=== PATIENT | male | born 1940 | race Caucasian/White ===

== ENCOUNTER → 2019-02-19 06:55 | Outpatient (CLI) | payer MEDICARE, BC, SELFPAY ==
[2019-02-19 09:36] LABS: BUN Creatinine Ratio 16.2 (6-22); Blood Urea Nitrogen 21 mg/dL (9-20); Calcium 9.1 mg/dL (8.4-10.2); Carbon Dioxide 28 mmol/L (22-32); Chloride 103 mmol/L (98-107); Estimated Glomerular Filt Rate 53.3 mL/min (>60); Glucose 102 mg/dL (80-110); HEMOLYSIS < 15 (0-50); Sodium 138 mmol/L (137-145)
== END ==
PROVIDERS: Visit Provider Internal Medicine
DX: I10 Essential (primary) hypertension (principal)
CPT/HCPCS: 36415; 80048

== ENCOUNTER → 2019-03-27 07:54 | Outpatient (CLI) | payer MEDICARE, BC, SELFPAY ==
[2019-03-30 14:32] LABS: Rubeola Measles IgG > 300.00 AU/mL (< 25.00)
== END ==
PROVIDERS: PCP Internal Medicine; Visit Provider Internal Medicine
DX: Z01.84 Encounter for antibody response examination (principal)
CPT/HCPCS: 36415; 86735; 86762; 86765

== ENCOUNTER → 2019-05-27 10:58 | Outpatient (CLI) | payer MEDICARE, BC, SELFPAY ==
--- NOTE | 2019-05-27 | DI.US.S_ITS ---
PROCEDURE: US RENAL COMPLETE INDICATIONS: CKD, UNSPECIFIED TECHNIQUE: Real-time scanning was performed of the kidneys and bladder, with image documentation. COMPARISON: [facility], , RENAL COMPLETE, 02/22/2013, 8:59. FINDINGS: Kidneys: Right kidney surgically absent. Left kidney normal in size measuring 13.3 cm with normal renal cortical thickness of 1.4 cm. No hydronephrosis, nephrolithiasis or mass. Bladder: Pre-void bladder volume is 93 mL. Post-void residual is 102 mL. Pre-void images demonstrate no intraluminal masses or stones. On pre-void images, left ureteral jets are noted with color Doppler interrogation. (Of note, ureteral jets may not be detectable in up to 25% of cases due to insufficient differences in specific gravity between ureteral and bladder urine). Miscellaneous: No free pelvic fluid. IMPRESSION: Normal appearance of the solitary left kidney. Dictated by: Hammad ALVARENGA Interpreted: Jose Gerber MD on 05/27/2019 at 12:48 Approved by: Jose Gerber M.D. on 05/27/2019 at 15:34
== END ==
PROVIDERS: PCP Internal Medicine; Visit Provider Internal Medicine
DX: N18.9 Chronic kidney disease, unspecified (principal); Z90.5 Acquired absence of kidney
CPT/HCPCS: 76770

== ENCOUNTER → 2020-08-16 18:39 | Outpatient (ROUT) | payer MEDICARE, BC, SELFPAY ==
[2020-08-16 19:13] LABS: Aspartate Aminotransferase 32 IU/L (17-59); BUN Creatinine Ratio 19.7 (6-22); Blood Urea Nitrogen 26 mg/dL (9-20); Calcium 8.8 mg/dL (8.4-10.2); Carbon Dioxide 26 mmol/L (22-32); Chloride 106 mmol/L (98-107); Cholesterol 209 mg/dL (140-199); Estimated Glomerular Filt Rate 52.2 mL/min (>60); Glucose 122 mg/dL (80-110); HDL Cholesterol 55 mg/dL (40-60); HEMOLYSIS < 15 (0-50); LDL Cholesterol Calculated 120 mg/dL (<100); Potassium 4.4 mmol/L (3.4-5.1); Sodium 138 mmol/L (137-145); Triglycerides 172 mg/dL (35-150)
== END ==
PROVIDERS: PCP Internal Medicine; Visit Provider Internal Medicine
DX: I10 Essential (primary) hypertension (principal); E78.2 Mixed hyperlipidemia
CPT/HCPCS: 80048; 80061; 84450

== ENCOUNTER → 2020-09-11 09:43 | Outpatient (CLI) | payer MEDICARE, BC, SELFPAY ==
[2020-09-11 12:06] LABS: Prostate Specific Antigen 1.73 ng/mL (0.10-4.00)
== END ==
PROVIDERS: PCP Internal Medicine; Referring Provider Specialist; Visit Provider Specialist
DX: R97.20 Elevated prostate specific antigen [PSA] (principal); N40.1 Benign prostatic hyperplasia with lower urinary tract symptoms; N13.8 Other obstructive and reflux uropathy; Q54.0 Hypospadias, balanic
CPT/HCPCS: 36415; 51798; 81002; 84153; 99214

== ENCOUNTER → 2020-10-19 07:01 | Outpatient (CLI) | payer MEDICARE, BC, SELFPAY ==
[2020-10-19 09:07] LABS: BUN Creatinine Ratio 20.6 (6-22); Blood Urea Nitrogen 28 mg/dL (9-20); Calcium 9.2 mg/dL (8.4-10.2); Carbon Dioxide 29 mmol/L (22-32); Chloride 107 mmol/L (98-107); Estimated Glomerular Filt Rate 50.4 mL/min (>60); Glucose 127 mg/dL (80-110); HEMOLYSIS < 15 (0-50); Potassium 4.8 mmol/L (3.4-5.1); Sodium 140 mmol/L (137-145)
== END ==
PROVIDERS: PCP Internal Medicine; Referring Provider Specialist; Visit Provider Internal Medicine Gastroenterology
DX: Z86.010 Personal history of colon polyps (principal); K22.70 Barrett's esophagus without dysplasia; N18.9 Chronic kidney disease, unspecified
CPT/HCPCS: 36415; 80048

== ENCOUNTER → 2020-12-13 15:52 | Outpatient (CLI) | payer MEDICARE, BC, SELFPAY ==
[2020-12-13] MEDS: COVID-19 VACC #1, MRNA(MOD) 100 MCG/0.5 ML VIAL IM (15:57)
== END ==
PROVIDERS: PCP Internal Medicine; Visit Provider Internal Medicine
DX: Z23 Encounter for immunization (principal)
CPT/HCPCS: 0011A; 91301

== ENCOUNTER → 2021-01-02 10:09 | Outpatient (CLI) | payer MEDICARE, BC, SELFPAY ==
[2021-01-02 11:08] LABS: BUN Creatinine Ratio 15.2 (6-22); Blood Urea Nitrogen 21 mg/dL (9-20); Calcium 8.9 mg/dL (8.4-10.2); Carbon Dioxide 30 mmol/L (22-32); Chloride 104 mmol/L (98-107); Estimated Glomerular Filt Rate 49.5 mL/min (>60); Glucose 104 mg/dL (80-110); HEMOLYSIS < 15 (0-50); Potassium 3.9 mmol/L (3.4-5.1); Sodium 139 mmol/L (137-145)
== END ==
PROVIDERS: PCP Internal Medicine; Referring Provider Internal Medicine Gastroenterology; Visit Provider Internal Medicine Gastroenterology
DX: N18.9 Chronic kidney disease, unspecified (principal)
CPT/HCPCS: 36415; 80048

== ENCOUNTER → 2021-01-10 15:02 | Outpatient (CLI) | payer MEDICARE, BC, SELFPAY ==
[2021-01-10] MEDS: COVID-19 VACC #2, MRNA(MOD) 100 MCG/0.5 ML VIAL IM (15:09)
== END ==
PROVIDERS: PCP Internal Medicine; Visit Provider Internal Medicine
DX: Z23 Encounter for immunization (principal)
CPT/HCPCS: 0012A; 91301

== ENCOUNTER 2021-01-14 08:06 | Inpatient (IN) | payer MEDICARE, BC, SELFPAY ==
[2021-01-14] VITALS (16 sets, daily range): BP systolic 125–156; BP diastolic 63–85; PULSE 73–100; RESP 16–22; TEMP 36.4–37.9; O2SAT 93–98; BMI 23.6
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
[2021-01-14 08:45] LABS: Add Manual Diff / Slide Review NO; Basophils Absolute Auto 100 /uL (0-100); Basophils Percent Auto 0.3 % (0-2); Eosinophils Absolute Auto 200 /uL (0-450); Eosinophils Percent Auto 1.2 % (2-4); Hematocrit 42.8 % (41-53); Hemoglobin 14.4 g/dL (13.5-17.5); Lymphocytes Absolute Auto 1800 /uL (1100-4500); Lymphocytes Percent Auto 10.7 % (25-40); Mean Corpuscular HGB Conc 33.7 % (30-36); Mean Corpuscular Hemoglobin 31.8 PG (26-34); Mean Corpuscular Volume 94.2 fL (80-100); Monocytes Absolute Auto 2100 /uL (0-900); Monocytes Percent Auto 12.5 % (3-14); Neutrophils Absolute Auto 12400 /uL (1500-7000); Neutrophils Percent Auto 75.3 % (50-75); Platelet Count 296 X10^3/uL (150-400); Red Blood Cell Count 4.54 X10^6/uL (4.5-5.9); Red Cell Distribution Width 12.9 % (11.6-14.8); White Blood Cell Count 16.4 X10^3/uL (4.5-11.0)
[2021-01-14] MEDS: SODIUM CHLORIDE 0.9% 1,000 ML 150 ML IV ×3 (08:45→21:46)
[2021-01-14 08:53] LABS: Alanine Aminotransferase 174 IU/L (<50); Albumin 4.1 g/dL (3.5-5.0); Albumin Globulin Ratio 1.1 (1.0-2.8); Alkaline Phosphatase 198 U/L (38-126); Aspartate Aminotransferase 55 IU/L (17-59); BUN Creatinine Ratio 17.4 (6-22); Bilirubin Total 2.4 mg/dL (0.2-1.3); Blood Urea Nitrogen 20 mg/dL (9-20); Calcium 8.9 mg/dL (8.4-10.2); Carbon Dioxide 23 mmol/L (22-32); Chloride 94 mmol/L (98-107); Estimated Glomerular Filt Rate > 60.0 mL/min (>60); Globulin 3.9 g/dL (1.7-4.1); Glucose 140 mg/dL (80-110); HEMOLYSIS 15 (0-50); Lactate (Lactic Acid) 1.1 mmol/L (0.7-2.1); Lipase 573 U/L (23-300); Potassium 3.6 mmol/L (3.4-5.1); Sodium 127 mmol/L (137-145)
--- NOTE | 2021-01-14 09:25 | DI.US.S_ITS ---
PROCEDURE: US ABDOMEN LIMITED INDICATIONS: RUQ PAIN TECHNIQUE: Real-time scanning was performed of the abdominal and retroperitoneal organs, with image documentation. COMPARISON: None. FINDINGS: Liver: Liver is normal in size and homogeneous in echotexture. Gallbladder: Demonstrates focal wall thickening measuring 3.9 mm. No calculi nor sludge. Negative sonographic Ramires's. Biliary ducts: Intrahepatic bile ducts are non-dilated. Extrahepatic bile duct caliber measures 5 mm. Normal is 6-7 mm or less in diameter, or 10 mm or less post-cholecystectomy. Pancreas: Not well seen secondary to bowel gas. IMPRESSION: Mild focal thickening of the gallbladder wall without positive sonographic Ramires sign. Findings may indicate mild/early cholecystitis. Close clinical follow-up with repeat imaging if clinically warranted is recommended for further assessment. Dictated by: Gemma Shah M.D. on 01/14/2021 at 9:58 Approved by: Gemma Shah M.D. on 01/14/2021 at 10:00
[2021-01-14 10:23] LABS: RBC Urine 1-5/HPF (0-5/HPF); WBC Urine 1-5/HPF (0-5/HPF)
[2021-01-14 10:24] LABS: Bacteria Urine Moderate (10-30); Culture Indicated Urine Specimen Cultured; Granular Casts Urine 0-1/LPF; Hyaline Casts Urine 1-5/LPF; Mucus Urine 3+ (Negative); Squamous Epithelial Cell Urine 0-1 /HPF (0-5/HPF)
[2021-01-14 11:55] LABS: COVID19 -Nasal RAPID Negative (Negative)
--- NOTE | 2021-01-14 13:47 | P.HP_ITS ---
History of Present Illness History of Present Illness Date Patient Seen: 01/14/21 Chief complaint: BOWEL BLOCKAGE, 3RD TIME IN 1 MONTH Narrative: the patient is an 80-year-old male with a history of frequent small bowel obstructions, hypertension, hyperlipidemia, Webster's esophagitis who was in his usual state of health until . Patient reports he received COVID vaccine on Friday and starting on developed some mid epigastric pain. He describes having multiple episodes of mid epigastric pain that would typically resolve within 1 day. His midepigastric pain on was severe. Did not seem to improved. Was unrelated to eating. He had nausea but no emes is. He describes having some dry heaves. He had no fever or chills. No hematemesis melena or bright red blood per rectum. The patient denies being short of breath, he denies any chest pain, he has no dysuria hematuria or pyuria. Patient presented to the emergency room as he was concerned he had a recurrent small-bowel obstruction. In the emergency room he was evaluated with CT scan and laboratory studies. His lipase was elevated at 580, [place] [address]. [address] scan of the abdomen and pelvis confirmed acute pancreatitis. The patient underwent an abdominal ultrasound which showed a thickening of the gallbladder. Dr. Perry from surgery was consulted and it was felt that there was no surgical indication at this time. In the patient is admitted to the hospital for treatment of acute pancreatitis. Patient History Medical History BPH w urinary obs/LUTS GERD (gastroesophageal reflux disease) Glanular hypospadias Surgical History H/O breast biopsy H/O prostate biopsy H/O vasectomy History of nephrectomy Hx of circumcision Family & Social History Family History Brother Age: 79 Heart disease Social History: household members spouse Prior Living Arrangements House Safety & Behavioral: Feels Safe in Current Yes Environment Been Physically Hurt or No Threatened By a Person Suicidal Ideation Description None Suicide Plan Description No Plan Tobacco & Substance use: Smoking Status Former smoker alcohol intake current alcohol intake frequency 0-2 drinks per day Substance Use Type does not use Meds Home Medications and Allergies Home Medications Medication Instructions Recorded Confirmed Type triamcinolone acetonide 2 - 4 yanni TOPICAL Q DAY PRN PRN #0 10/05/17 01/14/21 History lansoprazole 30 mg PO BID #90 cap 10/08/17 01/14/21 Rx lisinopril-hydrochlorothiazide 1 tab PO QDAY #90 tab 10/08/17 01/14/21 Rx simvastatin 20 mg tablet 20 mg PO HS #30 tab 12/08/18 01/14/21 Rx aspirin 81 mg tablet,delayed 81 mg PO DAILY 09/11/20 01/14/21 History release potassium chloride 20 mEq 10 meq PO DAILY 09/11/20 01/14/21 History tablet,extended release famotidine [Pepcid] 40 mg PO BEDTIME 01/14/21 01/14/21 History metoprolol succinate [Toprol XL] 25 mg PO BEDTIME 01/14/21 01/14/21 History Allergies Allergy/AdvReac Type Severity Reaction Status Date / Time No Known Drug Allergies Allergy Verified 09/11/20 08:54 Review of Systems Review of Systems ROS: Yes All systems reviewed with the patient and are negative except as otherwise documented Exam Vital Signs (past 8 hours): - 01/14/21 08:42 01/14/21 09:10 01/14/21 09:17 Temperature 97.6 F Pulse Rate 100 H 86 88 Respiratory Rate 16 Blood Pressure 151/85 H 134/63 Pulse Oximetry 98 98 96 01/14/21 09:30 01/14/21 10:00 01/14/21 10:30 Temperature Pulse Rate 85 83 83 Respiratory Rate Blood Pressure 145/67 H 144/66 H 146/67 H Pulse Oximetry 94 95 95 01/14/21 10:45 01/14/21 11:00 Temperature Pulse Rate 85 85 Respiratory Rate Blood Pressure 156/72 H 146/65 H Pulse Oximetry 95 94 Oxygen Delivery Method Room Air Narrative Exam Narrative: Pleasant elderly male lying in bed HEENT: Normocephalic atraumatic, extraocular muscles are intact oropharynx is clear, neck is supple, shotty anterior cervical adenopathy, no posterio r cervical adenopathy lungs: Clear to auscultation cardiac exam: Regular rate and rhythm normal S1-S2 with a 2/6 systolic ejectio n murmur abdomen: Soft, tender in the midepigastrium, mild tenderness in the right upper quadrant, no rebound tenderness, no board-like rigidity, no palpable mass extremities: No edema neuro exam: The patient is wake alert and oriented, cranial nerves are intact, strength is symmetric and equal, sensations grossly intact gait is not assessed Objective Labs Result Diagrams: 01/14/21 08:30 01/14/21 08:30 Labs: Laboratory Results - last 24 hr 01/14/21 01/14/21 01/14/21 08:30 08:30 08:30 WBC 16.4 H RBC 4.54 Hgb 14.4 Hct 42.8 MCV 94.2 MCH 31.8 MCHC 33.7 RDW 12.9 Plt Count 296 Neut % (Auto) 75.3 H Lymph % (Auto) 10.7 L [place] % (Auto) 12.5 Eos % (Auto) 1.2 L Baso % (Auto) 0.3 Neut # (Auto) 68514 H Lymph # (Auto) 1800 [place] # (Auto) 2100 H Eos # (Auto) 200 Baso # (Auto) 100 Sodium 127 L Potassium 3.6 Chloride 94 L Carbon Dioxide 23 BUN 20 Creatinine 1.15 Estimated GFR > 60.0 BUN/Creatinine Ratio 17.4 Glucose 140 H Lactate 1.1 Calcium 8.9 Total Bilirubin 2.4 H AST 55 ALT 174 H Alkaline Phosphatase 198 H Total Protein 8.0 Albumin 4.1 Globulin 3.9 Albumin/Globulin Ratio 1.1 Lipase 573 H Urine RBC Urine WBC Ur Squamous Epith Cells Urine Bacteria Hyaline Casts Granular Casts Urine Mucus Ur Culture Indicated? SARS-CoV-2 (PCR) 01/14/21 01/14/21 08:50 11:30 WBC RBC Hgb Hct MCV MCH MCHC RDW Plt Count Neut % (Auto) Lymph % (Auto) [place] % (Auto) Eos % (Auto) Baso % (Auto) Neut # (Auto) Lymph # (Auto) [place] # (Auto) Eos # (Auto) Baso # (Auto) Sodium Potassium Chloride Carbon Dioxide BUN Creatinine Estimated GFR BUN/Creatinine Ratio Glucose Lactate Calcium Total Bilirubin AST ALT Alkaline Phosphatase Total Protein Albumin Globulin Albumin/Globulin Ratio Lipase Urine RBC 1-5/hpf Urine WBC 1-5/hpf Ur Squamous Epith Cells 0-1 /hpf Urine Bacteria Moderate (10-30) H Hyaline Casts 1-5/lpf Granular Casts 0-1/lpf Urine Mucus 3+ H Ur Culture Indicated? Specimen cultured SARS-CoV-2 (PCR) Negative Assessment & Plan Assessment & Plan narrative: impression 1. 80-year-old male admitted to the hospital for acute pancreatitis - patient reports drinking 1 glass a wine per night. There was no evidence of excessive alcoholism making alcohol unlikely a etiology of his pancreatitis - patient currently is on a statin, will check lipids although this seems less likely as an etiology as well - CT scan of the abdomen and pelvis revealed: - Acute pancreatitis. No peripancreatic fluid collection to indicate abscess.2. Large hiatal hernia. - ultrasound reveals thickened gallbladder but no biliary ductal dilatation - [place] [address], elevated lipase of 580 - patient will be made NPO, except for medications, given IV fluids, and a ntiemetics - consider MRCP tomorrow if symptoms persist 2. Webster's esophagitis - patient noted to have a hiatal hernia on CT - will continue PPI and Pepcid which she takes at home 3. hypertension - continue lisinopril and metoprolol 4. hyponatremia - likely secondary to hydrochlorothiazide and his lisinopril hydrochlorothiazide 5. hyperlipidemia will check fasting lipid given his pancreatitis patient is a full code will note that his record his who is at his bedside is his surrogate decision maker patient is placed on DVT prophylaxis patient is admitted as an inpatient anticipating greater than 48 hour length of stay Quality VTE Deep Vein Thrombosis/Pulmonary Embolism Present on Admission: No
--- NOTE | 2021-01-14 14:03 | PC.NURSE ---
Patient alert, oriented rates upper abdominal pain 4/10, denies nausea, declines need for pain medication at this time. Patient remains NPO. Oriented to room and call light.
[2021-01-14] MEDS: ACETAMINOPHEN 325 MG TABLET 650 MG PO ×2 (16:42→22:49)
[2021-01-14] MEDS: LANSOPRAZOLE 30 MG 30 EACH PO (21:45)
[2021-01-14] MEDS: SIMVASTATIN 20 MG TABLET PO (21:45)
[2021-01-14] MEDS: FAMOTIDINE 20 MG TABLET 40 MG PO (21:45)
[2021-01-14] MEDS: METOPROLOL ER 50 MG TABLET 25 MG PO (21:45)
--- NOTE | 2021-01-14 22:52 | PC.NURSE ---
Assumed care of pt at 1500. Pt resting bed during bedside hand-off. A/Ox4. IVF infusing per orders. NPO. Pt declined oral care/swabs. Temp 100.3F; medicated with tylenol; decreased to 99.1. Temp returned to 100.1. Provider notified. Rec VTO to change tylenol from q6 hrs prn to q 4 hrs prn. Medicated with tylenol per jan.
[2021-01-15] VITALS (9 sets, daily range): BP systolic 139–148; BP diastolic 67–77; PULSE 65–70; RESP 16–18; TEMP 36.2–37.4; O2SAT 93–98
[2021-01-15] MEDS: SODIUM CHLORIDE 0.9% 1,000 ML 150 ML IV (04:30)
[2021-01-15 05:05] LABS: Add Manual Diff / Slide Review NO; Basophils Absolute Auto 100 /uL (0-100); Basophils Percent Auto 0.6 % (0-2); Eosinophils Absolute Auto 600 /uL (0-450); Eosinophils Percent Auto 5.2 % (2-4); Hematocrit 38.2 % (41-53); Hemoglobin 12.9 g/dL (13.5-17.5); Lymphocytes Absolute Auto 1500 /uL (1100-4500); Lymphocytes Percent Auto 13.4 % (25-40); Mean Corpuscular HGB Conc 33.8 % (30-36); Mean Corpuscular Hemoglobin 32.2 PG (26-34); Mean Corpuscular Volume 95.4 fL (80-100); Monocytes Absolute Auto 1300 /uL (0-900); Monocytes Percent Auto 11.1 % (3-14); Neutrophils Absolute Auto 7900 /uL (1500-7000); Neutrophils Percent Auto 69.7 % (50-75); Platelet Count 263 X10^3/uL (150-400); Red Cell Distribution Width 12.9 % (11.6-14.8); White Blood Cell Count 11.3 X10^3/uL (4.5-11.0)
[2021-01-15 05:16] LABS: Alanine Aminotransferase 102 IU/L (<50); Albumin 3.1 g/dL (3.5-5.0); Albumin Globulin Ratio 0.9 (1.0-2.8); Alkaline Phosphatase 133 U/L (38-126); Aspartate Aminotransferase 41 IU/L (17-59); BUN Creatinine Ratio 16.2 (6-22); Bilirubin Total 1.4 mg/dL (0.2-1.3); Blood Urea Nitrogen 16 mg/dL (9-20); Calcium 8.3 mg/dL (8.4-10.2); Carbon Dioxide 27 mmol/L (22-32); Chloride 106 mmol/L (98-107); Estimated Glomerular Filt Rate > 60.0 mL/min (>60); Globulin 3.4 g/dL (1.7-4.1); Glucose 92 mg/dL (80-110); HEMOLYSIS < 15 (0-50); Potassium 4.1 mmol/L (3.4-5.1); Sodium 136 mmol/L (137-145); Total Protein 6.5 g/dL (6.3-8.2)
[2021-01-15 05:18] LABS: Cholesterol 112 mg/dL (140-199); HDL Cholesterol 27 mg/dL (40-60); LDL Cholesterol Calculated 66 mg/dL (<100); Triglycerides 93 mg/dL (35-150)
--- NOTE | 2021-01-15 06:40 | PC.NURSE ---
Pt alert and oriented x4. Voiding to urinal without issues. Pt denies any pain throughout the night. Ab slightly tender with touch and slightly distended. Fever at start of shift resolved with tylenol. Pt has no complaints
[2021-01-15] MEDS: LANSOPRAZOLE 30 MG 30 EACH PO (09:00)
[2021-01-15] MEDS: ENOXAPARIN 40 MG/0.4 ML SYRINGE SUBCUT (09:00)
[2021-01-15] MEDS: ASPIRIN EC 81 MG TABLET PO (09:00)
[2021-01-15] MEDS: hydroCHLOROthiazide 25 MG TABLET PO (09:00)
[2021-01-15] MEDS: lisinopriL 20 MG TABLET PO (09:01)
[2021-01-15] MEDS: POTASSIUM CHLORIDE 20 MEQ TAB 10 MEQ PO (09:02)
--- NOTE | 2021-01-15 17:05 | PC.NURSE ---
Addendum entered by Maine Head R.N. 01/15/21 18:42: Pt tolerated soft dinner w/o incidence. Order received to discharge, HL discontinued intact. Home instructions given to pt & spouse w/apparent understanding. Pt escorted by staff via W/C to waiting vehicle. Discharged in stable condition. Original Note: Pt denies any discomfort at this time Abdomen soft, non tender BT + HL right hand intact/patent Refusing SCD, pt up independently in room Call light w/in reach, pt calls appropriately for needs.
--- NOTE | 2021-01-15 17:42 | P.DS_ITS ---
History of Present Illness History of Present Illness Date Patient Seen: 01/15/21 Time Patient Seen: 17:42 Chief complaint: BOWEL BLOCKAGE, 3RD TIME IN 1 MONTH Narrative: Per Dr. Mckeon, the patient is an 80-year-old male with a history of frequent small bowel obstructions, hypertension, hyperlipidemia, Webster's esophagitis who was in his usual state of health until . Patient reports he received COVID vaccine on Friday and starting on developed some mid epigastric pain. He describes having multiple episodes of mid epigastric pain that would typically resolve within 1 day. His midepigastric pain on was severe. Did not seem to improved. Was unrelated to eating. He had nausea but no emesis. He de scribes having some dry heaves. He had no fever or chills. No hematemesis melena or bright red blood per rectum. The patient denies being short of breath, he denies any chest pain, he has no dysuria hematuria or pyuria. Patient presented to the emergency room as he was concerned he had a recurrent small-bowel obstruction. In the emergency room he was evaluated with CT scan and laboratory studies. His lipase was elevated at 580, [place] [address]. CT scan of the abdomen and pelvis confirmed acute pancreatitis. The patient underwent an abdominal ultrasound which showed a thickening of the gallbladder. Dr. Perry from surgery was consulted and it was felt that there was no surgical indication at this time. In the patient is admitted to the hospital for treatment of acute pancreatitis. Discharge Providers Provider Date of admission: 01/14/21 11:26 Discharge Date: 01/15/21 Primary care physician: Edmund Red MD Discharge provider: Last Hammond DO Summary Hospital Course Discharge Diagnosis: 1. acute pancreatitis, unclear etiology, resolving. 2. Webster's esophagitis, chronic 3. hypertension, chronic 4. hyponatremia, acute, present on admission resolved. 5. hyperlipidemia, chronic Hospital Course: Choco Montanez is an 80-year-old male with a past medical history hypertension, Webster's esophagus, and hyperlipidemia who was admitted with epigastric abdominal pain secondary to pancreatitis which was confirmed on CT imaging. He also had a mildly elevated bilirubin, AST an ALT (ALT higher), and alkaline phosphatase. CT scan did not show evidence of biliary dilatation and abdominal ultrasound was also unremarkable. The patient does consume alcohol and he was advised to cut down, but this does feel less likely as a cause given his laboratory evaluation on admission. His bilirubin and liver enzymes improved the following day with initial conservative management of no thing by mouth and IV fluids. He improved much more quickly than expected and by the evening after admission he was tolerating his usual low-fiber diet without abdominal pain, nausea, or vomiting. He was discharged home at that time. I recommend he follow up with his PCP. Recommend PCP considering surgery referral for cholecystectomy given initial presentation, however he did have negative CT and ultrasound imaging although given improvement the following day MRI imaging was not obtained. Status at Discharge Cognitive/behavioral status at discharge: oriented Functional status at discharge: independent ambulation Overall status at discharge: patient is back to baseline Time Spent with Patient Time spent: Greater than 30 minutes Exam Vital Signs (past 8 hours): - 01/15/21 11:50 01/15/21 16:00 01/15/21 16:05 Temperature 97.5 F L 99.4 F Pulse Rate 65 65 Respiratory Rate 16 18 Blood Pressure 142/77 H 144/69 H Pulse Oximetry 95 98 94 Oxygen Delivery Method Room Air Oxygen Flow Rate 0 Narrative Exam Narrative: Pleasant elderly male lying in bed HEENT: Normocephalic atraumatic, extraocular muscles are intact oropharynx is clear, neck is supple, no cervical adenopathy lungs: Clear to auscultation bilaterally. cardiac exam: Regular rate and rhythm normal S1-S2 with a 2/6 systolic ejection murmur abdomen: Soft, non-tender non-distended. extremities: No edema or effusions. neuro exam: The patient is wake alert and oriented, cranial nerves are intact, strength is symmetric and equal, sensations grossly intact gait is normal. Objective Labs Result Diagrams: 01/15/21 04:50 01/15/21 04:50 Labs: Laboratory Results - last 24 hr 01/15/21 01/15/21 01/15/21 04:50 04:50 04:50 WBC 11.3 H RBC 4.00 L Hgb 12.9 L Hct 38.2 L MCV 95.4 MCH 32.2 MCHC 33.8 RDW 12.9 Plt Count 263 Neut % (Auto) 69.7 Lymph % (Auto) 13.4 L [place] % (Auto) 11.1 Eos % (Auto) 5.2 H Baso % (Auto) 0.6 Neut # (Auto) 7900 H Lymph # (Auto) 1500 [place] # (Auto) 1300 H Eos # (Auto) 600 H Baso # (Auto) 100 Sodium 136 L Potassium 4.1 Chloride 106 Carbon Dioxide 27 BUN 16 Creatinine 0.99 Estimated GFR > 60.0 BUN/Creatinine Ratio 16.2 Glucose 92 Calcium 8.3 L Total Bilirubin 1.4 H AST 41 ALT 102 H Alkaline Phosphatase 133 H Total Protein 6.5 Albumin 3.1 L Globulin 3.4 Albumin/Globulin Ratio 0.9 L Triglycerides 93 Cholesterol 112 L LDL Cholesterol, Calc 66 HDL Cholesterol 27 L PFSH Medical History BPH w urinary obs/LUTS GERD (gastroesophageal reflux disease) Glanular hypospadias Surgical History H/O breast biopsy H/O prostate biopsy H/O vasectomy History of nephrectomy Hx of circumcision Family History Brother Age: 79 Heart disease Social History household members: spouse Smoking Status: Former smoker alcohol intake: current Discharge Plan Discharge Plan Patient Disposition: Home Provider Discharge Comment: You were admitted to the hospital with acute pancreatitis. Based on your blood work it appears that it may be related to a gallstone, however all imaging was unremarkable. Given your improvement in symptoms no further evaluation with MRCP was deemed necessary. Consider following up with a general surgeon as an outpatient to consider removing your gallbladder or potentially seeing if this recurs. I recommend you follow-up with your primary care provider in the next week or 2. Discharge orders & Medications Prescriptions: Continued triamcinolone acetonide 0.1 % cream 2 - 4 yanni Topical Q DAY PRN PRN (Reason: Itching) Qty: 0 RF: 0 lansoprazole 30 MG capsule,delayed release(DR/EC) 30 mg PO BID Qty: 90 RF: 3 lisinopril-hydrochlorothiazide 20 MG/25 MG tablet 1 tab PO QDAY Qty: 90 RF: 3 simvastatin 20 mg tablet 20 mg PO HS Qty: 30 RF: 0 metoprolol succinate [Toprol XL] 50 MG tablet extended release 24 hr 25 mg PO BEDTIME RF: 0 famotidine [Pepcid] 40 mg Tablet 40 mg PO BEDTIME RF: 0 aspirin 81 mg tablet,delayed release (DR/EC) 81 mg PO DAILY RF: 0 potassium chloride 20 mEq tablet extended release 10 meq PO DAILY RF: 0 Follow up/Referrals: Edmund Red MD [Primary Care Provider] - Diet/Activity/Treatments Diet: Diet as Tolerated and Low-fat Diet comment: Low Fiber Activity: As tolerated Discharge Data Primary Care Provider: Edmund Red V Quality VTE Deep Vein Thrombosis/Pulmonary Embolism Present on Admission: No
--- NOTE | 2021-01-16 08:27 | CM.DANOTE ---
DCP ASSESSMENT: Patient is a pleasant 80 year-old male who was admitted to the hospital for treatment of acute pancreatitis, he has a history of bowel blockages. Primary PCP is Edmund Red. Primary payer is Medicare & BS Out of [facility]. Per MD will begin advancing his diet today if he is able to tolerate potential D/C home tomorrow. 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 Provided education on role of social work and discharge planning. Patient reported he is independent at baseline including driving and maintaining their properties. Patient and anticipate D/C home, will provide transportation at time of D/C. PLAN: Anticipate D/C home when medically stable. CM Team to continue to follow. THOM Alaniz MSW Student
--- NOTE | 2021-01-16 08:31 | CM.DPC ---
DCP ASSESSMENT: Late Entry for 01/15/21 Patient is a pleasant 80 year-old male who was admitted to the hospital for treatment of acute pancreatitis, he has a history of bowel blockages. Primary PCP is Edmund Red. Primary payer is Medicare & BS Out of [facility]. Per MD will begin advancing his diet today if he is able to tolerate potential D/C home tomorrow. THOM and THOM Student met with patient?s and patient at bedside he is alert and oriented. Provided education on role of social work and discharge planning. Patient reported he is independent at baseline including driving and maintaining their properties. Patient and anticipate D/C home, will provide transportation at time of D/C. PLAN: Anticipate D/C home when medically stable. CM Team to continue to follow. THOM Alaniz MSW Student Discharge Planning/Care Management CM Discharge Assessment Start: 01/15/21 11:31 Freq: Status: Discharge Protocol: Document 01/15/21 11:31 AL (Rec: 01/15/21 11:33 AL [id number]) Discharge Planning Assessment Assigned Manager Motor THOM Wise Student Contact Information Rubio Montanez, # [phone] Advance Directives? No Advance Directives on File No History Provided By Patient,Family Member,Medical Record Has Patient been admitted in last 30 No days? Prior Living Arrangements House Household Members spouse Type of transporation used prior to Drives own vehicle admit Independent with ADL's Yes Is patient alert and oriented? Yes Caregiver for Another No Barriers to Discharge No Discharge Plan Home Transportation Arrangement will provide transportation home Whiteboard Updated in Patient Room with Yes name and ext. # of Manager Motor Review Status In Process
== END 2021-01-15 18:40 | disposition home or self-care (01) | DRG 439 ==
LOC: ED 11:27 → AC 11:27
PROVIDERS: Admitting Provider Internal Medicine; Emergency Provider Emergency Medicine; PCP Internal Medicine; Referring Provider Emergency Medicine; Visit Provider Internal Medicine
DX: K85.90 Acute pancreatitis without necrosis or infection, unspecified (principal); E87.1 Hypo-osmolality and hyponatremia; K22.70 Barrett's esophagus without dysplasia; I10 Essential (primary) hypertension; E78.5 Hyperlipidemia, unspecified; Z20.822 Contact with and (suspected) exposure to COVID-19
CPT/HCPCS: 36415; 74177; 76705; 80053; 80061; 81003; 81015; 83605; 83690; 85025; 87077; 87086; 87635; 96360; 96361; 99283; 99284; C9803; A9270; J1650; Q9967

== ENCOUNTER 2021-07-26 13:12 | Inpatient (IN) | payer MEDICARE, BC, SELFPAY ==
[2021-01-14 11:55] VITALS: BMI 23.6
[2021-07-26] VITALS (12 sets, daily range): BP systolic 148–223; BP diastolic 70–104; PULSE 56–94; RESP 16–27; TEMP 36.3–37; O2SAT 93–100; BMI 24.3
[2021-07-26 14:17] LABS: Add Manual Diff / Slide Review NO; Basophils Absolute Auto 0 /uL (0-100); Basophils Percent Auto 0.2 % (0-2); Eosinophils Absolute Auto 0 /uL (0-450); Hematocrit 52.8 % (41-53); Hemoglobin 16.9 g/dL (13.5-17.5); Lymphocytes Absolute Auto 1100 /uL (1100-4500); Lymphocytes Percent Auto 6.1 % (25-40); Mean Corpuscular HGB Conc 32.1 % (30-36); Mean Corpuscular Hemoglobin 30.9 PG (26-34); Mean Corpuscular Volume 96.4 fL (80-100); Monocytes Absolute Auto 1200 /uL (0-900); Neutrophils Absolute Auto 15400 /uL (1500-7000); Neutrophils Percent Auto 86.7 % (50-75); Platelet Count 282 X10^3/uL (150-400); Red Blood Cell Count 5.48 X10^6/uL (4.5-5.9); Red Cell Distribution Width 13.7 % (11.6-14.8); White Blood Cell Count 17.7 X10^3/uL (4.5-11.0)
[2021-07-26 14:27] LABS: Alanine Aminotransferase 141 IU/L (<50); Albumin 4.7 g/dL (3.5-5.0); Albumin Globulin Ratio 1.2 (1.0-2.8); Alkaline Phosphatase 100 U/L (38-126); Aspartate Aminotransferase 149 IU/L (17-59); BUN Creatinine Ratio 16.4 (6-22); Bilirubin Total 2.2 mg/dL (0.2-1.3); Blood Urea Nitrogen 25 mg/dL (9-20); Calcium 9.4 mg/dL (8.4-10.2); Carbon Dioxide 24 mmol/L (22-32); Chloride 103 mmol/L (98-107); Estimated Glomerular Filt Rate 44.2 mL/min (>60); Globulin 3.8 g/dL (1.7-4.1); Glucose 193 mg/dL (80-110); HEMOLYSIS < 15 (0-50); Potassium 4.2 mmol/L (3.4-5.1); Sodium 140 mmol/L (137-145); Total Protein 8.5 g/dL (6.3-8.2)
[2021-07-26 14:46] LABS: Lipase 17854 U/L (23-300)
--- NOTE | 2021-07-26 16:16 | DI.US.S_ITS ---
PROCEDURE: US ABDOMEN LIMITED INDICATIONS: RUQ US eval for GB pathology TECHNIQUE: Real-time scanning was performed of the abdominal and retroperitoneal organs, with image documentation. COMPARISON: [facility], US, US ABDOMEN LIMITED, 01/14/2021, 10:11. FINDINGS: Liver: Evaluation limited by overlying bowel gas. Left lobe not visualized. Gallbladder: Small shadowing calculi noted. Gallbladder wall is upper limits of normal at 3.5 mm. No pericholecystic fluid. Common Bile Duct: 3.6 mm. Pancreas: Nonvisualized IMPRESSION: 1. Limited evaluation by overlying bowel gas 2. Gallbladder distention, cholelithiasis and minimal gallbladder wall thickening without pericholecystic fluid. Consider follow-up HIDA scan if acute cholecystitis is a clinical Approved by: Ranjith Spear M.D. on 07/26/2021 at 16:39
[2021-07-26] MEDS: HYDROMORPHONE 0.5 MG INJ IV ×2 (16:28→18:09)
[2021-07-26] MEDS: SODIUM CHLORIDE 0.9% 1,000 ML 150 ML IV (16:28)
--- NOTE | 2021-07-26 16:49 | ED_ITS ---
HPI - General Adult General Chief complaint: Abdominal Pain Stated complaint: Severe abd pain Time Seen by Provider: 07/26/21 16:16 Source: patient Mode of arrival: Ambulatory History of Present Illness HPI narrative: 80-year-old male. Was seen in December by myself and admitted to the hospital for pancreatitis. Was discharged a couple days later after symptoms/labs improved. Has not followed up with General surgery since then but has seen his primary doctor. He is taking all his medications as directed. He states that today he was standing in line at a local store where he had a fairly sudden onset of upper abdominal discomfort. Has been consistent since then. He has vomited a couple times which did not change any of his discomfort. No fevers. No urinary symptoms. Did not have a bowel movement this morning which he normally has on a daily basis in the morning. He has had bowel obstructions in the past but he states that the symptoms and brought him in today are more consistent with the episode of pancreatitis that he had back in December than his prior history of bowel obstructions. He does drink alcohol on a daily basis. States he drinks 1.5 glasses of wine every afternoon. Related Data Home Medications Medication Instructions Recorded Confirmed triamcinolone acetonide 0.1 % 2 - 4 yanni TOPICAL Q DAY PRN PRN #0 10/05/17 01/14/21 topical cream aspirin 81 mg tablet,delayed 81 mg PO DAILY 09/11/20 01/14/21 release potassium chloride 20 mEq 10 meq PO DAILY 09/11/20 01/14/21 tablet,extended release famotidine 40 mg tablet (Pepcid) 40 mg PO BEDTIME 01/14/21 01/14/21 metoprolol succinate 50 mg 25 mg PO BEDTIME 01/14/21 01/14/21 tablet,extended release 24 hr (Toprol XL) Previous Rx's Medication Instructions Recorded lansoprazole 30 mg capsule,delayed 30 mg PO BID #90 cap 10/08/17 release lisinopril 20 1 tab PO QDAY #90 tab 10/08/17 mg-hydrochlorothiazide 25 mg tablet simvastatin 20 mg tablet 20 mg PO HS #30 tab 12/08/18 Allergies Allergy/AdvReac Type Severity Reaction Status Date / Time No Known Drug Allergies Allergy Verified 07/26/21 14:08 Review of Systems Constitutional Constitutional: Denies fever(s) ENT Ears, Nose, Mouth, and Throat: Denies sore throat Cardiovascular Cardiovascular: Denies chest pain Respiratory Respiratory: Denies system reviewed and no additional complaints, except as documented Gastrointestinal Gastrointestinal: Reports as per HPI Genitourinary Genitourinary: Reports system reviewed and no additional complaints, except as documented Musculoskeletal Musculoskeletal: Reports system reviewed and no additional complaints, except as documented Integumentary/Breasts Skin/Breast: Reports system reviewed and no additional complaints, except as documented Neurologic Neurologic: Reports system reviewed and no additional complaints, except as documented Hematologic/Lymphatic On Anticoagulants: No Allergic/Immunologic Allergic/Immunologic: Reports system reviewed and no additional complaints, except as documented Patient History Medical History BPH w urinary obs/LUTS GERD (gastroesophageal reflux disease) Glanular hypospadias Surgical History H/O breast biopsy H/O prostate biopsy H/O vasectomy History of nephrectomy Hx of circumcision Family History Brother Age: 80 Heart disease Social History household members: spouse Smoking Status: Former smoker alcohol intake: current Smoking Status: Former smoker alcohol intake frequency: 0-2 drinks per day Substance Use Type: does not use Exam Initial Vital Signs Initial Vital Signs: Vital Signs Temperature 98.6 F 07/26/21 13:50 Pulse Rate 56 L 07/26/21 13:50 Respiratory Rate 17 07/26/21 13:50 Blood Pressure 148/70 H 07/26/21 13:50 Pulse Oximetry 96 07/26/21 13:50 Const General: cooperative and healthy appearing [facility] Head: normal to inspection and normocephalic Eyes General: appearance normal, both eyes and all related structures Resp Effort & Inspection: normal respiratory effort Auscultation: clear to auscultation bilaterally Cardio Rate: regular rate Rhythm: regular rhythm GI Inspection: normal to inspection Palpation: soft, No guarding, No rigid and tender (Epigastric and bilateral upper quadrants) Skin General: no rashes or lesions noted Neuro General: patient alert, patient awake, patient oriented x3 and moves all extremities Extrem General: normal to inspection Psych Appearance: grossly normal and well kempt Scores GCS Margo coma scale eye opening: Spontaneous Margo coma scale verbal response: Orientated Margo coma scale motor response: Obey commands [place] coma scale total score: 15 Course Orders Ordered: ED Orders 07/26/21 14:04 Comprehensive Metabolic Panel Stat Lipase Stat 07/26/21 14:09 EKG-12 Lead Stat 07/26/21 14:11 Complete Blood Count AUTO DIFF Stat 07/26/21 16:16 US abdomen limited Stat 07/26/21 16:40 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) Stat Sodium Chloride (Normal Saline 0.9%) 1,000 mls @ 150 mls/hr IV CONT JOSE Last Admin: 07/26/21 16:28 Dose: 150 mls/hr Documented by: ANAND Discontinued Medications Hydromorphone HCl (Hydromorphone 0.5 Mg Inj) 0.5 mg IV NOW ONE Stop: 07/26/21 16:23 Last Admin: 07/26/21 16:28 Dose: 0.5 mg Documented by: ANAND Ketorolac Tromethamine (Ketorolac 30 Mg/Ml Vial) 30 mg IV NOW ONE Stop: 07/26/21 17:30 Last Admin: 07/26/21 17:37 Dose: 30 mg Documented by: ANAND Vital Signs Vital signs: Vital Signs - 8 hr 07/26/21 13:50 07/26/21 16:31 Temperature 98.6 F Pulse Rate 56 L 58 L Respiratory Rate 17 27 H Blood Pressure 148/70 H 216/101 H Pulse Oximetry 96 98 Medical Decision Making Lab Data Lab results reviewed: Yes I reviewed the patient's lab results. Result diagrams: 07/26/21 14:11 07/26/21 14:04 Labs: Lab Results 07/26/21 07/26/21 Range/Units 14:04 14:11 WBC 17.7 H (4.5-11.0) X10^3/uL RBC 5.48 (4.5-5.9) X10^6/uL Hgb 16.9 (13.5-17.5) g/dL Hct 52.8 (41-53) % MCV 96.4 (80-100) fL MCH 30.9 (26-34) PG MCHC 32.1 (30-36) % RDW 13.7 (11.6-14.8) % Plt Count 282 (150-400) X10^3/uL Neut % (Auto) 86.7 H (50-75) % Lymph % (Auto) 6.1 L (25-40) % [place] % (Auto) 7.0 (3-14) % Eos % (Auto) 0.0 L (2-4) % Baso % (Auto) 0.2 (0-2) % Neut # (Auto) 09770 H (9998-8945) /uL Lymph # (Auto) 1100 (3311-5376) /uL [place] # (Auto) 1200 H (0-900) /uL Eos # (Auto) 0 (0-450) /uL Baso # (Auto) 0 (0-100) /uL Sodium 140 (137-145) mmol/L Potassium 4.2 (3.4-5.1) mmol/L Chloride 103 (98-107) mmol/L Carbon Dioxide 24 (22-32) mmol/L BUN 25 H (9-20) mg/dL Creatinine 1.52 H (0.66-1.25) mg/dL Estimated GFR 44.2 L (>60) mL/min BUN/Creatinine Ratio 16.4 (6-22) Glucose 193 H (80-110) mg/dL Calcium 9.4 (8.4-10.2) mg/dL Total Bilirubin 2.2 H (0.2-1.3) mg/dL AST 149 H (17-59) IU/L ALT 141 H (<50) IU/L Alkaline Phosphatase 100 (38-126) U/L Total Protein 8.5 H (6.3-8.2) g/dL Albumin 4.7 (3.5-5.0) g/dL Globulin 3.8 (1.7-4.1) g/dL Albumin/Globulin Ratio 1.2 (1.0-2.8) Lipase 99484 H (23-300) U/L Imaging Data US - abdomen: Radiologist's Impression: [address] [address] Ultrasound Report Signed Patient: Choco Montanez MR#: [id number] : 1940 Acct:[id number] Age/Sex: 80 / M Date of Service: 09/09/21 Loc: ED Accession Number: [id number] ?? Procedure: US abdomen limited Ordering Provider: Dimitrios Banegas D.O. PROCEDURE:? US ABDOMEN LIMITED ? INDICATIONS:? RUQ US eval for GB pathology ? TECHNIQUE:? Real-time scanning was performed of the abdominal and retroperitoneal organs, with image documentation.? ? COMPARISON:? [facility], , US ABDOMEN LIMITED, 01/14/2021, 10:11. ? FINDINGS: ? Liver:? Evaluation limited by overlying bowel gas.? Left lobe not visualized. ? Gallbladder:? Small shadowing calculi noted.? Gallbladder wall is upper limits of normal at 3.5 mm.? No pericholecystic fluid. ? Common Bile Duct:? 3.6 mm. ? Pancreas:? Nonvisualized ? IMPRESSION: ? 1. Limited evaluation by overlying bowel gas 2. Gallbladder distention, cholelithiasis and minimal gallbladder wall thickening without pericholecystic fluid.? Consider follow-up HIDA scan if acute cholecystitis is a clinical ? ? Approved by: Ranjith Spear M.D. on 07/26/2021 at 16:39? ECG Data Attestation: I personally reviewed and interpreted this ECG as follows: Interpretation: Sinus rhythm Ventricular3 rate is 62 Normal axis Normal QRS Normal QTC No ST T wave changes MDM Narrative Medical decision making narrative: Patient does have a leukocytosis and also an elevated lipase consistent with pancreatitis. Also considered bowel obstruction but patient states that his symptoms today are more consistent with his prior history of pancreatitis than his prior history of bowel obstructions. Does have elevations in his LFTs however there relatively unchanged from December. Also has an elevated bilirubin but this is unchanged from December. I did discuss the case with Dr. Perry who is on-call for general surgery recommended patient be admitted for acute pancreatitis. No indication for acute surgical inter vention. Discussed the case with Dr. Keating on-call for Internal Medicine who will admit for further evaluation and treatment. I also discussed the findings of the labs in the radiologic studies with the patient. We did discuss the need for admission in the hospital he expressed understanding and agreement. Discharge Plan Departure Patient Disposition: Admitted As Inpatient Clinical Impression: Pancreatitis Admit Date/Time: 07/26/21 18:07
[2021-07-26] MEDS: KETOROLAC 30 MG/ML VIAL IV (17:37)
--- NOTE | 2021-07-26 18:38 | DI.MRI.S_ITS ---
PROCEDURE: MR ABDOMEN WO CON INDICATIONS: pancreatitis, elevated bilirubin, duct obstruction/mass? TECHNIQUE: Coronal HASTE through the abdomen, axial 2-D FLASH in- and [id number], and breath-hold T2 FSE with fat saturation through the biliary system and pancreas. Oblique coronal and axial thin-slice HASTE, radial thick-slab HASTE centered on the extrahepatic bile ducts. Intravenous secretin: Not requested. COMPARISON: Merged With [facility], CT, CT ABDOMEN PELVIS W CON, 01/14/2021, 9:01. FINDINGS: Image quality: Poor. The patient was unable to hold his breath resulting in significant motion artifact. Pancreas and biliary system: There is extensive edema surrounding the pancreas. No pancreatic ductal dilatation. The common bile duct has a normal caliber, however evaluation for any common bile duct obstruction or mass is limited due to motion. Other solid organs: Liver is normal in size. Spleen is normal in size. No adrenal nodules. Both kidneys are normal in size, without hydronephrosis. Nodes and vessels: No retroperitoneal or mesenteric adenopathy by size criteria. Aorta and inferior vena cava are normal in size. Bowel and peritoneum: Unenhanced bowel loops are normal in caliber. No free fluid. Lung bases: No basal pleural effusions. Heart size is normal. There is a large hiatal hernia. Bones and soft tissues: No ventral hernias. Bone marrow is of normal overall signal. IMPRESSION: 1. Extensive peripancreatic edema consistent with acute pancreatitis. 2. No ductal dilatation is identified, however visualization is limited due to motion artifact. Dictated by: Juan Diego Blackmon M.D. on 07/26/2021 at 20:01 Approved by: Juan Diego Blackmon M.D. on 07/26/2021 at 20:09
[2021-07-26 18:41] LABS: Bacteria Urine None Seen; RBC Urine None Seen (0-5/HPF)
[2021-07-26 18:41] LABS: COVID19 - ADMIT (NP swab/PCR) Negative (Negative)
[2021-07-26 18:44] LABS: Bilirubin Urine UA 1+ (NEGATIVE); Glucose Urine UA NEGATIVE (Negative); Ketones Urine UA TRACE (NEGATIVE); Leukocyte Esterase Urine UA NEGATIVE (NEGATIVE); Nitrite Urine UA NEGATIVE (Negative); Occult Blood Urine UA NEGATIVE (Negative); Protein Urine UA 1+ (Negative); Specific Gravity Urine UA 1.025 (1.000-1.035); pH Urine UA 5.5 (4.5-8.0)
[2021-07-26 18:53] LABS: Appearance Urine UA CLEAR; Color Urine UA Dark Yellow
[2021-07-26 19:00] LABS: Amorphous Sediment Urine 1+; Culture Indicated Urine Cult Not Indicated; Ictotest Urine Positive (Negative); Mucus Urine 1+ (Negative); Squamous Epithelial Cell Urine 0-1 /HPF (0-5/HPF); WBC Urine 1-5/HPF (0-5/HPF)
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
[2021-07-26] MEDS: SODIUM CHLORIDE 0.9% 1,000 ML 250 ML IV (19:41)
[2021-07-26 20:33] LABS: BUN Creatinine Ratio 19.1 (6-22); Blood Urea Nitrogen 30 mg/dL (9-20); Estimated Glomerular Filt Rate 42.6 mL/min (>60)
[2021-07-26 20:36] LABS: Amylase 1145 U/L (30-110); C-Reactive Protein Quant 3.6 mg/dL (<1.0)
[2021-07-26] MEDS: METOPROLOL ER 50 MG TABLET 25 MG PO (20:39)
[2021-07-26] MEDS: HEPARIN 5,000 UNIT/ML VIAL 5000 UNIT SUBCUT (20:39)
[2021-07-26] MEDS: INSULIN LISPRO 100 UNIT/ML 3ML VIAL SUBCUT (20:47)
[2021-07-26] MEDS: ONDANSETRON 4 MG/2 ML INJ IV ×2 (21:25→23:03)
--- NOTE | 2021-07-26 23:06 | PC.NURSE ---
zofran 2305 VVO from BELEN Connor to administer additional dose of zofran IV x1 now.
[2021-07-27] VITALS (15 sets, daily range): BP systolic 129–183; BP diastolic 58–96; PULSE 64–96; RESP 15–20; TEMP 36.3–38.2; O2SAT 90–94
[2021-07-27] MEDS: PANTOPRAZOLE DR 40 MG TABLET PO ×3 (00:14→20:28)
[2021-07-27] MEDS: FAMOTIDINE 20 MG TABLET 40 MG PO (00:14)
[2021-07-27] MEDS: HYDROMORPHONE 0.5 MG INJ IV ×2 (00:15→06:06)
[2021-07-27] MEDS: SODIUM CHLORIDE 0.9% 1,000 ML 250 ML IV ×3 (00:18→14:27)
[2021-07-27] MEDS: OXYCODONE IR 5 MG TABLET PO ×2 (03:11→09:59)
[2021-07-27] MEDS: METOPROLOL TARTRATE 5 MG/5 ML INJ IV (04:59)
[2021-07-27 06:09] LABS: Add Manual Diff / Slide Review NO; Basophils Absolute Auto 0 /uL (0-100); Basophils Percent Auto 0.1 % (0-2); Eosinophils Absolute Auto 0 /uL (0-450); Hematocrit 50.7 % (41-53); Hemoglobin 16.7 g/dL (13.5-17.5); Lymphocytes Absolute Auto 900 /uL (1100-4500); Lymphocytes Percent Auto 5.3 % (25-40); Mean Corpuscular HGB Conc 32.9 % (30-36); Mean Corpuscular Hemoglobin 31.4 PG (26-34); Mean Corpuscular Volume 95.7 fL (80-100); Monocytes Absolute Auto 1300 /uL (0-900); Monocytes Percent Auto 7.6 % (3-14); Neutrophils Absolute Auto 14800 /uL (1500-7000); Platelet Count 220 X10^3/uL (150-400); Red Cell Distribution Width 13.6 % (11.6-14.8); White Blood Cell Count 17.1 X10^3/uL (4.5-11.0)
[2021-07-27 06:25] LABS: BUN Creatinine Ratio 24.3 (6-22); Blood Urea Nitrogen 33 mg/dL (9-20); Calcium 7.3 mg/dL (8.4-10.2); Carbon Dioxide 20 mmol/L (22-32); Chloride 108 mmol/L (98-107); Estimated Glomerular Filt Rate 50.3 mL/min (>60); Glucose 143 mg/dL (80-110); HEMOLYSIS < 15 (0-50); Potassium 4.1 mmol/L (3.4-5.1); Sodium 136 mmol/L (137-145)
[2021-07-27] MEDS: SODIUM CHLORIDE 0.9% 1,000 ML 1000 ML IV ×2 (08:13→10:53)
[2021-07-27] MEDS: ACETAMINOPHEN 325 MG TABLET 650 MG PO ×2 (08:13→16:10)
[2021-07-27] MEDS: ASPIRIN EC 81 MG TABLET PO (08:13)
[2021-07-27] MEDS: HEPARIN 5,000 UNIT/ML VIAL 5000 UNIT SUBCUT ×2 (08:14→20:28)
[2021-07-27 09:29] LABS: Alanine Aminotransferase 67 IU/L (<50); Albumin 2.8 g/dL (3.5-5.0); Albumin Globulin Ratio 0.9 (1.0-2.8); Alkaline Phosphatase 57 U/L (38-126); Aspartate Aminotransferase 50 IU/L (17-59); Bilirubin Total 1.5 mg/dL (0.2-1.3); Bilirubin Unconjugated 1.5 mg/dL (0.0-1.1); HEMOLYSIS 23 (0-50); Total Protein 5.8 g/dL (6.3-8.2)
[2021-07-27 10:33] LABS: BUN Creatinine Ratio 25.8 (6-22); Blood Urea Nitrogen 32 mg/dL (9-20); Calcium 7.3 mg/dL (8.4-10.2); Carbon Dioxide 18 mmol/L (22-32); Chloride 112 mmol/L (98-107); Glucose 117 mg/dL (80-110); HEMOLYSIS 22 (0-50); Potassium 4.5 mmol/L (3.4-5.1); Sodium 138 mmol/L (137-145)
[2021-07-27 10:42] LABS: Cholesterol 133 mg/dL (140-199); HDL Cholesterol 49 mg/dL (40-60); LDL Cholesterol Calculated 62 mg/dL (<100); Triglycerides 110 mg/dL (35-150)
--- NOTE | 2021-07-27 11:31 | PC.NURSE ---
Patient c/o abdominal discomfort 02/24. Abdomen soft, mildly distended. BT active x 4. Voiding scant amounts at a time, PVR 650, Lopes placed per MD. NS bolus infusing. Patient tolerating. Lungs CTA, 93-95% on room air. Denies SOB. No N/V this shift. remains bedside.
--- NOTE | 2021-07-27 12:22 | CM.DANOTE ---
DCP: Case received, EMR reviewed and met with patient. , Rubio, was also at bedside. Introduced self and role. Was able to obtain information regarding patient's baseline activity status prior to hospitalization. DCP assessment was completed with information currently available. Patient is an 80 year old male who admitted yesterday afternoon to the care of the hospitalist team. PCP: Dr. Red. Payer: confirmed: Medicare/BCBS Out of [facility]. Patient came to the hospital via private vehicle secondary to having increased abdominal pain. Patient holds current diagnosis of acute pancreatitis. Patient and , indicated that he has had this before. Met with patient and . He is alert and oriented, was having some abdominal discomfort while in the room. He and his reside here in [place]. He is independent at his baseline, he has a half an acre that he cares for on his own. He and his are also avid walkers. P: DCP to continue to follow. He should be able to go home when he is medically stable. Mara Givens RN/Office Rn
--- NOTE | 2021-07-27 15:40 | DI.RAD.S_ITS ---
PROCEDURE: XR CHEST 1V INDICATIONS: decreased fluid output TECHNIQUE: One view of the chest was acquired. COMPARISON: [facility], , CHEST FOR PICC PLACEMENT, 10/09/2017, 17:14. FINDINGS: Surgical changes and devices: None. Lungs and pleura: There is obscuration left hemidiaphragm with bibasilar atelectasis and or infiltrate. Low lung volumes accentuate pulmonary interstitium and heart size. Mediastinum: Heart size is enlarged. Mild vascular congestion present. Bones and chest wall: No suspicious bony lesions. Overlying soft tissues appear unremarkable. IMPRESSION: Bibasilar atelectasis and infiltrate associated with left pleural effusion. Low lung volumes accentuate pulmonary interstitium and heart size. Approved by: Ranjith Spear M.D. on 07/27/2021 at 15:08
--- NOTE | 2021-07-27 16:52 | PM.PN.1 ---
Subjective Subjective Date Patient Seen: 07/27/21 Time Patient Seen: 08:00 Interval history: Today he was still having abdominal pain. He was having no fevers/chills. He was denying chest pain or shortness of breath. His urine output remained marginal. He was ordered for IV fluid boluses. Exam Vital Signs (past 8 hours): - 07/27/21 11:00 07/27/21 11:45 07/27/21 15:49 Temperature 99.3 F 100.1 F H Pulse Rate 87 88 Respiratory Rate 16 18 Blood Pressure 161/86 H 183/93 H Pulse Oximetry 91 91 93 07/27/21 16:10 Temperature 100.1 F H Pulse Rate Respiratory Rate Blood Pressure Pulse Oximetry Oxygen Delivery Method Room Air Oxygen Flow Rate 0 Narrative Exam Narrative: General:?no acute distress Lungs:? clear bilaterally with no wheezes, rhonchi, rales Cardio:? regular rate and rhythm, +systolic murmur Abdomen: ? Soft, tender in the epigastric region, no rebound/guarding, decreased bowel sounds, mildly distended Skin:? Warm dry and intact without rashes Objective Labs Result Diagrams: 07/27/21 05:24 07/27/21 08:45 Labs: Laboratory Results - last 24 hr 07/26/21 07/26/21 07/26/21 16:40 17:35 20:14 WBC RBC Hgb Hct MCV MCH MCHC RDW Plt Count Neut % (Auto) Lymph % (Auto) [place] % (Auto) Eos % (Auto) Baso % (Auto) Neut # (Auto) Lymph # (Auto) [place] # (Auto) Eos # (Auto) Baso # (Auto) Sodium Potassium Chloride Carbon Dioxide BUN 30 H Creatinine 1.57 H Estimated GFR 42.6 L BUN/Creatinine Ratio 19.1 Glucose Calcium Total Bilirubin Conjugated Bilirubin Unconjugated Bilirubin AST ALT Alkaline Phosphatase C-Reactive Protein Total Protein Albumin Globulin Albumin/Globulin Ratio Triglycerides Cholesterol LDL Cholesterol, Calc HDL Cholesterol Amylase Urine Color Dark yellow Urine Appearance Clear Urine pH 5.5 Ur Specific [place] 1.025 Urine Protein 1+ H Urine Glucose (UA) Negative Urine Ketones Trace H Urine Occult Blood Negative Urine Nitrate Negative Urine Bilirubin 1+ H Ur Bilirubin Confirm Positive H Urine Urobilinogen 1.0 Ur Leukocyte Esterase Negative Urine RBC None seen Urine WBC 1-5/hpf Ur Squamous Epith Cells 0-1 /hpf Amorphous Sediment 1+ Urine Bacteria None seen Urine Mucus 1+ H Ur Culture Indicated? Cult not indicated SARS-CoV-2 (PCR) Negative 07/26/21 07/27/21 07/27/21 20:14 05:24 05:24 WBC 17.1 H RBC 5.30 Hgb 16.7 Hct 50.7 MCV 95.7 MCH 31.4 MCHC 32.9 RDW 13.6 Plt Count 220 Neut % (Auto) 87.0 H Lymph % (Auto) 5.3 L [place] % (Auto) 7.6 Eos % (Auto) 0.0 L Baso % (Auto) 0.1 Neut # (Auto) 68666 H Lymph # (Auto) 900 L [place] # (Auto) 1300 H Eos # (Auto) 0 Baso # (Auto) 0 Sodium 136 L Potassium 4.1 Chloride 108 H Carbon Dioxide 20 L BUN 33 H Creatinine 1.36 H Estimated GFR 50.3 L BUN/Creatinine Ratio 24.3 H Glucose 143 H Calcium 7.3 L Total Bilirubin Conjugated Bilirubin Unconjugated Bilirubin AST ALT Alkaline Phosphatase C-Reactive Protein 3.6 H Total Protein Albumin Globulin Albumin/Globulin Ratio Triglycerides Cholesterol LDL Cholesterol, Calc HDL Cholesterol Amylase 1145 H Urine Color Urine Appearance Urine pH Ur Specific [place] Urine Protein Urine Glucose (UA) Urine Ketones Urine Occult Blood Urine Nitrate Urine Bilirubin Ur Bilirubin Confirm Urine Urobilinogen Ur Leukocyte Esterase Urine RBC Urine WBC Ur Squamous Epith Cells Amorphous Sediment Urine Bacteria Urine Mucus Ur Culture Indicated? SARS-CoV-2 (PCR) 07/27/21 07/27/21 07/27/21 08:45 08:45 08:45 WBC RBC Hgb Hct MCV MCH MCHC RDW Plt Count Neut % (Auto) Lymph % (Auto) [place] % (Auto) Eos % (Auto) Baso % (Auto) Neut # (Auto) Lymph # (Auto) [place] # (Auto) Eos # (Auto) Baso # (Auto) Sodium 138 Potassium 4.5 Chloride 112 H Carbon Dioxide 18 L BUN 32 H Creatinine 1.24 Estimated GFR 56.0 L BUN/Creatinine Ratio 25.8 H Glucose 117 H Calcium 7.3 L Total Bilirubin 1.5 H Conjugated Bilirubin 0.0 Unconjugated Bilirubin 1.5 H AST 50 ALT 67 H Alkaline Phosphatase 57 C-Reactive Protein Total Protein 5.8 L Albumin 2.8 L Globulin 3.0 Albumin/Globulin Ratio 0.9 L Triglycerides 110 Cholesterol 133 L LDL Cholesterol, Calc 62 HDL Cholesterol 49 Amylase Urine Color Urine Appearance Urine pH Ur Specific [place] Urine Protein Urine Glucose (UA) Urine Ketones Urine Occult Blood Urine Nitrate Urine Bilirubin Ur Bilirubin Confirm Urine Urobilinogen Ur Leukocyte Esterase Urine RBC Urine WBC Ur Squamous Epith Cells Amorphous Sediment Urine Bacteria Urine Mucus Ur Culture Indicated? SARS-CoV-2 (PCR) PFSH Medical History (Updated 07/26/21 @ 19:42 by Carla Connor [facility]) Barretts esophagus BPH w urinary obs/LUTS Essential hypertension GERD (gastroesophageal reflux disease) Glanular hypospadias History of acute pancreatitis History of small bowel obstruction Hyperlipidemia Surgical History H/O breast biopsy H/O prostate biopsy H/O vasectomy History of nephrectomy Hx of circumcision Family History Brother Age: 80 Heart disease Mother Alcoholic Father Heart disease Heart attack Social History household members: spouse Smoking Status: Former smoker alcohol intake: current Assessment & Plan Assessment & Plan narrative: Mr. Montanez is an 80M with PMH of episodes of pancreatitis, small bowel obstruction, HTN, HL who presents with abdominal pain found to have acute pancreatitis. 1.Acute pancreatitis, with elevated LFTs, with VENU -WBC of 17.7, creatinine 1.52, glucose 193, bili 2.2, AST 149, ALT 141 on admit -has been resuscitated with nearly 6L IVF fluid -abdominal ultrasound demonstrated gallbladder distended, cholelithiasis, minimal gallbladder wall thickening without pericholecystic fluid.? -drinks 1-2 glasses of alcohol a night, advised to avoid -lipid panel normal -no hypercalcemia -etiology possibly gallstones with elevated LFTs, though MRCP negative for obstruction, could be passed stone -etiology may also be from hctz -continue IV pain meds -diet advance as tolerated starting with clears -monitor UOP, glucose, calcium closely -patient has severe pancreatitis with elevated risk of mortality given combination of VENU, leukocytosis, age, hypocalcemia, acidosis -currently no evidence of infection, but will monitor closely, but no need for antibiotics currently 2.? Webster's esophagitis, chronic, present on admission - patient noted to have a hiatal hernia on? CT - will continue PPI and Pepcid which he takes at home 3.?Essential hypertension, acute on chronic, present on admission -initial B/P 216/101, 170/81 4.?Hyperlipidemia, chronic, present on admission -will check fasting lipid given his pancreatitis Time Spent With Patient Critical Care time: I spent a total of [] minutes of critical care time on this patient's care today; this time is exclusive of procedural time. Quality VTE Deep Vein Thrombosis/Pulmonary Embolism Present on Admission: No
[2021-07-27 18:07] LABS: BUN Creatinine Ratio 23.4 (6-22); Blood Urea Nitrogen 25 mg/dL (9-20); Calcium 6.8 mg/dL (8.4-10.2); Carbon Dioxide 19 mmol/L (22-32); Chloride 110 mmol/L (98-107); Estimated Glomerular Filt Rate > 60.0 mL/min (>60); Glucose 125 mg/dL (80-110); HEMOLYSIS 21 (0-50); Potassium 3.8 mmol/L (3.4-5.1); Sodium 137 mmol/L (137-145)
[2021-07-27] MEDS: FUROSEMIDE 40 MG/4 ML VIAL IV (18:28)
[2021-07-27] MEDS: SODIUM CHLORIDE 0.9% FLUSH 10 ML IV ×2 (18:29→20:28)
[2021-07-27] MEDS: METOPROLOL ER 50 MG TABLET 25 MG PO (20:27)
[2021-07-27] MEDS: FAMOTIDINE 20 MG TABLET PO (20:28)
[2021-07-28] VITALS (15 sets, daily range): BP systolic 100–156; BP diastolic 62–80; PULSE 95–116; RESP 17–24; TEMP 36.2–37.7; O2SAT 87–96
--- NOTE | 2021-07-28 00:01 | PC.NURSE ---
Denies any pain & no C/O nausea. C/O insomnia BELEN Connor notified order received to give Melatonin awaiting for verification from night pharmacy. Will Cont. POC & monitor.
[2021-07-28] MEDS: MELATONIN 3 MG TABLET 6 MG PO (00:29)
--- NOTE | 2021-07-28 01:17 | PC.NURSE ---
Dropped 1 tab. of Melatonin in the floor, accessed Pyxis again & pulled out 1 tab. Of Melatonin total dose administered 6 mg.
--- NOTE | 2021-07-28 04:35 | PC.NURSE ---
SPO2 in room air 87-88%, 2 liters 02 & sat. 92%. BELEN Connor notified, will monitor.
--- NOTE | 2021-07-28 06:53 | PC.NURSE ---
C/O acid reflux BELEN Connor notified, order received to Maalox 30 ml x1 dose. Will implement order & monitor.
[2021-07-28] MEDS: MAG HYDROX/ALUM/SIMETH 30 ML UDC PO (06:58)
[2021-07-28 07:47] LABS: Hematocrit 46.2 % (41-53); Hemoglobin 15.6 g/dL (13.5-17.5); Mean Corpuscular HGB Conc 33.7 % (30-36); Mean Corpuscular Hemoglobin 32.2 PG (26-34); Mean Corpuscular Volume 95.5 fL (80-100); Platelet Count 181 X10^3/uL (150-400); Red Blood Cell Count 4.84 X10^6/uL (4.5-5.9); Red Cell Distribution Width 13.9 % (11.6-14.8); White Blood Cell Count 17.7 X10^3/uL (4.5-11.0)
[2021-07-28 07:57] LABS: BUN Creatinine Ratio 20.9 (6-22); Blood Urea Nitrogen 23 mg/dL (9-20); Carbon Dioxide 22 mmol/L (22-32); Chloride 104 mmol/L (98-107); Estimated Glomerular Filt Rate > 60.0 mL/min (>60); Glucose 139 mg/dL (80-110); HEMOLYSIS < 15 (0-50); Potassium 3.5 mmol/L (3.4-5.1); Sodium 133 mmol/L (137-145)
[2021-07-28] MEDS: FUROSEMIDE 20 MG/2 ML VIAL IV (08:56)
[2021-07-28] MEDS: PANTOPRAZOLE DR 40 MG TABLET PO (08:56)
[2021-07-28] MEDS: HEPARIN 5,000 UNIT/ML VIAL 5000 UNIT SUBCUT ×2 (08:56→20:59)
[2021-07-28] MEDS: ASPIRIN EC 81 MG TABLET PO (08:56)
[2021-07-28] MEDS: SODIUM CHLORIDE 0.9% FLUSH 10 ML IV ×2 (09:00→21:49)
--- NOTE | 2021-07-28 11:35 | PM.PN.1 ---
Subjective Subjective Date Patient Seen: 07/28/21 Time Patient Seen: 08:00 Interval history: Today he still has some pain. It is not severe. He has a poor appetite, but he did eat clear broth this morning and has not felt significant pain or nausea with this. He did start urinating well with lasix last night. He has slight shortness of breath, was on oxygen overnight, but this has been weaned off this morning. Exam Vital Signs (past 8 hours): - 07/28/21 04:23 07/28/21 04:31 07/28/21 08:00 Temperature 97.6 F Pulse Rate 101 H Respiratory Rate 18 Blood Pressure 144/76 H Pulse Oximetry 90 L 92 91 07/28/21 09:30 Temperature Pulse Rate 100 H Respiratory Rate 20 Blood Pressure Pulse Oximetry 90 L Oxygen Delivery Method Room Air Oxygen Flow Rate 0 Narrative Exam Narrative: eneral:?no acute distress Lungs:? clear bilaterally with no wheezes, rhonchi, rales Cardio:? regular rate and rhythm, +systolic murmur Abdomen: ? Soft, tender in the epigastric region, no rebound/guarding, decreased bowel sounds, mildly distended Skin:? Warm dry and intact without rashes Objective Labs Result Diagrams: 07/28/21 06:58 07/28/21 06:58 Labs: Laboratory Results - last 24 hr 07/27/21 07/27/21 07/28/21 17:23 17:23 06:58 WBC 17.7 H RBC 4.84 Hgb 15.6 Hct 46.2 MCV 95.5 MCH 32.2 MCHC 33.7 RDW 13.9 Plt Count 181 Sodium 137 Cancelled Potassium 3.8 Cancelled Chloride 110 H Cancelled Carbon Dioxide 19 L Cancelled BUN 25 H Cancelled Creatinine 1.07 Cancelled Estimated GFR > 60.0 Cancelled BUN/Creatinine Ratio 23.4 H Cancelled Glucose 125 H Cancelled Calcium 6.8 L Cancelled 07/28/21 06:58 WBC RBC Hgb Hct MCV MCH MCHC RDW Plt Count Sodium 133 L Potassium 3.5 Chloride 104 Carbon Dioxide 22 BUN 23 H Creatinine 1.10 Estimated GFR > 60.0 BUN/Creatinine Ratio 20.9 Glucose 139 H Calcium 7.0 L PFSH Medical History (Updated 07/26/21 @ 19:42 by EDWINA Jones) Barretts esophagus BPH w urinary obs/LUTS Essential hypertension GERD (gastroesophageal reflux disease) Glanular hypospadias History of acute pancreatitis History of small bowel obstruction Hyperlipidemia Surgical History H/O breast biopsy H/O prostate biopsy H/O vasectomy History of nephrectomy Hx of circumcision Family History Brother Age: 80 Heart disease Mother Alcoholic Father Heart disease Heart attack Social History household members: spouse Smoking Status: Former smoker alcohol intake: current Assessment & Plan Assessment & Plan narrative: Mr. Montanez is an 80M with PMH of episodes of pancreatitis, small bowel obstruction, HTN, HL who presents with abdominal pain found to have acute pancreatitis. 1.Severe acute pancreatitis, with elevated LFTs, with VENU -WBC of 17.7, creatinine 1.52, glucose 193, bili 2.2, AST 149, ALT 141 on admit -continues to have leukocytosis, had slight fever overnight -has been resuscitated with nearly 6L IVF fluid -abdominal ultrasound demonstrated gallbladder distended, cholelithiasis, minimal gallbladder wall thickening without pericholecystic fluid.? -drinks 1-2 glasses of alcohol a night, advised to avoid -lipid panel normal -no hypercalcemia -etiology possibly gallstones with elevated LFTs, though MRCP negative for obstruction, could be passed stone -etiology may also be from hctz -continue IV pain meds -diet advance as tolerated starting with clears -monitor UOP, glucose, calcium closely -patient has severe pancreatitis with elevated risk of mortality given combination of VENU, leukocytosis, age, hypocalcemia, acidosis -currently doubt has infection, but will monitor closely, but no need for antibiotics currently 2. Acute respiratory failure with pleural effusion -he did desat to the 80s overnight requiring oxygen supplementation -etiology is likely third spacing from pancreatitis -fluid has been held -continue with IV lasix -monitor bmp twice daily 3.? Webster's esophagitis, chronic, present on admission - patient noted to have a hiatal hernia on? CT - will continue PPI and Pepcid which he takes at home 4.?Essential hypertension, acute on chronic, present on admission -initial B/P 216/101, 170/81 5.?Hyperlipidemia, chronic, present on admission -will check fasting lipid given his pancreatitis Time Spent With Patient Critical Care time: I spent a total of [] minutes of critical care time on this patient's care today; this time is exclusive of procedural time. Quality VTE Deep Vein Thrombosis/Pulmonary Embolism Present on Admission: No
[2021-07-28] MEDS: INSULIN LISPRO 100 UNIT/ML 3ML VIAL SUBCUT ×2 (12:34→17:04)
[2021-07-28 15:28] LABS: BUN Creatinine Ratio 21.4 (6-22); Blood Urea Nitrogen 27 mg/dL (9-20); Calcium 7.2 mg/dL (8.4-10.2); Carbon Dioxide 22 mmol/L (22-32); Chloride 103 mmol/L (98-107); Estimated Glomerular Filt Rate 54.9 mL/min (>60); Glucose 189 mg/dL (80-110); HEMOLYSIS < 15 (0-50); Magnesium 1.8 mg/dL (1.6-2.3); Potassium 3.6 mmol/L (3.4-5.1); Sodium 133 mmol/L (137-145)
[2021-07-28] MEDS: ONDANSETRON 4 MG/2 ML INJ IV (18:51)
--- NOTE | 2021-07-28 19:45 | DI.CT.S_ITS ---
PROCEDURE: CT ABDOMEN PELVIS W CON INDICATIONS: pos SBO TECHNIQUE: After the administration of intravenous contrast, axial sections acquired from the lung bases to the pubic symphysis. Coronal and sagittal reformats were performed. For radiation dose reduction, the following was used: automated exposure control, adjustment of mA and/or kV according to patient size. COMPARISON: [facility], CT, CT ABDOMEN PELVIS W CON, 01/14/2021, 9:01. FINDINGS: ABDOMEN: Lung bases: Moderate right pleural effusion with adjacent atelectasis a small left pleural effusion. Heart: Moderate coronary calcifications. Liver: Hepatic steatosis. Gallbladder: Grossly unremarkable Bile ducts: Normal. Pancreas: Diffuse peripancreatic inflammatory stranding. A small focus of free air adjacent to the body of the pancreas. Spleen: Normal. Adrenals: Normal. Kidneys and Ureters: Right kidney absent. Left kidney grossly unremarkable. No hydronephrosis. Stomach and duodenum: There is zeenat duodenal inflammatory stranding. Large hiatal hernia is seen, although probably unchanged. Bowel: Dilated small bowel loops with scattered air-fluid levels present. Mild stool seen in the colon. Appendix is not clearly identified however no suspicious pericecal inflammatory changes are seen. Other: Free air is identified adjacent to the duodenum and pancreatic head. Abdominal nodes: Normal. Aorta and IVC: Normal in size. Intraluminal filling defect is seen in the superior mesenteric vein suggestive of thrombosis this is seen on image 42/2. Ventral wall: Normal. PELVIS: Bladder: Bladder is decompressed and a Lopes catheter is present. Inguinal region: No hernia. Pelvic nodes: Normal. Bones: Spondylytic changes and facet arthropathy. No vertebral body compression fracture. IMPRESSION: Intra-abdominal free air adjacent to the duodenum and pancreatic head. Exact etiology is unclear. This could be related to a perforated duodenal ulcer, or other bowel perforation. Emergent surgical consultation recommended. Diffuse peripancreatic inflammatory fat stranding suggestive of pancreatitis. Please correlate with clinical data and pancreatic enzymes. Bilateral small to moderate pleural effusions, right greater than left. Intraluminal filling defect within the superior mesenteric vein suggestive of nonocclusive SMV thrombosis. Dilated small bowel loops with scattered air-fluid levels which could reflect developing bowel obstruction, versus dysmotility and or enteritis. Findings (including all critical results) and recommendations were personally telephoned and discussed with Dr. Connor on 07-28-21 21:38 Dictated by: [place] Hayden M.D. on 07/28/2021 at 21:28 Approved by: [place] Hayden M.D. on 07/28/2021 at 21:40
[2021-07-28] MEDS: SODIUM CHLORIDE 0.9% 1,000 ML 125 ML IV (20:59)
--- NOTE | 2021-07-28 22:21 | PC.NURSE ---
Pt had a total of 4 emesis earlier today 100-200 mlg at at time (bile color), pt abdomen distended, Not passing flatus. spoke to COMPOSITE MECHANIC Nikolas who order a CT. pt is now NPO and on IVF and has not had any more emesis. No po meds given tonight and COMPOSITE MECHANIC aware. Blood sugars will be change to every 6 hours per COMPOSITE MECHANIC.
[2021-07-28] MEDS: KETOROLAC 30 MG/ML VIAL 15 MG IV (23:10)
[2021-07-28] MEDS: PANTOPRAZOLE 40 MG VIAL IV (23:10)
[2021-07-28] MEDS: SODIUM CHLORIDE 0.9% 1,000 ML 1000 ML IV (23:10)
[2021-07-29] VITALS (34 sets, daily range): BP systolic 84–153; BP diastolic 46–74; PULSE 103–118; RESP 9–23; TEMP 36.6–37.3; O2SAT 91–95
--- NOTE | 2021-07-29 | DI.RAD.S_ITS ---
PROCEDURE: XR GASTROGRAFIN CHALLENGE COMPARISON: [facility], CT, CT ABDOMEN PELVIS W CON, 07/28/2021, 20:35. INDICATIONS: R/0 INTESTINAL PERFORATION FINDINGS: Enteric tube coiled on itself within the hiatal hernia. The side port is within the hernia sac. The tip is likely projecting cephalad. Suspect contrast excreted into the urinary bladder. Contrast fills the stomach and progresses into the small bowel. There are somewhat prominent loops of small bowel in the left abdomen. Contrast transit into the right abdomen. The contrast in the right abdomen is less defined. Scattered colonic gas. IMPRESSION: Ill-defined opacification in the right abdomen. This is concerning for oral contrast leak and bowel perforation. -If clinically indicated CT abdomen pelvis could be performed for further characterization. Prominent loops of small bowel in the left abdomen. Large hiatal hernia. Enteric tube within the hernia sac. The tip projects cephalad. Comment: Findings were discussed with Sukhdev Keating at the time of dictation. Dictated by: Misael Park M.D. on 07/29/2021 at 14:33 Approved by: Misael Park M.D. on 07/29/2021 at 14:46
[2021-07-29] MEDS: PIPERACILLIN/TAZO 4.5 GM in SODIUM CHLORIDE 0.9% 100 ML 200 ML IV (00:01)
[2021-07-29 00:02] LABS: Amylase 288 U/L (30-110); Lactate (Lactic Acid) 1.9 mmol/L (0.7-2.1); Lipase 541 U/L (23-300)
[2021-07-29 00:03] LABS: Alanine Aminotransferase 70 IU/L (<50); Albumin 3.1 g/dL (3.5-5.0); Albumin Globulin Ratio 0.9 (1.0-2.8); Alkaline Phosphatase 89 U/L (38-126); Aspartate Aminotransferase 58 IU/L (17-59); BUN Creatinine Ratio 23.4 (6-22); Bilirubin Total 3.6 mg/dL (0.2-1.3); Blood Urea Nitrogen 33 mg/dL (9-20); Calcium 6.9 mg/dL (8.4-10.2); Carbon Dioxide 26 mmol/L (22-32); Chloride 100 mmol/L (98-107); Estimated Glomerular Filt Rate 48.2 mL/min (>60); Globulin 3.3 g/dL (1.7-4.1); Glucose 159 mg/dL (80-110); HEMOLYSIS 15 (0-50); Potassium 3.7 mmol/L (3.4-5.1); Sodium 133 mmol/L (137-145); Total Protein 6.4 g/dL (6.3-8.2)
[2021-07-29] MEDS: LACTATED RINGERS 1,000 ML 100 ML IV ×3 (00:45→22:25)
--- NOTE | 2021-07-29 02:16 | PC.NURSE ---
Addendum entered by Nicole Aguilar R.N. 07/29/21 05:14: Informed BELEN Connor now of pt's. critical chemistry results, she will look into it and order lyte replacement. Original Note: Called BELEN Connor and informed of pt's UO 100 @MN, 12 at 0100 and 20 ml at 0200, order received to give 500 ml NS bolus.
[2021-07-29] MEDS: SODIUM CHLORIDE 0.9% 500 ML 1000 ML IV ×2 (02:23→21:59)
[2021-07-29] MEDS: PIPERACILLIN/TAZO 3.375 GM in SODIUM CHLORIDE 0.9% 100 ML 25 ML IV ×3 (04:06→18:09)
[2021-07-29 04:32] LABS: Hematocrit 38.2 % (41-53); Hemoglobin 12.7 g/dL (13.5-17.5); Mean Corpuscular HGB Conc 33.3 % (30-36); Mean Corpuscular Hemoglobin 31.5 PG (26-34); Mean Corpuscular Volume 94.7 fL (80-100); Platelet Count 151 X10^3/uL (150-400); Red Blood Cell Count 4.03 X10^6/uL (4.5-5.9); Red Cell Distribution Width 13.4 % (11.6-14.8); White Blood Cell Count 16.6 X10^3/uL (4.5-11.0)
[2021-07-29 04:44] LABS: BUN Creatinine Ratio 26.3 (6-22); Blood Urea Nitrogen 31 mg/dL (9-20); Carbon Dioxide 22 mmol/L (22-32); Chloride 105 mmol/L (98-107); Estimated Glomerular Filt Rate 59.2 mL/min (>60); Glucose 136 mg/dL (80-110); HEMOLYSIS < 15 (0-50); Magnesium 1.7 mg/dL (1.6-2.3); Potassium 3.3 mmol/L (3.4-5.1); Sodium 133 mmol/L (137-145)
[2021-07-29 04:48] LABS: Calcium 6.4 mg/dL (8.4-10.2)
[2021-07-29] MEDS: POTASSIUM CHLORIDE IN WATER 10 MEQ/100 ML PIGGYBACK 100 MEQ IV ×4 (06:31→12:31)
[2021-07-29] MEDS: CALCIUM GLUCONATE 4.65 MEQ in SODIUM CHLORIDE 0.9% 50 ML 180 ML IV ×2 (06:31→22:39)
[2021-07-29] MEDS: PANTOPRAZOLE 40 MG VIAL IV ×2 (08:57→21:42)
--- NOTE | 2021-07-29 09:03 | PC.NURSE ---
Addendum entered by Masha Rendon R.N. 07/29/21 13:18: Heparin gtt started per protocol and verified by OLIVIA Hernandez. NG disconnected from suction for duration of bowel study. Patient experienced several episodes of nausea and vomiting during that time with clear bile output. When reconnected to suction, ~1 liter output. Original Note: Morning shift: Report received, care assumed. Pt. resting comfortably, A&Ox4, denies pain, slightly tachycardiac but otherwise VSS. 3LNC. Upon initial contact, IVF infusing at 1) 100ml/hr and 2) 21 ml/hr (TKO). Potassium 10mEq (1 of 4) infusing. Calcium gluconate complete. NG to left nare, low continuous suction, bile output. Positive bowel tones and flatus. Belly perhaps slightly distended but soft and non-tender. Urine output low, cloudy, measuring hourly. at bedside. Has a lot of questions and seems moderately anxious, but appreciates the conversation and verbalizes understanding of POC, as does patient.
[2021-07-29 09:11] LABS: Alanine Aminotransferase 58 IU/L (<50); Albumin Globulin Ratio 0.9 (1.0-2.8); Alkaline Phosphatase 78 U/L (38-126); Aspartate Aminotransferase 43 IU/L (17-59); Bilirubin Total 3.2 mg/dL (0.2-1.3); Bilirubin Unconjugated 2.3 mg/dL (0.0-1.1); Globulin 3.3 g/dL (1.7-4.1); HEMOLYSIS < 15 (0-50); Total Protein 6.3 g/dL (6.3-8.2)
[2021-07-29 09:12] LABS: Lactate (Lactic Acid) 1.4 mmol/L (0.7-2.1); Magnesium 2.2 mg/dL (1.6-2.3)
--- NOTE | 2021-07-29 09:35 | PM.PN.1 ---
Subjective Subjective Date Patient Seen: 07/29/21 Time Patient Seen: 07:30 Interval history: Overnight developed nausea and vomiting. Was not passing gas. Stat CT abdomen ordered. Concern for possible SBO and NG tube was placed with over 1L out to suction. Surgery consulted. Patient made NPO. IV Zosyn ordered. Free air was noted on CT, as well as thrombosis of the SMV, and upon seeing this went immediately to examine patient. He is complaining of abdominal pain, but it is controlled. He says he is passing gas. He is mildly nauseous. Discussed case with surgery, Dr. Perry, who will see the patient. Exam Vital Signs (past 8 hours): - 07/29/21 02:00 07/29/21 03:00 07/29/21 04:00 Temperature Pulse Rate 109 H 106 H 108 H Respiratory Rate 22 18 20 Blood Pressure 125/64 135/65 149/70 H Pulse Oximetry 93 94 92 07/29/21 05:00 07/29/21 05:11 07/29/21 08:00 Temperature 98.7 F Pulse Rate 105 H 106 H Respiratory Rate 22 18 Blood Pressure 153/71 H Pulse Oximetry 92 92 93 Oxygen Delivery Method Room Air Oxygen Flow Rate 0 Narrative Exam Narrative: General: no acute distress Lungs: decreased breath sounds at bases Cardio: tachycardic, +systolic murmur Abdomen: Soft, tender in the epigastric region, no rebound/guarding, decreased bowel sounds, mildly distended Skin: Warm dry and intact without rashes NEURO: awake, alert and oriented Objective Labs Result Diagrams: 07/29/21 04:20 07/29/21 04:20 Labs: Laboratory Results - last 24 hr 07/28/21 07/28/21 07/28/21 15:02 23:40 23:40 WBC RBC Hgb Hct MCV MCH MCHC RDW Plt Count Sodium 133 L 133 L Potassium 3.6 3.7 Chloride 103 100 Carbon Dioxide 22 26 BUN 27 H 33 H Creatinine 1.26 H 1.41 H Estimated GFR 54.9 L 48.2 L BUN/Creatinine Ratio 21.4 23.4 H Glucose 189 H 159 H Lactate 1.9 Calcium 7.2 L 6.9 L Magnesium 1.8 Total Bilirubin 3.6 H Conjugated Bilirubin Unconjugated Bilirubin AST 58 ALT 70 H Alkaline Phosphatase 89 Total Protein 6.4 Albumin 3.1 L Globulin 3.3 Albumin/Globulin Ratio 0.9 L Amylase Lipase Nasal Screen MRSA (PCR) 07/28/21 07/28/21 07/29/21 23:40 23:40 01:20 WBC RBC Hgb Hct MCV MCH MCHC RDW Plt Count Sodium Potassium Chloride Carbon Dioxide BUN Creatinine Estimated GFR BUN/Creatinine Ratio Glucose Lactate Calcium Magnesium 2.0 Total Bilirubin Conjugated Bilirubin Unconjugated Bilirubin AST ALT Alkaline Phosphatase Total Protein Albumin Globulin Albumin/Globulin Ratio Amylase 288 H D Lipase 541 H D Nasal Screen MRSA (PCR) Negative for mrsa 07/29/21 07/29/21 07/29/21 04:20 04:20 08:40 WBC 16.6 H RBC 4.03 L Hgb 12.7 L Hct 38.2 L MCV 94.7 MCH 31.5 MCHC 33.3 RDW 13.4 Plt Count 151 Sodium 133 L Potassium 3.3 L Chloride 105 Carbon Dioxide 22 BUN 31 H Creatinine 1.18 Estimated GFR 59.2 L BUN/Creatinine Ratio 26.3 H Glucose 136 H Lactate Calcium 6.4 L* Magnesium 1.7 2.2 Total Bilirubin Conjugated Bilirubin Unconjugated Bilirubin AST ALT Alkaline Phosphatase Total Protein Albumin Globulin Albumin/Globulin Ratio Amylase Lipase Nasal Screen MRSA (PCR) 07/29/21 07/29/21 08:40 08:40 WBC RBC Hgb Hct MCV MCH MCHC RDW Plt Count Sodium Potassium Chloride Carbon Dioxide BUN Creatinine Estimated GFR BUN/Creatinine Ratio Glucose Lactate 1.4 Calcium Magnesium Total Bilirubin 3.2 H Conjugated Bilirubin 0.0 Unconjugated Bilirubin 2.3 H AST 43 ALT 58 H Alkaline Phosphatase 78 Total Protein 6.3 Albumin 3.0 L Globulin 3.3 Albumin/Globulin Ratio 0.9 L Amylase Lipase Nasal Screen MRSA (PCR) [facility] Medical History Barretts esophagus BPH w urinary obs/LUTS Essential hypertension GERD (gastroesophageal reflux disease) Glanular hypospadias History of acute pancreatitis History of small bowel obstruction Hyperlipidemia Surgical History H/O breast biopsy H/O prostate biopsy H/O vasectomy History of nephrectomy Hx of circumcision Family History Brother Age: 80 Heart disease Mother Alcoholic Father Heart disease Heart attack Social History household members: spouse Smoking Status: Former smoker alcohol intake: current Assessment & Plan Assessment & Plan narrative: Mr. Montanez is an 80M with PMH of episodes of pancreatitis, small bowel obstruction, HTN, HL who presents with abdominal pain found to have acute pancreatitis, now with concern for SBO and possible intraabdominal perforation. 1. Nausea/vomiting, with evidence of free air on CT abdomen, with probable acute small bowel obstruction -appreciate surgery consult, rec small bowel follow through, given patient has mild pain, and not peritonitis, does not need emergent surgery -continue with patient NPO -IV zosyn added with finding of free air -continue IV fluid and monitor respiratory status closely, may need intermittent lasix -follow up small bowel follow through 2. Acute SMV thrombosis -noted on CT abdomen -likely complication from pancreatitis -IV heparin started -if definitively does not need surgery could transition to lovenox or eliquis 3.Severe acute pancreatitis, with elevated LFTs, with VENU -WBC of 17.7, creatinine 1.52, glucose 193, bili 2.2, AST 149, ALT 141 on admit -continues to have leukocytosis -has been resuscitated with nearly 6L IVF fluid initially -abdominal ultrasound demonstrated gallbladder distended, cholelithiasis, minimal gallbladder wall thickening without pericholecystic fluid. -drinks 1-2 glasses of alcohol a night, advised to avoid -lipid panel normal -no hypercalcemia -etiology probably gallstones with elevated LFTs, though MRCP negative for obstruction, could be passed stone -etiology may also be from hctz -continue IV pain meds -diet advance as tolerated starting with clears, now NPO given worsening -monitor UOP, glucose, calcium closely -patient has severe pancreatitis with elevated risk of mortality given combination of VENU, leukocytosis, age, hypocalcemia, acidosis 4. Acute respiratory failure with pleural effusion -he did desat to the 80s overnight requiring oxygen supplementation -etiology is likely third spacing from pancreatitis, has pleural effusions -fluid has been held -continue with IV lasix as able to -monitor bmp twice daily 5. Webster's esophagitis, chronic, present on admission - patient noted to have a hiatal hernia on CT - will continue PPI and Pepcid which he takes at home 6. Essential hypertension, acute on chronic, present on admission -initial B/P 216/101, 170/81 -holding oral medications for now including metoprolol -holding metop may be contributing to mild tachycardia, will consider small doses of IV metop if tachycardia worsens 7. Hyperlipidemia, chronic, present on admission -will check fasting lipid given his pancreatitis Time Spent With Patient Critical Care time: I spent a total of [] minutes of critical care time on this patient's care today; this time is exclusive of procedural time. Quality VTE Deep Vein Thrombosis/Pulmonary Embolism Present on Admission: No
--- NOTE | 2021-07-29 10:33 | CM.DPC ---
DCP Cont: Discussed patient during team rounds. He now has NG tube, uncertain if he will be able to have surgery, has developed thrombus, small bowel obstruction. He is currently on anticoagulants. He had developed increase in pain and nausea, so the NG tube was placed. Dr. Perry is consulting. P: DCP to continue to follow, and will be available for any resources needed. Mara Givens RN/[facility]
--- NOTE | 2021-07-29 10:38 | PM.CN ---
History of Present Illness Consult details Date Patient Seen: 07/29/21 Time Patient Seen: 10:50 Chief complaint: Severe abd pain Narrative: 80 y.o man who is admitted for managment of acute pancreatitis 07/26/21. At admission afebrile, vitals within normal limits, WBC 18, TB 2.2, Lipase 18,000. Consulted for question of free intra abdominal air on CT A/P from 07/28. Report states Diffuse peripancreatic inflammatory stranding.? A small focus of free air adjacent to the body of the pancreas. Patient reports that abdominal pain has improved over the past 24 hrs, he is ambulating, and passing flatus. Meds Home Medications and Allergies Home Medications Medication Instructions Recorded Confirmed Type lansoprazole 30 mg capsule,delayed 30 mg PO BID #90 cap 10/08/17 07/26/21 Rx release lisinopril 20 1 tab PO QDAY #90 tab 10/08/17 07/26/21 Rx mg-hydrochlorothiazide 25 mg tablet simvastatin 20 mg tablet 20 mg PO HS #30 tab 12/08/18 07/26/21 Rx aspirin 81 mg tablet,delayed 81 mg PO DAILY 09/11/20 07/26/21 History release potassium chloride 20 mEq 10 meq PO DAILY 09/11/20 07/26/21 History tablet,extended release famotidine 40 mg tablet (Pepcid) 40 mg PO BEDTIME 01/14/21 07/26/21 History metoprolol succinate 50 mg 25 mg PO BEDTIME 01/14/21 07/26/21 History tablet,extended release 24 hr (Toprol XL) Allergies Allergy/AdvReac Type Severity Reaction Status Date / Time No Known Drug Allergies Allergy Verified 07/26/21 14:08 Review of Systems Review of Systems ROS: Yes All systems reviewed with the patient and are negative except as otherwise documented Exam Vital Signs (past 8 hours): - 07/29/21 03:00 07/29/21 04:00 07/29/21 05:00 Temperature 98.7 F Pulse Rate 106 H 108 H 105 H Respiratory Rate 18 20 22 Blood Pressure 135/65 149/70 H 153/71 H Pulse Oximetry 94 92 92 07/29/21 05:11 07/29/21 07:10 07/29/21 08:00 Temperature Pulse Rate 106 H Respiratory Rate 18 Blood Pressure Pulse Oximetry 92 93 93 07/29/21 10:16 09/12/21 10:17 Temperature Pulse Rate Respiratory Rate Blood Pressure Pulse Oximetry 94 93 Oxygen Delivery Method Nasal Cannula Oxygen Flow Rate 2 Narrative Exam Narrative: Constitutional-he is oriented to person, place and time. No apparent distress Cardiovascular- sinus tachycardia, no peripheral edema Pulmonary-unlabored respiratory effort, no audible wheezing Abdominal-distended, compressible no peritonitis. Musculoskeletal-no cyanosis or clubbing Neurological-nonfocal, normal strength throughout Skin-warm and dry Objective Labs Result Diagrams: 07/29/21 04:20 07/29/21 04:20 Labs: Laboratory Results - last 24 hr 07/28/21 07/28/21 07/28/21 15:02 23:40 23:40 WBC RBC Hgb Hct MCV MCH MCHC RDW Plt Count Sodium 133 L 133 L Potassium 3.6 3.7 Chloride 103 100 Carbon Dioxide 22 26 BUN 27 H 33 H Creatinine 1.26 H 1.41 H Estimated GFR 54.9 L 48.2 L BUN/Creatinine Ratio 21.4 23.4 H Glucose 189 H 159 H Lactate 1.9 Calcium 7.2 L 6.9 L Magnesium 1.8 Total Bilirubin 3.6 H Conjugated Bilirubin Unconjugated Bilirubin AST 58 ALT 70 H Alkaline Phosphatase 89 Total Protein 6.4 Albumin 3.1 L Globulin 3.3 Albumin/Globulin Ratio 0.9 L Amylase Lipase Nasal Screen MRSA (PCR) 07/28/21 07/28/21 07/29/21 23:40 23:40 01:20 WBC RBC Hgb Hct MCV MCH MCHC RDW Plt Count Sodium Potassium Chloride Carbon Dioxide BUN Creatinine Estimated GFR BUN/Creatinine Ratio Glucose Lactate Calcium Magnesium 2.0 Total Bilirubin Conjugated Bilirubin Unconjugated Bilirubin AST ALT Alkaline Phosphatase Total Protein Albumin Globulin Albumin/Globulin Ratio Amylase 288 H D Lipase 541 H D Nasal Screen MRSA (PCR) Negative for mrsa 07/29/21 07/29/21 07/29/21 04:20 04:20 08:40 WBC 16.6 H RBC 4.03 L Hgb 12.7 L Hct 38.2 L MCV 94.7 MCH 31.5 MCHC 33.3 RDW 13.4 Plt Count 151 Sodium 133 L Potassium 3.3 L Chloride 105 Carbon Dioxide 22 BUN 31 H Creatinine 1.18 Estimated GFR 59.2 L BUN/Creatinine Ratio 26.3 H Glucose 136 H Lactate Calcium 6.4 L* Magnesium 1.7 2.2 Total Bilirubin Conjugated Bilirubin Unconjugated Bilirubin AST ALT Alkaline Phosphatase Total Protein Albumin Globulin Albumin/Globulin Ratio Amylase Lipase Nasal Screen MRSA (PCR) 07/29/21 07/29/21 08:40 08:40 WBC RBC Hgb Hct MCV MCH MCHC RDW Plt Count Sodium Potassium Chloride Carbon Dioxide BUN Creatinine Estimated GFR BUN/Creatinine Ratio Glucose Lactate 1.4 Calcium Magnesium Total Bilirubin 3.2 H Conjugated Bilirubin 0.0 Unconjugated Bilirubin 2.3 H AST 43 ALT 58 H Alkaline Phosphatase 78 Total Protein 6.3 Albumin 3.0 L Globulin 3.3 Albumin/Globulin Ratio 0.9 L Amylase Lipase Nasal Screen MRSA (PCR) PFSH Medical History Barretts esophagus BPH w urinary obs/LUTS Essential hypertension GERD (gastroesophageal reflux disease) Glanular hypospadias History of acute pancreatitis History of small bowel obstruction Hyperlipidemia Surgical History H/O breast biopsy H/O prostate biopsy H/O vasectomy History of nephrectomy Hx of circumcision Family History Brother Age: 80 Heart disease Mother Alcoholic Father Heart disease Heart attack Social History household members: spouse Tobacco & Substance Use Smoking Status: Former smoker alcohol intake: current Assessment & Plan Assessment and plan (1) Pancreatitis: Status: Acute Assessment & Plan narrative: 80 year old man admitted for acute pancreatitis hemodynamically stable. Consulted regarding foci of free air near duodenum/pancreatic head on CT A/P in setting of moderate pancreatitis. No pancreatic necrosis or organ failure is present. No peritonitis on exam, patient has less abdominal pain then 24 hrs ago, leukocytosis and pancreatic enzymes down trending. I suspect that the free air is not a result of a clinically significant intestinal perforation given his improving clinical state and the small volume of air on imaging. Recommend proceeding with upper GI series with gastrografin to rule out intestinal perforation. -NPO -Antibitoics until intestinal perforation has been adequately eliminated -Suspect pancreatitis secondary to gallstone pancreatitis would benefit from cholecystectomy once pancreatitis has resolved Time Spent With Patient Critical Care time: I spent a total of [] minutes of critical care time on this patient's care today; this time is exclusive of procedural time.
[2021-07-29] MEDS: SODIUM CHLORIDE 0.9% FLUSH 10 ML IV ×2 (11:14→21:43)
[2021-07-29] MEDS: ONDANSETRON 4 MG/2 ML INJ IV (11:14)
[2021-07-29 11:20] LABS: PTT Partial Thromboplastin Tim 30 SECONDS (26.4-36.2)
[2021-07-29 11:22] LABS: BUN Creatinine Ratio 26.7 (6-22); Blood Urea Nitrogen 32 mg/dL (9-20); Calcium 7.3 mg/dL (8.4-10.2); Carbon Dioxide 22 mmol/L (22-32); Chloride 104 mmol/L (98-107); Estimated Glomerular Filt Rate 58.1 mL/min (>60); Glucose 133 mg/dL (80-110); HEMOLYSIS < 15 (0-50); Potassium 3.8 mmol/L (3.4-5.1); Sodium 134 mmol/L (137-145)
[2021-07-29 11:36] LABS: Ionized Calcium 3.7 mg/dL (4.5-5.6)
[2021-07-29] MEDS: HEPARIN DRIP 25,000 UNIT/500 ML IV.SOLN 26 UNIT IV (11:37)
[2021-07-29 11:39] LABS: Procalcitonin 2.85 ng/mL (<0.5)
[2021-07-29] MEDS: HEPARIN 5,000 UNIT/ML VIAL 5900 UNIT IV (12:13)
[2021-07-29] MEDS: INSULIN LISPRO 100 UNIT/ML 3ML VIAL SUBCUT (12:29)
--- NOTE | 2021-07-29 16:31 | DI.CT.S_ITS ---
PROCEDURE: CT ABDOMEN PELVIS W CON INDICATIONS: evaluate if contrast has leaked out of bowel, confirm perf TECHNIQUE: After the administration of oral and IV contrast, axial sections were acquired from the lung bases to the pubic symphysis. Coronal and sagittal reformats were performed. For radiation dose reduction, the following was used: automated exposure control, adjustment of mA and/or kV according to patient size. COMPARISON: [facility], CR, XR GASTROGRAFIN CHALLENGE, 07/29/2021, 10:33. [facility], CT, CT ABDOMEN PELVIS W CON, 07/28/2021, 20:35. FINDINGS: Image quality: Excellent. Lung bases: Bilateral pleural effusions. Bibasilar consolidations. Heart: No significant findings. Large hiatal hernia. Enteric tube is coiled in the hiatal hernia. The tip projects cephalad. ABDOMEN: Liver: No focal lesion. Gallbladder: Not distended. Biliary ducts: No dilatation. No pneumobilia. Pancreas: There is extraluminal gas mostly at the head of the pancreas. There are a few scattered foci of gas at the tail the pancreas. Overall the amount of extraluminal air is not significantly changed. There is small volume of free fluid surrounding the pancreas. Heterogeneous enhancement in the head of the pancreas. No pancreatic ductal dilatation seen. Spleen: No splenomegaly. Adrenal Glands: No nodule. Kidneys and Ureters: Left kidney enhances uniformly. There is trace excreted contrast in the left renal pelvis. Small peripelvic cysts suspected. No hydroureter. The right kidney is absent. Stomach and Bowel: Dilated loops of small bowel in the left abdomen is stable to slightly increased compared to yesterday evening. There is enteric contrast in the duodenum. No leakage of oral contrast is seen. There is a small volume of free fluid tracking in the right retroperitoneum. Overall this is similar to the prior CT. Diverticulosis. Contrast transits into the transverse colon. The appendix is not identified. Peritoneum: Small volume of free fluid mostly centered around the pancreas and right retroperitoneum as described above. Extraluminal air predominantly near the head of the pancreas. Overall this appears similar to the prior exam. Ventral Wall: No hernia. Bilateral flank edema. Lumbar edema. Abdominal Nodes: No enlarged nodes. Vessels: No abdominal aortic aneurysm. Circumferential calcified atherosclerotic plaque. The celiac artery is patent. The splenic artery is patent. No pseudoaneurysm. The SMA and JOSE are patent. The portal vein is patent. No portal venous gas. At the distal SMV there is short segment nonocclusive thrombus, (3/33), unchanged. IVC is patent. PELVIS: Pelvic Organs: Prostatomegaly. Bladder: Bladder is mostly decompressed. Lopes catheter is present. There is air and excreted contrast within the urinary bladder. Pelvic Nodes: No enlarged lymph nodes. Miscellaneous: No inguinal hernias are seen. Bones: No compression fracture. Multilevel DDD. IMPRESSION: 1. No leakage of oral contrast is seen. The Gastrografin challenge was a false positive. 2. Similar moderate volume of extraluminal gas predominantly at the head of the pancreas. This could be due to duodenal perforation or pancreatic necrosis or gas-forming organism. 3. Heterogeneous enhancement at the head of the pancreas and free fluid surrounding the pancreas. Findings consistent with pancreatitis. Possible pancreatic necrosis in the head. -Recommend continued CT surveillance in a few weeks. 4. Short segment nonocclusive thrombus in the distal SMV, unchanged. 5. Dilated loops of small bowel in the left abdomen are slightly increased. Contrast transits into the colon. This could be due to partial small bowel obstruction or ileus. 6. Bilateral pleural effusions. Bibasilar consolidations. Similar to the prior exam. 7. Large hiatal hernia. The enteric tube is coiled in the hernia sac with the catheter tip projecting cephalad. Dictated by: Misael Park M.D. on 07/29/2021 at 16:40 Approved by: Misael Park M.D. on 07/29/2021 at 17:00
[2021-07-29 16:50] LABS: PTT Partial Thromboplastin Tim 55 SECONDS (26.4-36.2)
[2021-07-29 16:52] LABS: BUN Creatinine Ratio 26.1 (6-22); Blood Urea Nitrogen 31 mg/dL (9-20); Calcium 7.3 mg/dL (8.4-10.2); Carbon Dioxide 23 mmol/L (22-32); Chloride 106 mmol/L (98-107); Estimated Glomerular Filt Rate 58.7 mL/min (>60); Glucose 147 mg/dL (80-110); HEMOLYSIS < 15 (0-50); Potassium 3.5 mmol/L (3.4-5.1); Sodium 136 mmol/L (137-145)
--- NOTE | 2021-07-29 18:00 | PC.NURSE ---
Addendum entered by Oneyda Costello R.N. 07/29/21 22:20: Critical lab result of Ca 6.3, Provider Nikolas made aware, no new orders at this time Original Note: Evening shift note: Pt sitting up in bed resting, with at bedside, A/Ox4, VSS despite being tachycardic, denies pain, currently on 2L NC SpO2 92-94%. Heparin gtt infusing at 7mL/hr, LR at 150ml/hr and TKO to LAC PIV. NG in L nare connected to Low continuous suction, with green bile output. Pt states that he has been passing flatus, with positive bowel tones, abdomen distended, pt denies tenderness, krishnan is in place with ouput just barely meeting 30cc/hr, amee colored and slightly cloudy, orders for hourly measurements. is very concerned with many questions regarding patients care. Results of Gastrografin called to Dr. Keating, Dr Perry contacted regarding possible bowel perforation, agreed to take pt to surgery after additional abdominal CT for confirmation. Dr Keating discussed findings with pt and spouse, spouse requests to talk to Dr Perry before agreeing to surgery. Dr. Perry at bedside, discussed with patient and risks and benefits of surgery. Patient is agreeable to surgery, CT called to escort pt to CT, then kindly agreeing to escort pt via bed to OR for surgery. Pt left room at 1713, will return when surgery is completed to recover in ICU room 226, due to low staff in PACU. No further patient contact at this time.
--- NOTE | 2021-07-29 18:20 | SUR.OPER ---
Supine on padded OR bed, head on pillow, arms secured on padded arm boards at <90 degrees abduction, legs uncrossed, safety belt at thigh, tape over blanket over lower legs.
[2021-07-29] MEDS: LACTATED RINGERS 1,000 ML 150 ML IV (21:05)
[2021-07-29 22:00] LABS: Hemoglobin 11.8 g/dL (13.5-17.5)
[2021-07-29 22:07] LABS: BUN Creatinine Ratio 25.9 (6-22); Blood Urea Nitrogen 35 mg/dL (9-20); Carbon Dioxide 24 mmol/L (22-32); Chloride 107 mmol/L (98-107); Estimated Glomerular Filt Rate 50.7 mL/min (>60); Glucose 142 mg/dL (80-110); HEMOLYSIS < 15 (0-50); Lactate (Lactic Acid) 1.4 mmol/L (0.7-2.1); Magnesium 2.1 mg/dL (1.6-2.3); Potassium 3.9 mmol/L (3.4-5.1); Sodium 135 mmol/L (137-145)
[2021-07-29 22:10] LABS: Calcium 6.3 mg/dL (8.4-10.2)
--- NOTE | 2021-07-29 22:10 | PM.OP.1 ---
Operative Date/Time/Diagnoses Date of procedure: 07/29/21 Time of procedure: 22:10 Pre-op diagnosis: intestinal perforation Post-op diagnosis: same Procedure & Clinicians Procedure: exploratory laparotomy, lysis of adhesions Same procedure as scheduled: No Indications: Mr Montanez is a 80 y.o man with history of R nephrectomy, laparotomy for bowel obstruction who is admitted with acute pancreatitis. He developed a bowel obstruction CT A/P demonstrated intra abdominal free air, a subsequent gastrografin follow through demonstrated free contrast and he was taken to the operating room for exploratory laparotomy and repair of perforation. Surgeon: Gigi Perry Field Marketing Representative: Avel Cannon Anesthesia Type: General Operative Notes Findings: extremely dense intra abdominal adhesions principally of the right upper quadrant. Specimen(s): none sent Estimated Blood Loss (mL): 800 Procedure in detail: Patient was brought to the operating room placed supine on the table. Bilateral lower extremity compression devices were applied. He received Zosyn. General anesthesia was induced he was intubated with an endotracheal tube. He was prepped and draped sterile fashion. Time-out was performed. A midline incision was made through the previous scar. The subcutaneous tissues were divided with a knife. The fascia was elevated and sharply incised. Small-bowel was densely adherent to the midline incision. During the process of freeing the small bowel from the midline with sharp dissection a 1 mm enterotomy occurred. The enterotomy was closed in imbricated fashion on the anti mesenteric surface using 3-0 silk suture. The closure was tested there was no leak of enteric content. An extensive lysis of adhesions was performed for nearly 4 hours. The small bowel, colon, stomach and liver were essentially frozen together I think as a result of the prior truama right nephrectomy the previous lysis of adhesions and his recurrent bouts of pancreatitis. The majority of the lysis was performed in the epigastric and right upper quadrant in attempt to begin Kocherizing the duodenum. Unable to progress here we elevated the transverse colon and attempted to expose the ligament of Teitz to gain access to the duodenum in a different fashion but this was not possible given the density of adhesions. Eventually we returned to the right upper quadrant and a small caliber venous structure within the adhesions was the source of approximately 800 ml of blood loss. The vein was controlled and ligated with silk suture. At this point we decided that as we could not safely progress to expose the duodenum. I spoke with a tertiary medical center, [facility] and we discussed possible transfer of the patient for either re exploration or advanced endoscopic service to potentially stent or close the perforation in the duodenum. The abdomen was irrigated, hemostasis was achieved. The fascia was closed with #1 PDS the skin with jessica. The patient was extubated and transferred to ICU in stable condition. Post-operative Condition: stable Disposition: ICU
[2021-07-29 22:16] LABS: NT-proBNP (BNP-Adult 18+) 1090 pg/mL (<450)
--- NOTE | 2021-07-29 22:23 | P.PN_ITS ---
Subjective Subjective Date Patient Seen: 07/29/21 Time Patient Seen: 21:20 Interval history: ?Per Dr. Keating:07/28/2021 Overnight developed nausea and vomiting. Was not passing gas. Stat CT abdomen ordered. Concern for possible SBO and NG tube was placed with over 1L out to suction. Surgery consulted. Patient made NPO. IV Zosyn ordered. Free air was noted on CT, as well as thrombosis of the SMV, and upon seeing this went immediately to examine patient. He is co mplaining of abdominal pain, but it is controlled. He says he is passing gas. He is mildly nauseous. Discussed case with surgery, Dr. Perry, who will see the patient. Status post laparotomy-by Dr. Perry. Patient was unable to be transferred directly from the OR to a higher acuity facility, patient was also not able to go to PACU as there was no PACU staffing available this evening. Dr. Hamlin report initially Urged transfer to higher acuity facility due to likely duodenal perforation. Patient returned to room at approximately 9:20 p.m. S/P laparotomy moderately sedated requiring oral suction and stimulation to assist in airway protection. Patient became hypotensive with maps in the 50s to 60s, slightly tachycardic heart rates in the teens. Patient had been extubated in the OR, and returned without central line placement. Exam Vital Signs (past 8 hours): - 07/29/21 15:40 07/29/21 16:00 07/29/21 21:20 Temperature 99.2 F 98.3 F Pulse Rate 108 H 103 H Respiratory Rate 20 13 Blood Pressure 134/69 89/50 L Pulse Oximetry 93 92 95 07/29/21 21:36 07/29/21 21:45 07/29/21 21:46 Temperature Pulse Rate 106 H 106 H 108 H Respiratory Rate 9 L 10 L 10 L Blood Pressure 106/52 L 106/52 L Pulse Oximetry 93 93 93 07/29/21 22:00 07/29/21 22:03 07/29/21 22:15 Temperature 98.8 F Pulse Rate 113 H 109 H 107 H Respiratory Rate 12 11 L 12 Blood Pressure 105/53 L 105/53 L 112/55 L Pulse Oximetry 93 94 95 07/29/21 22:18 Temperature Pulse Rate 107 H Respiratory Rate 12 Blood Pressure 112/55 L Pulse Oximetry 95 Oxygen Delivery Method Nasal Cannula Oxygen Flow Rate 7 Narrative Exam Narrative: General: Patient is a well-developed, well-nourished in no distress at this time. HEENT: oral pharynx has moderate amount of secretions, audible gurgling, and mucous membranes are moist. Neck is supple and symmetric, trachea is midline, Negative for JVD no nasal flaring, retractions, or tachypneic labored Lungs: Auscultation of all lung arce are clear without adventitious sounds, wheezes, rhonchi, or rales. Increased work of breathing both visual & auditory, obvious use of accessory muscles, retractions, tachypneic, and labored Cardio: Tacycardiac rate and rhythm without rubs, or gallops, no carotid bruit, no cardiac pulsations present. Skin: began to look more pale and slightly ashen with the on-set of the A-fib and continued hypotension. Neuro:Moderate sedation, pt would open eyes occansionally with aggressive stimulation for the first 2 hrs, but unable to follow comands. Objective Labs Result Diagrams: 07/29/21 21:45 07/29/21 21:45 Labs: Laboratory Results - last 24 hr 07/27/21 07/28/21 07/28/21 17:23 23:40 23:40 WBC RBC Hgb Hct MCV MCH MCHC RDW Plt Count APTT Sodium 133 L Potassium 3.7 Chloride 100 Carbon Dioxide 26 BUN 33 H Creatinine 1.41 H Estimated GFR 48.2 L BUN/Creatinine Ratio 23.4 H Glucose 159 H Lactate 1.9 Calcium 6.9 L Ionized Calcium Mayra 3.7 L Magnesium Total Bilirubin 3.6 H Conjugated Bilirubin Unconjugated Bilirubin AST 58 ALT 70 H Alkaline Phosphatase 89 NT-Pro-B Natriuret Pep Total Protein 6.4 Albumin 3.1 L Globulin 3.3 Albumin/Globulin Ratio 0.9 L Amylase Lipase Procalcitonin Nasal Screen MRSA (PCR) Blood Type Antibody Screen Crossmatch 07/28/21 07/28/21 07/29/21 23:40 23:40 01:20 WBC RBC Hgb Hct MCV MCH MCHC RDW Plt Count APTT Sodium Potassium Chloride Carbon Dioxide BUN Creatinine Estimated GFR BUN/Creatinine Ratio Glucose Lactate Calcium Ionized Calcium Mayra Magnesium 2.0 Total Bilirubin Conjugated Bilirubin Unconjugated Bilirubin AST ALT Alkaline Phosphatase NT-Pro-B Natriuret Pep Total Protein Albumin Globulin Albumin/Globulin Ratio Amylase 288 H D Lipase 541 H D Procalcitonin Nasal Screen MRSA (PCR) Negative for mrsa Blood Type Antibody Screen Crossmatch 07/29/21 07/29/21 07/29/21 04:20 04:20 08:40 WBC 16.6 H RBC 4.03 L Hgb 12.7 L Hct 38.2 L MCV 94.7 MCH 31.5 MCHC 33.3 RDW 13.4 Plt Count 151 APTT Sodium 133 L Potassium 3.3 L Chloride 105 Carbon Dioxide 22 BUN 31 H Creatinine 1.18 Estimated GFR 59.2 L BUN/Creatinine Ratio 26.3 H Glucose 136 H Lactate Calcium 6.4 L* Ionized Calcium Mayra Magnesium 1.7 2.2 Total Bilirubin Conjugated Bilirubin Unconjugated Bilirubin AST ALT Alkaline Phosphatase NT-Pro-B Natriuret Pep Total Protein Albumin Globulin Albumin/Globulin Ratio Amylase Lipase Procalcitonin Nasal Screen MRSA (PCR) Blood Type Antibody Screen Crossmatch 07/29/21 07/29/21 07/29/21 08:40 08:40 11:05 WBC RBC Hgb Hct MCV MCH MCHC RDW Plt Count APTT Sodium 134 L Potassium 3.8 Chloride 104 Carbon Dioxide 22 BUN 32 H Creatinine 1.20 Estimated GFR 58.1 L BUN/Creatinine Ratio 26.7 H Glucose 133 H Lactate 1.4 Calcium 7.3 L Ionized Calcium Mayra Magnesium Total Bilirubin 3.2 H Conjugated Bilirubin 0.0 Unconjugated Bilirubin 2.3 H AST 43 ALT 58 H Alkaline Phosphatase 78 NT-Pro-B Natriuret Pep Total Protein 6.3 Albumin 3.0 L Globulin 3.3 Albumin/Globulin Ratio 0.9 L Amylase Lipase Procalcitonin Nasal Screen MRSA (PCR) Blood Type Antibody Screen Crossmatch 07/29/21 07/29/21 07/29/21 11:05 11:05 16:10 WBC RBC Hgb Hct MCV MCH MCHC RDW Plt Count APTT 30 Sodium 136 L Potassium 3.5 Chloride 106 Carbon Dioxide 23 BUN 31 H Creatinine 1.19 Estimated GFR 58.7 L BUN/Creatinine Ratio 26.1 H Glucose 147 H Lactate Calcium 7.3 L Ionized Calcium Mayra Magnesium Total Bilirubin Conjugated Bilirubin Unconjugated Bilirubin AST ALT Alkaline Phosphatase NT-Pro-B Natriuret Pep Total Protein Albumin Globulin Albumin/Globulin Ratio Amylase Lipase Procalcitonin 2.85 H Nasal Screen MRSA (PCR) Blood Type Antibody Screen Crossmatch 07/29/21 07/29/21 07/29/21 16:10 16:20 21:45 WBC RBC Hgb Hct MCV MCH MCHC RDW Plt Count APTT 55 H D Sodium 135 L Potassium 3.9 Chloride 107 Carbon Dioxide 24 BUN 35 H Creatinine 1.35 H Estimated GFR 50.7 L BUN/Creatinine Ratio 25.9 H Glucose 142 H Lactate Calcium 6.3 L* Ionized Calcium Mayra Magnesium Total Bilirubin Conjugated Bilirubin Unconjugated Bilirubin AST ALT Alkaline Phosphatase NT-Pro-B Natriuret Pep Total Protein Albumin Globulin Albumin/Globulin Ratio Amylase Lipase Procalcitonin Nasal Screen MRSA (PCR) Blood Type A Negative Antibody Screen Negative Crossmatch See Detail 07/29/21 07/29/21 07/29/21 21:45 21:45 21:45 WBC RBC Hgb 11.8 L Hct 35.0 L MCV MCH MCHC RDW Plt Count APTT Sodium Potassium Chloride Carbon Dioxide BUN Creatinine Estimated GFR BUN/Creatinine Ratio Glucose Lactate 1.4 Calcium Ionized Calcium Mayra Magnesium 2.1 Total Bilirubin Conjugated Bilirubin Unconjugated Bilirubin AST ALT Alkaline Phosphatase NT-Pro-B Natriuret Pep 1090 H Total Protein Albumin Globulin Albumin/Globulin Ratio Amylase Lipase Procalcitonin Nasal Screen MRSA (PCR) Blood Type Antibody Screen Crossmatch [facility] Medical History Barretts esophagus BPH w urinary obs/LUTS Essential hypertension GERD (gastroesophageal reflux disease) Glanular hypospadias History of acute pancreatitis History of small bowel obstruction Hyperlipidemia Surgical History H/O breast biopsy H/O prostate biopsy H/O vasectomy History of nephrectomy Hx of circumcision Family History Brother Age: 80 Heart disease Mother Alcoholic Father Heart disease Heart attack Social History household members: spouse Smoking Status: Former smoker alcohol intake: current Assessment & Plan Assessment & Plan narrative: 1. Status post laparotomy, Acute septic shock, secondary to duodenal perforation, vs mesenteric thrombosis, vs acute pancreatitis, in the setting of sepsis, with hypotension, possible septic shock, acute -patient has Septic shock due to Hypovolemic (blood Loss), and septic (pancreatitis)(bowel perforation-possible) -Initial BP 89/50 with a map of 63, HR 105, RR 10, O2 saturation 94%. Patient had a total of 150 cc output during 3 hours of surgery, he received 3000 cc of fluid, patient lost approximately 800 cc of blood and received 1 unit, at 9:50 p.m. the patient had 200 cc of dark green NG tube output. Patient had approximately 25 cc urine output in 2 hours status post -Ordered a 500 cc LR bolus for the patient, after hours PICC line placement, BNP, lactate, H&H Q4, V/S Q15, I&O QHR. Patient changed to ICU status, and consult with telemedicine Dr. Simmons. -Notified Dr. Keating- with pt update & return to ICU. -Dr. Perry return to the bedside and subsequently for localized that a 2nd radiology opinion concerning CT images was felt that the patient did not have a duodenal perforation and was no longer seeking transfer. -patient continued to deteriorate, further consultation with Dr. Simmons it was determined to proceed with transfer attempts. -patient developed atrial fib with RVR with heart rate 120's. ABG, troponin, EKG ordered: I personally reviewed EKG rate of 120, with PACs, nonspecific ST and T-wave changes. ABGs: PH 7.361, pCO2 41.6, PO2 89, HC03 23.5, total CO2 25, O2 saturation 96%, base excess -2, sodium 139, potassium 3.7, HCT 33, HGB 11 .2. -Am labs today WBC 16.6, VENU had resolved MANAGER OFFICE prior to surgery 1.18, postop 1.35, GFR 50.7, glucose 142, total bili 3.2, AST 43, ALT 58 -patient had a small period of time of improvements in map but again became hypotensive with the atrial fibrillation with RVR -ordered 500cc LR Bolus, followed by LR @100cc/Hr, Phenylephrine drip, amiodarone loading dose of 150 mg followed by a 1 mg/minute infusion. -Calcium 6.3-corrected calcium 7.42-2 g calcium gluconate replacement ordered -initial lactate 1.4, PTT 55, hemoglobin 11.8, creatinine 1.35, Trop WNL -patient stable at this time. 2. Acute SMV thrombosis -noted on CT abdomen -likely complication from pancreatitis -IV heparin Held postop will restart drip 4 hours postop per recommendation of Dr. Perry. -monitoring H&H q.4 hours 3.Severe acute pancreatitis, with elevated LFTs, with VENU -WBC of 17.7, creatinine 1.52, glucose 193, bili 2.2, AST 149, ALT 141 on admit -Am labs today WBC 16.6, VENU had resolved MANAGER OFFICE prior to surgery 1.18, postop 1.35, GFR 50.7, glucose 142, total bili 3.2, AST 43, ALT 58 -continues to have leukocytosis -had been resuscitated with nearly 6L IVF fluid initially, 3 L during laparotomy, 500 cc bolus x2 S/P, LR at 100 cc/HR -abdominal ultrasound demonstrated gallbladder distended, cholelithiasis, minimal gallbladder wall thickening without pericholecystic fluid. -Pre OP ABD/Pelvis CT 07/29/21: No leakage of oral contrast is seen.? The Gastrografin challenge was a false positive. 2. Similar moderate volume of extraluminal gas predominantly at the head of the pancreas.?This could be due to duodenal perforation or pancreatic necrosis or gas-forming organism. 3. Heterogeneous enhancement at the head of the pancreas and free fluid surrounding the pancreas.? Findings consistent with pancreatitis.? Possible pancreatic necrosis in the head.?4. Short segment nonocclusive thrombus in the distal SMV, unchanged. 5. Dilated loops of small bowel in the left abdomen are slightly increased.? Contrast transits into the colon.? This could be due to partial small bowel obstruction or ileus.? -drinks 1-2 glasses of alcohol a night, advised to avoid -lipid panel normal -no hypercalcemia- pt developed hypocalcemia s/p calcium 6.3 corrected calcium 7.42-2 g calcium gluconate provided -etiology probably gallstones with elevated LFTs, though MRCP negative for obstruction, could be passed stone -etiology may also be from hctz -continue IV pain meds -diet advance as tolerated starting with clears, now NPO given worsening condition NG tube in place to low suction -monitor UOP, glucose, calcium closely -patient has severe pancreatitis with elevated risk of mortality given combination of VENU, leukocytosis, age, hypocalcemia, acidosis 4. Acute respiratory failure with pleural effusion -he did desat to the 80s overnight requiring oxygen supplementation, S/P 4L Face Mask -etiology is likely third spacing from pancreatitis, has pleural effusions -fluid has been held -Holding IV Lasix, as pt had VENU with lasix dose on day2. -monitor bmp twice daily 5.? Webster's esophagitis, chronic, present on admission - patient noted to have a hiatal hernia on? CT - will continue PPI and Pepcid which he takes at home- Holding home meds 6. Essential hypertension, with New onset atrial fibrillation with RVR, acute on chronic, present on admission -Hypotension, Afib HR 113-120- see above management -initial B/P 216/101, 170/81 -holding oral medications for now including metoprolol -holding metop may be contributing to mild tachycardia, will consider small doses of IV metop if tachycardia worsens-holding home meds see above medication management. 7. Hyperlipidemia, chronic, present on admission -will check fasting lipid given his pancreatitis Code Status: full code Surrogate decision maker: ? COVID PCR:? Negative COVID vaccination: December 2020 Moderna DVT/VTE prophylaxis:? Heparin 5000 units b.i.d. SCDs Disposition:? Expected length of stay greater than 2 midnights I have utilized all available immediate resources to obtain, update, or review the patient's current medications. I confirmed that the patient's advanced care plan is present, Code status is documented and/or surrogate decision maker is listed in the patient's medical record. Time Spent With Patient Critical Care time: I spent a total of [60] minutes of critical care time on this patient's care today; this time is exclusive of procedural time. Quality VTE Deep Vein Thrombosis/Pulmonary Embolism Present on Admission: No
[2021-07-29 23:57] LABS: Troponin I 0.015 ng/mL (0.01-0.034)
[2021-07-30] VITALS (102 sets, daily range): BP systolic 81–151; BP diastolic 45–69; PULSE 91–114; RESP 14–28; TEMP 36.2–37.3; O2SAT 92–97
--- NOTE | 2021-07-30 00:01 | DI.RAD.S_ITS ---
PROCEDURE: XR CHEST 1V INDICATIONS: PICC placement TECHNIQUE: One view of the chest was acquired. COMPARISON: [facility], CR, XR CHEST 1V, 07/27/2021, 15:46. FINDINGS: Surgical changes and devices: Left-sided PICC line tip is in the region of SVC. Enteric tube is coiled within distal esophagus with its tip seen in mid esophageal lumen, should be pulled on and repositioned. Lungs and pleura: There is suggestion of trace bilateral pleural effusion with blunting of bilateral costophrenic angles. Mild pulmonary vascular congestion is seen. No gross pneumothorax. Mediastinum: Mediastinal contours appear normal. Heart size is enlarged. Bones and chest wall: No suspicious bony lesions. Overlying soft tissues appear unremarkable. IMPRESSION: 1. Left-sided PICC line tip is in the region of SVC. 2. Enteric tube is coiled within distal esophagus with tip seen in mid esophageal lumen and should be pulled out and repositioned. 3. Mild congestion and trace bilateral pleural effusion. No gross pneumothorax. Dictated by: Chris Arevalo M.D. on 07/30/2021 at 0:19 Approved by: Chris Arevalo M.D. on 07/30/2021 at 0:20
[2021-07-30] MEDS: LACTATED RINGERS 500 ML IV (00:08)
[2021-07-30] MEDS: AMIODARONE 150 MG/3 ML VIAL IV (00:16)
[2021-07-30 00:22] LABS: Lactate (Lactic Acid) 1.4 mmol/L (0.7-2.1)
--- NOTE | 2021-07-30 00:28 | P.TELICUCN_ITS ---
History of Present Illness Consult details Chief complaint: Severe abd pain Reason for consult: POD #0 from laparotomy :: This patient was seen via real time interactive two-way audiovisual telecommunication. This is a 80 y.o. male w/ PMHx of GERD, hyperlipidemia, Webster's esophagus, rem ote nephrectomy, SBO and pancreatitis who is in the ICU after a laparotomy. Laparotomy was prompted by a small bowel follow through which showed extraluminal contrast. In the OR, dense adhesions were encountered which necessitated a prolonged dissection; an inadvertent enterotomy did occur which w as repaired. Ultimately, the procedure was aborted and preparations were made for a transfer to a tertiary care center. He was extubated in the PACU. Anesthesiologist's verbal report to me: 1 unit pRBC, 2L crystalloid as well as intraoperative vasopressin. Since ICU arrival he has been oliguric and has had slow development of non- invasive systolic hypotension in the mid to high 80s and MAP in high 50s to low 60s. In addition, he has developed rapid atrial fibrillation. I discussed this with HEAVENLY Connor and ordered an amiodarone 150 mg bolus followed by a 1 mg/min infusion. I also recommended an additional 500 mL crystalloid and the initiation of phenylephrine. The crystalloid bolus has completed and his non-invasive SBP is now in the 110s with a HR of 103. His mental status has improved and he is looking around the room; however, he has required some occassional oropharyngeal suctioning. RR is currently 15 with O2 saturation of 95%. [facility] Medical History Barretts esophagus BPH w urinary obs/LUTS Essential hypertension GERD (gastroesophageal reflux disease) Glanular hypospadias History of acute pancreatitis History of small bowel obstruction Hyperlipidemia Surgical History H/O breast biopsy H/O prostate biopsy H/O vasectomy History of nephrectomy Hx of circumcision Family History Brother Age: 80 Heart disease Mother Alcoholic Father Heart disease Heart attack Social History household members: spouse Smoking Status: Former smoker alcohol intake: current Current Medications Current Medications Medications: Home Medications lansoprazole 30 mg capsule,delayed release 30 mg PO BID #90 cap 10/08/17 [Rx Confirmed 07/26/21] lisinopril 20 mg-hydrochlorothiazide 25 mg tablet 1 tab PO QDAY #90 tab 10/08/17 [Rx Confirmed 07/26/21] simvastatin 20 mg tablet 20 mg PO HS #30 tab 12/08/18 [Rx Confirmed 07/26/21] aspirin 81 mg tablet,delayed release 81 mg PO DAILY 09/11/20 [History Confirmed 07/26/21] potassium chloride 20 mEq tablet,extended release 10 meq PO DAILY 09/11/20 [History Confirmed 07/26/21] famotidine 40 mg tablet (Pepcid) 40 mg PO BEDTIME 01/14/21 [History Confirmed 07/26/21] metoprolol succinate 50 mg tablet,extended release 24 hr (Toprol XL) 25 mg PO BEDTIME 01/14/21 [History Confirmed 07/26/21] Visit Medications (administered) Generic Name Dose Route Start Last Admin Trade Name Piyushq PRN Reason Stop Dose Admin Acetaminophen 650 mg 07/26/21 19:25 07/27/21 16:10 Acetaminophen 325 Mg Tablet PO 650 mg Q6HR PRN Administration Fever/Mild Pain (1-3) Famotidine 20 mg 07/27/21 21:00 07/29/21 21:37 Famotidine 20 Mg Tablet PO Not Given BEDTIME JOSE Heparin Sodium (Porcine) 5,000 unit 07/26/21 21:00 07/29/21 21:43 Heparin 5,000 Unit/Ml Vial SUBCUT Not Given BID JOSE Hydromorphone HCl 0.5 mg 07/26/21 19:25 07/27/21 06:06 Hydromorphone 0.5 Mg Inj IV 0.5 mg Q6H PRN Administration Pain, Moderate (4-6) Lactated Ringer's 1,000 mls @ 150 mls/hr 07/28/21 23:30 07/29/21 21:05 Lactated Ringers IV 150 mls/hr CONT JOSE Administration Piperacillin Sod/Tazobactam 100 mls @ 25 mls/hr 07/29/21 04:00 07/29/21 18:11 Sod 3.375 gm/ Sodium Chloride IV Infused Q8H JOSE Infusion Lactated Ringer's 1,000 mls @ 100 mls/hr 07/29/21 22:45 07/29/21 22:25 Lactated Ringers IV 100 mls/hr CONT JOSE Administration Lactated Ringer's 500 mls @ 500 mls/hr 07/29/21 23:53 07/30/21 00:08 Lactated Ringers IV 07/30/21 00:52 500 mls/hr BOLUS ONE Administration Insulin Human Lispro 0 unit 07/29/21 12:00 07/29/21 23:25 Insulin Lispro 100 Unit/Ml 3ml Vial SUBCUT Not Given Q6H [facility] Protocol Melatonin 6 mg 07/27/21 23:53 07/28/21 00:29 Melatonin 3 Mg Tablet PO 6 mg BEDTIME PRN Administration Insomnia Metoprolol Succinate 25 mg 07/26/21 21:00 07/29/21 21:37 Metoprolol Er 50 Mg Tablet PO Not Given BEDTIME JOSE Ondansetron HCl 4 mg 07/26/21 19:25 07/29/21 11:14 Ondansetron 4 Mg/2 Ml Inj IV 4 mg Q8HR PRN Administration Nausea And Vomiting Oxycodone HCl 5 mg 07/26/21 19:25 07/27/21 09:59 Oxycodone Ir 5 Mg Tablet PO 5 mg Q6HR PRN Administration Pain, Moderate (4-6) Pantoprazole Sodium 40 mg 07/29/21 09:00 07/29/21 21:42 Pantoprazole 40 Mg Vial IV 40 mg BID JOSE Administration Sodium Chloride 10 ml 07/27/21 07:51 07/27/21 18:29 Sodium Chloride 0.9% Flush IV 10 ml PRN PRN Administration Flush Sodium Chloride 10 ml 07/27/21 09:00 07/29/21 21:43 Sodium Chloride 0.9% Flush IV 10 ml BID JOSE Administration Review of Systems Review of Systems Narrative: -Unable to comply Exam Vital Signs (past 8 hours): - 07/29/21 21:20 07/29/21 21:36 07/29/21 21:45 Temperature 98.3 F Pulse Rate 103 H 106 H 106 H Respiratory Rate 13 9 L 10 L Blood Pressure 89/50 L 106/52 L Pulse Oximetry 95 93 93 07/29/21 21:46 07/29/21 22:00 07/29/21 22:03 Temperature 98.8 F Pulse Rate 108 H 113 H 109 H Respiratory Rate 10 L 12 11 L Blood Pressure 106/52 L 105/53 L 105/53 L Pulse Oximetry 93 93 94 07/29/21 22:15 07/29/21 22:18 07/29/21 22:30 Temperature Pulse Rate 107 H 107 H 110 H Respiratory Rate 12 12 13 Blood Pressure 112/55 L 112/55 L 104/53 L Pulse Oximetry 95 95 94 07/29/21 22:45 07/29/21 23:00 07/29/21 23:01 Temperature Pulse Rate 111 H 115 H 114 H Respiratory Rate 12 16 10 L Blood Pressure 104/53 L 90/53 L 90/53 L Pulse Oximetry 94 94 95 07/29/21 23:02 07/29/21 23:15 07/29/21 23:30 Temperature 97.8 F Pulse Rate 116 H 115 H Respiratory Rate 21 16 Blood Pressure 88/55 L 87/51 L Pulse Oximetry 95 94 94 07/29/21 23:31 07/29/21 23:45 07/30/21 00:00 Temperature Pulse Rate 112 H 114 H 114 H Respiratory Rate 14 15 16 Blood Pressure 87/51 L 84/46 L 85/45 L Pulse Oximetry 95 95 96 07/30/21 00:15 Temperature Pulse Rate 112 H Respiratory Rate 23 Blood Pressure 114/58 L Pulse Oximetry 94 Oxygen Delivery Method Simple Mask Oxygen Flow Rate 4 Const Other: elderly male in no acute distress Objective Labs Result Diagrams: 07/29/21 21:45 07/29/21 21:45 Labs: Laboratory Results - last 24 hr 07/27/21 07/28/21 07/29/21 17:23 23:40 01:20 WBC RBC Hgb Hct MCV MCH MCHC RDW Plt Count APTT Sodium Potassium Chloride Carbon Dioxide BUN Creatinine Estimated GFR BUN/Creatinine Ratio Glucose Lactate Calcium Ionized Calcium Mayra 3.7 L Magnesium 2.0 Total Bilirubin Conjugated Bilirubin Unconjugated Bilirubin AST ALT Alkaline Phosphatase Troponin I NT-Pro-B Natriuret Pep Total Protein Albumin Globulin Albumin/Globulin Ratio Procalcitonin Nasal Screen MRSA (PCR) Negative for mrsa Blood Type Antibody Screen Crossmatch 07/29/21 07/29/21 07/29/21 04:20 04:20 08:40 WBC 16.6 H RBC 4.03 L Hgb 12.7 L Hct 38.2 L MCV 94.7 MCH 31.5 MCHC 33.3 RDW 13.4 Plt Count 151 APTT Sodium 133 L Potassium 3.3 L Chloride 105 Carbon Dioxide 22 BUN 31 H Creatinine 1.18 Estimated GFR 59.2 L BUN/Creatinine Ratio 26.3 H Glucose 136 H Lactate Calcium 6.4 L* Ionized Calcium Mayra Magnesium 1.7 2.2 Total Bilirubin Conjugated Bilirubin Unconjugated Bilirubin AST ALT Alkaline Phosphatase Troponin I NT-Pro-B Natriuret Pep Total Protein Albumin Globulin Albumin/Globulin Ratio Procalcitonin Nasal Screen MRSA (PCR) Blood Type Antibody Screen Crossmatch 07/29/21 07/29/21 07/29/21 08:40 08:40 11:05 WBC RBC Hgb Hct MCV MCH MCHC RDW Plt Count APTT Sodium 134 L Potassium 3.8 Chloride 104 Carbon Dioxide 22 BUN 32 H Creatinine 1.20 Estimated GFR 58.1 L BUN/Creatinine Ratio 26.7 H Glucose 133 H Lactate 1.4 Calcium 7.3 L Ionized Calcium Mayra Magnesium Total Bilirubin 3.2 H Conjugated Bilirubin 0.0 Unconjugated Bilirubin 2.3 H AST 43 ALT 58 H Alkaline Phosphatase 78 Troponin I NT-Pro-B Natriuret Pep Total Protein 6.3 Albumin 3.0 L Globulin 3.3 Albumin/Globulin Ratio 0.9 L Procalcitonin Nasal Screen MRSA (PCR) Blood Type Antibody Screen Crossmatch 07/29/21 07/29/21 07/29/21 11:05 11:05 16:10 WBC RBC Hgb Hct MCV MCH MCHC RDW Plt Count APTT 30 Sodium 136 L Potassium 3.5 Chloride 106 Carbon Dioxide 23 BUN 31 H Creatinine 1.19 Estimated GFR 58.7 L BUN/Creatinine Ratio 26.1 H Glucose 147 H Lactate Calcium 7.3 L Ionized Calcium Mayra Magnesium Total Bilirubin Conjugated Bilirubin Unconjugated Bilirubin AST ALT Alkaline Phosphatase Troponin I NT-Pro-B Natriuret Pep Total Protein Albumin Globulin Albumin/Globulin Ratio Procalcitonin 2.85 H Nasal Screen MRSA (PCR) Blood Type Antibody Screen Crossmatch 07/29/21 07/29/21 07/29/21 16:10 16:20 21:45 WBC RBC Hgb Hct MCV MCH MCHC RDW Plt Count APTT 55 H D Sodium 135 L Potassium 3.9 Chloride 107 Carbon Dioxide 24 BUN 35 H Creatinine 1.35 H Estimated GFR 50.7 L BUN/Creatinine Ratio 25.9 H Glucose 142 H Lactate Calcium 6.3 L* Ionized Calcium Mayra Magnesium Total Bilirubin Conjugated Bilirubin Unconjugated Bilirubin AST ALT Alkaline Phosphatase Troponin I NT-Pro-B Natriuret Pep Total Protein Albumin Globulin Albumin/Globulin Ratio Procalcitonin Nasal Screen MRSA (PCR) Blood Type A Negative Antibody Screen Negative Crossmatch See Detail 07/29/21 07/29/21 07/29/21 21:45 21:45 21:45 WBC RBC Hgb 11.8 L Hct 35.0 L MCV MCH MCHC RDW Plt Count APTT Sodium Potassium Chloride Carbon Dioxide BUN Creatinine Estimated GFR BUN/Creatinine Ratio Glucose Lactate 1.4 Calcium Ionized Calcium Mayra Magnesium 2.1 Total Bilirubin Conjugated Bilirubin Unconjugated Bilirubin AST ALT Alkaline Phosphatase Troponin I NT-Pro-B Natriuret Pep 1090 H Total Protein Albumin Globulin Albumin/Globulin Ratio Procalcitonin Nasal Screen MRSA (PCR) Blood Type Antibody Screen Crossmatch 07/29/21 07/29/21 23:20 23:28 WBC RBC Hgb Hct MCV MCH MCHC RDW Plt Count APTT Sodium Potassium Chloride Carbon Dioxide BUN Creatinine Estimated GFR BUN/Creatinine Ratio Glucose Lactate 1.4 Calcium Ionized Calcium Mayra Magnesium Total Bilirubin Conjugated Bilirubin Unconjugated Bilirubin AST ALT Alkaline Phosphatase Troponin I 0.015 NT-Pro-B Natriuret Pep Total Protein Albumin Globulin Albumin/Globulin Ratio Procalcitonin Nasal Screen MRSA (PCR) Blood Type Antibody Screen Crossmatch Assessment & Plan Assessment and plan (1) S/P laparotomy: Status: Acute Plan: -Continue NGT decompression -Continue Zosyn -Continue transfer efforts (2) Oliguria: Status: Acute Plan: -Continue crystalloid resuscitation -See hypotension plan (3) Essential hypertension: Status: Acute Plan: -Hold outpatient meds (4) Hyperlipidemia: Status: Acute Plan: -Hold outpatient meds (5) Small bowel obstruction: Status: Acute Plan: -See s/p laparotomy plan (6) Hypotension after procedure: Status: Acute Plan: -See laparotomy plan -Check lactate -Check ABG (7) Atrial fibrillation: Status: Acute Plan: -Continue amiodarone
[2021-07-30] MEDS: AMIODARONE 360 MG/200 ML PIGGYBACK 33.3 MG IV (00:49)
[2021-07-30 02:33] LABS: Hematocrit 36.5 % (41-53); Hemoglobin 12.1 g/dL (13.5-17.5)
[2021-07-30 02:40] LABS: Lactate (Lactic Acid) 1.4 mmol/L (0.7-2.1); Magnesium 2.1 mg/dL (1.6-2.3)
[2021-07-30 02:50] LABS: NT-proBNP (BNP-Adult 18+) 1140 pg/mL (<450)
[2021-07-30] MEDS: PIPERACILLIN/TAZO 3.375 GM in SODIUM CHLORIDE 0.9% 100 ML 25 ML IV ×3 (03:18→19:37)
[2021-07-30] MEDS: PHENYLEPHRINE 20,000 MCG in DEXTROSE 5% IN WATER 250 ML 7.5 ML IV (03:25)
[2021-07-30] MEDS: AMIODARONE 360 MG/200 ML PIGGYBACK 16.7 MG IV ×2 (06:00→17:41)
[2021-07-30 06:37] LABS: Hemoglobin 11.8 g/dL (13.5-17.5); Mean Corpuscular HGB Conc 33.5 % (30-36); Mean Corpuscular Hemoglobin 31.7 PG (26-34); Mean Corpuscular Volume 94.5 fL (80-100); Platelet Count 173 X10^3/uL (150-400); Red Blood Cell Count 3.71 X10^6/uL (4.5-5.9); Red Cell Distribution Width 14.4 % (11.6-14.8); White Blood Cell Count 13.4 X10^3/uL (4.5-11.0)
[2021-07-30 06:40] LABS: BUN Creatinine Ratio 22.5 (6-22); Blood Urea Nitrogen 42 mg/dL (9-20); Calcium 6.7 mg/dL (8.4-10.2); Carbon Dioxide 23 mmol/L (22-32); Chloride 106 mmol/L (98-107); Estimated Glomerular Filt Rate 34.8 mL/min (>60); Glucose 157 mg/dL (80-110); HEMOLYSIS < 15 (0-50); Magnesium 2.2 mg/dL (1.6-2.3); Potassium 3.7 mmol/L (3.4-5.1); Sodium 135 mmol/L (137-145)
[2021-07-30 06:45] LABS: Add Manual Diff / Slide Review YES
[2021-07-30 07:09] LABS: Neutrophils Absolute Manual 10318 /uL (3000-5900); Total Cells Counted 100
[2021-07-30 07:10] LABS: Anisocytosis 1+
[2021-07-30 07:11] LABS: Dohle Bodies 2+
[2021-07-30] MEDS: LACTATED RINGERS 1,000 ML 100 ML IV ×2 (08:43→20:20)
[2021-07-30] MEDS: HEPARIN 5,000 UNIT/ML VIAL 5000 UNIT SUBCUT (08:52)
[2021-07-30] MEDS: SODIUM CHLORIDE 0.9% FLUSH 10 ML IV (08:52)
--- NOTE | 2021-07-30 09:56 | P.PN_ITS ---
Subjective Subjective Date Patient Seen: 07/30/21 Time Patient Seen: 09:56 Interval history: Hypotension and oliguria overnight required low-dose phenylephrine and fluid resuscitation. Currently off pressors. Minimal abdominal pain. Exam Vital Signs (past 8 hours): - 07/30/21 02:00 07/30/21 02:15 07/30/21 02:16 Temperature Pulse Rate 108 H 110 H 109 H Respiratory Rate 16 24 18 Blood Pressure 81/51 L 105/54 L Pulse Oximetry 93 93 93 07/30/21 02:30 07/30/21 02:45 07/30/21 03:00 Temperature Pulse Rate 109 H 107 H 108 H Respiratory Rate 18 15 25 H Blood Pressure 95/50 L 86/54 L 91/53 L Pulse Oximetry 93 94 93 07/30/21 03:02 07/30/21 03:15 07/30/21 03:30 Temperature Pulse Rate 104 H 103 H Respiratory Rate 19 17 Blood Pressure 89/54 L 88/50 L Pulse Oximetry 93 94 93 07/30/21 03:45 07/30/21 04:00 07/30/21 04:05 Temperature 97.6 F Pulse Rate 100 H 101 H Respiratory Rate 18 15 Blood Pressure 89/50 L 95/50 L Pulse Oximetry 95 94 07/30/21 04:15 07/30/21 04:30 07/30/21 04:45 Temperature Pulse Rate 100 H 101 H 99 H Respiratory Rate 18 17 16 Blood Pressure 94/50 L 85/52 L 91/54 L Pulse Oximetry 94 93 94 07/30/21 05:00 07/30/21 05:15 07/30/21 05:30 Temperature 97.2 F L Pulse Rate 98 H 96 H 93 H Respiratory Rate 16 20 16 Blood Pressure 103/55 L 109/59 L 103/52 L Pulse Oximetry 94 95 95 07/30/21 05:45 07/30/21 06:00 07/30/21 06:15 Temperature Pulse Rate 95 H 94 H 93 H Respiratory Rate 21 21 23 Blood Pressure 99/52 L 99/53 L 103/57 L Pulse Oximetry 94 93 93 07/30/21 06:30 07/30/21 06:45 07/30/21 07:00 Temperature Pulse Rate 94 H 94 H 94 H Respiratory Rate 16 21 24 Blood Pressure 107/58 L 110/54 L 106/56 L Pulse Oximetry 93 94 95 07/30/21 07:05 07/30/21 07:15 07/30/21 07:20 Temperature Pulse Rate 93 H 93 H 93 H Respiratory Rate 18 20 23 Blood Pressure 108/58 L Pulse Oximetry 94 95 95 07/30/21 07:30 07/30/21 07:35 07/30/21 07:45 Temperature Pulse Rate 94 H 92 H 91 H Respiratory Rate 20 16 21 Blood Pressure 109/58 L Pulse Oximetry 95 95 96 07/30/21 07:50 07/30/21 07:55 07/30/21 08:00 Temperature 97.2 F L Pulse Rate 95 H 98 H 92 H Respiratory Rate 25 H 25 H 17 Blood Pressure 107/52 L Pulse Oximetry 95 94 94 07/30/21 08:15 07/30/21 08:16 07/30/21 08:20 Temperature Pulse Rate 97 H 96 H 94 H Respiratory Rate 24 23 24 Blood Pressure Pulse Oximetry 94 94 95 07/30/21 08:30 07/30/21 08:35 07/30/21 08:40 Temperature Pulse Rate 94 H 93 H 93 H Respiratory Rate 19 17 20 Blood Pressure 110/55 L Pulse Oximetry 95 95 96 07/30/21 08:45 07/30/21 08:55 07/30/21 09:00 Temperature Pulse Rate 93 H 92 H 93 H Respiratory Rate 25 H 16 25 H Blood Pressure 110/56 L Pulse Oximetry 96 95 95 07/30/21 09:10 07/30/21 09:15 07/30/21 09:30 Temperature Pulse Rate 94 H 93 H 96 H Respiratory Rate 17 17 28 H Blood Pressure 119/58 L Pulse Oximetry 95 94 94 07/30/21 09:40 07/30/21 09:45 Temperature Pulse Rate 97 H 97 H Respiratory Rate 24 21 Blood Pressure Pulse Oximetry 92 93 Oxygen Delivery Method Nasal Cannula Oxygen Flow Rate 4 Narrative Exam Narrative: General elderly man alert oriented no acute distress. Nasog astric tube bilious output. Chest nonlabored respirations Abdomen dressings clean dry intact. Appropriately tender to palpation. Objective Labs Result Diagrams: 07/30/21 06:20 07/30/21 06:20 Labs: Laboratory Results - last 24 hr 07/27/21 07/29/21 07/29/21 17:23 11:05 11:05 WBC RBC Hgb Hct MCV MCH MCHC RDW Plt Count Neut % (Auto) Lymph % (Auto) Carlton % (Auto) Eos % (Auto) Baso % (Auto) Lymph # (Auto) Carlton # (Auto) Baso # (Auto) Total Counted Seg Neutrophils % Band Neutrophils % Lymphocytes % (Manual) Monocytes % (Manual) Neutrophils # (Manual) Dohle Bodies RBC Morphology Anisocytosis APTT 30 ABG pH ABG pCO2 ABG pO2 ABG HCO3 ABG Total CO2 ABG O2 Saturation ABG Base Excess FiO2 Sodium 134 L Potassium 3.8 Chloride 104 Carbon Dioxide 22 BUN 32 H Creatinine 1.20 Estimated GFR 58.1 L BUN/Creatinine Ratio 26.7 H Glucose 133 H Lactate Calcium 7.3 L Ionized Calcium Mayra 3.7 L Magnesium Troponin I NT-Pro-B Natriuret Pep Procalcitonin Blood Type Antibody Screen Crossmatch 07/29/21 07/29/21 07/29/21 11:05 16:10 16:10 WBC RBC Hgb Hct MCV MCH MCHC RDW Plt Count Neut % (Auto) Lymph % (Auto) Carlton % (Auto) Eos % (Auto) Baso % (Auto) Lymph # (Auto) Carlton # (Auto) Baso # (Auto) Total Counted Seg Neutrophils % Band Neutrophils % Lymphocytes % (Manual) Monocytes % (Manual) Neutrophils # (Manual) Dohle Bodies RBC Morphology Anisocytosis APTT ABG pH ABG pCO2 ABG pO2 ABG HCO3 ABG Total CO2 ABG O2 Saturation ABG Base Excess FiO2 Sodium 136 L Potassium 3.5 Chloride 106 Carbon Dioxide 23 BUN 31 H Creatinine 1.19 Estimated GFR 58.7 L BUN/Creatinine Ratio 26.1 H Glucose 147 H Lactate Calcium 7.3 L Ionized Calcium Mayra Magnesium Troponin I NT-Pro-B Natriuret Pep Procalcitonin 2.85 H Blood Type A Negative Antibody Screen Negative Crossmatch See Detail 07/29/21 07/29/21 07/29/21 16:20 21:45 21:45 WBC RBC Hgb Hct MCV MCH MCHC RDW Plt Count Neut % (Auto) Lymph % (Auto) Carlton % (Auto) Eos % (Auto) Baso % (Auto) Lymph # (Auto) Carlton # (Auto) Baso # (Auto) Total Counted Seg Neutrophils % Band Neutrophils % Lymphocytes % (Manual) Monocytes % (Manual) Neutrophils # (Manual) Dohle Bodies RBC Morphology Anisocytosis APTT 55 H D ABG pH ABG pCO2 ABG pO2 ABG HCO3 ABG Total CO2 ABG O2 Saturation ABG Base Excess FiO2 Sodium 135 L Potassium 3.9 Chloride 107 Carbon Dioxide 24 BUN 35 H Creatinine 1.35 H Estimated GFR 50.7 L BUN/Creatinine Ratio 25.9 H Glucose 142 H Lactate Calcium 6.3 L* Ionized Calcium Mayra Magnesium 2.1 Troponin I NT-Pro-B Natriuret Pep 1090 H Procalcitonin Blood Type Antibody Screen Crossmatch 07/29/21 07/29/21 07/29/21 21:45 21:45 23:20 WBC RBC Hgb 11.8 L Hct 35.0 L MCV MCH MCHC RDW Plt Count Neut % (Auto) Lymph % (Auto) Carlton % (Auto) Eos % (Auto) Baso % (Auto) Lymph # (Auto) Carlton # (Auto) Baso # (Auto) Total Counted Seg Neutrophils % Band Neutrophils % Lymphocytes % (Manual) Monocytes % (Manual) Neutrophils # (Manual) Dohle Bodies RBC Morphology Anisocytosis APTT ABG pH ABG pCO2 ABG pO2 ABG HCO3 ABG Total CO2 ABG O2 Saturation ABG Base Excess FiO2 Sodium Potassium Chloride Carbon Dioxide BUN Creatinine Estimated GFR BUN/Creatinine Ratio Glucose Lactate 1.4 Calcium Ionized Calcium Mayra Magnesium Troponin I 0.015 NT-Pro-B Natriuret Pep Procalcitonin Blood Type Antibody Screen Crossmatch 07/29/21 07/29/21 07/30/21 23:28 23:59 02:20 WBC RBC Hgb 12.1 L Hct 36.5 L MCV MCH MCHC RDW Plt Count Neut % (Auto) Lymph % (Auto) Carlton % (Auto) Eos % (Auto) Baso % (Auto) Lymph # (Auto) Carlton # (Auto) Baso # (Auto) Total Counted Seg Neutrophils % Band Neutrophils % Lymphocytes % (Manual) Monocytes % (Manual) Neutrophils # (Manual) Dohle Bodies RBC Morphology Anisocytosis APTT ABG pH 7.36 ABG pCO2 41.6 ABG pO2 89 ABG HCO3 24 ABG Total CO2 25 ABG O2 Saturation 96 ABG Base Excess -2.0 FiO2 36 Sodium Potassium Chloride Carbon Dioxide BUN Creatinine Estimated GFR BUN/Creatinine Ratio Glucose Lactate 1.4 Calcium Ionized Calcium Mayra Magnesium Troponin I NT-Pro-B Natriuret Pep Procalcitonin Blood Type Antibody Screen Crossmatch 07/30/21 07/30/21 07/30/21 02:20 02:20 06:20 WBC 13.4 H RBC 3.71 L Hgb 11.8 L Hct 35.0 L MCV 94.5 MCH 31.7 MCHC 33.5 RDW 14.4 Plt Count 173 Neut % (Auto) Not Reportable Lymph % (Auto) Not Reportable Carlton % (Auto) Not Reportable Eos % (Auto) Not Reportable Baso % (Auto) Not Reportable Lymph # (Auto) Not Reportable Carlton # (Auto) Not Reportable Baso # (Auto) Not Reportable Total Counted 100 Seg Neutrophils % 71.0 H Band Neutrophils % 6.0 Lymphocytes % (Manual) 8.0 L Monocytes % (Manual) 15.0 H Neutrophils # (Manual) 26338 H Dohle Bodies 2+ H RBC Morphology See below Anisocytosis 1+ H APTT ABG pH ABG pCO2 ABG pO2 ABG HCO3 ABG Total CO2 ABG O2 Saturation ABG Base Excess FiO2 Sodium Potassium Chloride Carbon Dioxide BUN Creatinine Estimated GFR BUN/Creatinine Ratio Glucose Lactate 1.4 Calcium Ionized Calcium Mayra Magnesium 2.1 Troponin I NT-Pro-B Natriuret Pep 1140 H Procalcitonin Blood Type Antibody Screen Crossmatch 07/30/21 06:20 WBC RBC Hgb Hct MCV MCH MCHC RDW Plt Count Neut % (Auto) Lymph % (Auto) Carlton % (Auto) Eos % (Auto) Baso % (Auto) Lymph # (Auto) Carlton # (Auto) Baso # (Auto) Total Counted Seg Neutrophils % Band Neutrophils % Lymphocytes % (Manual) Monocytes % (Manual) Neutrophils # (Manual) Dohle Bodies RBC Morphology Anisocytosis APTT ABG pH ABG pCO2 ABG pO2 ABG HCO3 ABG Total CO2 ABG O2 Saturation ABG Base Excess FiO2 Sodium 135 L Potassium 3.7 Chloride 106 Carbon Dioxide 23 BUN 42 H Creatinine 1.87 H Estimated GFR 34.8 L BUN/Creatinine Ratio 22.5 H Glucose 157 H Lactate Calcium 6.7 L Ionized Calcium Mayra Magnesium 2.2 Troponin I NT-Pro-B Natriuret Pep Procalcitonin Blood Type Antibody Screen Crossmatch [facility] Medical History Barretts esophagus BPH w urinary obs/LUTS Essential hypertension GERD (gastroesophageal reflux disease) Glanular hypospadias History of acute pancreatitis History of small bowel obstruction Hyperlipidemia Surgical History H/O breast biopsy H/O prostate biopsy H/O vasectomy History of nephrectomy Hx of circumcision Family History Brother Age: 80 Heart disease Mother Alcoholic Father Heart disease Heart attack Social History household members: spouse Smoking Status: Former smoker alcohol intake: current Assessment & Plan Post-op Postoperative Procedures: Procedures Operation Date: 07/29/21 17:00 Actual Procedure Side Surgeon p Exploratory Laparotomy GEN, lysis of adhesions Gigi Perry MD Postoperative status narrative: 80-year-old male admitted to the hospital for acute pancreatitis. He developed a ileus and during this workup was found to have free air on CT and leakage of oral contrast on a subsequent small-bowel follow-through study. He was taken to the operating room last night for presumed intestinal perforation. The operation was extremely difficult secondary to his pancreatitis and extensive intra abdominal adhesions from previous surgery. Ultimately the operation was aborted as we could not safely expose the site of the presumed perforation the duodenum. A CT scan that was obtained in route to the operating room describes no leak and that the small-b owel follow-through was read as falsely positive. I did not receive this report prior to beginning the operation. My suspicion is that the free air that was identified was secondary to the pancreatic process only as it was quite minimal and not a true intestinal perforation. However given that there are discrepancies in the radiographic reports I would recommend that we proceed with a upper GI series will under fluoroscopy at this point. If there is truly no intestinal leak then he can will likely remain at [facility] for continued management of his pancreatitis and acute kidney injury. However if a leak is identified with fluoroscopy then I would proceed with transfer of the patient to a tertiary care facility. This plan was discussed with the patient and his and they are in agreement with this plan. -NPO -Zosyn -Ok to resume heparin drip for mesenteric thrombosis -Upper GI series -NGT for decompression Quality VTE Deep Vein Thrombosis/Pulmonary Embolism Present on Admission: No
--- NOTE | 2021-07-30 10:11 | DI.RAD.S_ITS ---
PROCEDURE: FL UPPER GI SERIES INDICATIONS: evaluate for proximal small bowel leak COMPARISON: None. FINDINGS: NG tube is again noted within large hiatal hernia, and the tip is directed cephalad. Following administration of Gastrografin contrast material through the NG tube, there is limited opacification of the hiatal hernia, secondary to poor patient tolerance, and suspected increased Gastrografin aspiration risk. The contrast material remained in the hiatal hernia throughout the duration of exam despite prolonged observation. This precluded evaluation of the distal stomach and duodenum for bowel perforation. IMPRESSION: Nondiagnostic examination for bowel perforation for reasons outlined above. Findings were personally telephoned and discussed with Dr. Perry on 07-30-21 15:12 Dictated by: Lake Hayden M.D. on 07/30/2021 at 15:06 Approved by: Lake Hayden M.D. on 07/30/2021 at 15:13
--- NOTE | 2021-07-30 10:58 | PC.NURSE ---
Addendum entered by Kevin Trent R.N. 07/30/21 13:37: Patient picked up for Upper GI test in bed by tech. Per Dr. Hill patient is able to go down for test un monitored/off telemetry (phenylephire has been paused sense 920am). Original Note: PTT ordered and drawn/sent per protocol, called lab twice to confirm received and running, still a waiting results. Will continue to follow.
[2021-07-30 10:59] LABS: PTT Partial Thromboplastin Tim 25 SECONDS (26.4-36.2)
[2021-07-30] MEDS: HEPARIN DRIP 25,000 UNIT/500 ML IV.SOLN 26.604 UNIT IV (11:03)
[2021-07-30] MEDS: INSULIN LISPRO 100 UNIT/ML 3ML VIAL SUBCUT ×2 (12:06→18:37)
[2021-07-30] MEDS: SODIUM CHLORIDE 0.9% 250 ML 21 ML IV (13:41)
--- NOTE | 2021-07-30 13:47 | CM.DPC ---
DCP Cont: Per Surgeon, attempt at surgical intervention last night for presumed intestinal perforation. The operation was extremely difficult secondary to his pancreatitis and extensive intra abdominal adhesions from previous surgery. Ultimately the operation was aborted as we could not safely expose the site of the presumed perforation the duodenum. Pt currently NPO and NG tube and will have upper GI scope to confirm no intestinal leak. If there is a leak, then Surgeon will attempt hospital transfer and if no leak then pt to remain at [facility] for medical management. Plan: SW to follow closely tomorrow after GI scope this evening towards determining possible hospital transfer vs being medically managed here and any identified discharge planning needs. THOM Alaniz
--- NOTE | 2021-07-30 15:17 | P.PN_ITS ---
Subjective Subjective Date Patient Seen: 07/30/21 Interval history: 80-year-old admitted with acute severe pancreatitis, VENU, developed ileus, possible acute small-bowel perforation. He is status post exploratory laparotomy 07/29 with extensive adhesion lysis. Surgeon unable to visualize duodenum intraoperatively to localize source of possible perforation. Preop CT and Gastrografin imaging somewhat contradictory readings with Gastrografin read as showing leak but repeat CT preop not conclusive of leak. Overnight patient developed hypotension and drop in urine output. He was given fluid bolus and started on phenylephrine for BP support. Tele ICU was involved in care. This a.m. map above 70 and phenylephrine titrated off. Urine output has also picked up during course of the day. Patient is currently on 4 L nasal cannula. Additionally he went into AFib last night and given amiodarone bolus and started on amiodarone drip and subsequently converted to sinus rhythm. Mentating well and reports incisional abdominal pain. Exam Vital Signs (past 8 hours): - 07/30/21 07:20 07/30/21 07:30 07/30/21 07:35 Temperature Pulse Rate 93 H 94 H 92 H Respiratory Rate 23 20 16 Blood Pressure 109/58 L Pulse Oximetry 95 95 95 07/30/21 07:45 07/30/21 07:50 07/30/21 07:55 Temperature Pulse Rate 91 H 95 H 98 H Respiratory Rate 21 25 H 25 H Blood Pressure Pulse Oximetry 96 95 94 07/30/21 08:00 07/30/21 08:15 07/30/21 08:16 Temperature 97.2 F L Pulse Rate 92 H 97 H 96 H Respiratory Rate 17 24 23 Blood Pressure 107/52 L Pulse Oximetry 94 94 94 07/30/21 08:20 07/30/21 08:30 07/30/21 08:35 Temperature Pulse Rate 94 H 94 H 93 H Respiratory Rate 24 19 17 Blood Pressure 110/55 L Pulse Oximetry 95 95 95 07/30/21 08:40 07/30/21 08:45 07/30/21 08:55 Temperature Pulse Rate 93 H 93 H 92 H Respiratory Rate 20 25 H 16 Blood Pressure Pulse Oximetry 96 96 95 07/30/21 09:00 07/30/21 09:10 07/30/21 09:15 Temperature Pulse Rate 93 H 94 H 93 H Respiratory Rate 25 H 17 17 Blood Pressure 110/56 L Pulse Oximetry 95 95 94 07/30/21 09:30 07/30/21 09:40 07/30/21 09:45 Temperature Pulse Rate 96 H 97 H 97 H Respiratory Rate 28 H 24 21 Blood Pressure 119/58 L Pulse Oximetry 94 92 93 07/30/21 09:55 07/30/21 10:00 07/30/21 10:10 Temperature Pulse Rate 97 H 98 H 96 H Respiratory Rate 20 24 23 Blood Pressure 108/56 L Pulse Oximetry 93 94 94 07/30/21 10:15 07/30/21 10:25 07/30/21 10:30 Temperature Pulse Rate 95 H 95 H 97 H Respiratory Rate 23 18 20 Blood Pressure Pulse Oximetry 94 94 95 07/30/21 10:40 07/30/21 10:45 07/30/21 10:55 Temperature Pulse Rate 96 H 95 H 101 H Respiratory Rate 22 19 26 H Blood Pressure Pulse Oximetry 94 95 93 07/30/21 11:00 07/30/21 11:01 07/30/21 11:15 Temperature Pulse Rate 97 H 98 H 98 H Respiratory Rate 22 18 19 Blood Pressure 127/60 Pulse Oximetry 92 93 94 07/30/21 11:20 07/30/21 11:30 07/30/21 11:35 Temperature Pulse Rate 97 H 100 H 99 H Respiratory Rate 19 24 21 Blood Pressure Pulse Oximetry 93 93 93 07/30/21 11:45 07/30/21 11:50 07/30/21 11:55 Temperature Pulse Rate 100 H 100 H 99 H Respiratory Rate 22 23 23 Blood Pressure Pulse Oximetry 93 94 94 07/30/21 12:00 07/30/21 12:15 07/30/21 12:20 Temperature 99.2 F Pulse Rate 98 H 100 H 105 H Respiratory Rate 21 26 H 24 Blood Pressure 126/60 Pulse Oximetry 93 94 07/30/21 12:30 07/30/21 12:35 07/30/21 12:45 Temperature Pulse Rate 105 H 102 H 100 H Respiratory Rate 24 24 20 Blood Pressure Pulse Oximetry 93 94 94 07/30/21 12:50 07/30/21 12:55 07/30/21 13:00 Temperature Pulse Rate 100 H 100 H 100 H Respiratory Rate 20 23 23 Blood Pressure 128/60 Pulse Oximetry 93 94 95 07/30/21 14:29 07/30/21 14:40 07/30/21 14:46 Temperature Pulse Rate 105 H 104 H 110 H Respiratory Rate 28 H 27 H 28 H Blood Pressure 92/57 L 126/58 L Pulse Oximetry 93 94 93 Oxygen Delivery Method Nasal Cannula Oxygen Flow Rate 3 Narrative Exam Narrative: General: Alert and oriented male cooperative with exam and not in acute distress Lungs: Clear to auscultation Heart: Regular rhythm Abdomen: Distended Extremities: No distal edema Objective Labs Result Diagrams: 07/30/21 06:20 07/30/21 06:20 Labs: Laboratory Results - last 24 hr 07/29/21 07/29/21 07/29/21 16:10 16:10 16:20 WBC RBC Hgb Hct MCV MCH MCHC RDW Plt Count Neut % (Auto) Lymph % (Auto) [place] % (Auto) Eos % (Auto) Baso % (Auto) Lymph # (Auto) [place] # (Auto) Baso # (Auto) Total Counted Seg Neutrophils % Band Neutrophils % Lymphocytes % (Manual) Monocytes % (Manual) Neutrophils # (Manual) Dohle Bodies RBC Morphology Anisocytosis APTT 55 H D ABG pH ABG pCO2 ABG pO2 ABG HCO3 ABG Total CO2 ABG O2 Saturation ABG Base Excess FiO2 Sodium 136 L Potassium 3.5 Chloride 106 Carbon Dioxide 23 BUN 31 H Creatinine 1.19 Estimated GFR 58.7 L BUN/Creatinine Ratio 26.1 H Glucose 147 H Lactate Calcium 7.3 L Magnesium Troponin I NT-Pro-B Natriuret Pep Blood Type A Negative Antibody Screen Negative Crossmatch See Detail 07/29/21 07/29/21 07/29/21 21:45 21:45 21:45 WBC RBC Hgb Hct MCV MCH MCHC RDW Plt Count Neut % (Auto) Lymph % (Auto) [place] % (Auto) Eos % (Auto) Baso % (Auto) Lymph # (Auto) [place] # (Auto) Baso # (Auto) Total Counted Seg Neutrophils % Band Neutrophils % Lymphocytes % (Manual) Monocytes % (Manual) Neutrophils # (Manual) Dohle Bodies RBC Morphology Anisocytosis APTT ABG pH ABG pCO2 ABG pO2 ABG HCO3 ABG Total CO2 ABG O2 Saturation ABG Base Excess FiO2 Sodium 135 L Potassium 3.9 Chloride 107 Carbon Dioxide 24 BUN 35 H Creatinine 1.35 H Estimated GFR 50.7 L BUN/Creatinine Ratio 25.9 H Glucose 142 H Lactate 1.4 Calcium 6.3 L* Magnesium 2.1 Troponin I NT-Pro-B Natriuret Pep 1090 H Blood Type Antibody Screen Crossmatch 07/29/21 07/29/21 07/29/21 21:45 23:20 23:28 WBC RBC Hgb 11.8 L Hct 35.0 L MCV MCH MCHC RDW Plt Count Neut % (Auto) Lymph % (Auto) [place] % (Auto) Eos % (Auto) Baso % (Auto) Lymph # (Auto) [place] # (Auto) Baso # (Auto) Total Counted Seg Neutrophils % Band Neutrophils % Lymphocytes % (Manual) Monocytes % (Manual) Neutrophils # (Manual) Dohle Bodies RBC Morphology Anisocytosis APTT ABG pH ABG pCO2 ABG pO2 ABG HCO3 ABG Total CO2 ABG O2 Saturation ABG Base Excess FiO2 Sodium Potassium Chloride Carbon Dioxide BUN Creatinine Estimated GFR BUN/Creatinine Ratio Glucose Lactate 1.4 Calcium Magnesium Troponin I 0.015 NT-Pro-B Natriuret Pep Blood Type Antibody Screen Crossmatch 07/29/21 07/30/21 07/30/21 23:59 02:20 02:20 WBC RBC Hgb 12.1 L Hct 36.5 L MCV MCH MCHC RDW Plt Count Neut % (Auto) Lymph % (Auto) [place] % (Auto) Eos % (Auto) Baso % (Auto) Lymph # (Auto) [place] # (Auto) Baso # (Auto) Total Counted Seg Neutrophils % Band Neutrophils % Lymphocytes % (Manual) Monocytes % (Manual) Neutrophils # (Manual) Dohle Bodies RBC Morphology Anisocytosis APTT ABG pH 7.36 ABG pCO2 41.6 ABG pO2 89 ABG HCO3 24 ABG Total CO2 25 ABG O2 Saturation 96 ABG Base Excess -2.0 FiO2 36 Sodium Potassium Chloride Carbon Dioxide BUN Creatinine Estimated GFR BUN/Creatinine Ratio Glucose Lactate Calcium Magnesium 2.1 Troponin I NT-Pro-B Natriuret Pep 1140 H Blood Type Antibody Screen Crossmatch 07/30/21 07/30/21 07/30/21 02:20 06:20 06:20 WBC 13.4 H RBC 3.71 L Hgb 11.8 L Hct 35.0 L MCV 94.5 MCH 31.7 MCHC 33.5 RDW 14.4 Plt Count 173 Neut % (Auto) Not Reportable Lymph % (Auto) Not Reportable [place] % (Auto) Not Reportable Eos % (Auto) Not Reportable Baso % (Auto) Not Reportable Lymph # (Auto) Not Reportable [place] # (Auto) Not Reportable Baso # (Auto) Not Reportable Total Counted 100 Seg Neutrophils % 71.0 H Band Neutrophils % 6.0 Lymphocytes % (Manual) 8.0 L Monocytes % (Manual) 15.0 H Neutrophils # (Manual) 35039 H Dohle Bodies 2+ H RBC Morphology See below Anisocytosis 1+ H APTT ABG pH ABG pCO2 ABG pO2 ABG HCO3 ABG Total CO2 ABG O2 Saturation ABG Base Excess FiO2 Sodium 135 L Potassium 3.7 Chloride 106 Carbon Dioxide 23 BUN 42 H Creatinine 1.87 H Estimated GFR 34.8 L BUN/Creatinine Ratio 22.5 H Glucose 157 H Lactate 1.4 Calcium 6.7 L Magnesium 2.2 Troponin I NT-Pro-B Natriuret Pep Blood Type Antibody Screen Crossmatch 07/30/21 10:00 WBC RBC Hgb Hct MCV MCH MCHC RDW Plt Count Neut % (Auto) Lymph % (Auto) [place] % (Auto) Eos % (Auto) Baso % (Auto) Lymph # (Auto) [place] # (Auto) Baso # (Auto) Total Counted Seg Neutrophils % Band Neutrophils % Lymphocytes % (Manual) Monocytes % (Manual) Neutrophils # (Manual) Dohle Bodies RBC Morphology Anisocytosis APTT 25 L D ABG pH ABG pCO2 ABG pO2 ABG HCO3 ABG Total CO2 ABG O2 Saturation ABG Base Excess FiO2 Sodium Potassium Chloride Carbon Dioxide BUN Creatinine Estimated GFR BUN/Creatinine Ratio Glucose Lactate Calcium Magnesium Troponin I NT-Pro-B Natriuret Pep Blood Type Antibody Screen Crossmatch [facility] Medical History Barretts esophagus BPH w urinary obs/LUTS Essential hypertension GERD (gastroesophageal reflux disease) Glanular hypospadias History of acute pancreatitis History of small bowel obstruction Hyperlipidemia Surgical History H/O breast biopsy H/O prostate biopsy H/O vasectomy History of nephrectomy Hx of circumcision Family History Brother Age: 80 Heart disease Mother Alcoholic Father Heart disease Heart attack Social History household members: spouse Smoking Status: Former smoker alcohol intake: current Assessment & Plan Assessment & Plan narrative: 1. Acute severe pancreatitis complicated by ileus -ultrasound indicated GB distension, cholelithiasis, minimal GB wall thickening -MR indicated extensive peripancreatic edema consistent with acute pancreatitis -continue NPO, IV fluids currently LR 100 cc/hour -continue NG suction -continue Zosyn 2. Possible bowel perforation status post laparotomy 07/29/2021 -free air seen on initial CT, unclear whether true perforation versus free air appearance secondary to pancreatitis -discussed with Dr. Perry who ordered upper GI fluoroscopy to evaluate potential leak from duodenum, if patient has leaked then will need to be transferred to tertiary care hospital for further surgical evaluation or possible stenting of the perforation 3. Hypotension, resolved -this was likely from volume depletion and responded to IV fluid bolus and IV pressor overnight 4. Acute kidney injury, prerenal -urine output improving -continue volume support 5. Paroxysmal atrial fibrillation -converted to SR on amiodarone drip to continue -K, Mag normal 6. History of Webster's esophagus -continue IV PPI while NPO Time Spent With Patient Critical Care time: I spent a total of [] minutes of critical care time on this patient's care today; this time is exclusive of procedural time. Quality VTE Deep Vein Thrombosis/Pulmonary Embolism Present on Admission: No
[2021-07-30 17:37] LABS: PTT Partial Thromboplastin Tim 34 SECONDS (26.4-36.2)
[2021-07-30] MEDS: HEPARIN 5,000 UNIT/ML VIAL 5000 UNIT IV (18:27)
--- NOTE | 2021-07-30 20:21 | PM.EVENT ---
Event Note Date Patient Seen: 07/30/21 Time Patient Seen: 20:22 Event Note: Multidisciplinary rounds done with bedside nurse. Events of the day noted. Pt remains on amio infusion as he is in AFib. He is hemodynamically stable and on NC oxygenating well. He had an UGI series today to eval for perforation which was non-diagnostic. Would rec transfer to higher level of care or at least discussions with specialists to see if further imaging or workup/intervention necessary. He is on heparin drip for mesenteric thrombosis. Pts [id number] score is 2, meaning he should be on an oral anticoagulant for AFib. His amio drip can be continued at 0.5 for now given his GI status. He can be switched to amio 400mg PO daily once enteral medications are resumed.
[2021-07-31] VITALS (22 sets, daily range): BP systolic 134–156; BP diastolic 60–74; PULSE 86–103; RESP 17–33; TEMP 36.4–37.7; O2SAT 88–98
[2021-07-31] MEDS: INSULIN LISPRO 100 UNIT/ML 3ML VIAL SUBCUT ×3 (01:02→12:57)
[2021-07-31 01:16] LABS: PTT Partial Thromboplastin Tim 38 SECONDS (26.4-36.2)
[2021-07-31] MEDS: HEPARIN 5,000 UNIT/ML VIAL 5000 UNIT ×2 (01:45→06:11)
[2021-07-31] MEDS: PIPERACILLIN/TAZO 3.375 GM in SODIUM CHLORIDE 0.9% 100 ML 25 ML IV ×3 (04:30→20:11)
[2021-07-31] MEDS: HEPARIN DRIP 25,000 UNIT/500 ML IV.SOLN 34.6 UNIT IV (05:19)
[2021-07-31 05:23] LABS: Hematocrit 32.2 % (41-53); Hemoglobin 10.8 g/dL (13.5-17.5); Mean Corpuscular HGB Conc 33.4 % (30-36); Mean Corpuscular Hemoglobin 31.5 PG (26-34); Mean Corpuscular Volume 94.3 fL (80-100); Platelet Count 169 X10^3/uL (150-400); Red Blood Cell Count 3.42 X10^6/uL (4.5-5.9); Red Cell Distribution Width 14.6 % (11.6-14.8); White Blood Cell Count 14.5 X10^3/uL (4.5-11.0)
[2021-07-31 05:24] LABS: PTT Partial Thromboplastin Tim 52 SECONDS (26.4-36.2)
[2021-07-31 05:25] LABS: Alanine Aminotransferase 37 IU/L (<50); Albumin 2.4 g/dL (3.5-5.0); Albumin Globulin Ratio 0.8 (1.0-2.8); Alkaline Phosphatase 65 U/L (38-126); Aspartate Aminotransferase 59 IU/L (17-59); BUN Creatinine Ratio 27.6 (6-22); Bilirubin Total 3.4 mg/dL (0.2-1.3); Blood Urea Nitrogen 32 mg/dL (9-20); Calcium 6.6 mg/dL (8.4-10.2); Carbon Dioxide 27 mmol/L (22-32); Chloride 105 mmol/L (98-107); Estimated Glomerular Filt Rate > 60.0 mL/min (>60); Globulin 2.9 g/dL (1.7-4.1); Glucose 162 mg/dL (80-110); HEMOLYSIS 16 (0-50); Potassium 3.1 mmol/L (3.4-5.1); Sodium 137 mmol/L (137-145); Total Protein 5.3 g/dL (6.3-8.2)
[2021-07-31 05:38] LABS: Add Manual Diff / Slide Review YES
[2021-07-31] MEDS: POTASSIUM CHLORIDE IN WATER 10 MEQ/100 ML PIGGYBACK 100 MEQ IV ×2 (06:31→07:41)
[2021-07-31 06:50] LABS: Magnesium 2.6 mg/dL (1.6-2.3)
[2021-07-31 06:56] LABS: Neutrophils Absolute Manual 11020 /uL (3000-5900); Total Cells Counted 100
[2021-07-31 06:59] LABS: RBC Morphology Normal Morphology
[2021-07-31 07:00] LABS: Platelet Estimate Adequate on smear
[2021-07-31] MEDS: LACTATED RINGERS 1,000 ML 100 ML IV ×2 (07:00→19:02)
--- NOTE | 2021-07-31 07:31 | DI.CT.S_ITS ---
PROCEDURE: CT ABDOMEN PELVIS WO CON INDICATIONS: free air in abdomen cavity TECHNIQUE: Noncontrast 5 mm thick sections acquired from the diaphragms to the symphysis. 5 mm coronal and sagittal reformats were then performed. For radiation dose reduction, the following was used: automated exposure control, adjustment of mA and/or kV according to patient size. COMPARISON: [facility], CT, CT ABDOMEN PELVIS W CON, 07/29/2021, 17:08. FINDINGS: Image quality: Good. Evaluation of the solid parenchymal organs is limited without IV contrast. ABDOMEN: Lung bases: Bilateral pleural effusions. Bilateral dependent consolidations. Large hiatal hernia. Enteric tube is coiled within the hernia sac. Heart size is normal. Coronary artery calcifications. Solid organs: Liver is normal in size. Gallbladder is not distended. Trace pericholecystic fluid. There is [id number] free fluid surrounding the pancreas. Interval decrease in the gas at the head of the pancreas, (2/32). There is a new clip suspected within the anterior head of the pancreas. Spleen is normal in size. No adrenal nodules. Right kidney is absent. No hydronephrosis on the left. Slight increased density in the left renal pelvis could be excreted contrast. Suspect left peripelvic cysts. Peritoneum and bowel: Stomach is not significantly distended. The 3rd portion of the duodenum is mildly patulous and fluid-filled. The duodenal wall is mildly thickened. No small bowel obstruction. There is residual oral contrast in the right and transverse colon. Diverticulosis. No diverticulitis demonstrated. The appendix is not identified. Air at the head of the pancreas is described above is decreased. There is a small amount of pneumoperitoneum in the anterior abdomen which is new compared to the prior CT and is likely postsurgical. There is a small amount of fluid tracking in the right retroperitoneum which is not significantly changed. No oral contrast outside of the lumen is identified. Nodes and vessels: No retroperitoneal or mesenteric adenopathy by size criteria. Aorta and inferior vena cava are normal in caliber. Circumferential calcified atherosclerotic plaque. Known SMV clot cannot be evaluated. No portal venous gas. Miscellaneous: No ventral hernias. There is a new midline staple line in trace subcutaneous gas. No fluid collection in the abdominal wall. Flank edema. PELVIS: Genitourinary: Bladder is decompressed with Lopes catheter. Prostatomegaly. Miscellaneous: Possible small fat containing right inguinal hernia. No adenopathy. Bones: No suspicious bony lesions. No vertebral body compression fractures. IMPRESSION: 1. Gas at the head of the pancreas is decreased compared to 07/29/2021. This could be due to pancreatic necrosis, a gas forming organism, or duodenal perforation. New clip in the pancreas is seen. 2. Moderate volume of fluid surrounding the pancreas and tracking in the right retroperitoneum is similar to the prior exam. This is most consistent with pancreatitis. 3. Trace pneumoperitoneum is presumably postsurgical in nature. New midline staple line. 4. Bilateral pleural effusions and bibasilar consolidations are similar to the prior exam. Large hiatal hernia. Dictated by: Misael Park M.D. on 07/31/2021 at 9:11 Approved by: Misael Park M.D. on 07/31/2021 at 9:33
[2021-07-31] MEDS: SODIUM CHLORIDE 0.9% FLUSH 10 ML IV (08:44)
[2021-07-31] MEDS: PANTOPRAZOLE 40 MG VIAL IV ×2 (08:44→20:51)
[2021-07-31] MEDS: HYDROMORPHONE 0.5 MG INJ IV ×3 (10:57→23:03)
--- NOTE | 2021-07-31 11:59 | P.PN_ITS ---
Subjective Subjective Date Patient Seen: 07/31/21 Time Patient Seen: 11:59 Interval history: no major events. +flatus, incisional abdominal pain. off pressors. Exam Vital Signs (past 8 hours): - 07/31/21 04:00 07/31/21 05:00 07/31/21 06:00 Temperature 98.5 F Pulse Rate 89 86 90 Respiratory Rate 30 H 18 27 H Blood Pressure 139/64 Pulse Oximetry 95 94 94 07/31/21 07:25 07/31/21 08:00 Temperature 97.8 F Pulse Rate 91 H Respiratory Rate 25 H Blood Pressure 152/67 H Pulse Oximetry 93 93 Oxygen Delivery Method Nasal Cannula Oxygen Flow Rate 3 Narrative Exam Narrative: gen-elderly man alert and oriented no acute distress abdomen-soft, moderately distended. incision CDI. appropriately tender no periotonitis. Objective Labs Result Diagrams: 07/31/21 04:55 07/31/21 04:55 Labs: Laboratory Results - last 24 hr 07/30/21 07/31/21 07/31/21 17:00 00:50 04:55 WBC 14.5 H RBC 3.42 L Hgb 10.8 L Hct 32.2 L MCV 94.3 MCH 31.5 MCHC 33.4 RDW 14.6 Plt Count 169 Neut % (Auto) Not Reportable Lymph % (Auto) Not Reportable [place] % (Auto) Not Reportable Eos % (Auto) Not Reportable Baso % (Auto) Not Reportable Lymph # (Auto) Not Reportable [place] # (Auto) Not Reportable Baso # (Auto) Not Reportable Total Counted 100 Seg Neutrophils % 66.0 Band Neutrophils % 10.0 H Lymphocytes % (Manual) 9.0 L Monocytes % (Manual) 14.0 H Eosinophils % (Manual) 1.0 L Neutrophils # (Manual) 03740 H Platelet Estimate Adequate on smear RBC Morphology Normal morphology APTT 34 D 38 H Sodium Potassium Chloride Carbon Dioxide BUN Creatinine Estimated GFR BUN/Creatinine Ratio Glucose Calcium Magnesium Total Bilirubin AST ALT Alkaline Phosphatase Total Protein Albumin Globulin Albumin/Globulin Ratio 07/31/21 07/31/21 07/31/21 04:55 04:55 04:55 WBC RBC Hgb Hct MCV MCH MCHC RDW Plt Count Neut % (Auto) Lymph % (Auto) [place] % (Auto) Eos % (Auto) Baso % (Auto) Lymph # (Auto) [place] # (Auto) Baso # (Auto) Total Counted Seg Neutrophils % Band Neutrophils % Lymphocytes % (Manual) Monocytes % (Manual) Eosinophils % (Manual) Neutrophils # (Manual) Platelet Estimate RBC Morphology APTT 52 H D Sodium 137 Potassium 3.1 L Chloride 105 Carbon Dioxide 27 BUN 32 H Creatinine 1.16 Estimated GFR > 60.0 BUN/Creatinine Ratio 27.6 H Glucose 162 H Calcium 6.6 L Magnesium 2.6 H Total Bilirubin 3.4 H AST 59 ALT 37 Alkaline Phosphatase 65 Total Protein 5.3 L Albumin 2.4 L Globulin 2.9 Albumin/Globulin Ratio 0.8 L PFSH Medical History Barretts esophagus BPH w urinary obs/LUTS Essential hypertension GERD (gastroesophageal reflux disease) Glanular hypospadias History of acute pancreatitis History of small bowel obstruction Hyperlipidemia Surgical History H/O breast biopsy H/O prostate biopsy H/O vasectomy History of nephrectomy Hx of circumcision Family History Brother Age: 80 Heart disease Mother Alcoholic Father Heart disease Heart attack Social History household members: spouse Smoking Status: Former smoker alcohol intake: current Assessment & Plan Post-op Postoperative Procedures: Procedures Operation Date: 07/29/21 17:00 Actual Procedure Side Surgeon p Exploratory Laparotomy GEN, lysis of adhesions Gigi Perry MD Postoperative status narrative: 80 M POD 2 sp exlap lysis of adhesions for presu med intestinal perforation. Operation was ultimately aborted for failure to safely progress secondary to extensive intra abdominal adhesions. Postoperative imaging has not demonstrated an intestinal leak. I reviewed the upper GI series from yesterday which did not show progression of the contrast out of the stomach. CT A/P today demonstrates no extraluminal contrast there is small amount of air around the pancreas. Overall I think he has pancreatitis perhaps with some degree of necrosis and doubtful there is an intestinal perforation. I suspect if he had an unaddressed intestinal perforation for several days now he would be progressively septic and instead he is slightly improving. -Continue antibiotics -Can remove nasogastric tube and begin sips of clears -OOB PT/OT -Anticoagulation for mesenteric thrombus Quality VTE Deep Vein Thrombosis/Pulmonary Embolism Present on Admission: No
[2021-07-31 12:37] LABS: PTT Partial Thromboplastin Tim 32 SECONDS (26.4-36.2)
[2021-07-31] MEDS: HEPARIN 5,000 UNIT/ML VIAL 5000 UNIT IV (12:57)
--- NOTE | 2021-07-31 13:42 | P.PN_ITS ---
Subjective Subjective Date Patient Seen: 07/31/21 Interval history: 80-year-old admitted with acute severe pancreatitis, VENU, developed ileus. He is status post exploratory laparotomy 07/29 due to concern of perforated viscus. Surgeon unable to visualize duodenum intraoperatively due to extensive adhesions to localize source of possible perforation. Preop CT and Gastrografin imaging somewhat contradictory readings with Gastrografin read as showing leak but repeat CT preop not conclusive of leak. Upper GI fluoroscopy 1 day postop did not show passage of contrast into the stomach. Patient is passing copious flatus as of this morning. He has some incisional abdominal pain. NG tube is in draining bilious fluid. Vitals overnight were quite stable and patient remains back in sinus rhythm. He is on 3 L O2 NC. Noncontrast CT scan this a.m. does not show any leakage of previous contrast. There is small amount of air around the head of pancreas likely due to pancreatic necrosis. There is bilateral lower lobe consolidation and effusions. Exam Vital Signs (past 8 hours): - 07/31/21 06:00 07/31/21 07:25 07/31/21 08:00 Temperature 97.8 F Pulse Rate 90 91 H Respiratory Rate 27 H 25 H Blood Pressure 152/67 H Pulse Oximetry 94 93 93 07/31/21 12:00 Temperature 98.7 F Pulse Rate 98 H Respiratory Rate 17 Blood Pressure 135/62 Pulse Oximetry 94 Oxygen Delivery Method Nasal Cannula Oxygen Flow Rate 3 Narrative Exam Narrative: General: Alert and in no acute distress Lungs: Diminished in bases Heart: Regular rhythm Extremities: No edema Objective Labs Result Diagrams: 07/31/21 04:55 07/31/21 04:55 Labs: Laboratory Results - last 24 hr 07/30/21 07/31/21 07/31/21 17:00 00:50 04:55 WBC 14.5 H RBC 3.42 L Hgb 10.8 L Hct 32.2 L MCV 94.3 MCH 31.5 MCHC 33.4 RDW 14.6 Plt Count 169 Neut % (Auto) Not Reportable Lymph % (Auto) Not Reportable [place] % (Auto) Not Reportable Eos % (Auto) Not Reportable Baso % (Auto) Not Reportable Lymph # (Auto) Not Reportable [place] # (Auto) Not Reportable Baso # (Auto) Not Reportable Total Counted 100 Seg Neutrophils % 66.0 Band Neutrophils % 10.0 H Lymphocytes % (Manual) 9.0 L Monocytes % (Manual) 14.0 H Eosinophils % (Manual) 1.0 L Neutrophils # (Manual) 77499 H Platelet Estimate Adequate on smear RBC Morphology Normal morphology APTT 34 D 38 H Sodium Potassium Chloride Carbon Dioxide BUN Creatinine Estimated GFR BUN/Creatinine Ratio Glucose Calcium Magnesium Total Bilirubin AST ALT Alkaline Phosphatase Total Protein Albumin Globulin Albumin/Globulin Ratio 07/31/21 07/31/21 07/31/21 04:55 04:55 04:55 WBC RBC Hgb Hct MCV MCH MCHC RDW Plt Count Neut % (Auto) Lymph % (Auto) [place] % (Auto) Eos % (Auto) Baso % (Auto) Lymph # (Auto) [place] # (Auto) Baso # (Auto) Total Counted Seg Neutrophils % Band Neutrophils % Lymphocytes % (Manual) Monocytes % (Manual) Eosinophils % (Manual) Neutrophils # (Manual) Platelet Estimate RBC Morphology APTT 52 H D Sodium 137 Potassium 3.1 L Chloride 105 Carbon Dioxide 27 BUN 32 H Creatinine 1.16 Estimated GFR > 60.0 BUN/Creatinine Ratio 27.6 H Glucose 162 H Calcium 6.6 L Magnesium 2.6 H Total Bilirubin 3.4 H AST 59 ALT 37 Alkaline Phosphatase 65 Total Protein 5.3 L Albumin 2.4 L Globulin 2.9 Albumin/Globulin Ratio 0.8 L 07/31/21 12:15 WBC RBC Hgb Hct MCV MCH MCHC RDW Plt Count Neut % (Auto) Lymph % (Auto) [place] % (Auto) Eos % (Auto) Baso % (Auto) Lymph # (Auto) [place] # (Auto) Baso # (Auto) Total Counted Seg Neutrophils % Band Neutrophils % Lymphocytes % (Manual) Monocytes % (Manual) Eosinophils % (Manual) Neutrophils # (Manual) Platelet Estimate RBC Morphology APTT 32 D Sodium Potassium Chloride Carbon Dioxide BUN Creatinine Estimated GFR BUN/Creatinine Ratio Glucose Calcium Magnesium Total Bilirubin AST ALT Alkaline Phosphatase Total Protein Albumin Globulin Albumin/Globulin Ratio [facility] Medical History Barretts esophagus BPH w urinary obs/LUTS Essential hypertension GERD (gastroesophageal reflux disease) Glanular hypospadias History of acute pancreatitis History of small bowel obstruction Hyperlipidemia Surgical History H/O breast biopsy H/O prostate biopsy H/O vasectomy History of nephrectomy Hx of circumcision Family History Brother Age: 80 Heart disease Mother Alcoholic Father Heart disease Heart attack Social History household members: spouse Smoking Status: Former smoker alcohol intake: current Assessment & Plan Assessment & Plan narrative: 1. Acute severe pancreatitis complicated by ileus -ultrasound indicated GB distension, cholelithiasis, minimal GB wall thickening -MR indicated extensive peripancreatic edema consistent with acute pancreatitis -CT with free air around head of pancreas likely due to pancreatic necrosis -07/31 clear liquids started by surgery -07/31 NG discontinued -07/31 started standard TPN 42 mils per hour and intra lipids as patient has been NPO for 5 days 2. Acute hypoxic respiratory failure likely due to pneumonia -patient with pneumonia likely secondary to acute pancreatitis and has been requiring 3-4 L O2 nasal cannula -WBC slightly increased on current labs but improved over the last couple of days -O2 requirements are improving -continue Zosyn 3. status post laparotomy 07/29/2021 -free air seen on CT raising concern for perforated viscus, which is at this time ruled out, with free air appearance more likely due to pancreatic necrosis -patient had extensive adhesion lysis -perforated viscus remains unlikely as patient is clinically stable 4. Postop hypotension, resolved -this was likely from volume depletion and responded to IV fluid bolus and IV pressor overnight 5. Acute kidney injury, prerenal, resolved -urine output has been good since 1 day postop -continue volume support 5. Paroxysmal atrial fibrillation -converted to SR on amiodarone drip -discontinued amiodarone drip -K, Mag normal 6. History of Webster's esophagus -continue IV PPI until patient able to take p.o. 7. Acute mesenteric thrombosis -nonocclusive SMA thrombus noted on CT which is secondary to pancreatitis -continue heparin drip Time Spent With Patient Critical Care time: I spent a total of [] minutes of critical care time on this patient's care today; this time is exclusive of procedural time. Quality VTE Deep Vein Thrombosis/Pulmonary Embolism Present on Admission: No
--- NOTE | 2021-07-31 15:40 | CM.DPC ---
DCP Cont: Discussed patient during team rounds. Patient has NG tube, and continues to have amounts of biliary fluid. He is passing flatus. Dr. Hill had originally contemplated transfer to higher level hospital, but patient is starting to show signs of improvement. has been at bedside periodically. P: DCP to continue to follow for any resources needed. At this time, patient is not medically stable, with NG tube. Mara Givens RN/Weight Checker
[2021-07-31 20:18] LABS: PTT Partial Thromboplastin Tim 49 SECONDS (26.4-36.2)
[2021-07-31] MEDS: HEPARIN DRIP 25,000 UNIT/500 ML IV.SOLN 42.6 UNIT IV (20:48)
[2021-07-31] MEDS: METOPROLOL ER 25 MG TABLET PO (20:49)
[2021-07-31] MEDS: FAMOTIDINE 20 MG TABLET 40 MG PO (20:50)
--- NOTE | 2021-07-31 21:36 | DI.RAD.S_ITS ---
PROCEDURE: XR CHEST 1V INDICATIONS: aspiration TECHNIQUE: One view of the chest was acquired. COMPARISON: [facility], CR, XR CHEST 1V, 07/30/2021, 0:07. FINDINGS: Surgical changes and devices: A left upper extremity PICC line is redemonstrated with the tip projecting over the superior vena cava. There are overlying leads and wires slightly limiting evaluation. Lungs and pleura: There are bilateral pleural effusions, small to moderate on the right and small on the left, which appear slightly increased compared to the prior study. There also increased confluent right basilar opacities with persistent left retrocardiac opacities consistent with atelectasis or consolidation. There is increased pulmonary edema. No pneumothorax. Mediastinum: Mediastinal contours are unchanged. Heart size is enlarged. Bones and chest wall: No suspicious bony lesions. Overlying soft tissues appear unremarkable. IMPRESSION: 1. Bibasilar opacities, with interval increase on the right, consistent with atelectasis or consolidation. 2. Increased bilateral pleural effusions and pulmonary edema. Dictated by: Stephan Middleton M.D. on 07/31/2021 at 21:58 Approved by: Stephan Middleton M.D. on 07/31/2021 at 22:01
--- NOTE | 2021-07-31 21:54 | RT ---
2135- Called by RN to pt's bedside. Pt c/o SOB. BS Rhonchi ,greater on right, crackles noted in bases,and audible wheezing noted as well. Pt unable to lear airway successfully. Pt was NTsx with 14FR cath. Large amountes of pink liquid obtained. RN stated it was the color of the Ensure pt had drank earlier. It appears pt may have aspirated. Dr Mckeon was notified. X-ray ordered. Pt stated he felt better following the suctioning and clearing of his airway. O2 at 5 l/m . O2 Sat 93%
--- NOTE | 2021-07-31 21:54 | PC.NURSE ---
Addendum entered by Oneyda Costello R.N. 07/31/21 22:13: SpO2 at 95% on 5L, turned O2 down to 3L Original Note: Evening shift note: Pt had been cleared to d/c NG tube and start clear liquids per Dr. Perry's assessment today, NG tube was d/c'd around 174 and beside swallow evaluation was completed with patient cleared to drink. Patient was given ice water and a clear Ensure, which he seemed to tolerate well. Pt asked for another ensure, which was given. 2129 pt called c/o not being able to breathe, he had audible breath sounds upon entering room on 2L NC, SpO2 was 93%, this nurse turned up O2 to 5L, sat pt at high fowlers and called RT for evaluation. RT Terra deep suctioned pt thru the R nare, pt proceeded to vomit what appeared to be ensure, RT was able to suction ensure from pt lungs as well. Pt vomited again, more ensure, then was also able to bring up a mucus plug. Lung sounds are coarse in the bases, RT requested a STAT CXR, Dr. Mckeon updated on pt status, new orders for NPO, and speech evaluation tomorrow. Pt gown, bedding changed and sitting in a high fowlers, breathing much better with suction at bedside. Call light within reach, will continue to monitor closely.
[2021-08-01] VITALS (8 sets, daily range): BP systolic 134–147; BP diastolic 63–69; PULSE 91–98; RESP 18–20; TEMP 36.8–37.2; O2SAT 91–96
[2021-08-01 00:24] LABS: PTT Partial Thromboplastin Tim 46 SECONDS (26.4-36.2)
[2021-08-01] MEDS: INSULIN LISPRO 100 UNIT/ML 3ML VIAL SUBCUT ×3 (00:31→13:20)
[2021-08-01] MEDS: HEPARIN 5,000 UNIT/ML VIAL 5000 UNIT (01:07)
[2021-08-01] MEDS: PIPERACILLIN/TAZO 3.375 GM in SODIUM CHLORIDE 0.9% 100 ML 25 ML IV (04:27)
[2021-08-01] MEDS: HYDROMORPHONE 0.5 MG INJ IV ×3 (04:28→13:32)
[2021-08-01 05:05] LABS: Add Manual Diff / Slide Review NO; Basophils Absolute Auto 100 /uL (0-100); Basophils Percent Auto 0.6 % (0-2); Eosinophils Absolute Auto 100 /uL (0-450); Eosinophils Percent Auto 0.4 % (2-4); Hematocrit 31.2 % (41-53); Hemoglobin 10.4 g/dL (13.5-17.5); Lymphocytes Absolute Auto 900 /uL (1100-4500); Lymphocytes Percent Auto 4.7 % (25-40); Mean Corpuscular HGB Conc 33.5 % (30-36); Mean Corpuscular Hemoglobin 31.6 PG (26-34); Mean Corpuscular Volume 94.2 fL (80-100); Monocytes Absolute Auto 1900 /uL (0-900); Neutrophils Absolute Auto 15700 /uL (1500-7000); Neutrophils Percent Auto 84.3 % (50-75); Platelet Count 195 X10^3/uL (150-400); Red Blood Cell Count 3.31 X10^6/uL (4.5-5.9); Red Cell Distribution Width 14.5 % (11.6-14.8); White Blood Cell Count 18.7 X10^3/uL (4.5-11.0)
[2021-08-01 05:13] LABS: Alanine Aminotransferase 36 IU/L (<50); Albumin 2.6 g/dL (3.5-5.0); Albumin Globulin Ratio 0.9 (1.0-2.8); Alkaline Phosphatase 75 U/L (38-126); Aspartate Aminotransferase 58 IU/L (17-59); BUN Creatinine Ratio 21.7 (6-22); Bilirubin Total 5.6 mg/dL (0.2-1.3); Blood Urea Nitrogen 25 mg/dL (9-20); Calcium 6.7 mg/dL (8.4-10.2); Carbon Dioxide 27 mmol/L (22-32); Chloride 105 mmol/L (98-107); Estimated Glomerular Filt Rate > 60.0 mL/min (>60); Globulin 2.9 g/dL (1.7-4.1); Glucose 176 mg/dL (80-110); HEMOLYSIS < 15 (0-50); Potassium 3.3 mmol/L (3.4-5.1); Sodium 136 mmol/L (137-145); Total Protein 5.5 g/dL (6.3-8.2)
[2021-08-01] MEDS: LACTATED RINGERS 1,000 ML 100 ML IV (05:55)
--- NOTE | 2021-08-01 06:15 | PC.NURSE ---
Vat Packer Note-Patient continues on heparin gtt per protocol, see flow sheet. On 3-5L NC to keep SpO2 >90%, RR 20s, has intermittent cough with scan pink tinged sputum, sx at bedside. SR/ST, 1st degree AVB, BBB, afebrile. IV Dilaudid for pain control, denies nausea, bowel sounds hypoactive, passing flatus.
[2021-08-01 07:30] LABS: PTT Partial Thromboplastin Tim 88 SECONDS (26.4-36.2)
[2021-08-01 08:07] LABS: Bilirubin Direct 4.4 mg/dL (0.0-0.4)
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
[2021-08-01] MEDS: FUROSEMIDE 40 MG/4 ML VIAL 20 MG IV (09:34)
[2021-08-01] MEDS: POTASSIUM CHLORIDE IN WATER 10 MEQ/100 ML PIGGYBACK 100 MEQ IV ×4 (09:37→13:34)
[2021-08-01] MEDS: SODIUM CHLORIDE 0.9% FLUSH 10 ML IV (09:43)
[2021-08-01] MEDS: PANTOPRAZOLE 40 MG VIAL IV (09:43)
--- NOTE | 2021-08-01 10:20 | ST.IPIE ---
Visit Care Team Role Provider Type Edmund Red MD Primary Care Provider Physician Specialty: Internal Medicine Address: [address] [place] [address], [id number] Email: [email or web address] Gigi Perry MD Other Providers Physician Specialty: General Surgery Address: [address] [place] [address], [facility] Email: [email or web address] Dimitrios Banegas DO Emergency Provider Physician Referring Provider Specialty: Emergency Medicine Address: [address] [place] [address], [facility] Email: [email or web address] Keating MD Admit Provider Physician Attending Provider Specialty: Hospitalist Address: [address] [place] [address], [facility] Fax: Email: [email or web address] Diagnoses Hyperlipidemia, unspecified (07/26/21) Essential (primary) hypertension (07/26/21) Unspecified atrial fibrillation (07/26/21) Postprocedural hypotension (07/26/21) Unspecified intestinal obstruction, unspecified as to partial versus complete obstruction (07/26/21) Other acute pancreatitis without necrosis or infection (07/26/21) Acute pancreatitis without necrosis or infection, unspecified (07/26/21) Anuria and oliguria (07/26/21) Other specified postprocedural states (07/26/21) Past Medical History (Last Reviewed 07/30/21 @ 02:57 by Carla Connor [facility]) Barretts esophagus (Medical) BPH w urinary obs/LUTS (Medical) Essential hypertension (Medical) GERD (gastroesophageal reflux disease) (Medical) Glanular hypospadias (Medical) H/O breast biopsy (Medical) H/O prostate biopsy (Medical) H/O vasectomy (Medical) History of acute pancreatitis (Medical) History of small bowel obstruction (Medical) Hx of circumcision (Medical) Hyperlipidemia (Medical) ST IP Initial Evaluation Report 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 Over the past couple of days patient has increasing WBC and bilirubin concerning for acute cholangitis and obstruction of common bile duct. He also has probable pneumonia in his lower lungs. On 07/29/21, NG tube was placed d/t increased pain and nausea . NG tube was removed 07/31/21, and pt passed swallow screening with Nsg and was placed on clear liquid diet. Pt consumed clear Ensure that evening and ~2 hrs later reported difficulty breathing. RT was called and suctioned Ensure liquid from lungs. Pt was made NPO pending swallow evaluation with Speech. The patient is being transferred to tertiary care center because of concern for acute cholangitis with increasing leukocytosis and bilirubin in spite of IV antibiotic therapy in setting of acute severe biliary pancreatitis with other complications as noted. Subjective Observations The pt was lying down in bed, awake with at bedside upon PREPARATION ROOM WORKER arrival. The pt's reported the pt had been lying nearly flat and drinking Ensure via straw at the time of aspiration last evening. The pt denied coughing or sensation that he had aspirated at the time of the event, indicating silent aspiration. He denied dysphagia symptoms prior to hospitalization. Reported by Patient Current Diet Nothing by mouth Baseline Feeding Method Independent in self-feeding Patient Questionnaire No Objective Assessment Mental Status Alert,Responsive,Cooperative, Lethargic Oral Integrity WFL Dentition Missing teeth Lip Function Within normal limits Observation of Lips at Rest Symmetrical Pucker Within normal limits Lip Retraction Within normal limits Alternating Pucker/Lip Retraction Within normal limits Tongue Function Within normal limits Observations of Tongue at Rest Within normal limits Tongue Protrusion Within normal limits Tongue Lateralization Within normal limits Jaw Function Within normal limits Observations of Jaw at Rest Within normal limits Jaw Opening Within normal limits Jaw Closing Within normal limits Jaw Lateralization Within normal limits Hard/Soft Palate Function Within normal limits Observations of Hard/Soft Palate Within normal limits Nasality Within normal limits Phonation Within normal limits Respiratory Sufficiency Moderate impairment Comment Pt was on 3L O2 NC Food and Liquid Trials Position During Assessment Upright (90 degrees) Liquids Trialed Ice chips,Thin Administration Type Tea spoon,Cup single sip,Straw ,Self-feeding Oral Impairment Within functional limits Oral Phase Comments Trials were limited to liquid per MD orders. Pt required 2 swallows per small bolus size, which he verbally acknowledged with surprise, indicating not baseline function. OPE: Symmetrical features WFL of strength, coordination and ROM. Hyolaryngeal elevation/ excursion WNL via palpation. Soft palate elevates upon phonation. Pt has natural dentition with several molars missing bilaterally. Pharyngeal Phase Comments No overt s/sx of aspiration were observed. However, last night's aspiration event appears to have been silent in nature; therefore, silent aspiration cannot be ruled out without instrumental evaluation, for which the pt is a poor candidate given GI comorbidities. Fatigue/Endurance Mild fatigue Comment Pt exhibited moderately rapid breathing throughout trials. O2 sats remained at 93% throughout. Findings Comment The pt presented with normal swallow function for age during bedside clinical swallow evaluation. The pt's oral intake while in a reclined position may have contributed to recent aspiration event. However, silent aspiration is suspected to have occurred last evening and cannot be ruled out without instrumental assessment, which is not recommended given the pt's comorbidities. Recommend the pt remain NPO for at least 2-3 hrs to monitor for clinical signs of aspiration. Follow MD orders RE oral intake thereafter. Impact on Safety and Functioning Risk for aspiration Recommendations Instrumental Assessment No Swallowing Treatment Yes Frequency Ongoing assessment over hospital stay Recommended Solids Nothing by Mouth Recommended Liquids Nothing by Mouth Medication Recommendations Not Recommended by Mouth Education Patient/Caregiver Education Described results of evaluation,Patient expressed understanding of evaluation, Patient expressed agreement with goals & treatment plans Goals Short-term Goals Pt will participate in continued assessment of swallow function to guide POC. Long-term Goals Pt will demonstrate swallow safety sufficient to resume oral intake.
--- NOTE | 2021-08-01 11:11 | CM.DPC ---
DCP Cont: Discussed patient during team rounds. Hospitalist, Dr. Hill, indicated that patient will be transferred to a higher level of care hospital, as condition is worsening. It is noted that there are now discharge orders. Plan is for patient to go to [facility] as soon as a bed is available. Met with and patient, is glad that he will be getting higher level of care with his condition. Gave her copy of IMM form. P: Patient is to be transferred to higher level hospital. Mara Givens RN/Mva Operator
[2021-08-01 12:14] LABS: COVID19 - ADMIT (NP swab/PCR) Negative (Negative)
[2021-08-01] MEDS: PIPERACILLIN/TAZO 4.5 GM in SODIUM CHLORIDE 0.9% 100 ML 25 ML IV ×2 (13:11→13:27)
--- NOTE | 2021-08-01 14:47 | PC.NURSE ---
Pt received lying in bed, A&OX3, VSS, afebrile on 3L NC. LS diminished throughout. Pt c/o of slight pain to L lower abdomen 5/10 pain which is controlled well with PRN dilaudid. Reports pain increased from yetsterday and orders received to increase dose to q 2 hours prn. NSR on telemetry. Pt denies n/V. BS hypoactive, yet patient reports passing gas well. Lopes draining dark yellow urine. LR at 100ml/hr. heparin drip at 31.2 units /hr, and pt recieving potassium replacement. Pt evaluated by MD at bedside today [facility] and at bedside in aggreement with plan of care. RN called report to Jeane in admitting. Transfer orders and discharge packet provided. EMS arrived to transport patient via stretcher at approximately 1340 this afternoon. BORIS.
[2021-09-11 14:53] LABS: HCO3 ABG 24 mmol/L (22-26); Oxygen Saturation ABG 96 % (95-100); PCO2 ABG 41.6 mmHg (35-45); PO2 ABG 89 mmHg (80-100); TCO2 ABG 25 mmol/L (21-31); pH ABG 7.36 (7.35-7.45)
[2021-09-11 14:54] LABS: Fractionated Inspired Oxygen 36
== END 2021-08-01 14:22 | disposition short-term general hospital (02) | DRG 423 ==
LOC: ED 18:02 → AC 18:07 → ICU 07-29 14:18
PROVIDERS: Internal Medicine; Nurse Practitioner Family; Surgery; Admitting Provider Internal Medicine; Emergency Provider Emergency Medicine; PCP Internal Medicine; Referring Provider Emergency Medicine; Visit Provider Internal Medicine
PROC: 0DNW0ZZ Release Peritoneum, Open Approach (ICD-10-PCS; CPT 49000; principal; 2021-07-29 17:00)
DX: K85.11 Biliary acute pancreatitis with uninfected necrosis (principal); K55.059 Acute (reversible) ischemia of intestine, part and extent unspecified; R57.1 Hypovolemic shock; J15.9 Unspecified bacterial pneumonia; J81.0 Acute pulmonary edema; J96.01 Acute respiratory failure with hypoxia; K55.029 Acute infarction of small intestine, extent unspecified; K91.71 Accidental puncture and laceration of a digestive system organ or structure during a digestive system procedure; N17.9 Acute kidney failure, unspecified; E87.2 Acidosis; J90 Pleural effusion, not elsewhere classified; K56.7 Ileus, unspecified; K83.09 Other cholangitis; E83.51 Hypocalcemia; K66.0 Peritoneal adhesions (postprocedural) (postinfection); I48.0 Paroxysmal atrial fibrillation; D64.89 Other specified anemias; I10 Essential (primary) hypertension; E78.5 Hyperlipidemia, unspecified; K21.00 Gastro-esophageal reflux disease with esophagitis, without bleeding; Z90.5 Acquired absence of kidney; Z20.822 Contact with and (suspected) exposure to COVID-19; Z87.891 Personal history of nicotine dependence
CPT/HCPCS: 36415; 36430; 36592; 36600; 44005; 71045; 74018; 74176; 74177; 74181; 74240; 76705; 80048; 80053; 80061; 80076; 81001; 82150; 82248; 82330; 82565; 82805; 82962; 83605; 83690; 83735; 83880; 84145; 84484; 84520; 85007; 85014; 85018; 85025; 85027; 85730; 86140; 86850; 86900; 86901; 87635; 87797; 92610; 93005; 93010; 94760; 94762; 94799; 96361; 96374; 96375; 96376; 99232; 99284; 99285; C9803; P9016; A9270; C9113; J0282; J0330; J0610; J1170; J1642; J1644; J1815; J1885; J1940; J2405; J2543; J2704; J3010; Q9967

== ENCOUNTER → 2021-10-05 16:20 | Outpatient (ROUT) | payer MEDICARE, BC, SELFPAY ==
[2021-07-26 18:29] VITALS: BMI 24.3
[2021-10-05 16:27] LABS: Add Manual Diff / Slide Review NO; Basophils Absolute Auto 0 /uL (0-100); Basophils Percent Auto 0.2 % (0-2); Eosinophils Absolute Auto 200 /uL (0-450); Eosinophils Percent Auto 1.9 % (2-4); Hematocrit 25.6 % (41-53); Hemoglobin 8.3 g/dL (13.5-17.5); Lymphocytes Absolute Auto 2200 /uL (1100-4500); Lymphocytes Percent Auto 23.5 % (25-40); Mean Corpuscular HGB Conc 32.4 % (30-36); Mean Corpuscular Volume 92.6 fL (80-100); Monocytes Absolute Auto 900 /uL (0-900); Monocytes Percent Auto 9.5 % (3-14); Neutrophils Absolute Auto 6200 /uL (1500-7000); Neutrophils Percent Auto 64.9 % (50-75); Platelet Count 260 X10^3/uL (150-400); Red Blood Cell Count 2.77 X10^6/uL (4.5-5.9); White Blood Cell Count 9.5 X10^3/uL (4.5-11.0)
[2021-10-05 16:42] LABS: Alanine Aminotransferase 26 IU/L (<50); Albumin 2.3 g/dL (3.5-5.0); Albumin Globulin Ratio 0.5 (1.0-2.8); Alkaline Phosphatase 239 U/L (38-126); Aspartate Aminotransferase 42 IU/L (17-59); BUN Creatinine Ratio 63.6 (6-22); Bilirubin Total 1.2 mg/dL (0.2-1.3); Blood Urea Nitrogen 35 mg/dL (9-20); Calcium 7.9 mg/dL (8.4-10.2); Carbon Dioxide 22 mmol/L (22-32); Chloride 110 mmol/L (98-107); Estimated Glomerular Filt Rate > 60.0 mL/min (>60); Globulin 4.3 g/dL (1.7-4.1); Glucose 332 mg/dL (80-110); HEMOLYSIS < 15 (0-50); Magnesium 2.2 mg/dL (1.6-2.3); Phosphorous 3.3 mg/dL (2.3-3.7); Potassium 4.4 mmol/L (3.4-5.1); Sodium 139 mmol/L (137-145); Total Protein 6.6 g/dL (6.3-8.2); Triglycerides 178 mg/dL (35-150)
[2021-10-05 18:59] LABS: Platelet Estimate Adequate on smear
[2021-10-05 19:00] LABS: Anisocytosis 2+; Hypochromasia 2+
== END ==
PROVIDERS: PCP Internal Medicine; Visit Provider Internal Medicine
DX: K86.81 Exocrine pancreatic insufficiency (principal)
CPT/HCPCS: 80053; 83735; 84100; 84478; 85025

== ENCOUNTER → 2021-10-09 11:12 | Outpatient (ROUT) | payer MEDICARE, BC, SELFPAY ==
[2021-07-26 18:29] VITALS: BMI 24.3
[2021-10-09 12:00] LABS: Add Manual Diff / Slide Review NO; Basophils Absolute Auto 100 /uL (0-100); Basophils Percent Auto 0.9 % (0-2); Eosinophils Absolute Auto 200 /uL (0-450); Eosinophils Percent Auto 1.6 % (2-4); Hematocrit 28.5 % (41-53); Hemoglobin 9.2 g/dL (13.5-17.5); Lymphocytes Absolute Auto 1900 /uL (1100-4500); Lymphocytes Percent Auto 20.5 % (25-40); Mean Corpuscular HGB Conc 32.3 % (30-36); Mean Corpuscular Hemoglobin 29.7 PG (26-34); Mean Corpuscular Volume 91.8 fL (80-100); Monocytes Absolute Auto 900 /uL (0-900); Neutrophils Absolute Auto 6200 /uL (1500-7000); Platelet Count 356 X10^3/uL (150-400); Red Blood Cell Count 3.11 X10^6/uL (4.5-5.9); Red Cell Distribution Width 21.1 % (11.6-14.8); White Blood Cell Count 9.2 X10^3/uL (4.5-11.0)
[2021-10-09 12:35] LABS: Alanine Aminotransferase 72 IU/L (<50); Albumin 2.5 g/dL (3.5-5.0); Albumin Globulin Ratio 0.6 (1.0-2.8); Alkaline Phosphatase 301 U/L (38-126); Aspartate Aminotransferase 76 IU/L (17-59); BUN Creatinine Ratio 56.4 (6-22); Bilirubin Total 1.3 mg/dL (0.2-1.3); Blood Urea Nitrogen 31 mg/dL (9-20); Calcium 8.1 mg/dL (8.4-10.2); Carbon Dioxide 21 mmol/L (22-32); Chloride 109 mmol/L (98-107); Estimated Glomerular Filt Rate > 60.0 mL/min (>60); Globulin 4.5 g/dL (1.7-4.1); Glucose 313 mg/dL (80-110); HEMOLYSIS < 15 (0-50); Magnesium 2.1 mg/dL (1.6-2.3); Potassium 4.3 mmol/L (3.4-5.1); Sodium 138 mmol/L (137-145); Triglycerides 185 mg/dL (35-150)
[2021-10-09 13:00] LABS: Target Cells 1+
[2021-10-09 13:02] LABS: Anisocytosis 2+
== END ==
PROVIDERS: PCP Internal Medicine; Visit Provider Internal Medicine
DX: K86.81 Exocrine pancreatic insufficiency (principal)
CPT/HCPCS: 80053; 83735; 84100; 84478; 85025

== ENCOUNTER → 2021-10-16 13:58 | Outpatient (ROUT) | payer MEDICARE, BC, SELFPAY ==
[2021-07-26 18:29] VITALS: BMI 24.3
[2021-10-16 14:08] LABS: Add Manual Diff / Slide Review NO; Basophils Absolute Auto 100 /uL (0-100); Eosinophils Absolute Auto 100 /uL (0-450); Eosinophils Percent Auto 0.6 % (2-4); Hematocrit 36.5 % (41-53); Hemoglobin 11.5 g/dL (13.5-17.5); Lymphocytes Absolute Auto 1500 /uL (1100-4500); Lymphocytes Percent Auto 15.8 % (25-40); Mean Corpuscular HGB Conc 31.6 % (30-36); Mean Corpuscular Hemoglobin 28.6 PG (26-34); Mean Corpuscular Volume 90.6 fL (80-100); Monocytes Absolute Auto 800 /uL (0-900); Monocytes Percent Auto 8.6 % (3-14); Neutrophils Absolute Auto 7300 /uL (1500-7000); Platelet Count 334 X10^3/uL (150-400); Red Blood Cell Count 4.03 X10^6/uL (4.5-5.9); Red Cell Distribution Width 20.4 % (11.6-14.8); White Blood Cell Count 9.8 X10^3/uL (4.5-11.0)
[2021-10-16 14:20] LABS: Alanine Aminotransferase 82 IU/L (<50); Albumin 2.9 g/dL (3.5-5.0); Albumin Globulin Ratio 0.6 (1.0-2.8); Alkaline Phosphatase 319 U/L (38-126); Aspartate Aminotransferase 68 IU/L (17-59); BUN Creatinine Ratio 62.7 (6-22); Bilirubin Total 1.2 mg/dL (0.2-1.3); Blood Urea Nitrogen 37 mg/dL (9-20); Calcium 8.5 mg/dL (8.4-10.2); Carbon Dioxide 25 mmol/L (22-32); Chloride 104 mmol/L (98-107); Estimated Glomerular Filt Rate > 60.0 mL/min (>60); Globulin 4.8 g/dL (1.7-4.1); Glucose 263 mg/dL (80-110); HEMOLYSIS < 15 (0-50); Magnesium 2.2 mg/dL (1.6-2.3); Phosphorous 2.9 mg/dL (2.3-3.7); Potassium 4.2 mmol/L (3.4-5.1); Sodium 136 mmol/L (137-145); Total Protein 7.7 g/dL (6.3-8.2)
[2021-10-16 14:38] LABS: Triglycerides 123 mg/dL (35-150)
[2021-10-16 15:53] LABS: Anisocytosis 2+
== END ==
PROVIDERS: PCP Internal Medicine; Visit Provider Internal Medicine
DX: I10 Essential (primary) hypertension (principal); E78.2 Mixed hyperlipidemia
CPT/HCPCS: 80053; 83735; 84100; 84478; 85025

== ENCOUNTER → 2021-10-22 12:00 | Outpatient (ROUT) | payer MEDICARE, BC, SELFPAY ==
[2021-07-26 18:29] VITALS: BMI 24.3
[2021-10-22 12:17] LABS: Add Manual Diff / Slide Review NO; Basophils Absolute Auto 0 /uL (0-100); Basophils Percent Auto 0.3 % (0-2); Eosinophils Absolute Auto 100 /uL (0-450); Eosinophils Percent Auto 0.9 % (2-4); Hemoglobin 8.7 g/dL (13.5-17.5); Lymphocytes Absolute Auto 2200 /uL (1100-4500); Lymphocytes Percent Auto 17.5 % (25-40); Mean Corpuscular Hemoglobin 28.5 PG (26-34); Monocytes Absolute Auto 1400 /uL (0-900); Monocytes Percent Auto 10.7 % (3-14); Neutrophils Absolute Auto 9000 /uL (1500-7000); Neutrophils Percent Auto 70.6 % (50-75); Platelet Count 350 X10^3/uL (150-400); Red Blood Cell Count 3.04 X10^6/uL (4.5-5.9); Red Cell Distribution Width 19.6 % (11.6-14.8); White Blood Cell Count 12.7 X10^3/uL (4.5-11.0)
[2021-10-22 12:45] LABS: Alanine Aminotransferase 75 IU/L (<50); Albumin 2.8 g/dL (3.5-5.0); Albumin Globulin Ratio 0.6 (1.0-2.8); Alkaline Phosphatase 321 U/L (38-126); Aspartate Aminotransferase 64 IU/L (17-59); BUN Creatinine Ratio 59.3 (6-22); Bilirubin Total 0.8 mg/dL (0.2-1.3); Blood Urea Nitrogen 35 mg/dL (9-20); Calcium 8.2 mg/dL (8.4-10.2); Carbon Dioxide 26 mmol/L (22-32); Chloride 105 mmol/L (98-107); Estimated Glomerular Filt Rate > 60.0 mL/min (>60); Globulin 4.6 g/dL (1.7-4.1); Glucose 147 mg/dL (80-110); HEMOLYSIS < 15 (0-50); Magnesium 2.2 mg/dL (1.6-2.3); Phosphorous 2.8 mg/dL (2.3-3.7); Potassium 3.9 mmol/L (3.4-5.1); Sodium 136 mmol/L (137-145); Total Protein 7.4 g/dL (6.3-8.2); Triglycerides 118 mg/dL (35-150)
== END ==
PROVIDERS: PCP Internal Medicine; Visit Provider Internal Medicine
DX: K85.90 Acute pancreatitis without necrosis or infection, unspecified (principal)
CPT/HCPCS: 80053; 83735; 84100; 84478; 85025

== ENCOUNTER → 2021-10-30 11:49 | Outpatient (ROUT) | payer MEDICARE, BC, SELFPAY ==
[2021-07-26 18:29] VITALS: BMI 24.3
[2021-10-30 12:06] LABS: Alanine Aminotransferase 63 IU/L (<50); Albumin 2.8 g/dL (3.5-5.0); Albumin Globulin Ratio 0.6 (1.0-2.8); Alkaline Phosphatase 355 U/L (38-126); Aspartate Aminotransferase 62 IU/L (17-59); BUN Creatinine Ratio 58.7 (6-22); Bilirubin Total 0.8 mg/dL (0.2-1.3); Blood Urea Nitrogen 37 mg/dL (9-20); Calcium 8.3 mg/dL (8.4-10.2); Carbon Dioxide 25 mmol/L (22-32); Chloride 106 mmol/L (98-107); Estimated Glomerular Filt Rate > 60.0 mL/min (>60); Globulin 4.6 g/dL (1.7-4.1); Glucose 193 mg/dL (80-110); HEMOLYSIS < 15 (0-50); Magnesium 2.2 mg/dL (1.6-2.3); Phosphorous 2.8 mg/dL (2.3-3.7); Potassium 3.7 mmol/L (3.4-5.1); Sodium 136 mmol/L (137-145); Total Protein 7.4 g/dL (6.3-8.2); Triglycerides 138 mg/dL (35-150)
[2021-10-30 12:09] LABS: Hematocrit 28.1 % (41-53); Mean Corpuscular Hemoglobin 28.5 PG (26-34); Platelet Count 322 X10^3/uL (150-400); Red Blood Cell Count 3.16 X10^6/uL (4.5-5.9); Red Cell Distribution Width 18.9 % (11.6-14.8); White Blood Cell Count 12.9 X10^3/uL (4.5-11.0)
[2021-10-30 12:10] LABS: Add Manual Diff / Slide Review YES
[2021-10-30 12:31] LABS: Hypochromasia 1+; Neutrophils Absolute Manual 10965 /uL (3000-5900); Total Cells Counted 100
== END ==
PROVIDERS: PCP Internal Medicine; Visit Provider Internal Medicine
DX: K86.1 Other chronic pancreatitis (principal)
CPT/HCPCS: 80053; 83735; 84100; 84478; 85007; 85025

== ENCOUNTER → 2021-11-06 12:52 | Outpatient (ROUT) | payer MEDICARE, BC, SELFPAY ==
[2021-07-26 18:29] VITALS: BMI 24.3
[2021-11-06 13:11] LABS: Add Manual Diff / Slide Review NO; Basophils Absolute Auto 200 /uL (0-100); Basophils Percent Auto 1.2 % (0-2); Eosinophils Absolute Auto 100 /uL (0-450); Eosinophils Percent Auto 0.9 % (2-4); Hemoglobin 9.4 g/dL (13.5-17.5); Lymphocytes Absolute Auto 2100 /uL (1100-4500); Lymphocytes Percent Auto 16.9 % (25-40); Mean Corpuscular HGB Conc 32.3 % (30-36); Mean Corpuscular Hemoglobin 28.5 PG (26-34); Mean Corpuscular Volume 88.1 fL (80-100); Monocytes Absolute Auto 1200 /uL (0-900); Monocytes Percent Auto 9.1 % (3-14); Neutrophils Absolute Auto 9100 /uL (1500-7000); Neutrophils Percent Auto 71.9 % (50-75); Platelet Count 322 X10^3/uL (150-400); Red Blood Cell Count 3.29 X10^6/uL (4.5-5.9); Red Cell Distribution Width 19.7 % (11.6-14.8); White Blood Cell Count 12.6 X10^3/uL (4.5-11.0)
[2021-11-06 13:24] LABS: Alanine Aminotransferase 60 IU/L (<50); Albumin 3.1 g/dL (3.5-5.0); Albumin Globulin Ratio 0.6 (1.0-2.8); Alkaline Phosphatase 329 U/L (38-126); Aspartate Aminotransferase 64 IU/L (17-59); Bilirubin Total 0.8 mg/dL (0.2-1.3); Blood Urea Nitrogen 36 mg/dL (9-20); Carbon Dioxide 25 mmol/L (22-32); Chloride 104 mmol/L (98-107); Estimated Glomerular Filt Rate > 60.0 mL/min (>60); Globulin 5.1 g/dL (1.7-4.1); Glucose 334 mg/dL (80-110); HEMOLYSIS 16 (0-50); Magnesium 2.5 mg/dL (1.6-2.3); Phosphorous 4.6 mg/dL (2.3-3.7); Sodium 135 mmol/L (137-145); Total Protein 8.2 g/dL (6.3-8.2); Triglycerides 224 mg/dL (35-150)
== END ==
PROVIDERS: PCP Internal Medicine; Visit Provider Internal Medicine
DX: K86.81 Exocrine pancreatic insufficiency (principal)
CPT/HCPCS: 80053; 83735; 84100; 84478; 85025

== ENCOUNTER → 2021-11-13 12:54 | Outpatient (ROUT) | payer MEDICARE, BC, SELFPAY ==
[2021-07-26 18:29] VITALS: BMI 24.3
[2021-11-13 13:04] LABS: Add Manual Diff / Slide Review NO; Basophils Absolute Auto 100 /uL (0-100); Basophils Percent Auto 0.8 % (0-2); Eosinophils Absolute Auto 0 /uL (0-450); Eosinophils Percent Auto 0.4 % (2-4); Hemoglobin 9.4 g/dL (13.5-17.5); Lymphocytes Absolute Auto 2000 /uL (1100-4500); Lymphocytes Percent Auto 17.5 % (25-40); Mean Corpuscular HGB Conc 31.5 % (30-36); Mean Corpuscular Hemoglobin 28.4 PG (26-34); Mean Corpuscular Volume 90.2 fL (80-100); Monocytes Absolute Auto 1000 /uL (0-900); Neutrophils Absolute Auto 8300 /uL (1500-7000); Neutrophils Percent Auto 72.3 % (50-75); Platelet Count 304 X10^3/uL (150-400); Red Blood Cell Count 3.32 X10^6/uL (4.5-5.9); Red Cell Distribution Width 19.7 % (11.6-14.8); White Blood Cell Count 11.5 X10^3/uL (4.5-11.0)
[2021-11-13 13:14] LABS: Alanine Aminotransferase 56 IU/L (<50); Albumin Globulin Ratio 0.6 (1.0-2.8); Alkaline Phosphatase 252 U/L (38-126); Aspartate Aminotransferase 58 IU/L (17-59); BUN Creatinine Ratio 52.9 (6-22); Bilirubin Total 0.8 mg/dL (0.2-1.3); Blood Urea Nitrogen 36 mg/dL (9-20); Calcium 8.8 mg/dL (8.4-10.2); Carbon Dioxide 29 mmol/L (22-32); Chloride 107 mmol/L (98-107); Estimated Glomerular Filt Rate > 60.0 mL/min (>60); Globulin 5.1 g/dL (1.7-4.1); Glucose 345 mg/dL (80-110); HEMOLYSIS < 15 (0-50); Magnesium 2.4 mg/dL (1.6-2.3); Phosphorous 3.3 mg/dL (2.3-3.7); Potassium 4.3 mmol/L (3.4-5.1); Sodium 137 mmol/L (137-145); Total Protein 8.1 g/dL (6.3-8.2); Triglycerides 188 mg/dL (35-150)
== END ==
PROVIDERS: PCP Internal Medicine; Visit Provider Internal Medicine
DX: K86.81 Exocrine pancreatic insufficiency (principal)
CPT/HCPCS: 80053; 83735; 84100; 84478; 85025

== ENCOUNTER → 2021-11-20 14:00 | Outpatient (ROUT) | payer MEDICARE, BC, SELFPAY ==
[2021-07-26 18:29] VITALS: BMI 24.3
[2021-11-20 14:24] LABS: Add Manual Diff / Slide Review NO; Basophils Absolute Auto 100 /uL (0-100); Basophils Percent Auto 1.1 % (0-2); Eosinophils Absolute Auto 100 /uL (0-450); Eosinophils Percent Auto 1.5 % (2-4); Hematocrit 28.8 % (41-53); Hemoglobin 9.2 g/dL (13.5-17.5); Lymphocytes Absolute Auto 1700 /uL (1100-4500); Mean Corpuscular HGB Conc 31.9 % (30-36); Mean Corpuscular Hemoglobin 28.7 PG (26-34); Monocytes Absolute Auto 900 /uL (0-900); Monocytes Percent Auto 9.1 % (3-14); Neutrophils Absolute Auto 6900 /uL (1500-7000); Neutrophils Percent Auto 71.3 % (50-75); Platelet Count 296 X10^3/uL (150-400); Red Cell Distribution Width 19.3 % (11.6-14.8); White Blood Cell Count 9.7 X10^3/uL (4.5-11.0)
[2021-11-20 14:36] LABS: Alanine Aminotransferase 87 IU/L (<50); Albumin 2.9 g/dL (3.5-5.0); Albumin Globulin Ratio 0.6 (1.0-2.8); Alkaline Phosphatase 293 U/L (38-126); Aspartate Aminotransferase 76 IU/L (17-59); BUN Creatinine Ratio 48.7 (6-22); Bilirubin Total 0.7 mg/dL (0.2-1.3); Blood Urea Nitrogen 38 mg/dL (9-20); Calcium 8.7 mg/dL (8.4-10.2); Carbon Dioxide 26 mmol/L (22-32); Chloride 109 mmol/L (98-107); Estimated Glomerular Filt Rate > 60.0 mL/min (>60); Globulin 5.1 g/dL (1.7-4.1); Glucose 161 mg/dL (80-110); HEMOLYSIS < 15 (0-50); Magnesium 2.3 mg/dL (1.6-2.3); Phosphorous 3.3 mg/dL (2.3-3.7); Potassium 3.8 mmol/L (3.4-5.1); Sodium 140 mmol/L (137-145); Triglycerides 144 mg/dL (35-150)
== END ==
PROVIDERS: PCP Internal Medicine; Visit Provider Internal Medicine
DX: K86.81 Exocrine pancreatic insufficiency (principal)
CPT/HCPCS: 80053; 83735; 84100; 84478; 85025

== ENCOUNTER → 2021-11-27 14:39 | Outpatient (ROUT) | payer MEDICARE, BC, SELFPAY ==
[2021-07-26 18:29] VITALS: BMI 24.3
[2021-11-27 14:51] LABS: Add Manual Diff / Slide Review NO; Basophils Absolute Auto 100 /uL (0-100); Basophils Percent Auto 0.7 % (0-2); Eosinophils Absolute Auto 100 /uL (0-450); Eosinophils Percent Auto 1.2 % (2-4); Hematocrit 28.1 % (41-53); Lymphocytes Absolute Auto 2100 /uL (1100-4500); Lymphocytes Percent Auto 23.5 % (25-40); Mean Corpuscular Hemoglobin 28.1 PG (26-34); Mean Corpuscular Volume 87.8 fL (80-100); Monocytes Absolute Auto 800 /uL (0-900); Monocytes Percent Auto 9.2 % (3-14); Neutrophils Absolute Auto 5900 /uL (1500-7000); Neutrophils Percent Auto 65.4 % (50-75); Platelet Count 277 X10^3/uL (150-400); Red Cell Distribution Width 18.8 % (11.6-14.8); White Blood Cell Count 9.1 X10^3/uL (4.5-11.0)
[2021-11-27 15:12] LABS: Alanine Aminotransferase 67 IU/L (<50); Albumin 2.8 g/dL (3.5-5.0); Albumin Globulin Ratio 0.6 (1.0-2.8); Alkaline Phosphatase 251 U/L (38-126); Aspartate Aminotransferase 62 IU/L (17-59); BUN Creatinine Ratio 54.4 (6-22); Bilirubin Total 0.6 mg/dL (0.2-1.3); Blood Urea Nitrogen 37 mg/dL (9-20); Calcium 8.7 mg/dL (8.4-10.2); Carbon Dioxide 28 mmol/L (22-32); Chloride 110 mmol/L (98-107); Estimated Glomerular Filt Rate > 60.0 mL/min (>60); Globulin 4.9 g/dL (1.7-4.1); Glucose 159 mg/dL (80-110); HEMOLYSIS < 15 (0-50); Magnesium 2.3 mg/dL (1.6-2.3); Phosphorous 3.1 mg/dL (2.3-3.7); Potassium 3.9 mmol/L (3.4-5.1); Sodium 141 mmol/L (137-145); Total Protein 7.7 g/dL (6.3-8.2); Triglycerides 149 mg/dL (35-150)
== END ==
PROVIDERS: PCP Internal Medicine; Visit Provider Internal Medicine
DX: K86.81 Exocrine pancreatic insufficiency (principal)
CPT/HCPCS: 80053; 83735; 84100; 84478; 85025

== ENCOUNTER → 2021-12-04 10:58 | Outpatient (ROUT) | payer MEDICARE, BC, SELFPAY ==
[2021-07-26 18:29] VITALS: BMI 24.3
[2021-12-04 11:07] LABS: Add Manual Diff / Slide Review NO; Basophils Absolute Auto 100 /uL (0-100); Basophils Percent Auto 0.9 % (0-2); Eosinophils Absolute Auto 100 /uL (0-450); Eosinophils Percent Auto 1.1 % (2-4); Hematocrit 29.2 % (41-53); Hemoglobin 9.5 g/dL (13.5-17.5); Lymphocytes Absolute Auto 1600 /uL (1100-4500); Lymphocytes Percent Auto 16.7 % (25-40); Mean Corpuscular HGB Conc 32.4 % (30-36); Mean Corpuscular Hemoglobin 28.4 PG (26-34); Mean Corpuscular Volume 87.5 fL (80-100); Monocytes Absolute Auto 800 /uL (0-900); Monocytes Percent Auto 7.7 % (3-14); Neutrophils Absolute Auto 7200 /uL (1500-7000); Neutrophils Percent Auto 73.6 % (50-75); Platelet Count 269 X10^3/uL (150-400); Red Blood Cell Count 3.34 X10^6/uL (4.5-5.9); Red Cell Distribution Width 18.9 % (11.6-14.8); White Blood Cell Count 9.8 X10^3/uL (4.5-11.0)
[2021-12-04 11:54] LABS: Alanine Aminotransferase 92 IU/L (<50); Albumin Globulin Ratio 0.6 (1.0-2.8); Alkaline Phosphatase 298 U/L (38-126); Aspartate Aminotransferase 88 IU/L (17-59); BUN Creatinine Ratio 45.1 (6-22); Bilirubin Total 0.8 mg/dL (0.2-1.3); Blood Urea Nitrogen 37 mg/dL (9-20); Carbon Dioxide 25 mmol/L (22-32); Chloride 109 mmol/L (98-107); Estimated Glomerular Filt Rate > 60.0 mL/min (>60); Globulin 5.3 g/dL (1.7-4.1); Glucose 277 mg/dL (80-110); HEMOLYSIS < 15 (0-50); Magnesium 2.4 mg/dL (1.6-2.3); Phosphorous 3.2 mg/dL (2.3-3.7); Potassium 3.6 mmol/L (3.4-5.1); Sodium 139 mmol/L (137-145); Total Protein 8.3 g/dL (6.3-8.2); Triglycerides 220 mg/dL (35-150)
== END ==
PROVIDERS: PCP Internal Medicine; Visit Provider Internal Medicine
DX: K86.81 Exocrine pancreatic insufficiency (principal)
CPT/HCPCS: 80053; 83735; 84100; 84478; 85025

== ENCOUNTER → 2021-12-11 11:16 | Outpatient (ROUT) | payer MEDICARE, BC, SELFPAY ==
[2021-07-26 18:29] VITALS: BMI 24.3
[2021-12-11 11:22] LABS: Add Manual Diff / Slide Review NO; Basophils Absolute Auto 0 /uL (0-100); Basophils Percent Auto 0.3 % (0-2); Eosinophils Absolute Auto 100 /uL (0-450); Eosinophils Percent Auto 0.6 % (2-4); Hematocrit 30.1 % (41-53); Hemoglobin 9.8 g/dL (13.5-17.5); Lymphocytes Absolute Auto 2500 /uL (1100-4500); Lymphocytes Percent Auto 21.6 % (25-40); Mean Corpuscular HGB Conc 32.7 % (30-36); Mean Corpuscular Hemoglobin 28.5 PG (26-34); Mean Corpuscular Volume 87.2 fL (80-100); Monocytes Absolute Auto 800 /uL (0-900); Monocytes Percent Auto 6.7 % (3-14); Neutrophils Absolute Auto 8300 /uL (1500-7000); Neutrophils Percent Auto 70.8 % (50-75); Platelet Count 303 X10^3/uL (150-400); Red Blood Cell Count 3.45 X10^6/uL (4.5-5.9); Red Cell Distribution Width 19.3 % (11.6-14.8); White Blood Cell Count 11.7 X10^3/uL (4.5-11.0)
[2021-12-11 11:43] LABS: Alanine Aminotransferase 89 IU/L (<50); Albumin 2.9 g/dL (3.5-5.0); Albumin Globulin Ratio 0.6 (1.0-2.8); Alkaline Phosphatase 299 U/L (38-126); Aspartate Aminotransferase 81 IU/L (17-59); BUN Creatinine Ratio 41.4 (6-22); Bilirubin Total 0.9 mg/dL (0.2-1.3); Blood Urea Nitrogen 36 mg/dL (9-20); Calcium 8.8 mg/dL (8.4-10.2); Carbon Dioxide 29 mmol/L (22-32); Chloride 105 mmol/L (98-107); Estimated Glomerular Filt Rate > 60.0 mL/min (>60); Globulin 5.1 g/dL (1.7-4.1); Glucose 253 mg/dL (80-110); HEMOLYSIS < 15 (0-50); Magnesium 2.3 mg/dL (1.6-2.3); Phosphorous 3.2 mg/dL (2.3-3.7); Potassium 3.7 mmol/L (3.4-5.1); Sodium 140 mmol/L (137-145); Triglycerides 216 mg/dL (35-150)
== END ==
PROVIDERS: PCP Internal Medicine; Visit Provider Internal Medicine
DX: K86.81 Exocrine pancreatic insufficiency (principal)
CPT/HCPCS: 80053; 83735; 84100; 84478; 85025

== ENCOUNTER → 2021-12-18 11:58 | Outpatient (ROUT) | payer MEDICARE, BC, SELFPAY ==
[2021-07-26 18:29] VITALS: BMI 24.3
[2021-12-18 12:04] LABS: Add Manual Diff / Slide Review NO; Basophils Absolute Auto 100 /uL (0-100); Basophils Percent Auto 1.3 % (0-2); Eosinophils Absolute Auto 100 /uL (0-450); Eosinophils Percent Auto 0.8 % (2-4); Hematocrit 30.3 % (41-53); Hemoglobin 9.9 g/dL (13.5-17.5); Lymphocytes Absolute Auto 2300 /uL (1100-4500); Lymphocytes Percent Auto 22.5 % (25-40); Mean Corpuscular HGB Conc 32.7 % (30-36); Mean Corpuscular Hemoglobin 28.5 PG (26-34); Mean Corpuscular Volume 87.2 fL (80-100); Monocytes Absolute Auto 900 /uL (0-900); Monocytes Percent Auto 9.4 % (3-14); Neutrophils Absolute Auto 6600 /uL (1500-7000); Platelet Count 264 X10^3/uL (150-400); Red Blood Cell Count 3.48 X10^6/uL (4.5-5.9); Red Cell Distribution Width 19.5 % (11.6-14.8)
[2021-12-18 12:35] LABS: Alanine Aminotransferase 76 IU/L (<50); Albumin 2.8 g/dL (3.5-5.0); Albumin Globulin Ratio 0.6 (1.0-2.8); Alkaline Phosphatase 294 U/L (38-126); Aspartate Aminotransferase 75 IU/L (17-59); BUN Creatinine Ratio 41.8 (6-22); Bilirubin Total 0.9 mg/dL (0.2-1.3); Blood Urea Nitrogen 38 mg/dL (9-20); Calcium 8.8 mg/dL (8.4-10.2); Carbon Dioxide 34 mmol/L (22-32); Chloride 106 mmol/L (98-107); Estimated Glomerular Filt Rate > 60.0 mL/min (>60); Glucose 229 mg/dL (80-110); HEMOLYSIS < 15 (0-50); Magnesium 2.4 mg/dL (1.6-2.3); Phosphorous 3.1 mg/dL (2.3-3.7); Potassium 3.5 mmol/L (3.4-5.1); Sodium 143 mmol/L (137-145); Total Protein 7.8 g/dL (6.3-8.2); Triglycerides 178 mg/dL (35-150)
== END ==
PROVIDERS: PCP Internal Medicine; Visit Provider Internal Medicine
DX: K86.81 Exocrine pancreatic insufficiency (principal)
CPT/HCPCS: 80053; 83735; 84100; 84478; 85025

== ENCOUNTER → 2021-12-25 11:11 | Outpatient (ROUT) | payer MEDICARE, BC, SELFPAY ==
[2021-07-26 18:29] VITALS: BMI 24.3
[2021-12-25 11:22] LABS: Add Manual Diff / Slide Review NO; Basophils Absolute Auto 0 /uL (0-100); Basophils Percent Auto 0.5 % (0-2); Eosinophils Absolute Auto 100 /uL (0-450); Hemoglobin 9.2 g/dL (13.5-17.5); Lymphocytes Absolute Auto 2200 /uL (1100-4500); Lymphocytes Percent Auto 22.4 % (25-40); Mean Corpuscular HGB Conc 31.7 % (30-36); Mean Corpuscular Hemoglobin 28.2 PG (26-34); Mean Corpuscular Volume 88.9 fL (80-100); Monocytes Absolute Auto 700 /uL (0-900); Monocytes Percent Auto 6.9 % (3-14); Neutrophils Absolute Auto 6700 /uL (1500-7000); Neutrophils Percent Auto 69.2 % (50-75); Platelet Count 170 X10^3/uL (150-400); Red Blood Cell Count 3.27 X10^6/uL (4.5-5.9); Red Cell Distribution Width 19.8 % (11.6-14.8); White Blood Cell Count 9.7 X10^3/uL (4.5-11.0)
[2021-12-25 11:48] LABS: Alanine Aminotransferase 50 IU/L (<50); Albumin 2.4 g/dL (3.5-5.0); Albumin Globulin Ratio 0.5 (1.0-2.8); Alkaline Phosphatase 206 U/L (38-126); Aspartate Aminotransferase 51 IU/L (17-59); BUN Creatinine Ratio 39.1 (6-22); Bilirubin Total 0.8 mg/dL (0.2-1.3); Blood Urea Nitrogen 36 mg/dL (9-20); Calcium 8.3 mg/dL (8.4-10.2); Carbon Dioxide 24 mmol/L (22-32); Chloride 114 mmol/L (98-107); Estimated Glomerular Filt Rate > 60.0 mL/min (>60); Globulin 4.5 g/dL (1.7-4.1); Glucose 206 mg/dL (80-110); HEMOLYSIS < 15 (0-50); Magnesium 2.3 mg/dL (1.6-2.3); Phosphorous 2.8 mg/dL (2.3-3.7); Potassium 3.8 mmol/L (3.4-5.1); Sodium 145 mmol/L (137-145); Total Protein 6.9 g/dL (6.3-8.2); Triglycerides 177 mg/dL (35-150)
== END ==
PROVIDERS: PCP Internal Medicine; Visit Provider Internal Medicine
DX: K86.81 Exocrine pancreatic insufficiency (principal); N18.30 Chronic kidney disease, stage 3 unspecified
CPT/HCPCS: 80053; 83735; 84100; 84478; 85025

== ENCOUNTER → 2021-12-31 13:04 | Outpatient (ROUT) | payer MEDICARE, BC, SELFPAY ==
[2021-07-26 18:29] VITALS: BMI 24.3
[2021-12-31 13:18] LABS: Add Manual Diff / Slide Review NO; Basophils Absolute Auto 100 /uL (0-100); Basophils Percent Auto 0.8 % (0-2); Eosinophils Absolute Auto 100 /uL (0-450); Eosinophils Percent Auto 1.3 % (2-4); Hematocrit 29.5 % (41-53); Hemoglobin 9.4 g/dL (13.5-17.5); Lymphocytes Absolute Auto 2300 /uL (1100-4500); Lymphocytes Percent Auto 28.1 % (25-40); Mean Corpuscular HGB Conc 31.8 % (30-36); Mean Corpuscular Hemoglobin 29.4 PG (26-34); Mean Corpuscular Volume 92.3 fL (80-100); Monocytes Absolute Auto 600 /uL (0-900); Monocytes Percent Auto 7.4 % (3-14); Neutrophils Absolute Auto 5000 /uL (1500-7000); Neutrophils Percent Auto 62.4 % (50-75); Platelet Count 131 X10^3/uL (150-400); Red Blood Cell Count 3.19 X10^6/uL (4.5-5.9); Red Cell Distribution Width 20.4 % (11.6-14.8)
[2021-12-31 13:33] LABS: Anisocytosis 2+; Rouleaux 2+
[2021-12-31 13:38] LABS: Alanine Aminotransferase 39 IU/L (<50); Albumin 2.4 g/dL (3.5-5.0); Albumin Globulin Ratio 0.6 (1.0-2.8); Alkaline Phosphatase 137 U/L (38-126); Aspartate Aminotransferase 55 IU/L (17-59); BUN Creatinine Ratio 34.3 (6-22); Bilirubin Total 0.6 mg/dL (0.2-1.3); Blood Urea Nitrogen 34 mg/dL (9-20); Calcium 8.6 mg/dL (8.4-10.2); Carbon Dioxide 25 mmol/L (22-32); Chloride 106 mmol/L (98-107); Estimated Glomerular Filt Rate > 60.0 mL/min (>60); Magnesium 2.5 mg/dL (1.6-2.3); Potassium 5.3 mmol/L (3.4-5.1); Sodium 139 mmol/L (137-145); Total Protein 6.4 g/dL (6.3-8.2); Triglycerides 480 mg/dL (35-150)
[2021-12-31 13:45] LABS: HEMOLYSIS 21 (0-50)
[2021-12-31 14:01] LABS: Glucose 845 mg/dL (80-110)
== END ==
PROVIDERS: PCP Internal Medicine; Visit Provider Internal Medicine
DX: K85.90 Acute pancreatitis without necrosis or infection, unspecified (principal)
CPT/HCPCS: 80053; 83735; 84100; 84478; 85025

== ENCOUNTER 2021-12-31 15:37 | Emergency (ER) | payer MEDICARE, BC, SELFPAY ==
[2021-07-26 18:29] VITALS: BMI 24.3
[2021-12-31 16:08] VITALS: BMI 25.0
--- NOTE | 2021-12-31 16:11 | PC.NURSE ---
Pt sent to ED for glucose 845 after lab draw around noon today. states she took glucose shortly after receiving call which was in the 160's. Pt is AAOx4 and acting normally without complaint. Glucose was taken immediately upon arrival to triage by RN which was 163. of patient does not want to wait to be seen by doctor. States she thinks this is a mistake made by the home health nurse not doing a butterfly blood draw and using the PICC line. Pt's states they are off to tomorrow morning for the next 3 days for appointment and she would like to take him home. Advised that they are able to wait and see the Dr however declined. Pt left [facility] after triage.
== END 2021-12-31 16:15 | disposition left against medical advice (07) ==
PROVIDERS: Emergency Provider Emergency Medicine; PCP Internal Medicine
DX: R73.9 Hyperglycemia, unspecified (principal)
CPT/HCPCS: 82962; 99281

== ENCOUNTER → 2022-01-08 11:13 | Outpatient (ROUT) | payer MEDICARE, OTHER, SELFPAY ==
[2021-07-26 18:29] VITALS: BMI 24.3
[2022-01-08 11:59] LABS: Add Manual Diff / Slide Review NO; Basophils Absolute Auto 0 /uL (0-100); Basophils Percent Auto 0.3 % (0-2); Eosinophils Absolute Auto 100 /uL (0-450); Eosinophils Percent Auto 1.2 % (2-4); Hematocrit 29.3 % (41-53); Hemoglobin 9.2 g/dL (13.5-17.5); Lymphocytes Absolute Auto 2100 /uL (1100-4500); Mean Corpuscular HGB Conc 31.4 % (30-36); Mean Corpuscular Hemoglobin 27.9 PG (26-34); Mean Corpuscular Volume 88.8 fL (80-100); Monocytes Absolute Auto 800 /uL (0-900); Monocytes Percent Auto 8.2 % (3-14); Neutrophils Absolute Auto 6500 /uL (1500-7000); Neutrophils Percent Auto 68.3 % (50-75); Platelet Count 191 X10^3/uL (150-400); Red Cell Distribution Width 21.1 % (11.6-14.8); White Blood Cell Count 9.6 X10^3/uL (4.5-11.0)
[2022-01-08 12:07] LABS: Alanine Aminotransferase 44 IU/L (<50); Albumin 2.8 g/dL (3.5-5.0); Albumin Globulin Ratio 0.6 (1.0-2.8); Alkaline Phosphatase 200 U/L (38-126); Aspartate Aminotransferase 63 IU/L (17-59); BUN Creatinine Ratio 38.9 (6-22); Bilirubin Total 0.7 mg/dL (0.2-1.3); Blood Urea Nitrogen 37 mg/dL (9-20); Calcium 8.5 mg/dL (8.4-10.2); Carbon Dioxide 28 mmol/L (22-32); Chloride 111 mmol/L (98-107); Estimated Glomerular Filt Rate > 60.0 mL/min (>60); Glucose 307 mg/dL (80-110); HEMOLYSIS < 15 (0-50); Magnesium 2.4 mg/dL (1.6-2.3); Phosphorous 3.5 mg/dL (2.3-3.7); Sodium 143 mmol/L (137-145); Total Protein 7.8 g/dL (6.3-8.2); Triglycerides 257 mg/dL (35-150)
[2022-01-08 12:23] LABS: Anisocytosis 1+; Hypochromasia 1+; Poikilocytosis 1+; Target Cells 1+
== END ==
PROVIDERS: PCP Internal Medicine; Visit Provider Internal Medicine
DX: K86.81 Exocrine pancreatic insufficiency (principal)
CPT/HCPCS: 80053; 83735; 84100; 84478; 85025

== ENCOUNTER → 2022-01-15 11:50 | Outpatient (ROUT) | payer MEDICARE, OTHER, SELFPAY ==
[2021-07-26 18:29] VITALS: BMI 24.3
[2022-01-15 12:12] LABS: Add Manual Diff / Slide Review NO; Basophils Absolute Auto 100 /uL (0-100); Basophils Percent Auto 0.7 % (0-2); Eosinophils Absolute Auto 100 /uL (0-450); Hematocrit 33.5 % (41-53); Hemoglobin 10.4 g/dL (13.5-17.5); Lymphocytes Absolute Auto 2200 /uL (1100-4500); Lymphocytes Percent Auto 19.1 % (25-40); Mean Corpuscular HGB Conc 31.1 % (30-36); Mean Corpuscular Volume 89.9 fL (80-100); Monocytes Absolute Auto 900 /uL (0-900); Monocytes Percent Auto 7.2 % (3-14); Neutrophils Absolute Auto 8500 /uL (1500-7000); Platelet Count 126 X10^3/uL (150-400); Red Blood Cell Count 3.73 X10^6/uL (4.5-5.9); White Blood Cell Count 11.7 X10^3/uL (4.5-11.0)
[2022-01-15 12:16] LABS: Alanine Aminotransferase 67 IU/L (<50); Albumin 2.9 g/dL (3.5-5.0); Albumin Globulin Ratio 0.6 (1.0-2.8); Alkaline Phosphatase 244 U/L (38-126); Aspartate Aminotransferase 70 IU/L (17-59); BUN Creatinine Ratio 42.4 (6-22); Bilirubin Total 0.9 mg/dL (0.2-1.3); Blood Urea Nitrogen 42 mg/dL (9-20); Calcium 8.6 mg/dL (8.4-10.2); Carbon Dioxide 28 mmol/L (22-32); Chloride 111 mmol/L (98-107); Estimated Glomerular Filt Rate > 60.0 mL/min (>60); Globulin 5.1 g/dL (1.7-4.1); Glucose 310 mg/dL (80-110); HEMOLYSIS < 15 (0-50); Magnesium 2.5 mg/dL (1.6-2.3); Phosphorous 2.7 mg/dL (2.3-3.7); Sodium 144 mmol/L (137-145); Triglycerides 225 mg/dL (35-150)
[2022-01-15 12:26] LABS: Anisocytosis 2+; Platelet Clumps 2
== END ==
PROVIDERS: PCP Internal Medicine; Visit Provider Internal Medicine
DX: K86.81 Exocrine pancreatic insufficiency (principal)
CPT/HCPCS: 80053; 83735; 84100; 84478; 85025

== ENCOUNTER → 2022-01-22 10:48 | Outpatient (ROUT) | payer MEDICARE, OTHER, SELFPAY ==
[2021-07-26 18:29] VITALS: BMI 24.3
[2022-01-22 11:17] LABS: Alanine Aminotransferase 59 IU/L (<50); Albumin Globulin Ratio 0.5 (1.0-2.8); Alkaline Phosphatase 239 U/L (38-126); Aspartate Aminotransferase 63 IU/L (17-59); BUN Creatinine Ratio 39.4 (6-22); Bilirubin Total 0.7 mg/dL (0.2-1.3); Blood Urea Nitrogen 39 mg/dL (9-20); Calcium 8.7 mg/dL (8.4-10.2); Carbon Dioxide 28 mmol/L (22-32); Chloride 111 mmol/L (98-107); Estimated Glomerular Filt Rate > 60.0 mL/min (>60); Globulin 5.5 g/dL (1.7-4.1); Glucose 184 mg/dL (80-110); HEMOLYSIS < 15 (0-50); Magnesium 2.5 mg/dL (1.6-2.3); Phosphorous 2.8 mg/dL (2.3-3.7); Potassium 3.5 mmol/L (3.4-5.1); Sodium 143 mmol/L (137-145); Total Protein 8.5 g/dL (6.3-8.2); Triglycerides 204 mg/dL (35-150)
[2022-01-22 11:21] LABS: Basophils Absolute Auto 200 /uL (0-100); Basophils Percent Auto 1.4 % (0-2); Eosinophils Absolute Auto 100 /uL (0-450); Eosinophils Percent Auto 1.2 % (2-4); Hematocrit 31.5 % (41-53); Hemoglobin 9.8 g/dL (13.5-17.5); Lymphocytes Absolute Auto 2300 /uL (1100-4500); Lymphocytes Percent Auto 19.1 % (25-40); Mean Corpuscular Hemoglobin 27.9 PG (26-34); Monocytes Absolute Auto 800 /uL (0-900); Neutrophils Absolute Auto 8500 /uL (1500-7000); Neutrophils Percent Auto 71.3 % (50-75); Red Cell Distribution Width 21.5 % (11.6-14.8); White Blood Cell Count 11.9 X10^3/uL (4.5-11.0)
[2022-01-22 11:30] LABS: Add Manual Diff / Slide Review SLIDE REVIEW
[2022-01-22 11:35] LABS: Anisocytosis 1+; Platelet Estimate Adequate on smear
== END ==
PROVIDERS: PCP Internal Medicine; Visit Provider Internal Medicine
DX: K86.81 Exocrine pancreatic insufficiency (principal)
CPT/HCPCS: 80053; 83735; 84100; 84478; 85025

== ENCOUNTER 2022-02-03 13:02 | Inpatient (IN) | payer MEDICARE, OTHER, SELFPAY ==
[2021-07-26 18:29] VITALS: BMI 24.3
[2022-02-03] VITALS (28 sets, daily range): BP systolic 83–137; BP diastolic 46–61; PULSE 67–107; RESP 18–40; TEMP 36.5–39.4; O2SAT 90–97; BMI 23.3
--- NOTE | 2022-02-03 13:03 | DI.RAD.S_ITS ---
PROCEDURE: XR CHEST 1V INDICATIONS: weakness, sob TECHNIQUE: One view of the chest was acquired. COMPARISON: [facility], CR, XR CHEST 1V, 07/31/2021, 21:39. FINDINGS: Surgical changes and devices: Left-sided PICC line is present. The tip is directed right lateral, likely at the SVC/brachiocephalic confluence. Lungs and pleura: Possible tiny left base retrocardiac opacity. Lungs are otherwise clear. No pleural effusions or pneumothorax. Mediastinum: Mediastinal contours appear normal. Heart size is normal. Bones and chest wall: No suspicious bony lesions. Overlying soft tissues appear unremarkable. IMPRESSION: 1. Possible tiny retrocardiac opacity, potentially aspiration versus atelectasis versus infectious pneumonia. 2. Left-sided PICC line with the tip directed right lateral. Given its course, it may be in the azygos venous system. Dictated by: Joan Mott M.D. on 02/03/2022 at 13:35 Approved by: Joan Mott M.D. on 02/03/2022 at 13:37
[2022-02-03 13:29] LABS: Appearance Urine UA CLEAR; Bilirubin Urine UA NEGATIVE (NEGATIVE); Color Urine UA YELLOW; Glucose Urine UA NEGATIVE (Negative); Ketones Urine UA NEGATIVE (NEGATIVE); Leukocyte Esterase Urine UA NEGATIVE (NEGATIVE); Nitrite Urine UA NEGATIVE (Negative); Occult Blood Urine UA 2+ (Negative); Protein Urine UA TRACE (Negative); Urobilinogen Urine UA 0.2 E.U./dL (0.2)
[2022-02-03 13:30] LABS: COVID19 -Nasal RAPID Negative (Negative)
[2022-02-03 13:38] LABS: Add Manual Diff / Slide Review NO; Basophils Absolute Auto 100 /uL (0-100); Basophils Percent Auto 0.4 % (0-2); Eosinophils Absolute Auto 0 /uL (0-450); Eosinophils Percent Auto 0.3 % (2-4); Lymphocytes Absolute Auto 1200 /uL (1100-4500); Lymphocytes Percent Auto 7.4 % (25-40); Mean Corpuscular Hemoglobin 28.4 PG (26-34); Mean Corpuscular Volume 88.7 fL (80-100); Monocytes Absolute Auto 800 /uL (0-900); Monocytes Percent Auto 5.4 % (3-14); Neutrophils Absolute Auto 13400 /uL (1500-7000); Neutrophils Percent Auto 86.5 % (50-75); Platelet Count 280 X10^3/uL (150-400); Red Blood Cell Count 3.16 X10^6/uL (4.5-5.9); Red Cell Distribution Width 20.4 % (11.6-14.8); White Blood Cell Count 15.5 X10^3/uL (4.5-11.0)
[2022-02-03 13:41] LABS: INR 1.2 (0.9-1.3)
[2022-02-03] MEDS: ACETAMINOPHEN 325 MG TABLET 975 MG PO (13:41)
--- NOTE | 2022-02-03 13:42 | ED.SEPSIS ---
HPI - Sepsis General Chief Complaint: Shortness of Breath/Dyspnea Mode of arrival: EMS Source: patient Limitations: no limitations Evaluation Sepsis Screen: Possible Sepsis Risk Sepsis Infection Criteria Present: Suspected New Infection Sepsis Onset Time: 13:43 Narrative: This is an 81-year-old male who comes emergency department with 3 days of increasing shortness of breath, cough and generally feeling unwell. No fevers at home but he was febrile for EMS and is febrile here in the department. He has had a and increasing shortness of breath he denies pain in his chest. He denies any active nausea or vomiting. 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 He has had some leaking along the edge of the bag today but no change in output or consistency. He denies dysuria urgency or frequency use or changes to urination. He does have a PICC line for TPN. He has not noticed any skin changes otherwise. He denies any abdominal, back or flank pain. Patient states that he had a surgery which resulted in a fistula and he is falling with Rolanda alcala to have reversal of this upcoming. He does have a history of AFib, is on aspirin, medications for hypertension, dyslipidemia as well as hydrochlorothiazide for diuretic and Pepcid. Review of Systems Review of Systems ROS Unobtainable: All systems reviewed & are unremarkable except as noted in HPI and below Patient History Medical History Barretts esophagus BPH w urinary obs/LUTS Essential hypertension GERD (gastroesophageal reflux disease) Glanular hypospadias History of acute pancreatitis History of small bowel obstruction Hyperlipidemia Surgical History H/O breast biopsy H/O prostate biopsy H/O vasectomy History of nephrectomy Hx of circumcision Family History Brother Age: 80 Heart disease Mother Alcoholic Father Heart disease Heart attack Social History household members: spouse Smoking Status: Former smoker alcohol intake: current Smoking Status: Former smoker alcohol intake frequency: 0-2 drinks per day Substance Use Type: does not use Exam Narrative Exam Narrative: GENERAL: Alert and oriented x three, elderly male in mild distress. Patient warm to touch. HEENT: Head normocephalic, atraumatic, EOMI, pupils reactive, face symmetric, moist mucous membranes NECK: Supple, full range of motion CARDIOVASCULAR: Tachycardic but Regular rate and rhythm without murmurs, rubs or gallops. No JVD. No swelling bilateral lower extremities. RESPIRATORY: Breath sounds decreased but equal bilaterally, no wheezes rales or rhonchi. No tachypnea accessory muscle use. Patient does have occasional dry cough. ABDOMEN: Soft, nontender. Normoactive bowel sounds all 4 quadrants. No guarding or rebound, rigidity, no mass. Patient's abdominal stoma is draining yellow stool, no bright red blood. : No CVA tenderness EXTREMITIES: Normal range of motion, no clubbing or edema. Neurovascularly intact. Warmth, erythema or other skin changes. NEUROLOGICAL: Cranial nerves II through XII grossly intact. Moving all extremities SKIN: Warm, dry, no petechiae, no rashes or lesions. Initial Vital Signs Initial Vital Signs: Vital Signs Temperature 103 F H 02/03/22 13:03 Pulse Rate 107 H 02/03/22 13:03 Respiratory Rate 23 02/03/22 13:03 Blood Pressure 132/60 02/03/22 13:03 Pulse Oximetry 97 02/03/22 13:03 Course Orders Ordered: ED Orders 02/03/22 13:03 XR chest 1V Stat 02/03/22 13:04 EKG-12 Lead Stat 02/03/22 13:09 COVID19 -Nasal swab/Pre-Proc Stat Respiratory Panel (Film Array) Stat Urinalysis and Microscopic Stat 02/03/22 13:20 Blood Culture Stat Complete Blood Count AUTO DIFF Stat Comprehensive Metabolic Panel Stat Lactate (Lactic Acid) Stat NT-proBNP (BNP-Adult 18+) Stat Partial Thromboplastin Time Stat Procalcitonin Stat Prothrombin Time INR Stat Troponin & CK Cardiac Panel Stat Acetaminophen (Acetaminophen 325 Mg Tablet) 650 mg PO Q6HR PRN PRN Reason: pain Heparin Sodium (Porcine) (Heparin Flush (Cl/Picc/Mid-Line) 50 Unit/5 Ml Syringe) 50 unit IV PRN PRN PRN Reason: Flush Last Admin: 02/03/22 17:06 Dose: 50 unit Documented by: Admin: 02/03/22 17:05 Dose: 50 unit Documented by: RADHA Heparin Sodium (Porcine) (Heparin 5,000 Unit/Ml Vial) 5,000 unit SUBCUT BID JOSE Sodium Chloride (Normal Saline 0.9%) 1,000 mls @ 125 mls/hr IV CONT JOSE Last Infusion: 02/03/22 17:34 Dose: 0 mls/hr Documented by: Admin: 02/03/22 15:00 Dose: 125 mls/hr Documented by: RADHA Piperacillin Sod/Tazobactam (Sod 3.375 gm/ Sodium Chloride) 100 mls @ 25 mls/hr IV Q8H JOSE Sodium Chloride (Normal Saline 0.9%) 1,000 mls @ 1,000 mls/hr IV BOLUS ONE Stop: 02/03/22 19:04 Micafungin Sodium 100 mg/ (Sodium Chloride) 100 mls @ 100 mls/hr IV Q24H JOSE Ondansetron HCl (Ondansetron 4 Mg/2 Ml Inj) 4 mg IV Q8HR PRN PRN Reason: Nausea And Vomiting Vancomycin HCl (Vancomycin Per Pharmacy) 1 request MISC NOW ONE Stop: 02/03/22 18:06 Discontinued Medications Acetaminophen (Acetaminophen 325 Mg Tablet) 975 mg PO NOW ONE Stop: 02/03/22 13:28 Last Admin: 02/03/22 13:41 Dose: 975 mg Documented by: RADHA Sodium Chloride (Normal Saline 0.9%) 2,190 mls @ 730 mls/hr 30 ml/kg infuse over 3 hr (2190 ml) IV NOW ONE Stop: 02/03/22 16:40 Last Infusion: 02/03/22 15:43 Dose: 0 mls/hr Documented by: Admin: 02/03/22 13:43 Dose: 730 mls/hr Documented by: RADHA Piperacillin Sod/Tazobactam (Sod 4.5 gm/ Sodium Chloride) 100 mls @ 200 mls/hr IV NOW ONE Stop: 02/03/22 13:53 Last Infusion: 02/03/22 14:35 Dose: 0 mls/hr Documented by: Admin: 02/03/22 14:02 Dose: 200 mls/hr Documented by: RADHA Reevaluation(s) Reevaluation #1: Recheck reviewed findings today suspect pneumonia. Discussed with patient and . They are agreeable to stay locally. They do stated their situation became more complicated they would wish for transfer to [facility] which is where his General surgery team is. Vital Signs Vital signs: Vital Signs - 8 hr 02/03/22 13:03 02/03/22 13:35 02/03/22 13:39 Temperature 103 F H Pulse Rate 107 H 95 H 95 H Respiratory Rate 23 22 25 H Blood Pressure 132/60 131/61 131/61 Pulse Oximetry 97 93 94 02/03/22 13:41 02/03/22 14:00 02/03/22 14:30 Temperature 102 F H 102 F H Pulse Rate 91 H 87 Respiratory Rate 24 25 H Blood Pressure 137/60 Pulse Oximetry 96 93 02/03/22 14:31 02/03/22 14:55 02/03/22 14:57 Temperature Pulse Rate 87 86 86 Respiratory Rate 23 24 Blood Pressure 101/55 L 106/53 L 106/53 L Pulse Oximetry 93 92 95 02/03/22 15:00 02/03/22 15:11 02/03/22 15:20 Temperature 98.9 F Pulse Rate 85 85 84 Respiratory Rate 21 24 24 Blood Pressure 99/51 L 100/50 L 107/53 L Pulse Oximetry 91 90 L 91 02/03/22 15:30 02/03/22 15:41 02/03/22 16:00 Temperature 98.8 F Pulse Rate 83 86 81 Respiratory Rate 26 H 40 H 30 H Blood Pressure 93/54 L 109/53 L Pulse Oximetry 93 97 96 02/03/22 16:20 02/03/22 16:30 Temperature Pulse Rate 79 77 Respiratory Rate 23 23 Blood Pressure 101/52 L Pulse Oximetry 95 96 Sepsis Guideline Criteria Level 1 - Infection Sepsis Infection Criteria Present: Suspected New Infection Response Sepsis Onset Time: 13:43 Treatment Initiated Antibiotics:: IV antimicrobials will be initiated as soon as possible after recognition of sepsis state and within one hour for both sepsis and septic shock. MDM - Sepsis Lab Data Result diagrams: 02/03/22 13:20 02/03/22 13:20 Labs: Lab Results 02/03/22 02/03/22 02/03/22 Range/Units 13:09 13:09 13:09 WBC (4.5-11.0) X10^3/uL RBC (4.5-5.9) X10^6/uL Hgb (13.5-17.5) g/dL Hct (41-53) % MCV (80-100) fL MCH (26-34) PG MCHC (30-36) % RDW (11.6-14.8) % Plt Count (150-400) X10^3/uL Neut % (Auto) (50-75) % Lymph % (Auto) (25-40) % [place] % (Auto) (3-14) % Eos % (Auto) (2-4) % Baso % (Auto) (0-2) % Neut # (Auto) (0092-5479) /uL Lymph # (Auto) (5871-2602) /uL [place] # (Auto) (0-900) /uL Eos # (Auto) (0-450) /uL Baso # (Auto) (0-100) /uL RBC Morphology Poikilocytosis Anisocytosis PT (10.1-12.7) SECONDS INR (0.9-1.3) APTT (26.4-36.2) SECONDS Sodium (137-145) mmol/L Potassium (3.4-5.1) mmol/L Chloride (98-107) mmol/L Carbon Dioxide (22-32) mmol/L BUN (9-20) mg/dL Creatinine (0.66-1.25) mg/dL Estimated GFR (>60) mL/min BUN/Creatinine Ratio (6-22) Glucose (80-110) mg/dL Lactate (0.7-2.1) mmol/L Calcium (8.4-10.2) mg/dL Total Bilirubin (0.2-1.3) mg/dL AST (17-59) IU/L ALT (<50) IU/L Alkaline Phosphatase (38-126) U/L Total Creatine Kinase (55-170) U/L CK-MB (CK-2) CK-MB (CK-2) Rel Index Troponin I (0.01-0.034) ng/mL NT-Pro-B Natriuret Pep (<450) pg/mL Total Protein (6.3-8.2) g/dL Albumin (3.5-5.0) g/dL Globulin (1.7-4.1) g/dL Albumin/Globulin Ratio (1.0-2.8) Procalcitonin (<0.5) ng/mL Urine Color Yellow Urine Appearance Clear Urine pH 5.0 (4.5-8.0) Ur Specific R[place]ston 1.010 (1.000-1.035) Urine Protein Trace H (Negative) Urine Glucose (UA) Negative (Negative) g/dL Urine Ketones Negative (NEGATIVE) Urine Occult Blood 2+ H (Negative) Urine Nitrate Negative (Negative) Urine Bilirubin Negative (NEGATIVE) Urine Urobilinogen 0.2 (0.2) E.U./dL Ur Leukocyte Esterase Negative (NEGATIVE) Urine RBC 5-10/hpf H (0-5/HPF) Urine WBC 1-5/hpf (0-5/HPF) Ur Squamous Epith Cells 0-1 /hpf (0-5/HPF) Urine Bacteria Few (2-10) H (None) Hyaline Casts 1-5/lpf (None) Ur Culture Indicated? Cult not indicated Chlamy pneumoniae PCR Not detected (Not Detect) Adenovirus (PCR) Not detected (Not Detect) B. pertussis DNA (PCR) Not detected (Not Detecte) B.parapertussis DNA PCR Not detected (Not Detecte) Coronavirus OC43 (PCR) Not detected (Not Detect) Coronavirus HKU1 (PCR) Not detected (Not Detect) Coronavirus 229E (PCR) Not detected (Not Detect) SARS-CoV-2 (PCR) Negative Not detected (Negative) Coronavirus NL63 (PCR) Not detected (Not Detect) Human Metapneumovir PCR Not detected (Not Detect) Influenza Type A (PCR) Not detected (Not Detect) Influenza Type B (PCR) Not detected (Not Detect) M. pneumoniae (PCR) Not detected (Not Detect) Parainfluenza 1 (PCR) Not detected (Not Detect) Parainfluenza 2 (PCR) Not detected (Not Detect) Parainfluenza 3 (PCR) Not detected (Not Detect) Parainfluenza 4 (PCR) Not detected (Not Detect) RSV (PCR) Not detected (Not Detect) Entero/Rhino (PCR) Not detected (Not Detect) 02/03/22 02/03/22 02/03/22 Range/Units 13:20 13:20 13:20 WBC 15.5 H (4.5-11.0) X10^3/uL RBC 3.16 L (4.5-5.9) X10^6/uL Hgb 9.0 L (13.5-17.5) g/dL Hct 28.0 L (41-53) % MCV 88.7 (80-100) fL MCH 28.4 (26-34) PG MCHC 32.0 (30-36) % RDW 20.4 H (11.6-14.8) % Plt Count 280 (150-400) X10^3/uL Neut % (Auto) 86.5 H (50-75) % Lymph % (Auto) 7.4 L (25-40) % [place] % (Auto) 5.4 (3-14) % Eos % (Auto) 0.3 L (2-4) % Baso % (Auto) 0.4 (0-2) % Neut # (Auto) 43838 H (0492-6861) /uL Lymph # (Auto) 1200 (1995-4539) /uL [place] # (Auto) 800 (0-900) /uL Eos # (Auto) 0 (0-450) /uL Baso # (Auto) 100 (0-100) /uL RBC Morphology See below Poikilocytosis 1+ H Anisocytosis 2+ H PT 14.0 H (10.1-12.7) SECONDS INR 1.2 (0.9-1.3) APTT (26.4-36.2) SECONDS Sodium 145 (137-145) mmol/L Potassium 3.5 (3.4-5.1) mmol/L Chloride 115 H (98-107) mmol/L Carbon Dioxide 25 (22-32) mmol/L BUN 53 H (9-20) mg/dL Creatinine 1.17 (0.66-1.25) mg/dL Estimated GFR 59.7 L (>60) mL/min BUN/Creatinine Ratio 45.3 H (6-22) Glucose 194 H (80-110) mg/dL Lactate (0.7-2.1) mmol/L Calcium 7.6 L (8.4-10.2) mg/dL Total Bilirubin 0.9 (0.2-1.3) mg/dL AST 81 H (17-59) IU/L ALT 65 H (<50) IU/L Alkaline Phosphatase 181 H (38-126) U/L Total Creatine Kinase < 20 L (55-170) U/L CK-MB (CK-2) TNP CK-MB (CK-2) Rel Index TNP Troponin I 0.041 H (0.01-0.034) ng/mL NT-Pro-B Natriuret Pep 322 (<450) pg/mL Total Protein 7.6 (6.3-8.2) g/dL Albumin 2.6 L (3.5-5.0) g/dL Globulin 5.0 H (1.7-4.1) g/dL Albumin/Globulin Ratio 0.5 L (1.0-2.8) Procalcitonin 0.45 (<0.5) ng/mL Urine Color Urine Appearance Urine pH (4.5-8.0) Ur Specific Ralston (1.000-1.035) Urine Protein (Negative) Urine Glucose (UA) (Negative) g/dL Urine Ketones (NEGATIVE) Urine Occult Blood (Negative) Urine Nitrate (Negative) Urine Bilirubin (NEGATIVE) Urine Urobilinogen (0.2) E.U./dL Ur Leukocyte Esterase (NEGATIVE) Urine RBC (0-5/HPF) Urine WBC (0-5/HPF) Ur Squamous Epith Cells (0-5/HPF) Urine Bacteria (None) Hyaline Casts (None) Ur Culture Indicated? Chlamy pneumoniae PCR (Not Detect) Adenovirus (PCR) (Not Detect) B. pertussis DNA (PCR) (Not Detecte) B.parapertussis DNA PCR (Not Detecte) Coronavirus OC43 (PCR) (Not Detect) Coronavirus HKU1 (PCR) (Not Detect) Coronavirus 229E (PCR) (Not Detect) SARS-CoV-2 (PCR) (Negative) Coronavirus NL63 (PCR) (Not Detect) Human Metapneumovir PCR (Not Detect) Influenza Type A (PCR) (Not Detect) Influenza Type B (PCR) (Not Detect) M. pneumoniae (PCR) (Not Detect) Parainfluenza 1 (PCR) (Not Detect) Parainfluenza 2 (PCR) (Not Detect) Parainfluenza 3 (PCR) (Not Detect) Parainfluenza 4 (PCR) (Not Detect) RSV (PCR) (Not Detect) Entero/Rhino (PCR) (Not Detect) 02/03/22 02/03/22 02/03/22 Range/Units 13:20 13:20 15:52 WBC (4.5-11.0) X10^3/uL RBC (4.5-5.9) X10^6/uL Hgb (13.5-17.5) g/dL Hct (41-53) % MCV (80-100) fL MCH (26-34) PG MCHC (30-36) % RDW (11.6-14.8) % Plt Count (150-400) X10^3/uL Neut % (Auto) (50-75) % Lymph % (Auto) (25-40) % [place] % (Auto) (3-14) % Eos % (Auto) (2-4) % Baso % (Auto) (0-2) % Neut # (Auto) (0686-5011) /uL Lymph # (Auto) (5402-5018) /uL [place] # (Auto) (0-900) /uL Eos # (Auto) (0-450) /uL Baso # (Auto) (0-100) /uL RBC Morphology Poikilocytosis Anisocytosis PT (10.1-12.7) SECONDS INR (0.9-1.3) APTT 30 D (26.4-36.2) SECONDS Sodium (137-145) mmol/L Potassium (3.4-5.1) mmol/L Chloride (98-107) mmol/L Carbon Dioxide (22-32) mmol/L BUN (9-20) mg/dL Creatinine (0.66-1.25) mg/dL Estimated GFR (>60) mL/min BUN/Creatinine Ratio (6-22) Glucose (80-110) mg/dL Lactate 2.6 H 2.0 (0.7-2.1) mmol/L Calcium (8.4-10.2) mg/dL Total Bilirubin (0.2-1.3) mg/dL AST (17-59) IU/L ALT (<50) IU/L Alkaline Phosphatase (38-126) U/L Total Creatine Kinase (55-170) U/L CK-MB (CK-2) CK-MB (CK-2) Rel Index Troponin I (0.01-0.034) ng/mL NT-Pro-B Natriuret Pep (<450) pg/mL Total Protein (6.3-8.2) g/dL Albumin (3.5-5.0) g/dL Globulin (1.7-4.1) g/dL Albumin/Globulin Ratio (1.0-2.8) Procalcitonin (<0.5) ng/mL Urine Color Urine Appearance Urine pH (4.5-8.0) Ur Specific R[place]ston (1.000-1.035) Urine Protein (Negative) Urine Glucose (UA) (Negative) g/dL Urine Ketones (NEGATIVE) Urine Occult Blood (Negative) Urine Nitrate (Negative) Urine Bilirubin (NEGATIVE) Urine Urobilinogen (0.2) E.U./dL Ur Leukocyte Esterase (NEGATIVE) Urine RBC (0-5/HPF) Urine WBC (0-5/HPF) Ur Squamous Epith Cells (0-5/HPF) Urine Bacteria (None) Hyaline Casts (None) Ur Culture Indicated? Chlamy pneumoniae PCR (Not Detect) Adenovirus (PCR) (Not Detect) B. pertussis DNA (PCR) (Not Detecte) B.parapertussis DNA PCR (Not Detecte) Coronavirus OC43 (PCR) (Not Detect) Coronavirus HKU1 (PCR) (Not Detect) Coronavirus 229E (PCR) (Not Detect) SARS-CoV-2 (PCR) (Negative) Coronavirus NL63 (PCR) (Not Detect) Human Metapneumovir PCR (Not Detect) Influenza Type A (PCR) (Not Detect) Influenza Type B (PCR) (Not Detect) M. pneumoniae (PCR) (Not Detect) Parainfluenza 1 (PCR) (Not Detect) Parainfluenza 2 (PCR) (Not Detect) Parainfluenza 3 (PCR) (Not Detect) Parainfluenza 4 (PCR) (Not Detect) RSV (PCR) (Not Detect) Entero/Rhino (PCR) (Not Detect) Urine Dip Bedside Urine Glucose Negative Bedside Urine Bilirubin - Negative Bedside Urine Ketone - Negative Urine Specific Ralston 1.015 Bedside Urine Occult Blood ++ Bedside Urine pH 5.5 Bedside Urine Protein +/- 15 Bedside Urine Urobilinogen - Negative Bedside Urine Nitrite - Negative Bedside Urine Leukocytes - Negative Esterase Imaging Data Chest x-ray: Radiologist's Impression: [address] [address] XRay Report Signed Patient: Choco Montanez MR#: [id number] : 1940 Acct:[id number] Age/Sex: 81 / M Date of Service: 02/03/22 Loc: ED Accession Number: [id number] ?? Procedure: XR chest 1V Ordering Provider: Brenda Cartagena D.O. PROCEDURE:? XR CHEST 1V ? INDICATIONS:? weakness, sob ? TECHNIQUE:? One view of the chest was acquired.? ? COMPARISON:? [facility], CR, XR CHEST 1V, 07/31/2021, 21:39. ? FINDINGS:? ? Surgical changes and devices:? Left-sided PICC line is present.? The tip is directed right lateral, likely at the SVC/brachiocephalic confluence. ? Lungs and pleura:? Possible tiny left base retrocardiac opacity.? Lungs are otherwise clear.? No pleural effusions or pneumothorax.? ? Mediastinum:? Mediastinal contours appear normal.? Heart size is normal.? ? Bones and chest wall:? No suspicious bony lesions.? Overlying soft tissues appear unremarkable.? ? IMPRESSION:? ? 1. Possible tiny retrocardiac opacity, potentially aspiration versus atelectasis versus infectious pneumonia. ? 2. Left-sided PICC line with the tip directed right lateral.? Given its course, it may be in the azygos venous system.? ? ? Dictated by: Joan Mott M.D. on 02/03/2022 at 13:35 ? ? Approved by: Joan Mott M.D. on 02/03/2022 at 13:37?? ECG Data Attestation: I personally reviewed and interpreted this ECG as follows: Prior ECG tracings: available for review Interpretation: Sinus tachycardia, nonspecific ST change. Rate of 102, P are 160 QRS 88 QTC 448. Patient has prior from 07/29/2021 which appears similar. MDM Narrative Medical decision making narrative: This is an 81-year-old male who comes in with increasing weakness, shortness of breath and is febrile with EMS and in the department. He has had a dry cough which is new patient has leukocytosis, tachycardia which improved with fluids. He had 1 low of 90% on room air but has not been hypoxic otherwise. Has a leukocytosis of 15 with neutrophils at 86%. BMP shows chloride elevated 115, BUN of 53 with creatinine 1.17. Glucose is 194 initial lactate is 2.6 but improved with fluid resuscitation to 2. Patient has mild elevation of LFTs but have been elevated on prior visits with normal bilirubin. Patient's trope is indeterminate and procalcitonin is 0.45 which is typically negative but for lower respiratory infections is actually within the cutoff for possible infection. UA does not show clear infection but was cultured. Blood cultures are pending. COVID swab initially is negative and respiratory panel is also negative. Patient's exam clinically appear much more consistent with respiratory infection, his abdominal exam and recent symptoms do not support an intra-abdominal infection at this time. Patient was initiated on Zosyn, 30 cc/kilos bolus. Discussed with hospitalist who accepts for admission. Discharge Plan Departure Patient Disposition: Admitted As Inpatient Clinical Impression: Sepsis, Pneumonia Admit Date/Time: 02/03/22 16:39 Admit Provider: Sukhdev Keating
[2022-02-03] MEDS: SODIUM CHLORIDE 0.9% 2,190 ML 730 ML IV (13:43)
[2022-02-03 13:50] LABS: PTT Partial Thromboplastin Tim 30 SECONDS (26.4-36.2)
[2022-02-03 13:52] LABS: Alanine Aminotransferase 65 IU/L (<50); Albumin 2.6 g/dL (3.5-5.0); Albumin Globulin Ratio 0.5 (1.0-2.8); Alkaline Phosphatase 181 U/L (38-126); Aspartate Aminotransferase 81 IU/L (17-59); BUN Creatinine Ratio 45.3 (6-22); Bilirubin Total 0.9 mg/dL (0.2-1.3); Blood Urea Nitrogen 53 mg/dL (9-20); Calcium 7.6 mg/dL (8.4-10.2); Carbon Dioxide 25 mmol/L (22-32); Chloride 115 mmol/L (98-107); Creatine Kinase < 20 U/L (55-170); Estimated Glomerular Filt Rate 59.7 mL/min (>60); Glucose 194 mg/dL (80-110); HEMOLYSIS 27 (0-50); Lactate (Lactic Acid) 2.6 mmol/L (0.7-2.1); Potassium 3.5 mmol/L (3.4-5.1); Sodium 145 mmol/L (137-145); Total Protein 7.6 g/dL (6.3-8.2)
[2022-02-03] MEDS: PIPERACILLIN/TAZO 4.5 GM in SODIUM CHLORIDE 0.9% 100 ML 200 ML IV (14:02)
[2022-02-03 14:04] LABS: NT-proBNP (BNP-Adult 18+) 322 pg/mL (<450); Troponin I 0.041 ng/mL (0.01-0.034)
[2022-02-03 14:06] LABS: Bacteria Urine Few (2-10); Hyaline Casts Urine 1-5/LPF; RBC Urine 5-10/HPF (0-5/HPF); Squamous Epithelial Cell Urine 0-1 /HPF (0-5/HPF); WBC Urine 1-5/HPF (0-5/HPF)
[2022-02-03 14:07] LABS: Culture Indicated Urine Cult Not Indicated
[2022-02-03 14:08] LABS: Procalcitonin 0.45 ng/mL (<0.5)
[2022-02-03 14:21] LABS: Anisocytosis 2+
[2022-02-03 14:22] LABS: Poikilocytosis 1+
[2022-02-03] MEDS: SODIUM CHLORIDE 0.9% 1,000 ML 125 ML IV (15:00)
[2022-02-03 15:04] LABS: Adenovirus Not Detected (Not Detect)
[2022-02-03 15:05] LABS: B. parapertussis Not Detected (Not Detecte); Bordetella pertussis Not Detected (Not Detecte); Chlamydophila pneumoniae Not Detected (Not Detect); Coronavirus 229E Not Detected (Not Detect); Coronavirus HKU1 Not Detected (Not Detect); Coronavirus NL 63 Not Detected (Not Detect); Coronavirus OC43 Not Detected (Not Detect); Human Metapneumovirus Not Detected (Not Detect); Human Rhinovirus/Enterovirus Not Detected (Not Detect); Influenza A Not Detected (Not Detect); Influenza B Not Detected (Not Detect); Mycoplasma pneumoniae Not Detected (Not Detect); Parainfluenza Virus 1 Not Detected (Not Detect); Parainfluenza Virus 2 Not Detected (Not Detect); Parainfluenza Virus 3 Not Detected (Not Detect); Parainfluenza Virus 4 Not Detected (Not Detect); Respiratory Syncytial Virus Not Detected (Not Detect); SARS- CoV-2 Not Detected (Not Detecte)
[2022-02-03 15:25] LABS: Reflexed Lactate in 2 Hours Y
--- NOTE | 2022-02-03 16:17 | PC.NURSE ---
pt and spouse report to me that his breathing has been above normal since last sep 2021.
--- NOTE | 2022-02-03 17:07 | PC.NURSE ---
home ppn/tpn running via left upper arm picc infusion completed by , heplocked both lumens/ports of picc.
[2022-02-03] MEDS: SODIUM CHLORIDE 0.9% 1,000 ML 1000 ML IV (19:46)
[2022-02-03] MEDS: VANCOMYCIN 1,500 MG/300 ML PIGGYBACK 150 MG IV (20:01)
[2022-02-03 20:50] LABS: Hemoglobin A1C% w Est Avg Glu 6.8 % (4.0-6.0)
[2022-02-03] MEDS: PIPERACILLIN/TAZO 3.375 GM in SODIUM CHLORIDE 0.9% 100 ML 25 ML IV (20:58)
[2022-02-03] MEDS: AMPICILLIN 500 MG in SODIUM CHLORIDE 0.9% 100 ML 200 ML IV (22:21)
[2022-02-03] MEDS: MICAFUNGIN 100 MG in SODIUM CHLORIDE 0.9% 100 ML IV (22:40)
--- NOTE | 2022-02-03 22:57 | P.HP_ITS ---
History of Present Illness History of Present Illness Date Patient Seen: 02/03/22 Time Patient Seen: 21:00 Chief complaint: weakness, sob, fever Narrative: Choco Montanez is an 81-year-old male who presented to the emergency depart with 3 days of increasing shortness of breath, cough and not feeling well. He denies having fevers but he was febrile any MS as well as in the emergency department. He states he has been feeling weak for the last 3 days. This m orning he walked into the bathroom and then returned to his bedroom and felt weak and at that time stated he had no fever. He denies sweats or shortness of breath. Patient has a medically complex recent history of having developed necrotizing pancreatitis where he was initially treated here for concern of a duodenal perforation and then emergently transferred to [facility] for [facility] consultation. He underwent surgery there and has been following up with their clinic. 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 From reviewing the notes from [facility] it sounds like he is due to have another surgery in mid March possibly for reversing the ileostomy. While in the emergency department he dropped his blood pressure and they started giving him IV boluses. When I met him up on the floor, the patient requested that I contact his . Apparently the had told the nurse that 1) she did not want him receiving IV boluses and 2) she did not want him to receive micafungin as that was actually included in his TPN which is currently off of. I do not have any information as to when he is supposed to resume it and it appears that he received 12 hours of TPN per day from the last note of 01/30/2022 from [facility]. She stated that they did not want him to have any output more than 1200 cc out of the fistula and was concerned that the boluses would exceed that amount and that we needed to likely transfer the patient to [facility]. I have attempted to reach [facility] however the transfer center is not answering phone calls and when calling the physicians answering service they refer me back to the transfer center and again received no answer. In the emergency department of his determine that his main issue today was development of a pneumonia. Indicated at tiny retrocardiac opacity potentially aspiration versus atelectasis versus infectious pneumonia and also noted that he has a left-sided PICC line with the tip directed right lateral and may be and that azygos venous system. Patient's T-max was 103? and it is currently 98.5, blood pressure 108/56, heart rate 71, respiratory rate 18, oxygen saturation of 92% on room air he weighs 74 kg with a BMI of 23.3. His WBC is 15.5 hemoglobin 9.0 hematocrit 28 platelet count 280 he has a left shift of 13,000, chloride is 115, creatinine 1.17 with a BUN of 53 and his EGFR is 59.7, glucose is 194, hemoglobin A1c is 6.8 calcium 7.6 AST 81 ALT 65 his troponin is 0.041 albumin is 2.6 procalcitonin is 0.45 UA is negative for UTI, COVID-19 PCR is negative and a fungal detection PCR is pending. Patient History Medical History Barretts esophagus BPH w urinary obs/LUTS Essential hypertension GERD (gastroesophageal reflux disease) Glanular hypospadias History of acute pancreatitis History of small bowel obstruction Hyperlipidemia Surgical History H/O breast biopsy H/O prostate biopsy H/O vasectomy History of nephrectomy Hx of circumcision Family & Social History Family History Brother Age: 80 Heart disease Mother Alcoholic Father Heart disease Heart attack Social History: household members spouse Safety & Behavioral: Feels Safe in Current Yes Environment Been Physically Hurt or No Threatened By a Person Suicidal Ideation Description None Suicide Plan Description No Plan Tobacco & Substance use: Smoking Status Former smoker alcohol intake current alcohol intake frequency 0-2 drinks per day Substance Use Type does not use Meds Home Medications and Allergies Home Medications Medication Instructions Recorded Confirmed Type lansoprazole 30 mg capsule,delayed 30 mg PO BID #90 cap 10/08/17 07/26/21 Rx release lisinopril 20 1 tab PO QDAY #90 tab 10/08/17 07/26/21 Rx mg-hydrochlorothiazide 25 mg tablet simvastatin 20 mg tablet 20 mg PO HS #30 tab 12/08/18 07/26/21 Rx aspirin 81 mg tablet,delayed 81 mg PO DAILY 09/11/20 07/26/21 History release potassium chloride 20 mEq 10 meq PO DAILY 09/11/20 07/26/21 History tablet,extended release famotidine 40 mg tablet (Pepcid) 40 mg PO BEDTIME 01/14/21 07/26/21 History metoprolol succinate 50 mg 25 mg PO BEDTIME 01/14/21 07/26/21 History tablet,extended release 24 hr (Toprol XL) Allergies Allergy/AdvReac Type Severity Reaction Status Date / Time No Known Drug Allergies Allergy Verified 07/26/21 14:08 Review of Systems Review of Systems ROS: Yes All systems reviewed with the patient and are negative except as otherwise documented Exam Vital Signs (past 8 hours): - 02/03/22 15:00 02/03/22 15:11 02/03/22 15:20 Temperature 98.9 F Pulse Rate 85 85 84 Respiratory Rate 21 24 24 Blood Pressure 99/51 L 100/50 L 107/53 L Pulse Oximetry 91 90 L 91 02/03/22 15:30 02/03/22 15:41 02/03/22 16:00 Temperature 98.8 F Pulse Rate 83 86 81 Respiratory Rate 26 H 40 H 30 H Blood Pressure 93/54 L 109/53 L Pulse Oximetry 93 97 96 02/03/22 16:20 02/03/22 16:30 02/03/22 16:40 Temperature Pulse Rate 79 77 74 Respiratory Rate 23 23 24 Blood Pressure 101/52 L 99/50 L Pulse Oximetry 95 96 95 02/03/22 17:00 02/03/22 17:01 02/03/22 17:06 Temperature 98.6 F Pulse Rate 74 74 Respiratory Rate 22 35 H Blood Pressure 83/46 L Pulse Oximetry 97 97 02/03/22 17:10 02/03/22 17:20 02/03/22 17:30 Temperature Pulse Rate 73 72 71 Respiratory Rate 23 23 Blood Pressure 97/51 L 97/55 L Pulse Oximetry 96 96 96 02/03/22 19:58 02/03/22 21:00 Temperature 97.7 F Pulse Rate 67 Respiratory Rate 18 Blood Pressure 88/48 L 102/53 L Pulse Oximetry 96 Oxygen Delivery Method Room Air Narrative Exam Narrative: Gen: Alert, oriented, ill appearing 81 y.o. male HEENT: normocephalic, atraumatic, conjunctiva clear, sclera non-icteric, oral mucosa pink and moist Neck: supple, full ROM, no JVD, trachea is midline Resp: Lungs CTA, non-labored breathing CV: RRR, no murmur or rubs Abd: has ileostomy bag draining yellow colored but solid liquid stool, non- tender, normoactive BTs Skin: no lesions or rashes, dry and intact Neuro: Alert and oriented X 4 w/no focal deficits. Speech clear and coherent. Extremities: moves all 4 extremities, is ambulatory, negative Kirsty?s sign Psyche: normal mood and affect. Objective Labs Result Diagrams: 02/03/22 13:20 02/03/22 13:20 Labs: Laboratory Results - last 24 hr 02/03/22 02/03/22 02/03/22 13:09 13:09 13:09 WBC RBC Hgb Hct MCV MCH MCHC RDW Plt Count Neut % (Auto) Lymph % (Auto) [place] % (Auto) Eos % (Auto) Baso % (Auto) Neut # (Auto) Lymph # (Auto) [place] # (Auto) Eos # (Auto) Baso # (Auto) RBC Morphology Poikilocytosis Anisocytosis PT INR APTT Sodium Potassium Chloride Carbon Dioxide BUN Creatinine Estimated GFR BUN/Creatinine Ratio Glucose Hemoglobin A1c Lactate Calcium Total Bilirubin AST ALT Alkaline Phosphatase Total Creatine Kinase CK-MB (CK-2) CK-MB (CK-2) Rel Index Troponin I NT-Pro-B Natriuret Pep Total Protein Albumin Globulin Albumin/Globulin Ratio Procalcitonin Urine Color Yellow Urine Appearance Clear Urine pH 5.0 Ur Specific [place] 1.010 Urine Protein Trace H Urine Glucose (UA) Negative Urine Ketones Negative Urine Occult Blood 2+ H Urine Nitrate Negative Urine Bilirubin Negative Urine Urobilinogen 0.2 Ur Leukocyte Esterase Negative Urine RBC 5-10/hpf H Urine WBC 1-5/hpf Ur Squamous Epith Cells 0-1 /hpf Urine Bacteria Few (2-10) H Hyaline Casts 1-5/lpf Ur Culture Indicated? Cult not indicated Chlamy pneumoniae PCR Not detected Adenovirus (PCR) Not detected B. pertussis DNA (PCR) Not detected B.parapertussis DNA PCR Not detected Coronavirus OC43 (PCR) Not detected Coronavirus HKU1 (PCR) Not detected Coronavirus 229E (PCR) Not detected SARS-CoV-2 (PCR) Negative Not detected Coronavirus NL63 (PCR) Not detected Human Metapneumovir PCR Not detected Influenza Type A (PCR) Not detected Influenza Type B (PCR) Not detected M. pneumoniae (PCR) Not detected Parainfluenza 1 (PCR) Not detected Parainfluenza 2 (PCR) Not detected Parainfluenza 3 (PCR) Not detected Parainfluenza 4 (PCR) Not detected RSV (PCR) Not detected Entero/Rhino (PCR) Not detected 02/03/22 02/03/22 02/03/22 13:20 13:20 13:20 WBC 15.5 H RBC 3.16 L Hgb 9.0 L Hct 28.0 L MCV 88.7 MCH 28.4 MCHC 32.0 RDW 20.4 H Plt Count 280 Neut % (Auto) 86.5 H Lymph % (Auto) 7.4 L [place] % (Auto) 5.4 Eos % (Auto) 0.3 L Baso % (Auto) 0.4 Neut # (Auto) 36613 H Lymph # (Auto) 1200 [place] # (Auto) 800 Eos # (Auto) 0 Baso # (Auto) 100 RBC Morphology See below Poikilocytosis 1+ H Anisocytosis 2+ H PT 14.0 H INR 1.2 APTT Sodium 145 Potassium 3.5 Chloride 115 H Carbon Dioxide 25 BUN 53 H Creatinine 1.17 Estimated GFR 59.7 L BUN/Creatinine Ratio 45.3 H Glucose 194 H Hemoglobin A1c Lactate Calcium 7.6 L Total Bilirubin 0.9 AST 81 H ALT 65 H Alkaline Phosphatase 181 H Total Creatine Kinase < 20 L CK-MB (CK-2) TNP CK-MB (CK-2) Rel Index TNP Troponin I 0.041 H NT-Pro-B Natriuret Pep 322 Total Protein 7.6 Albumin 2.6 L Globulin 5.0 H Albumin/Globulin Ratio 0.5 L Procalcitonin 0.45 Urine Color Urine Appearance Urine pH Ur Specific [place] Urine Protein Urine Glucose (UA) Urine Ketones Urine Occult Blood Urine Nitrate Urine Bilirubin Urine Urobilinogen Ur Leukocyte Esterase Urine RBC Urine WBC Ur Squamous Epith Cells Urine Bacteria Hyaline Casts Ur Culture Indicated? Chlamy pneumoniae PCR Adenovirus (PCR) B. pertussis DNA (PCR) B.parapertussis DNA PCR Coronavirus OC43 (PCR) Coronavirus HKU1 (PCR) Coronavirus 229E (PCR) SARS-CoV-2 (PCR) Coronavirus NL63 (PCR) Human Metapneumovir PCR Influenza Type A (PCR) Influenza Type B (PCR) M. pneumoniae (PCR) Parainfluenza 1 (PCR) Parainfluenza 2 (PCR) Parainfluenza 3 (PCR) Parainfluenza 4 (PCR) RSV (PCR) Entero/Rhino (PCR) 02/03/22 02/03/22 02/03/22 13:20 13:20 13:20 WBC RBC Hgb Hct MCV MCH MCHC RDW Plt Count Neut % (Auto) Lymph % (Auto) [place] % (Auto) Eos % (Auto) Baso % (Auto) Neut # (Auto) Lymph # (Auto) [place] # (Auto) Eos # (Auto) Baso # (Auto) RBC Morphology Poikilocytosis Anisocytosis PT INR APTT 30 D Sodium Potassium Chloride Carbon Dioxide BUN Creatinine Estimated GFR BUN/Creatinine Ratio Glucose Hemoglobin A1c 6.8 H Lactate 2.6 H Calcium Total Bilirubin AST ALT Alkaline Phosphatase Total Creatine Kinase CK-MB (CK-2) CK-MB (CK-2) Rel Index Troponin I NT-Pro-B Natriuret Pep Total Protein Albumin Globulin Albumin/Globulin Ratio Procalcitonin Urine Color Urine Appearance Urine pH Ur Specific [place] Urine Protein Urine Glucose (UA) Urine Ketones Urine Occult Blood Urine Nitrate Urine Bilirubin Urine Urobilinogen Ur Leukocyte Esterase Urine RBC Urine WBC Ur Squamous Epith Cells Urine Bacteria Hyaline Casts Ur Culture Indicated? Chlamy pneumoniae PCR Adenovirus (PCR) B. pertussis DNA (PCR) B.parapertussis DNA PCR Coronavirus OC43 (PCR) Coronavirus HKU1 (PCR) Coronavirus 229E (PCR) SARS-CoV-2 (PCR) Coronavirus NL63 (PCR) Human Metapneumovir PCR Influenza Type A (PCR) Influenza Type B (PCR) M. pneumoniae (PCR) Parainfluenza 1 (PCR) Parainfluenza 2 (PCR) Parainfluenza 3 (PCR) Parainfluenza 4 (PCR) RSV (PCR) Entero/Rhino (PCR) 02/03/22 15:52 WBC RBC Hgb Hct MCV MCH MCHC RDW Plt Count Neut % (Auto) Lymph % (Auto) [place] % (Auto) Eos % (Auto) Baso % (Auto) Neut # (Auto) Lymph # (Auto) [place] # (Auto) Eos # (Auto) Baso # (Auto) RBC Morphology Poikilocytosis Anisocytosis PT INR APTT Sodium Potassium Chloride Carbon Dioxide BUN Creatinine Estimated GFR BUN/Creatinine Ratio Glucose Hemoglobin A1c Lactate 2.0 Calcium Total Bilirubin AST ALT Alkaline Phosphatase Total Creatine Kinase CK-MB (CK-2) CK-MB (CK-2) Rel Index Troponin I NT-Pro-B Natriuret Pep Total Protein Albumin Globulin Albumin/Globulin Ratio Procalcitonin Urine Color Urine Appearance Urine pH Ur Specific [place] Urine Protein Urine Glucose (UA) Urine Ketones Urine Occult Blood Urine Nitrate Urine Bilirubin Urine Urobilinogen Ur Leukocyte Esterase Urine RBC Urine WBC Ur Squamous Epith Cells Urine Bacteria Hyaline Casts Ur Culture Indicated? Chlamy pneumoniae PCR Adenovirus (PCR) B. pertussis DNA (PCR) B.parapertussis DNA PCR Coronavirus OC43 (PCR) Coronavirus HKU1 (PCR) Coronavirus 229E (PCR) SARS-CoV-2 (PCR) Coronavirus NL63 (PCR) Human Metapneumovir PCR Influenza Type A (PCR) Influenza Type B (PCR) M. pneumoniae (PCR) Parainfluenza 1 (PCR) Parainfluenza 2 (PCR) Parainfluenza 3 (PCR) Parainfluenza 4 (PCR) RSV (PCR) Entero/Rhino (PCR) Assessment & Plan Assessment & Plan narrative: Choco Montanez is initially admitted for sepsis associated with a bacterial pneumonia. 1. Bacterial pneumonia acute, present on admission * He is initiated on IV Zosyn and vancomycin and his 1st doses were given to him in the emergency department 2. Suspected fungemia * He is also initiated on IV micafungin as there was some suspicion that the patient may have fungal organisms in his blood * Fungal PCR is pending 3. History of necrotizing pancreatitis (gallstone with fistulization) * Patient is seen by the GI and general surgery service at [facility] and his attending surgeon is Dr. Sweta Snider. * I have requested a GI consult from 's GI and general surgery service regarding patient's fluid intake and TPN 4. Hyperglycemia without a diagnosis of diabetes * Patient has an A1c of 6.8 * Elevated blood sugars are likely due to being on TPN and consuming protein shakes * He is initiated on Lantus and low-dose correctional scale 5. Hypertension currently hypotensive * Hypotension is likely due to patient's presentation of severe sepsis * Hypertensive medications are being held at this time 6. History of right upper lobe pulmonary embolism * patient was on apixaban however I am not seeing this on his current medication list and will ask pharmacy to verify if he takes apixaban. In the meanwhile will start him on heparin 5000 units b.i.d. VTE prophylaxis 7. Patient is on a combination of TPN, protein shakes, and soft foods * I have requested dietary consult for protein shakes and food consistency * TPN per pharmacy, they will need to consult with VM as I believe he has medications in the TPN as well per his VTE Prophylaxis: Wells risk score 3.0[X] heparin 5000 units b.i.d. X Bilateral SCDs Patient was anticoagulated on apixaban however this is not in his current records. Patient is admitted to the inpatient service due to the severity of disease, risks of further disease progression and this stay is expected to exceed 2 midnights. FEN: IV fluids: Normal saline at 125 mL/hour diet: Patient apparently is on TPN and protein shakes. Labs: CBC, C/BMP, liver enzymes, Mag, PT/INR Consultants None Dispo: Patient is expected to be discharged home Code status: DNR/DNI as discussed with the patient who identifies his Rubio his surrogate and POA. [X] I have utilized all available immediate resources to obtain, update, or review of the patient's current medications COVID-19 COVID-19 status: Negative Result date/Date tested (Pos, Neg/Pending): 02/03/22 Scores Wells' Criteria for PE Clinical signs and symptoms of DVT: No PE is #1 Dx or equally likely: No Heart rate > 100: No Immobilization at least 3 days or surg in previous 4 weeks: Yes History of PE or DVT: Yes Hemoptysis: No Malignancy w/Treatment within 6 months or palliative: No Wells' PE Score total: 3.0 Quality VTE Deep Vein Thrombosis/Pulmonary Embolism Present on Admission: No MIPS - Admit I confirm the patient?s Advance Care Plan is present, Code status is documented, Surrogate decision maker is in patient?s record [If Yes, STOP here]: Yes MIPS - DC The patient has current or prior documentation of left ventricular ejection fraction (LVEF) less than 40%, or moderate or severely depressed left ventricular systolic function.: No
[2022-02-04] VITALS (15 sets, daily range): BP systolic 110–136; BP diastolic 54–67; PULSE 73–81; RESP 14–22; TEMP 36.1–37.3; O2SAT 92–95
--- NOTE | 2022-02-04 00:03 | PC.NURSE ---
BP improved with 1L NS bolus. pt approved IVF, abx and antifungal meds. called me that if patient's ileostomy output is greater than 1000cc then this would be concerning. at home they had 800cc out today. Notified hospitalist regarding this issue. [facility] phone number given to hospitalist.
[2022-02-04 02:16] LABS: Troponin I 0.037 ng/mL (0.01-0.034)
[2022-02-04 04:58] LABS: Add Manual Diff / Slide Review NO; Basophils Absolute Auto 0 /uL (0-100); Basophils Percent Auto 0.3 % (0-2); Eosinophils Absolute Auto 100 /uL (0-450); Eosinophils Percent Auto 0.9 % (2-4); Hematocrit 27.2 % (41-53); Hemoglobin 8.5 g/dL (13.5-17.5); Lymphocytes Absolute Auto 1800 /uL (1100-4500); Lymphocytes Percent Auto 13.8 % (25-40); Mean Corpuscular HGB Conc 31.3 % (30-36); Mean Corpuscular Hemoglobin 28.4 PG (26-34); Mean Corpuscular Volume 90.6 fL (80-100); Monocytes Absolute Auto 800 /uL (0-900); Neutrophils Absolute Auto 10200 /uL (1500-7000); Platelet Count 230 X10^3/uL (150-400); Red Cell Distribution Width 20.6 % (11.6-14.8); White Blood Cell Count 12.9 X10^3/uL (4.5-11.0)
[2022-02-04] MEDS: PIPERACILLIN/TAZO 3.375 GM in SODIUM CHLORIDE 0.9% 100 ML 25 ML IV ×3 (05:02→22:02)
[2022-02-04 05:12] LABS: Alanine Aminotransferase 54 IU/L (<50); Albumin 2.3 g/dL (3.5-5.0); Albumin Globulin Ratio 0.5 (1.0-2.8); Alkaline Phosphatase 151 U/L (38-126); Aspartate Aminotransferase 52 IU/L (17-59); Bilirubin Total 0.9 mg/dL (0.2-1.3); Bilirubin Unconjugated 0.6 mg/dL (0.0-1.1); Globulin 4.3 g/dL (1.7-4.1); HEMOLYSIS < 15 (0-50); Magnesium 2.4 mg/dL (1.6-2.3); Total Protein 6.6 g/dL (6.3-8.2)
[2022-02-04 05:13] LABS: BUN Creatinine Ratio 34.9 (6-22); Blood Urea Nitrogen 37 mg/dL (9-20); Calcium 7.3 mg/dL (8.4-10.2); Carbon Dioxide 24 mmol/L (22-32); Chloride 120 mmol/L (98-107); Estimated Glomerular Filt Rate > 60.0 mL/min (>60); Glucose 151 mg/dL (80-110); HEMOLYSIS < 15 (0-50); Sodium 147 mmol/L (137-145)
[2022-02-04 05:24] LABS: Anisocytosis 2+
[2022-02-04] MEDS: SODIUM CHLORIDE 0.9% 1,000 ML 125 ML IV ×2 (06:31→19:38)
[2022-02-04 08:59] LABS: Acinetobacter baumannii Not Detected (Not Detect); Candida albicans Not Detected (Not Detect); Candida glabrata Not Detected (Not Detect); Candida krusei Not Detected (Not Detect); Candida parapsilosis Not Detected (Not Detect); Candida tropicalis Not Detected (Not Detect); E. coli Not Detected (Not Detect); Enterobacter cloacae complex Not Detected (Not Detect); Enterobacteriaceae species Not Detected (Not Detect); Enterococcus species Not Detected (Not Detect); Haemophilus influenzae Not Detected (Not Detect); Listeria monocytogenes Not Detected (Not Detect); Methicillin-resistant gene Not Detected (Not Detect); Neisseria meningitidis Not Detected (Not Detect); Proteus species Not Detected (Not Detect); Pseudomonas aeruginosa Not Detected (Not Detect); Serratia marcescens Not Detected (Not Detect); Staphylococcus species Detected (Not Detect); Streptococcus agalactiae (Gr B Not Detected (Not Detect); Streptococcus pneumonia Not Detected (Not Detect); Streptococcus pyogenes (Gr A) Not Detected (Not Detect); Streptococcus species Not Detected (Not Detect)
--- NOTE | 2022-02-04 09:02 | CM.DANOTE ---
DCP: Case received, EMR reviewed and met with patient. , Rubio, was also in the room. Introduced self and role. Was able to obtain information regarding patient's baseline activity status at home, as well as some medical history prior to hospitalization. DCP assessment completed with information currently available. Patient is an 81 year old male who admitted yesterday afternoon to the care of the hospitalist team. PCP: Dr. Akua Pierson Payer: confirmed: Medicare/Renata Garces. Patient came to the hospital via ambulance secondary to having increased shortness of breath. Patient holds current diagnosis of bacterial pneumonia, acute. He also has suspected fungemia, and has history of necrotizing pancreatitis, had bee treated at [facility]. Met with patient in his room, and spouse. He is currently on TPN through [facility], spouse was trained how to do this. He also had been with [facility], spouse stated that they discharged him. 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 P: DCP to continue to follow for any needs. Patient should be able to go home when deemed medically stable. Mara Givens RN/Ceramic Artist Discharge Planning/Care Management Advanced directive, confirm from FAMILY Start: 02/03/22 18:20 Freq: Q24H Status: Active Protocol: Document 02/03/22 18:20 HCW (Rec: 02/03/22 23:20 HCW [id number]) Advance Directive, confirm on record Time 23:20 Person contacted patient Copy received No CM Discharge Assessment Start: 02/04/22 09:00 Freq: Status: Active Protocol: Document 02/04/22 09:00 (Rec: 02/04/22 09:02 [id number]) Discharge Planning Assessment Assigned Senior Tax Specialist Mara Givens RN/Ceramic Artist Advance Directives? Yes Advance Directives on File No History Provided By Patient,Family Member,Medical Record Prior Living Arrangements House Household Members spouse Type of transporation used prior to Drives own vehicle admit Independent with ADL's Yes Is patient alert and oriented? Yes Barriers to Discharge No Discharge Plan Home Community Services Home Health Nurse Transportation Arrangement will provide transportation home Referrals Initiated None needed Whiteboard Updated in Patient Room with Yes name and ext. # of Senior Tax Specialist Review Status In Process Next Review Type Continued Stay Review
--- NOTE | 2022-02-04 10:49 | PC.NURSE ---
Pt and spouse discussed having their personal tpn started by 7am. After discussing further with pharmacy today, the tpn label doesn't specify which medications are in the bag. The patient's tpn has been sent to pharmacy along with their home medications for further review. Pt needs PICC line removed due to infection. However, pt and spouse expressed that they intend to go to [facility] where their primary care is. I did not remove PICC line due the patient's indicating that they may leave AMA and will return to their routine at home.
--- NOTE | 2022-02-04 13:13 | PM.PN.1 ---
Subjective Subjective Date Patient Seen: 02/04/22 Time Patient Seen: 13:13 Interval history: Patient feels much improved today, still feels weak and tired. Blood cultures with PCR showing a staph. 4+ GPC on stain. PICC line was removed from L arm. Exam Vital Signs (past 8 hours): - 02/04/22 07:00 02/04/22 08:34 02/04/22 11:00 Temperature 97.3 F L 97 F L Pulse Rate 78 73 Respiratory Rate 21 20 Blood Pressure 124/59 L 110/58 L Pulse Oximetry 94 94 93 Oxygen Delivery Method Room Air Oxygen Flow Rate 0 Narrative Exam Narrative: General:? Patient is well developed and well nourished, but mildly acute appearing male in no distress at this time. HEENT:? Normocephalic, atraumatic, extraocular muscles intact, oral pharynx is clear and mucous membranes are moist. Neck: supple and symmetric, trachea is midline, no cervical adenopathy. Negative for JVD Chest:? Normal AP diameter and contour without kyphoscoliosis, no tachypnea, equal chest rise bilaterally. Lungs:? CTA b/l no wheezing rhonchi or rales. Cardio:?RRR no m/r/g. Abdomen: S NT ND. No CVA tenderness. Musculoskeletal:? Muscle strength and tone are equal within normal limits, no deformity. Extremities: No edema or joint effusions. No cyanosis or clubbing. Skin:? Pale,? Warm to touch,dry and intact without rashes, ulcerations. Mild bilateral scattered ecchymoses in the extremities. Neuro:? Alert and orientated x3,? sensation to touch intact in all extremities, no gross deficits noted of cranial nerves. Psych:? Patient has a well-kept appearance, appropriate affect, mental status attitude thought context and judgment are appropriate for age. Objective Labs Result Diagrams: 02/04/22 04:47 02/04/22 04:47 Labs: Laboratory Results - last 24 hr 02/03/22 02/03/22 02/03/22 13:09 13:09 13:09 WBC RBC Hgb Hct MCV MCH MCHC RDW Plt Count Neut % (Auto) Lymph % (Auto) [place] % (Auto) Eos % (Auto) Baso % (Auto) Neut # (Auto) Lymph # (Auto) [place] # (Auto) Eos # (Auto) Baso # (Auto) RBC Morphology Poikilocytosis Anisocytosis PT INR APTT Sodium Potassium Chloride Carbon Dioxide BUN Creatinine Estimated GFR BUN/Creatinine Ratio Glucose Hemoglobin A1c Lactate Calcium Magnesium Total Bilirubin Conjugated Bilirubin Unconjugated Bilirubin AST ALT Alkaline Phosphatase Total Creatine Kinase CK-MB (CK-2) CK-MB (CK-2) Rel Index Troponin I NT-Pro-B Natriuret Pep Total Protein Albumin Globulin Albumin/Globulin Ratio Procalcitonin Urine Color Yellow Urine Appearance Clear Urine pH 5.0 Ur Specific [place] 1.010 Urine Protein Trace H Urine Glucose (UA) Negative Urine Ketones Negative Urine Occult Blood 2+ H Urine Nitrate Negative Urine Bilirubin Negative Urine Urobilinogen 0.2 Ur Leukocyte Esterase Negative Urine RBC 5-10/hpf H Urine WBC 1-5/hpf Ur Squamous Epith Cells 0-1 /hpf Urine Bacteria Few (2-10) H Hyaline Casts 1-5/lpf Ur Culture Indicated? Cult not indicated A. baumannii (PCR) Chlamy pneumoniae PCR Not detected Adenovirus (PCR) Not detected B. pertussis DNA (PCR) Not detected B.parapertussis DNA PCR Not detected Judith albicans (PCR) C. glabrata (PCR) C. krusei (PCR) C. parapsilosis (PCR) C. tropicalis (PCR) Coronavirus OC43 (PCR) Not detected Coronavirus HKU1 (PCR) Not detected Coronavirus 229E (PCR) Not detected SARS-CoV-2 (PCR) Negative Not detected Coronavirus NL63 (PCR) Not detected Enterobacteriac sp PCR E. cloacae complex PCR Enterococcus sp PCR E. coli (PCR) H. influenzae (PCR) Human Metapneumovir PCR Not detected Influenza Type A (PCR) Not detected Influenza Type B (PCR) Not detected Klebsiella oxytoca PCR Klebsiella pneumoniae List. monocytogenes PCR M. pneumoniae (PCR) Not detected N. meningitidis (PCR) Parainfluenza 1 (PCR) Not detected Parainfluenza 2 (PCR) Not detected Parainfluenza 3 (PCR) Not detected Parainfluenza 4 (PCR) Not detected Proteus species (PCR) RSV (PCR) Not detected Entero/Rhino (PCR) Not detected Serratia marcescens PCR Staphylococcus sp PCR Staph aureus (PCR) mecA-Methicil Res Gene Streptococcus sp PCR Group A Strep (PCR) Strep agalactiae (PCR) Strep pneumoniae (PCR) P. aeruginosa (PCR) Josh/B-Vanco Res Genes KPC-Carbap Res Gene PCR 02/03/22 02/03/22 02/03/22 13:20 13:20 13:20 WBC 15.5 H RBC 3.16 L Hgb 9.0 L Hct 28.0 L MCV 88.7 MCH 28.4 MCHC 32.0 RDW 20.4 H Plt Count 280 Neut % (Auto) 86.5 H Lymph % (Auto) 7.4 L [place] % (Auto) 5.4 Eos % (Auto) 0.3 L Baso % (Auto) 0.4 Neut # (Auto) 01886 H Lymph # (Auto) 1200 [place] # (Auto) 800 Eos # (Auto) 0 Baso # (Auto) 100 RBC Morphology See below Poikilocytosis 1+ H Anisocytosis 2+ H PT 14.0 H INR 1.2 APTT Sodium 145 Potassium 3.5 Chloride 115 H Carbon Dioxide 25 BUN 53 H Creatinine 1.17 Estimated GFR 59.7 L BUN/Creatinine Ratio 45.3 H Glucose 194 H Hemoglobin A1c Lactate Calcium 7.6 L Magnesium Total Bilirubin 0.9 Conjugated Bilirubin Unconjugated Bilirubin AST 81 H ALT 65 H Alkaline Phosphatase 181 H Total Creatine Kinase < 20 L CK-MB (CK-2) TNP CK-MB (CK-2) Rel Index TNP Troponin I 0.041 H NT-Pro-B Natriuret Pep 322 Total Protein 7.6 Albumin 2.6 L Globulin 5.0 H Albumin/Globulin Ratio 0.5 L Procalcitonin 0.45 Urine Color Urine Appearance Urine pH Ur Specific [place] Urine Protein Urine Glucose (UA) Urine Ketones Urine Occult Blood Urine Nitrate Urine Bilirubin Urine Urobilinogen Ur Leukocyte Esterase Urine RBC Urine WBC Ur Squamous Epith Cells Urine Bacteria Hyaline Casts Ur Culture Indicated? A. baumannii (PCR) Chlamy pneumoniae PCR Adenovirus (PCR) B. pertussis DNA (PCR) B.parapertussis DNA PCR Judith albicans (PCR) C. glabrata (PCR) C. krusei (PCR) C. parapsilosis (PCR) C. tropicalis (PCR) Coronavirus OC43 (PCR) Coronavirus HKU1 (PCR) Coronavirus 229E (PCR) SARS-CoV-2 (PCR) Coronavirus NL63 (PCR) Enterobacteriac sp PCR E. cloacae complex PCR Enterococcus sp PCR E. coli (PCR) H. influenzae (PCR) Human Metapneumovir PCR Influenza Type A (PCR) Influenza Type B (PCR) Klebsiella oxytoca PCR Klebsiella pneumoniae List. monocytogenes PCR M. pneumoniae (PCR) N. meningitidis (PCR) Parainfluenza 1 (PCR) Parainfluenza 2 (PCR) Parainfluenza 3 (PCR) Parainfluenza 4 (PCR) Proteus species (PCR) RSV (PCR) Entero/Rhino (PCR) Serratia marcescens PCR Staphylococcus sp PCR Staph aureus (PCR) mecA-Methicil Res Gene Streptococcus sp PCR Group A Strep (PCR) Strep agalactiae (PCR) Strep pneumoniae (PCR) P. aeruginosa (PCR) Josh/B-Vanco Res Genes KPC-Carbap Res Gene PCR 02/03/22 02/03/22 02/03/22 13:20 13:20 13:20 WBC RBC Hgb Hct MCV MCH MCHC RDW Plt Count Neut % (Auto) Lymph % (Auto) [place] % (Auto) Eos % (Auto) Baso % (Auto) Neut # (Auto) Lymph # (Auto) [place] # (Auto) Eos # (Auto) Baso # (Auto) RBC Morphology Poikilocytosis Anisocytosis PT INR APTT 30 D Sodium Potassium Chloride Carbon Dioxide BUN Creatinine Estimated GFR BUN/Creatinine Ratio Glucose Hemoglobin A1c 6.8 H Lactate 2.6 H Calcium Magnesium Total Bilirubin Conjugated Bilirubin Unconjugated Bilirubin AST ALT Alkaline Phosphatase Total Creatine Kinase CK-MB (CK-2) CK-MB (CK-2) Rel Index Troponin I NT-Pro-B Natriuret Pep Total Protein Albumin Globulin Albumin/Globulin Ratio Procalcitonin Urine Color Urine Appearance Urine pH Ur Specific [place] Urine Protein Urine Glucose (UA) Urine Ketones Urine Occult Blood Urine Nitrate Urine Bilirubin Urine Urobilinogen Ur Leukocyte Esterase Urine RBC Urine WBC Ur Squamous Epith Cells Urine Bacteria Hyaline Casts Ur Culture Indicated? A. baumannii (PCR) Chlamy pneumoniae PCR Adenovirus (PCR) B. pertussis DNA (PCR) B.parapertussis DNA PCR Judith albicans (PCR) C. glabrata (PCR) C. krusei (PCR) C. parapsilosis (PCR) C. tropicalis (PCR) Coronavirus OC43 (PCR) Coronavirus HKU1 (PCR) Coronavirus 229E (PCR) SARS-CoV-2 (PCR) Coronavirus NL63 (PCR) Enterobacteriac sp PCR E. cloacae complex PCR Enterococcus sp PCR E. coli (PCR) H. influenzae (PCR) Human Metapneumovir PCR Influenza Type A (PCR) Influenza Type B (PCR) Klebsiella oxytoca PCR Klebsiella pneumoniae List. monocytogenes PCR M. pneumoniae (PCR) N. meningitidis (PCR) Parainfluenza 1 (PCR) Parainfluenza 2 (PCR) Parainfluenza 3 (PCR) Parainfluenza 4 (PCR) Proteus species (PCR) RSV (PCR) Entero/Rhino (PCR) Serratia marcescens PCR Staphylococcus sp PCR Staph aureus (PCR) mecA-Methicil Res Gene Streptococcus sp PCR Group A Strep (PCR) Strep agalactiae (PCR) Strep pneumoniae (PCR) P. aeruginosa (PCR) Josh/B-Vanco Res Genes KPC-Carbap Res Gene PCR 02/03/22 02/03/22 02/04/22 13:20 15:52 01:45 WBC RBC Hgb Hct MCV MCH MCHC RDW Plt Count Neut % (Auto) Lymph % (Auto) [place] % (Auto) Eos % (Auto) Baso % (Auto) Neut # (Auto) Lymph # (Auto) [place] # (Auto) Eos # (Auto) Baso # (Auto) RBC Morphology Poikilocytosis Anisocytosis PT INR APTT Sodium Potassium Chloride Carbon Dioxide BUN Creatinine Estimated GFR BUN/Creatinine Ratio Glucose Hemoglobin A1c Lactate 2.0 Calcium Magnesium Total Bilirubin Conjugated Bilirubin Unconjugated Bilirubin AST ALT Alkaline Phosphatase Total Creatine Kinase CK-MB (CK-2) CK-MB (CK-2) Rel Index Troponin I 0.037 H NT-Pro-B Natriuret Pep Total Protein Albumin Globulin Albumin/Globulin Ratio Procalcitonin Urine Color Urine Appearance Urine pH Ur Specific [place] Urine Protein Urine Glucose (UA) Urine Ketones Urine Occult Blood Urine Nitrate Urine Bilirubin Urine Urobilinogen Ur Leukocyte Esterase Urine RBC Urine WBC Ur Squamous Epith Cells Urine Bacteria Hyaline Casts Ur Culture Indicated? A. baumannii (PCR) Not detected Chlamy pneumoniae PCR Adenovirus (PCR) B. pertussis DNA (PCR) B.parapertussis DNA PCR Judith albicans (PCR) Not detected C. glabrata (PCR) Not detected C. krusei (PCR) Not detected C. parapsilosis (PCR) Not detected C. tropicalis (PCR) Not detected Coronavirus OC43 (PCR) Coronavirus HKU1 (PCR) Coronavirus 229E (PCR) SARS-CoV-2 (PCR) Coronavirus NL63 (PCR) Enterobacteriac sp PCR Not detected E. cloacae complex PCR Not detected Enterococcus sp PCR Not detected E. coli (PCR) Not detected H. influenzae (PCR) Not detected Human Metapneumovir PCR Influenza Type A (PCR) Influenza Type B (PCR) Klebsiella oxytoca PCR Not detected Klebsiella pneumoniae Not detected List. monocytogenes PCR Not detected M. pneumoniae (PCR) N. meningitidis (PCR) Not detected Parainfluenza 1 (PCR) Parainfluenza 2 (PCR) Parainfluenza 3 (PCR) Parainfluenza 4 (PCR) Proteus species (PCR) Not detected RSV (PCR) Entero/Rhino (PCR) Serratia marcescens PCR Not detected Staphylococcus sp PCR Detected H Staph aureus (PCR) Not detected mecA-Methicil Res Gene Not detected Streptococcus sp PCR Not detected Group A Strep (PCR) Not detected Strep agalactiae (PCR) Not detected Strep pneumoniae (PCR) Not detected P. aeruginosa (PCR) Not detected Josh/B-Vanco Res Genes Not Reportable KPC-Carbap Res Gene PCR Not Reportable 02/04/22 02/04/22 02/04/22 04:47 04:47 04:47 WBC 12.9 H RBC 3.00 L Hgb 8.5 L Hct 27.2 L MCV 90.6 MCH 28.4 MCHC 31.3 RDW 20.6 H Plt Count 230 Neut % (Auto) 79.0 H Lymph % (Auto) 13.8 L [place] % (Auto) 6.0 Eos % (Auto) 0.9 L Baso % (Auto) 0.3 Neut # (Auto) 56616 H Lymph # (Auto) 1800 [place] # (Auto) 800 Eos # (Auto) 100 Baso # (Auto) 0 RBC Morphology See below Poikilocytosis Anisocytosis 2+ H PT INR APTT Sodium 147 H Potassium 4.0 Chloride 120 H Carbon Dioxide 24 BUN 37 H Creatinine 1.06 Estimated GFR > 60.0 BUN/Creatinine Ratio 34.9 H Glucose 151 H Hemoglobin A1c Lactate Calcium 7.3 L Magnesium 2.4 H Total Bilirubin Conjugated Bilirubin Unconjugated Bilirubin AST ALT Alkaline Phosphatase Total Creatine Kinase CK-MB (CK-2) CK-MB (CK-2) Rel Index Troponin I NT-Pro-B Natriuret Pep Total Protein Albumin Globulin Albumin/Globulin Ratio Procalcitonin Urine Color Urine Appearance Urine pH Ur Specific [place] Urine Protein Urine Glucose (UA) Urine Ketones Urine Occult Blood Urine Nitrate Urine Bilirubin Urine Urobilinogen Ur Leukocyte Esterase Urine RBC Urine WBC Ur Squamous Epith Cells Urine Bacteria Hyaline Casts Ur Culture Indicated? A. baumannii (PCR) Chlamy pneumoniae PCR Adenovirus (PCR) B. pertussis DNA (PCR) B.parapertussis DNA PCR Judith albicans (PCR) C. glabrata (PCR) C. krusei (PCR) C. parapsilosis (PCR) C. tropicalis (PCR) Coronavirus OC43 (PCR) Coronavirus HKU1 (PCR) Coronavirus 229E (PCR) SARS-CoV-2 (PCR) Coronavirus NL63 (PCR) Enterobacteriac sp PCR E. cloacae complex PCR Enterococcus sp PCR E. coli (PCR) H. influenzae (PCR) Human Metapneumovir PCR Influenza Type A (PCR) Influenza Type B (PCR) Klebsiella oxytoca PCR Klebsiella pneumoniae List. monocytogenes PCR M. pneumoniae (PCR) N. meningitidis (PCR) Parainfluenza 1 (PCR) Parainfluenza 2 (PCR) Parainfluenza 3 (PCR) Parainfluenza 4 (PCR) Proteus species (PCR) RSV (PCR) Entero/Rhino (PCR) Serratia marcescens PCR Staphylococcus sp PCR Staph aureus (PCR) mecA-Methicil Res Gene Streptococcus sp PCR Group A Strep (PCR) Strep agalactiae (PCR) Strep pneumoniae (PCR) P. aeruginosa (PCR) Josh/B-Vanco Res Genes KPC-Carbap Res Gene PCR 02/04/22 04:47 WBC RBC Hgb Hct MCV MCH MCHC RDW Plt Count Neut % (Auto) Lymph % (Auto) [place] % (Auto) Eos % (Auto) Baso % (Auto) Neut # (Auto) Lymph # (Auto) [place] # (Auto) Eos # (Auto) Baso # (Auto) RBC Morphology Poikilocytosis Anisocytosis PT INR APTT Sodium Potassium Chloride Carbon Dioxide BUN Creatinine Estimated GFR BUN/Creatinine Ratio Glucose Hemoglobin A1c Lactate Calcium Magnesium Total Bilirubin 0.9 Conjugated Bilirubin 0.0 Unconjugated Bilirubin 0.6 AST 52 ALT 54 H Alkaline Phosphatase 151 H Total Creatine Kinase CK-MB (CK-2) CK-MB (CK-2) Rel Index Troponin I NT-Pro-B Natriuret Pep Total Protein 6.6 Albumin 2.3 L Globulin 4.3 H Albumin/Globulin Ratio 0.5 L Procalcitonin Urine Color Urine Appearance Urine pH Ur Specific [place] Urine Protein Urine Glucose (UA) Urine Ketones Urine Occult Blood Urine Nitrate Urine Bilirubin Urine Urobilinogen Ur Leukocyte Esterase Urine RBC Urine WBC Ur Squamous Epith Cells Urine Bacteria Hyaline Casts Ur Culture Indicated? A. baumannii (PCR) Chlamy pneumoniae PCR Adenovirus (PCR) B. pertussis DNA (PCR) B.parapertussis DNA PCR Judith albicans (PCR) C. glabrata (PCR) C. krusei (PCR) C. parapsilosis (PCR) C. tropicalis (PCR) Coronavirus OC43 (PCR) Coronavirus HKU1 (PCR) Coronavirus 229E (PCR) SARS-CoV-2 (PCR) Coronavirus NL63 (PCR) Enterobacteriac sp PCR E. cloacae complex PCR Enterococcus sp PCR E. coli (PCR) H. influenzae (PCR) Human Metapneumovir PCR Influenza Type A (PCR) Influenza Type B (PCR) Klebsiella oxytoca PCR Klebsiella pneumoniae List. monocytogenes PCR M. pneumoniae (PCR) N. meningitidis (PCR) Parainfluenza 1 (PCR) Parainfluenza 2 (PCR) Parainfluenza 3 (PCR) Parainfluenza 4 (PCR) Proteus species (PCR) RSV (PCR) Entero/Rhino (PCR) Serratia marcescens PCR Staphylococcus sp PCR Staph aureus (PCR) mecA-Methicil Res Gene Streptococcus sp PCR Group A Strep (PCR) Strep agalactiae (PCR) Strep pneumoniae (PCR) P. aeruginosa (PCR) Josh/B-Vanco Res Genes KPC-Carbap Res Gene PCR PFSH Medical History Barretts esophagus BPH w urinary obs/LUTS Essential hypertension GERD (gastroesophageal reflux disease) Glanular hypospadias History of acute pancreatitis History of small bowel obstruction Hyperlipidemia Surgical History H/O breast biopsy H/O prostate biopsy H/O vasectomy History of nephrectomy Hx of circumcision Family History Brother Age: 80 Heart disease Mother Alcoholic Father Heart disease Heart attack Social History household members: spouse Smoking Status: Former smoker alcohol intake: current Assessment & Plan Assessment & Plan narrative: Choco Montanez is an 81-year-old male with recent history of complex necrotizing pancreatitis with fistula formation who presented with weakness and initially presumed pneumonia now found to have Staph bacteremia, likely secondary to chronic PICC line. 1. Staph bacteremia, acute, present on admission. Sepsis ruled out. - suspect due to PICC line. Removed on 02/04. - continue to follow blood cultures until negative - if prolonged bacteremia, transfer to [facility] where he receives much of his care, for DUNG. - continue zosyn and vanco for now pending final blood cultures - if blood cultures negative, can re-place PICC line for TPN. 2. Suspected fungemia He is also initiated on IV micafungin as there was some suspicion that the patient may have fungal organisms in his blood Fungal PCR is pending 3. History of necrotizing pancreatitis (gallstone with fistulization) Patient is seen by the GI and general surgery service at [facility] and his attending surgeon is Dr. Sweta Snider. patient can have some PO intake, will continue for now. 4. type 2 diabetes Patient has an A1c of 6.8 Elevated blood sugars are likely due to being on TPN and consuming protein shakes He is initiated on Lantus and low-dose correctional scale 5. Hypertension currently hypotensive Hypotension is likely due to patient's presentation for possible sepsis. Hypertensive medications are being held at this time 6. History of right upper lobe pulmonary embolism no longer on AC, continue prophylactic heparin. 7. Protein calorie malnutrition, chronic I have requested dietary consult for protein shakes and food consistency TPN per pharmacy once PICC line able to be re-inserted. Can have protein shakes as tolerated per his surgeon at . VTE Prophylaxis: Wells risk score 3.0[X] heparin 5000 units b.i.d. Dispo: remains inpatient, possible discharge home in 3-4 days likely depending on blood culture clearance. 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 Quality VTE Deep Vein Thrombosis/Pulmonary Embolism Present on Admission: No
--- NOTE | 2022-02-04 16:21 | PC.NURSE ---
Spoke with Huong at [facility]. The patient and his , Rubio, had an appointment set today for ostomy care, but will be unable to make it since pt is still in the hospital. Since it was cancelled, Huong mentioned that the patient does have supplies available at home if the pouch should leak before his discharge. Huong left her contact info should any questions arise on how to properly seal the pouch and prevent any leaks. Huong's number . Received call from [facility] regarding patient's TPN. If there are any questions regarding the patient's TPN (including the contents of the pouch)aVnia or Destini from pharmacy can be reached at .
--- NOTE | 2022-02-04 16:46 | DIET.CONS ---
Dietary Consultation Note Admission Date: 02/03/2022 16:39 Assessment: RD spoke c pts over phone regarding PO intake as PICC being removed secondary to probable infection source. Pt has two Premier Protein shakes he will drink today, kitchen to send 2oz chicken c 1/2 portion mashed potatoes (no skins) and gravy on side for dinner tonight and cream of wheat and cottage cheese for breakfast tomorrow if still on site. Pt may leave AMA to receive care at . RD standing by regarding feeding this pt with ileostomy. Ht: 177.8 cm Wt: 74 kg BMI: 23.3 UBW: Last BM: () MNA: 14 Mitch Score: 18 Diet: 02/04/22 Breakfast Soft,Low Fiber (Low residue) Diet Diet Modifications: Carb control Labs: RBC 3.00 X10^6/uL (4.5-5.9) L 02/04/22 04:47 Hgb 8.5 g/dL (13.5-17.5) L 02/04/22 04:47 Hct 27.2 % (41-53) L 02/04/22 04:47 Creatinine 1.06 mg/dL (0.66-1.25) 02/04/22 04:47 Hemoglobin A1c 6.8 % (4.0-6.0) H 02/03/22 13:20 Lactate 2.0 mmol/L (0.7-2.1) 02/03/22 15:52 NT-Pro-B Natriuret Pep 322 pg/mL (<450) 02/03/22 13:20 Electronically Signed by: Shari Chadwick 02/04/22 16:46 Clinical Dietitian [address] [address]
[2022-02-04] MEDS: VANCOMYCIN 1,500 MG/300 ML PIGGYBACK 150 MG IV (19:35)
[2022-02-04] MEDS: SENNOSIDES 8.6 MG TABLET 17.2 MG PO (22:00)
[2022-02-04] MEDS: HEPARIN 5,000 UNIT/ML VIAL 5000 UNIT SUBCUT (22:01)
[2022-02-04] MEDS: MICAFUNGIN 100 MG in SODIUM CHLORIDE 0.9% 100 ML IV (23:25)
[2022-02-05] VITALS (12 sets, daily range): BP systolic 113–143; BP diastolic 58–73; PULSE 69–98; RESP 16–24; TEMP 36.4–36.6; O2SAT 93–96; BMI 21.8
[2022-02-05] MEDS: PIPERACILLIN/TAZO 3.375 GM in SODIUM CHLORIDE 0.9% 100 ML 25 ML IV ×3 (04:34→20:48)
[2022-02-05] MEDS: SODIUM CHLORIDE 0.9% 1,000 ML 125 ML IV ×2 (04:39→12:58)
[2022-02-05 05:00] LABS: Add Manual Diff / Slide Review NO; Basophils Absolute Auto 0 /uL (0-100); Basophils Percent Auto 0.2 % (0-2); Eosinophils Absolute Auto 200 /uL (0-450); Hematocrit 28.3 % (41-53); Hemoglobin 9.1 g/dL (13.5-17.5); Lymphocytes Absolute Auto 2000 /uL (1100-4500); Lymphocytes Percent Auto 26.6 % (25-40); Mean Corpuscular Hemoglobin 29.1 PG (26-34); Mean Corpuscular Volume 90.7 fL (80-100); Monocytes Absolute Auto 500 /uL (0-900); Monocytes Percent Auto 7.1 % (3-14); Neutrophils Absolute Auto 4800 /uL (1500-7000); Neutrophils Percent Auto 64.1 % (50-75); Platelet Count 245 X10^3/uL (150-400); Red Blood Cell Count 3.12 X10^6/uL (4.5-5.9); Red Cell Distribution Width 21.1 % (11.6-14.8); White Blood Cell Count 7.6 X10^3/uL (4.5-11.0)
[2022-02-05 05:13] LABS: BUN Creatinine Ratio 25.8 (6-22); Blood Urea Nitrogen 25 mg/dL (9-20); Calcium 7.6 mg/dL (8.4-10.2); Carbon Dioxide 21 mmol/L (22-32); Chloride 120 mmol/L (98-107); Estimated Glomerular Filt Rate > 60.0 mL/min (>60); Glucose 119 mg/dL (80-110); HEMOLYSIS < 15 (0-50); Potassium 3.6 mmol/L (3.4-5.1); Sodium 148 mmol/L (137-145)
[2022-02-05 05:14] LABS: Alanine Aminotransferase 45 IU/L (<50); Albumin 2.4 g/dL (3.5-5.0); Albumin Globulin Ratio 0.5 (1.0-2.8); Alkaline Phosphatase 163 U/L (38-126); Aspartate Aminotransferase 41 IU/L (17-59); Bilirubin Total 0.7 mg/dL (0.2-1.3); Bilirubin Unconjugated 0.6 mg/dL (0.0-1.1); Globulin 4.4 g/dL (1.7-4.1); HEMOLYSIS < 15 (0-50); Total Protein 6.8 g/dL (6.3-8.2)
[2022-02-05 05:15] LABS: Magnesium 2.4 mg/dL (1.6-2.3)
[2022-02-05 05:51] LABS: Anisocytosis 2+
[2022-02-05] MEDS: PANTOPRAZOLE DR 40 MG TABLET PO ×2 (09:32→20:48)
[2022-02-05] MEDS: FAMOTIDINE 20 MG TABLET 40 MG PO ×2 (09:32→20:48)
[2022-02-05] MEDS: HEPARIN 5,000 UNIT/ML VIAL 5000 UNIT SUBCUT ×2 (09:32→20:49)
[2022-02-05] MEDS: INSULIN LISPRO 100 UNIT/ML 3ML VIAL SUBCUT (12:03)
--- NOTE | 2022-02-05 12:05 | CM.DANOTE ---
Addendum entered by Mara Givens R.N. 02/05/22 12:43: Confirmed with lining brusher, that TPN is permanent, secondary to him not being able to absorb nutrients. Original Note: DCP Cont: Found out, per nursing notes, that patient has been under [facility] for TPN, which has been managing. Patient also has an ileostomy. Shari, lining brusher, has seen patient today, since PICC line was taken out due to possible infection. Left a message initially with [facility] to inquire upon which agency was being used for TPN, but was able to get information as stated above. [facility] Phone number is: [phone]. Discussed patient during team rounds, patient most likely will need IV ABO upon discharge. At this time, this will depend upon which cultures are growing. Called [facility]. Spoke to Destini. Confirmed that patient is under their care for TPN. She asked which antibiotic that patient would be on, and let her know that at this time, is uncertain, cultures pending. Plan will be to return PICC line once this is identified. Asked Destini who to contact as patient gets close to discharge and antibiotic is identified. She stated to call the same number as above, and may want to talk to their intake department, for they will have to run antibiotic through patient's insurance. He has Medicare primary, which does not cover home IV meds, but has secondary, Nuzhat Garces. P: DCP to continue to follow for needs. Will update [facility] and [facility] as patient gets closer to discharge. Mara Givens RN/Physician'S Assistant
--- NOTE | 2022-02-05 12:11 | PC.NURSE ---
day shift - Pt requested meds be returned, I gave pt spouse home meds from pharmacy at 1130.
--- NOTE | 2022-02-05 15:16 | DIET.CONS ---
Dietary Consultation Note Admission Date: 02/03/2022 16:39 Assessment: 81y M admitted with infection, likely source PICC line which has since been removed. Pt with complex nutrition and digestive history. Pt had ileostomy placed in June 2021, pt is dependent on TPN for nutrition though does comfort feed during the day including Premier Protein drinks (150kcals/30g PRO) and Gatorade Protein (50kcal/10g PRO) along with some small meal components like peeled mashed potatoes, ground meats, and cream of wheat. Pts TPN stopped for the next three days to treat infection then PICC to be replaced and restart TPN. Pts states pt dx c DM2 secondary to high levels of dextrose in TPN, current A1c 6.8. She states she adds 69U long acting to TPN bag. Pts worried pt will not meet nutrition needs over the next few days without TPN. She is concerned about him consuming any sugar and getting adequate protein. Pts BGs 108-128 since stopping TPN. Nursing checking AC/HS and mealtime BGs. Ht: 177.8 cm Wt: 69 kg (-4.9% unintentional in 4w) BMI: 21.8 UBW: 74kg MNA: 14 Mitch Score: 18 Diet: 02/05/22 Breakfast General (Regular) Diet Diet Modifications: Nutrition Percent Meal Consumed 50% 02/05/22 14:50 Percent Meal Consumed 15 02/05/22 08:42 Labs: RBC 3.12 X10^6/uL (4.5-5.9) L 02/05/22 04:49 Hgb 9.1 g/dL (13.5-17.5) L 02/05/22 04:49 Hct 28.3 % (41-53) L 02/05/22 04:49 Creatinine 0.97 mg/dL (0.66-1.25) 02/05/22 04:49 Hemoglobin A1c 6.8 % (4.0-6.0) H 02/03/22 13:20 Lactate 2.0 mmol/L (0.7-2.1) 02/03/22 15:52 NT-Pro-B Natriuret Pep 322 pg/mL (<450) 02/03/22 13:20 Nutrition Diagnosis: Severe Acute PCM r/t altered GI tract with reduced absorption capacity and insufficient protein calorie intake aeb pt with ileostomy, PICC site infection not receiving TPN, 4.9% unintentional weight loss in 1mo, projected inadequate protein energy intake for the next three days. Interventions: 1. Worked with pt and spouse to create supportive nutrition plan for duration of infection tx where pt will not be able to receive TPN nourishment as follows: B: sc egg blended c heavy cream, cream of wheat, smoothie: ONS Ensure Enlive, carton whole milk, scoop pro powder, banana, cinnamon Sn: Premier Protein drink L: blended and strained curried lentil stew c ONS Giles Sn: Premier Protein drink D: skinless mashed potatoes c gravy on side, ground meat c gravy, smoothie as above Above plan provides 1600kcals and 130g PRO, while this plan does not quite meet kcal needs, it will support pts nutrition status for three days until TPN can be restarted. 2. Encouraged pt and spouse to save items from tray to be consumed during evening hours and between meals. EER: 1725-2070kcals (25-30kcal/kg), 69-103g PRO (1-1.5g/kg) Monitoring/Evaluations: following daily Electronically Signed by: Shari Chadwick 02/05/22 15:16 Clinical [address] [id number]
--- NOTE | 2022-02-05 15:49 | P.PN_ITS ---
Subjective Subjective Date Patient Seen: 02/05/22 Time Patient Seen: 15:49 Interval history: Patient feels much improved today, still feels weak and tired but improving. Output is a bit up today from the stoma. Exam Vital Signs (past 8 hours): - 02/05/22 08:00 02/05/22 10:55 02/05/22 11:00 Temperature 97.6 F Pulse Rate 82 Respiratory Rate 19 Blood Pressure 140/58 L Pulse Oximetry 95 94 94 02/05/22 12:00 02/05/22 15:00 Temperature 98 F Pulse Rate 98 H Respiratory Rate 19 Blood Pressure 143/73 H Pulse Oximetry 95 95 Oxygen Delivery Method Room Air Oxygen Flow Rate 0 Narrative Exam Narrative: General:? Patient is well developed and well nourished, in no distress at this time. HEENT:? Normocephalic, atraumatic, extraocular muscles intact, oral pharynx is clear and mucous membranes are moist. Neck: supple and symmetric, trachea is midline, no cervical adenopathy. Negative for JVD Chest:? Normal AP diameter and contour without kyphoscoliosis, no tachypnea, equal chest rise bilaterally. Lungs:? CTA b/l no wheezing rhonchi or rales. Cardio:?RRR no m/r/g. Abdomen: S NT ND. stoma with yellow tinged liquid output. Musculoskeletal:? Muscle strength and tone are equal within normal limits, no deformity. Extremities: No edema or joint effusions. No cyanosis or clubbing. Skin:? Pale,? Warm to touch,dry and intact without rashes, ulcerations. Mild bilateral scattered ecchymoses in the extremities. Neuro:? Alert and orientated x3,? sensation to touch intact in all extremities, no gross deficits noted of cranial nerves. Psych:? Patient has a well-kept appearance, appropriate affect, mental status attitude thought context and judgment are appropriate for age. Objective Labs Result Diagrams: 02/05/22 04:49 02/05/22 04:49 Labs: Laboratory Results - last 24 hr 02/04/22 02/05/22 02/05/22 04:47 04:49 04:49 WBC 7.6 RBC 3.12 L Hgb 9.1 L Hct 28.3 L MCV 90.7 MCH 29.1 MCHC 32.0 RDW 21.1 H Plt Count 245 Neut % (Auto) 64.1 Lymph % (Auto) 26.6 [place] % (Auto) 7.1 Eos % (Auto) 2.0 Baso % (Auto) 0.2 Neut # (Auto) 4800 Lymph # (Auto) 2000 [place] # (Auto) 500 Eos # (Auto) 200 Baso # (Auto) 0 RBC Morphology See below Anisocytosis 2+ H Sodium 148 H Potassium 3.6 Chloride 120 H Carbon Dioxide 21 L BUN 25 H Creatinine 0.97 Estimated GFR > 60.0 BUN/Creatinine Ratio 25.8 H Glucose 119 H Calcium 7.6 L Magnesium Total Bilirubin Conjugated Bilirubin Unconjugated Bilirubin AST ALT Alkaline Phosphatase Total Protein Albumin Globulin Albumin/Globulin Ratio Fungal Detection (PCR) Cancelled 02/05/22 02/05/22 04:49 04:49 WBC RBC Hgb Hct MCV MCH MCHC RDW Plt Count Neut % (Auto) Lymph % (Auto) [place] % (Auto) Eos % (Auto) Baso % (Auto) Neut # (Auto) Lymph # (Auto) [place] # (Auto) Eos # (Auto) Baso # (Auto) RBC Morphology Anisocytosis Sodium Potassium Chloride Carbon Dioxide BUN Creatinine Estimated GFR BUN/Creatinine Ratio Glucose Calcium Magnesium 2.4 H Total Bilirubin 0.7 Conjugated Bilirubin 0.0 Unconjugated Bilirubin 0.6 AST 41 ALT 45 Alkaline Phosphatase 163 H Total Protein 6.8 Albumin 2.4 L Globulin 4.4 H Albumin/Globulin Ratio 0.5 L Fungal Detection (PCR) FOR[facility]LY [facility] Medical History Barretts esophagus BPH w urinary obs/LUTS Essential hypertension GERD (gastroesophageal reflux disease) Glanular hypospadias History of acute pancreatitis History of small bowel obstruction Hyperlipidemia Surgical History H/O breast biopsy H/O prostate biopsy H/O vasectomy History of nephrectomy Hx of circumcision Family History Brother Age: 80 Heart disease Mother Alcoholic Father Heart disease Heart attack Social History household members: spouse Smoking Status: Former smoker alcohol intake: current Assessment & Plan Assessment & Plan narrative: Choco Montanez is an 81-year-old male with 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 1. Staph bacteremia, acute, present on admission. Sepsis ruled out. ?- suspect due to PICC line. Removed on 02/04. ?- continue to follow blood cultures until negative. yesterday's are negative at 24 hours. If negative tomorrow can replace PICC line. ?- if prolonged bacteremia, transfer to [facility] where he receives much of his care, for DUNG. ?- continue zosyn and vanco for now pending final blood cultures - consider phone consultation with ID at given extensive history of care there for outpatient management of staph bacteremia. 2. Suspected fungemia - He is also initiated on IV micafungin as there was some suspicion that the patient may have fungal organisms in his blood - Fungal PCR is pending 3. History of necrotizing pancreatitis (gallstone with fistulization) - Patient is seen by the GI and general surgery service at [facility] and his attending surgeon is Dr. Sweta Snider. - patient can have some PO intake, will continue for now. 4. type 2 diabetes - Patient has an A1c of 6.8 - continue current insulin 5. Hypertension currently hypotensive Hypotension is likely due to patient's presentation for possible sepsis. Hypertensive medications are being held at this time 6. History of right upper lobe pulmonary embolism -no longer on AC, continue prophylactic heparin. 7. Protein calorie malnutrition, chronic - I have requested dietary consult for protein shakes and food consistency - TPN per pharmacy once PICC line able to be re-inserted. Can have protein shakes as tolerated per his surgeon at . VTE Prophylaxis: Wells risk score 3.0[X] heparin 5000 units b.i.d. Dispo: remains inpatient, possible discharge home in 2-3 days likely depending on blood culture clearance. Code: Nurse Sexual Assault Spent With Patient Critical Care time: I spent a total of [] minutes of critical care time on this patient's care to day; this time is exclusive of procedural time. Quality VTE Deep Vein Thrombosis/Pulmonary Embolism Present on Admission: No
[2022-02-05] MEDS: VANCOMYCIN 1,500 MG/300 ML PIGGYBACK 150 MG IV (18:32)
[2022-02-05] MEDS: TAMSULOSIN 0.4 MG CAPSULE PO (20:48)
[2022-02-05] MEDS: MIRTAZAPINE 15 MG TABLET PO (20:48)
[2022-02-05] MEDS: MICAFUNGIN 100 MG in SODIUM CHLORIDE 0.9% 100 ML IV (23:34)
[2022-02-06] VITALS (12 sets, daily range): BP systolic 119–142; BP diastolic 62–70; PULSE 78–85; RESP 17–19; TEMP 36.6–37.2; O2SAT 92–96
[2022-02-06 04:50] LABS: Add Manual Diff / Slide Review NO; Basophils Absolute Auto 0 /uL (0-100); Basophils Percent Auto 0.3 % (0-2); Eosinophils Absolute Auto 100 /uL (0-450); Eosinophils Percent Auto 0.9 % (2-4); Lymphocytes Absolute Auto 2000 /uL (1100-4500); Lymphocytes Percent Auto 20.3 % (25-40); Mean Corpuscular HGB Conc 32.2 % (30-36); Mean Corpuscular Hemoglobin 29.1 PG (26-34); Mean Corpuscular Volume 90.5 fL (80-100); Monocytes Absolute Auto 700 /uL (0-900); Monocytes Percent Auto 7.3 % (3-14); Neutrophils Absolute Auto 7100 /uL (1500-7000); Neutrophils Percent Auto 71.2 % (50-75); Platelet Count 264 X10^3/uL (150-400)
[2022-02-06] MEDS: PIPERACILLIN/TAZO 3.375 GM in SODIUM CHLORIDE 0.9% 100 ML 25 ML IV ×2 (04:53→12:28)
[2022-02-06 05:01] LABS: BUN Creatinine Ratio 18.3 (6-22); Blood Urea Nitrogen 20 mg/dL (9-20); Calcium 7.8 mg/dL (8.4-10.2); Carbon Dioxide 19 mmol/L (22-32); Chloride 120 mmol/L (98-107); Estimated Glomerular Filt Rate > 60.0 mL/min (>60); Glucose 112 mg/dL (80-110); HEMOLYSIS < 15 (0-50); Potassium 3.6 mmol/L (3.4-5.1); Sodium 145 mmol/L (137-145)
[2022-02-06 05:02] LABS: Alanine Aminotransferase 39 IU/L (<50); Albumin 2.4 g/dL (3.5-5.0); Albumin Globulin Ratio 0.5 (1.0-2.8); Alkaline Phosphatase 199 U/L (38-126); Aspartate Aminotransferase 40 IU/L (17-59); Bilirubin Total 0.9 mg/dL (0.2-1.3); Bilirubin Unconjugated 0.7 mg/dL (0.0-1.1); Globulin 4.5 g/dL (1.7-4.1); HEMOLYSIS < 15 (0-50); Magnesium 2.2 mg/dL (1.6-2.3); Total Protein 6.9 g/dL (6.3-8.2)
[2022-02-06 05:29] LABS: Anisocytosis 2+
--- NOTE | 2022-02-06 06:13 | PC.NURSE ---
Shift Report Patient was alert and orientedx4, afebrile, vital signs are within acceptable limits, no signs of cardiorespiratory distress. Denies any pain/ discomfort. Turned every 2hrs. Ileostomy was intact with yellowish watery output. Maintained IV access at left hand for antibiotic administration. Patient uses urinals with adequate urine output.
[2022-02-06] MEDS: HEPARIN 5,000 UNIT/ML VIAL 5000 UNIT SUBCUT ×2 (08:26→21:03)
[2022-02-06] MEDS: FAMOTIDINE 20 MG TABLET 40 MG PO ×2 (08:27→21:04)
[2022-02-06] MEDS: PANTOPRAZOLE DR 40 MG TABLET PO ×2 (08:27→21:04)
[2022-02-06] MEDS: METOPROLOL ER 25 MG TABLET PO (10:04)
--- NOTE | 2022-02-06 16:32 | P.PN_ITS ---
Subjective Subjective Date Patient Seen: 02/06/22 Time Patient Seen: 16:33 Interval history: This is an 81-year-old male admitted with Staph warneri bacteremia from his PICC line. He is asymptomatic today and feels much improved. Blood cultures from 2 days ago were negative but did show 2+ Gram-positive cocci. Ordered repeat for today with urgent Gram stain. Once Gram stain is clear, and if cultures remain clear PICC line can be reinserted. He was changed to cefazolin today after cultures were finalized. Exam Vital Signs (past 8 hours): - 02/06/22 10:04 02/06/22 11:00 02/06/22 11:38 Temperature Pulse Rate 85 Respiratory Rate Blood Pressure 126/67 Pulse Oximetry 94 96 02/06/22 13:34 02/06/22 15:00 Temperature 98.9 F Pulse Rate 82 Respiratory Rate 18 Blood Pressure 136/62 Pulse Oximetry 95 95 Oxygen Delivery Method Room Air Oxygen Flow Rate 0 Narrative Exam Narrative: General:? Patient is well developed and well nourished, in no distress at this time. HEENT:? Normocephalic, atraumatic, extraocular muscles intact, oral pharynx is clear and mucous membranes are moist. Neck: supple and symmetric, trachea is midline, no cervical adenopathy. Negative for JVD Chest:? Normal AP diameter and contour without kyphoscoliosis, no tachypnea, equal chest rise bilaterally. Lungs:? CTA b/l no wheezing rhonchi or rales. Cardio:?RRR no m/r/g. Abdomen: S NT ND. stoma with yellow tinged liquid output. Musculoskeletal:? Muscle strength and tone are equal within normal limits, no deformity. Extremities: No edema or joint effusions. No cyanosis or clubbing. Skin:? Pale,? Warm to touch,dry and intact without rashes, ulcerations. Mild bilateral scattered ecchymoses in the extremities. Neuro:? Alert and orientated x3,? sensation to touch intact in all extremities, no gross deficits noted of cranial nerves. Psych:? Patient has a well-kept appearance, appropriate affect, mental status attitude thought context and judgment are appropriate for age. Objective Labs Result Diagrams: 02/06/22 04:23 02/06/22 04:23 Labs: Laboratory Results - last 24 hr 02/06/22 02/06/22 02/06/22 04:23 04:23 04:23 WBC 10.0 RBC 3.10 L Hgb 9.0 L Hct 28.0 L MCV 90.5 MCH 29.1 MCHC 32.2 RDW 21.0 H Plt Count 264 Neut % (Auto) 71.2 Lymph % (Auto) 20.3 L [place] % (Auto) 7.3 Eos % (Auto) 0.9 L Baso % (Auto) 0.3 Neut # (Auto) 7100 H Lymph # (Auto) 2000 [place] # (Auto) 700 Eos # (Auto) 100 Baso # (Auto) 0 RBC Morphology See below Anisocytosis 2+ H Sodium 145 Potassium 3.6 Chloride 120 H Carbon Dioxide 19 L BUN 20 Creatinine 1.09 Estimated GFR > 60.0 BUN/Creatinine Ratio 18.3 Glucose 112 H Calcium 7.8 L Magnesium 2.2 Total Bilirubin Conjugated Bilirubin Unconjugated Bilirubin AST ALT Alkaline Phosphatase Total Protein Albumin Globulin Albumin/Globulin Ratio 02/06/22 04:23 WBC RBC Hgb Hct MCV MCH MCHC RDW Plt Count Neut % (Auto) Lymph % (Auto) [place] % (Auto) Eos % (Auto) Baso % (Auto) Neut # (Auto) Lymph # (Auto) [place] # (Auto) Eos # (Auto) Baso # (Auto) RBC Morphology Anisocytosis Sodium Potassium Chloride Carbon Dioxide BUN Creatinine Estimated GFR BUN/Creatinine Ratio Glucose Calcium Magnesium Total Bilirubin 0.9 Conjugated Bilirubin 0.0 Unconjugated Bilirubin 0.7 AST 40 ALT 39 Alkaline Phosphatase 199 H Total Protein 6.9 Albumin 2.4 L Globulin 4.5 H Albumin/Globulin Ratio 0.5 L PFSH Medical History Barretts esophagus BPH w urinary obs/LUTS Essential hypertension GERD (gastroesophageal reflux disease) Glanular hypospadias History of acute pancreatitis History of small bowel obstruction Hyperlipidemia Surgical History H/O breast biopsy H/O prostate biopsy H/O vasectomy History of nephrectomy Hx of circumcision Family History Brother Age: 80 Heart disease Mother Alcoholic Father Heart disease Heart attack Social History household members: spouse Smoking Status: Former smoker alcohol intake: current Assessment & Plan Assessment & Plan narrative: Choco Montanez is an 81-year-old male with recent history of complex necrotizing pancreatitis with fistula formation who presented with weakness and initially presumed pneumonia now found to have Staph bacteremia, likely secondary to chronic PICC line. 1. Staph warneri bacteremia, acute, present on admission. Sepsis ruled out. Secondary to PICC line. ?- suspect due to PICC line which was removed on 02/04. ?- continue to follow blood cultures until negative. yesterday's are negative at 24 hours but gram stain showed 2+ GPC. If negative cultures and gram stain negative today can replace PICC line. ?- if prolonged bacteremia, transfer to [facility] where he receives much of his care, for DUNG. ?- continue zosyn and vanco for now pending final blood cultures ?- consider phone consultation with ID at given extensive history of care there for outpatient management of staph warneri bacteremia. - fungal PCR negative, micafungin discontinued. 2. History of necrotizing pancreatitis (gallstone with fistulization) - Patient is seen by the GI and general surgery service at [facility] and his attending surgeon is Dr. Sweta Snider. - patient can have some PO intake, will continue for now. 3. type 2 diabetes - Patient has an A1c of 6.8 - continue current insulin 4. Hypertension currently hypotensive Hypotension is likely due to patient's presentation for possible sepsis. Hypertensive medications are being held at this time 5. History of right upper lobe pulmonary embolism -no longer on AC, continue prophylactic heparin. 6. Protein calorie malnutrition, chronic - I have requested dietary consult for protein shakes and food consistency - TPN per pharmacy once PICC line able to be re-inserted. Can have protein shakes as tolerated per his surgeon at . VTE Prophylaxis: Wells risk score 3.0[X] heparin 5000 units b.i.d. Dispo: remains inpatient, possible discharge home in 2-3 days likely depending on blood culture clearance. Code: Pigeon Fancier Spent With Patient Critical Care time: I spent a total of [] minutes of critical care time on this patient's care today; this time is exclusive of procedural time. Quality VTE Deep Vein Thrombosis/Pulmonary Embolism Present on Admission: No
[2022-02-06] MEDS: CEFAZOLIN 2 GM/20 ML SYRINGE IV (18:15)
[2022-02-06] MEDS: MIRTAZAPINE 15 MG TABLET PO (21:03)
[2022-02-06] MEDS: TAMSULOSIN 0.4 MG CAPSULE PO (21:04)
[2022-02-07] VITALS (13 sets, daily range): BP systolic 131–143; BP diastolic 64–74; PULSE 76–89; RESP 17–20; TEMP 36.6–37.2; O2SAT 92–97
[2022-02-07] MEDS: CEFAZOLIN 2 GM/20 ML SYRINGE IV ×3 (00:05→17:15)
[2022-02-07] MEDS: SODIUM CHLORIDE 0.9% 1,000 ML 21 ML IV (00:05)
[2022-02-07 05:59] LABS: Add Manual Diff / Slide Review NO; Basophils Absolute Auto 0 /uL (0-100); Basophils Percent Auto 0.3 % (0-2); Eosinophils Absolute Auto 100 /uL (0-450); Eosinophils Percent Auto 1.4 % (2-4); Hemoglobin 9.4 g/dL (13.5-17.5); Lymphocytes Absolute Auto 2300 /uL (1100-4500); Lymphocytes Percent Auto 23.5 % (25-40); Mean Corpuscular HGB Conc 32.4 % (30-36); Mean Corpuscular Hemoglobin 28.7 PG (26-34); Mean Corpuscular Volume 88.7 fL (80-100); Monocytes Absolute Auto 700 /uL (0-900); Monocytes Percent Auto 7.1 % (3-14); Neutrophils Absolute Auto 6600 /uL (1500-7000); Neutrophils Percent Auto 67.7 % (50-75); Platelet Count 294 X10^3/uL (150-400); Red Blood Cell Count 3.27 X10^6/uL (4.5-5.9); Red Cell Distribution Width 20.4 % (11.6-14.8); White Blood Cell Count 9.7 X10^3/uL (4.5-11.0)
[2022-02-07 06:12] LABS: Alanine Aminotransferase 31 IU/L (<50); Albumin 2.6 g/dL (3.5-5.0); Albumin Globulin Ratio 0.6 (1.0-2.8); Alkaline Phosphatase 216 U/L (38-126); Aspartate Aminotransferase 38 IU/L (17-59); BUN Creatinine Ratio 14.5 (6-22); Bilirubin Total 0.9 mg/dL (0.2-1.3); Blood Urea Nitrogen 16 mg/dL (9-20); Carbon Dioxide 21 mmol/L (22-32); Chloride 118 mmol/L (98-107); Estimated Glomerular Filt Rate > 60.0 mL/min (>60); Globulin 4.7 g/dL (1.7-4.1); Glucose 111 mg/dL (80-110); HEMOLYSIS < 15 (0-50); Magnesium 2.2 mg/dL (1.6-2.3); Phosphorous 3.7 mg/dL (2.3-3.7); Potassium 3.5 mmol/L (3.4-5.1); Sodium 146 mmol/L (137-145); Total Protein 7.3 g/dL (6.3-8.2)
[2022-02-07 06:44] LABS: Anisocytosis 2+
[2022-02-07] MEDS: FAMOTIDINE 20 MG TABLET 40 MG PO ×2 (08:51→20:22)
[2022-02-07] MEDS: METOPROLOL ER 25 MG TABLET PO (08:52)
[2022-02-07] MEDS: AMLODIPINE 5 MG TABLET PO (08:52)
[2022-02-07] MEDS: PANTOPRAZOLE DR 40 MG TABLET PO ×2 (08:53→20:22)
[2022-02-07] MEDS: HEPARIN 5,000 UNIT/ML VIAL 5000 UNIT SUBCUT ×2 (08:53→20:22)
[2022-02-07] MEDS: POTASSIUM CHLORIDE IN WATER 10 MEQ/100 ML PIGGYBACK 100 MEQ IV (11:36)
[2022-02-07] MEDS: INSULIN LISPRO 100 UNIT/ML 3ML VIAL SUBCUT (11:49)
--- NOTE | 2022-02-07 14:25 | DIET.PN1 ---
Dietary Progress Note Assessment: Pt diet order changed to dysphagia puree for cooking clarity as pt with ileostomy needing to avoid skins and peels. Pts ostomy output slowing down, close to 1L/d goal. Pt doing well with PO intake, consuming 50-75% of trays along with protein drinks brought from home. Per hospitalist just waiting to ensure blood infection cleared before reinserting PICC line and restarting TPN. Pt getting phlegm caught in throat frequently, has emesis bag in hand to spit out. This is a long-term issue and not acute. Ht: 177.8 cm Wt: 71 kg BMI: 22.5 Last BM: () MNA: 14 Mitch Score: 20 Diet: 02/07/22 Lunch Dysphagia Diet Diet Modifications: pureed Liquid consistency: Normal/Thin Food texture: Dysphagia Pureed Nutrition Percent Meal Consumed 75% 02/06/22 18:00 Percent Meal Consumed 50% 02/05/22 14:50 Labs: RBC 3.27 X10^6/uL (4.5-5.9) L 02/07/22 05:23 Hgb 9.4 g/dL (13.5-17.5) L 02/07/22 05:23 Hct 29.0 % (41-53) L 02/07/22 05:23 Creatinine 1.10 mg/dL (0.66-1.25) 02/07/22 05:23 Hemoglobin A1c 6.8 % (4.0-6.0) H 02/03/22 13:20 Lactate 2.0 mmol/L (0.7-2.1) 02/03/22 15:52 NT-Pro-B Natriuret Pep 322 pg/mL (<450) 02/03/22 13:20 Monitoring/Evaluations: Continue PO plan until pt able to restart TPN. Electronically Signed by: Shari Chadwick 02/07/22 14:25 Clinical Dietitian [address] [id number]
--- NOTE | 2022-02-07 15:26 | P.PN_ITS ---
Subjective Subjective Date Patient Seen: 02/07/22 Time Patient Seen: 15:28 Interval history: This is an 81-year-old male admitted with Staph warneri bacteremia from his PICC line.? He is asymptomatic today and feels much improved.? Blood culture from yesterday is without growth, will await confirmation at 48 hours before PICC placement. Exam Vital Signs (past 8 hours): - 02/07/22 07:35 02/07/22 08:52 02/07/22 09:54 Temperature 98.4 F Pulse Rate 88 89 Respiratory Rate 18 Blood Pressure 140/74 140/74 Pulse Oximetry 97 95 02/07/22 10:00 02/07/22 12:53 02/07/22 14:00 Temperature Pulse Rate Respiratory Rate Blood Pressure Pulse Oximetry 95 95 96 Oxygen Delivery Method Room Air Oxygen Flow Rate 0 Narrative Exam Narrative: General:? Patient is well developed and well nourished, in no distress at this time. HEENT:? Normocephalic, atraumatic, extraocular muscles intact, oral pharynx is clear and mucous membranes are moist. Neck: supple and symmetric, trachea is midline, no cervical adenopathy. Negative for JVD Chest:? Normal AP diameter and contour without kyphoscoliosis, no tachypnea, equal chest rise bilaterally. Lungs:? CTA b/l no wheezing rhonchi or rales. Cardio:?RRR no m/r/g. Abdomen: S NT ND. stoma with yellow tinged liquid output. Musculoskeletal:? Muscle strength and tone are equal within normal limits, no deformity. Extremities: No edema or joint effusions. No cyanosis or clubbing. Skin:? Pale,? Warm to touch,dry and intact without rashes, ulcerations. Mild bilateral scattered ecchymoses in the extremities. Neuro:? Alert and orientated x3,? sensation to touch intact in all extremities, no gross deficits noted of cranial nerves. Psych:? Patient has a well-kept appearance, appropriate affect, mental status attitude thought context and judgment are appropriate for age. Objective Labs Result Diagrams: 02/07/22 05:23 02/07/22 05:23 Labs: Laboratory Results - last 24 hr 02/07/22 02/07/22 05:23 05:23 WBC 9.7 RBC 3.27 L Hgb 9.4 L Hct 29.0 L MCV 88.7 MCH 28.7 MCHC 32.4 RDW 20.4 H Plt Count 294 Neut % (Auto) 67.7 Lymph % (Auto) 23.5 L [place] % (Auto) 7.1 Eos % (Auto) 1.4 L Baso % (Auto) 0.3 Neut # (Auto) 6600 Lymph # (Auto) 2300 [place] # (Auto) 700 Eos # (Auto) 100 Baso # (Auto) 0 RBC Morphology See below Anisocytosis 2+ H Sodium 146 H Potassium 3.5 Chloride 118 H Carbon Dioxide 21 L BUN 16 Creatinine 1.10 Estimated GFR > 60.0 BUN/Creatinine Ratio 14.5 Glucose 111 H Calcium 8.0 L Phosphorus 3.7 Magnesium 2.2 Total Bilirubin 0.9 AST 38 ALT 31 Alkaline Phosphatase 216 H Total Protein 7.3 Albumin 2.6 L Globulin 4.7 H Albumin/Globulin Ratio 0.6 L PFSH Medical History Barretts esophagus BPH w urinary obs/LUTS Essential hypertension GERD (gastroesophageal reflux disease) Glanular hypospadias History of acute pancreatitis History of small bowel obstruction Hyperlipidemia Surgical History H/O breast biopsy H/O prostate biopsy H/O vasectomy History of nephrectomy Hx of circumcision Family History Brother Age: 80 Heart disease Mother Alcoholic Father Heart disease Heart attack Social History household members: spouse Smoking Status: Former smoker alcohol intake: current Assessment & Plan Assessment & Plan narrative: Choco Montanez is an 81-year-old male with recent history of complex necrotizing pancreatitis with fistula formation who presented with weakness and initially presumed pneumonia now found to have Staph bacteremia, likely secondary to chronic PICC line. 1. Staph warneri bacteremia, acute, present on admission. Sepsis ruled out. Secondary to PICC line. ?- suspect due to PICC line which was removed on 02/04. ?- continue to follow blood cultures until negative. yesterday's are negative at 24 hours again but culture from 02/04 also did similar. If 02/06 culture negative again tomorrow can place PICC line. ?- if prolonged bacteremia, transfer to [facility] where he receives much of his care, for DUNG. ?- continue zosyn and vanco for now pending final blood cultures ?- consider phone consultation with ID at given extensive history of care there for outpatient management of staph warneri bacteremia. - fungal PCR negative, micafungin discontinued. 2. History of necrotizing pancreatitis (gallstone with fistulization) - Patient is seen by the GI and general surgery service at [facility] and his attending surgeon is Dr. Sweta Snider. - patient can have some PO intake, will continue for now. - hopeful to resume TPN tomorrow if PICC line placed. 3. type 2 diabetes - Patient has an A1c of 6.8 - continue current insulin 4. Hypertension currently hypotensive Hypotension is likely due to patient's presentation for possible sepsis. Hypertensive medications have now been resumed today. 5. History of right upper lobe pulmonary embolism -no longer on AC, continue prophylactic heparin. 6. Severe acute Protein calorie malnutrition, chronic - Dietary Worked with pt and spouse to create supportive nutrition plan for duration of infection tx where pt will not be able to receive TPN nourishment, - will resume TPN with PICC placement - Need for supplemental nutrition / TPN contributed towards patient's bacteremia. VTE Prophylaxis: Wells risk score 3.0[X] heparin 5000 units b.i.d. Dispo: remains inpatient, possible discharge home in 2-3 days likely depending on blood culture clearance. Code: Email Marketing Assistant Spent With Patient Critical Care time: I spent a total of [] minutes of critical care time on this patient's care today; this time is exclusive of procedural time. Quality VTE Deep Vein Thrombosis/Pulmonary Embolism Present on Admission: No
[2022-02-07] MEDS: MIRTAZAPINE 15 MG TABLET PO (20:22)
[2022-02-07] MEDS: TAMSULOSIN 0.4 MG CAPSULE PO (20:22)
--- NOTE | 2022-02-07 22:15 | PC.NURSE ---
Pts ileostomy site was leaking around 193, this RN along with the charger tester, Gloria, replaced the pouch and surrounding tape/padding. Will continue to monitor and reinforce as needed.
[2022-02-08] MEDS: CEFAZOLIN 2 GM/20 ML SYRINGE IV ×3 (00:28→17:54)
[2022-02-08 05:42] LABS: Add Manual Diff / Slide Review NO; Basophils Absolute Auto 0 /uL (0-100); Basophils Percent Auto 0.2 % (0-2); Eosinophils Absolute Auto 100 /uL (0-450); Eosinophils Percent Auto 1.5 % (2-4); Hematocrit 27.7 % (41-53); Hemoglobin 9.2 g/dL (13.5-17.5); Lymphocytes Absolute Auto 2400 /uL (1100-4500); Lymphocytes Percent Auto 25.7 % (25-40); Mean Corpuscular Hemoglobin 29.5 PG (26-34); Mean Corpuscular Volume 89.1 fL (80-100); Monocytes Absolute Auto 700 /uL (0-900); Monocytes Percent Auto 7.8 % (3-14); Neutrophils Absolute Auto 6100 /uL (1500-7000); Neutrophils Percent Auto 64.8 % (50-75); Platelet Count 299 X10^3/uL (150-400); Red Blood Cell Count 3.11 X10^6/uL (4.5-5.9); Red Cell Distribution Width 19.8 % (11.6-14.8); White Blood Cell Count 9.5 X10^3/uL (4.5-11.0)
[2022-02-08 05:51] LABS: Alanine Aminotransferase 20 IU/L (<50); Albumin 2.7 g/dL (3.5-5.0); Albumin Globulin Ratio 0.5 (1.0-2.8); Alkaline Phosphatase 201 U/L (38-126); Aspartate Aminotransferase 34 IU/L (17-59); BUN Creatinine Ratio 15.4 (6-22); Bilirubin Total 0.9 mg/dL (0.2-1.3); Blood Urea Nitrogen 16 mg/dL (9-20); Calcium 8.1 mg/dL (8.4-10.2); Carbon Dioxide 20 mmol/L (22-32); Chloride 115 mmol/L (98-107); Estimated Glomerular Filt Rate > 60.0 mL/min (>60); Glucose 118 mg/dL (80-110); HEMOLYSIS < 15 (0-50); Magnesium 2.2 mg/dL (1.6-2.3); Phosphorous 3.5 mg/dL (2.3-3.7); Potassium 3.4 mmol/L (3.4-5.1); Sodium 140 mmol/L (137-145); Total Protein 7.7 g/dL (6.3-8.2)
[2022-02-08 06:00] VITALS: O2SAT 96
[2022-02-08 07:39] VITALS: BP 138/67; PULSE 84; RESP 16; TEMP 36.8; O2SAT 96
[2022-02-08] MEDS: METOPROLOL ER 25 MG TABLET PO (08:02)
[2022-02-08] MEDS: AMLODIPINE 5 MG TABLET PO (08:02)
[2022-02-08] MEDS: POTASSIUM CHLORIDE 20 MEQ TAB 40 MEQ PO (08:02)
[2022-02-08] MEDS: PANTOPRAZOLE DR 40 MG TABLET PO ×2 (08:02→21:02)
[2022-02-08] MEDS: FAMOTIDINE 20 MG TABLET PO ×2 (08:02→21:02)
[2022-02-08] MEDS: HEPARIN 5,000 UNIT/ML VIAL 5000 UNIT SUBCUT ×2 (08:02→21:01)
--- NOTE | 2022-02-08 11:47 | DI.ECHO.S_ITS ---
[place] [facility]---------+ [facility] +---------+ : : [address] : : : : [id number] : : : : Phone: [phone] Echocardiogram Report + + :Name: LILI GAY Study Date: 02/08/2022 Height: 70 in : :[facility] ReadingLocation: Weight: 154 lb : : Gender: Male BSA: 1.9 m2 : :: 1940 Age: 81 yrs BP: 138/67 mmHg: :Reason For Study: MARCK TURK : :Ordering Physician: Jeremiah : :Hospitalist Performed By: Mckayla Wang : :Referring: SYLVIA OVIEDO : + + Interpretation Summary This is a difficult study characterized by limited endocardial visualization. Normal sinus rhythm. Normal LV size; wall thickness is at the upper level of normal. Normal wall motion and left ventricular systolic function. Cannot exclude subtle wall motion abnormalities. Ejection fraction is estimated at 55-60%. No significant valvular abnormalities. Normal chamber sizes. Can not exclude endocarditis due to technically difficult study. If clinically indicated consider DUNG Procedure: A two-dimensional transthoracic echocardiogram with color flow and Doppler was performed. The study quality was technically difficult. Comparison is made with the echocardiogram of 09/09/2014. The patient was in normal sinus rhythm during the exam. Left Ventricle: The left ventricle is normal in size. Left ventricular wall thickness is at the upper limits of normal. The left ventricular ejection fraction is grossly normal. Regional wall motion abnormalities cannot be excluded due to limited visualization. Diastolic parameters suggest a relaxation abnormality of the left ventricle, consistent with probable normal filling pressures. Right Ventricle: The right ventricle grossly appears normal in size with probable normal systolic function. Atria: Both atria are normal in size. Mitral Valve: The mitral valve is grossly normal. There is mild mitral regurgitation. Aortic Valve: The aortic valve is grossly normal. There is no aortic valve stenosis. No aortic regurgitation is present. Tricuspid Valve: The tricuspid valve is not well visualized, but is grossly normal. Right ventricular systolic pressure is estimated to be 22 mmHg plus the clinically estimated CVP which cannot be estimated on this exam. Pulmonic Valve: The pulmonic valve is not well visualized. Great Vessels: The aortic root is normal size. The ascending aorta could not be visualized. The inferior vena cava was not visualized. Pericardium/ Pleura There is an anterior echo-free space consistent with a fat pad. There is no pericardial effusion. MMode/2D Measurements & Calculations LVIDd: 4.4 cm LVOT diam: 2.0 cm LVIDs: 3.4 cm Ao root diam: 3.3 cm FS: 22.3 % IVSd: 1.0 cm LVPWd: 1.0 cm LV britt. diameter/BSA (cm/m^2): 2.3 LV sys. diameter/BSA (cm/m^2): 1.8 LA A2 area: 15.8 cm2 RA long axis: 4.9 cm LA A4 area: 23.7 cm2 RA area: 14.4 cm2 LA length (vol): 5.6 cm RA vol: 36.2 ml LA vol: 56.9 ml RA : 19.4 ml/m2 LA vol index: 30.5 ml/m2 TAPSE: 1.9 cm Doppler Measurements & Calculations Ao V2 max: 117.3 cm/sec LVOT Max Abelino: 85.9 cm/sec Ao V2 mean: 78.6 cm/sec LV V1 max P.0 mmHg Ao max P.5 mmHg LV V1 VTI: 18.0 cm Ao mean P.8 mmHg ETHAN(I,D): 3.1 cm2 Ao V2 VTI: 18.4 cm ETHAN(V,D): 2.3 cm2 sev ratio: 0.98 ETHAN indexed to BSA (cm^2/m^2): 1.7 MV E max abelino: 59.8 cm/sec TR max abelino: 234.2 cm/sec MV A max abelino: 75.1 cm/sec TR max P.9 mmHg MV E/A: 0.80 Med Peak E' Abelnio: 5.1 cm/sec E/E' med: 11.7 Lat Peak E' Abelino: 6.9 cm/sec E/E' lat: 8.7 E/e' average: 10.2 MV dec time: 0.18 sec SV(LVOT): 56.9 ml Electronically signed by: Ophelia Bello M.D. on Reading Physician:02/08/2022 05:16 PM
--- NOTE | 2022-02-08 12:48 | DI.RAD.S_ITS ---
PROCEDURE: XR CHEST 1V INDICATIONS: PICC placement TECHNIQUE: One view of the chest was acquired. COMPARISON: [facility], CR, XR CHEST 1V, 02/03/2022, 13:20. FINDINGS: Surgical changes and devices: A right-sided PICC line is seen, with the tip overlying the mid aspect of the superior vena cava, 4 cm above the cavoatrial junction. The previously seen left-sided PICC line has been removed. Lungs and pleura: An incomplete inspiratory result is noted, causing a crowded appearance to the lung markings. No focal infiltrates are seen. No pneumothorax or significant pleural effusions are seen. Mediastinum: Mediastinal contours appear normal. Heart size is normal. Bones and chest wall: No suspicious bony lesions. Overlying soft tissues appear unremarkable. IMPRESSION: The right-sided PICC line tip overlies the mid aspect of the superior vena cava. Dictated by: Joel Solano M.D. on 02/08/2022 at 12:04 Approved by: Joel Solano M.D. on 02/08/2022 at 12:05
--- NOTE | 2022-02-08 12:57 | CM.DPC ---
Addendum entered by THOM Alaniz 02/08/22 14:46: ADD: Per family and staff request, KALPESH called [facility] to see if pt could d/c home this evening after his 1600 IV-Abx dose with next dose around 2400. [facility] states due to pt's TPN and blood sugar issues at baseline they require pt to be restarted on TPN while in the hospital and that way they can get everything in order for safe d/c to home plan. [facility] Care RN states ideally they would want pt to stay through the weekend to have multiple days of stability on TPN and SW discussed unsure if medical justification could be made for pt to remain in the hospital until Friday pending his status and [facility] having an afternoon meeting right now and will discuss if they can start pt back on service Sat or Sun if he remains stable with TPN here. KALPESH updated MD and RN and [facility] still attempting to contact spouse and pt to update on out of pocket cost for IV-Abx. BF Original Note: DCP Cont: Per MD, 48 hrs of negative cultures and therefore PICC placement orders put in for today and will restart his TPN and confirm he is tolerating well prior to d/c possibly tomorrow and per ID MD recommendation of Cefazolin 2g Q8 for 2 weeks. KALPESH called Alexsander at [facility] [phone] and updated on above and faxed clinicals (fax [phone]), Resume TPN orders, MAR with IV-Abx to review through insurance for out of pocket expense but no PICC insertion note available yet to send to [facility] as pt currently getting PICC placed bedside. Return call from Alexsander at [facility] and Cefazolin is $250 a week out of pocket expense and they will call pt and spouse now to confirm they are agreeable with this cost. KALPESH called [facility] and confirmed that they have not received referral as pt had been discharged from services and SW faxed referral along with completed F2F and HH orders to review for likely d/c home tomorrow. Plan: SW to follow closely for confirmation with [facility] that pt is agreeable to out of pocket expense for IV-Abx for plan of home tomorrow if medically stable with faxing d/c summary to both [facility] and [facility] and any further needs. THOM Alaniz
--- NOTE | 2022-02-08 15:03 | PM.PN.1 ---
Subjective Subjective Date Patient Seen: 02/08/22 Time Patient Seen: 15:03 Interval history: This is an 81-year-old male admitted with Staph warneri bacteremia from his PICC line.? He is asymptomatic today and feels well.?Discussed with ID @ [facility] today. Recommended 2 weeks of IV cefazolin from last negative culture (02/06-02/20), 2g 8 hours with weekly lab monitoring. Home TPN infusion company would like him monitored back on TPN before sending him home as there was difficulties with his blood sugars. PICC line was re-placed today given >48 hours negative cultures. Exam Vital Signs (past 8 hours): - 02/08/22 07:39 Temperature 98.3 F Pulse Rate 84 Respiratory Rate 16 Blood Pressure 138/67 Pulse Oximetry 96 Oxygen Delivery Method Room Air Oxygen Flow Rate 0 Narrative Exam Narrative: General:? Patient is well developed and well nourished, in no distress at this time. HEENT:? Normocephalic, atraumatic, extraocular muscles intact, oral pharynx is clear and mucous membranes are moist. Neck: supple and symmetric, trachea is midline, no cervical adenopathy. Negative for JVD Chest:? Normal AP diameter and contour without kyphoscoliosis, no tachypnea, equal chest rise bilaterally. Lungs:? CTA b/l no wheezing rhonchi or rales. Cardio:?RRR no m/r/g. Abdomen: S NT ND. stoma with yellow tinged liquid output. Musculoskeletal:? Muscle strength and tone are equal within normal limits, no deformity. Extremities: No edema or joint effusions. No cyanosis or clubbing. Skin:? Pale,? Warm to touch,dry and intact without rashes, ulcerations. Mild bilateral scattered ecchymoses in the extremities. Neuro:? Alert and orientated x3,? sensation to touch intact in all extremities, no gross deficits noted of cranial nerves. Psych:? Patient has a well-kept appearance, appropriate affect, mental status attitude thought context and judgment are appropriate for age. Objective Labs Result Diagrams: 02/08/22 05:14 02/08/22 05:14 Labs: Laboratory Results - last 24 hr 02/08/22 02/08/22 05:14 05:14 WBC 9.5 RBC 3.11 L Hgb 9.2 L Hct 27.7 L MCV 89.1 MCH 29.5 MCHC 33.0 RDW 19.8 H Plt Count 299 Neut % (Auto) 64.8 Lymph % (Auto) 25.7 [place] % (Auto) 7.8 Eos % (Auto) 1.5 L Baso % (Auto) 0.2 Neut # (Auto) 6100 Lymph # (Auto) 2400 [place] # (Auto) 700 Eos # (Auto) 100 Baso # (Auto) 0 Sodium 140 Potassium 3.4 Chloride 115 H Carbon Dioxide 20 L BUN 16 Creatinine 1.04 Estimated GFR > 60.0 BUN/Creatinine Ratio 15.4 Glucose 118 H Calcium 8.1 L Phosphorus 3.5 Magnesium 2.2 Total Bilirubin 0.9 AST 34 ALT 20 Alkaline Phosphatase 201 H Total Protein 7.7 Albumin 2.7 L Globulin 5.0 H Albumin/Globulin Ratio 0.5 L PFSH Medical History Barretts esophagus BPH w urinary obs/LUTS Essential hypertension GERD (gastroesophageal reflux disease) Glanular hypospadias History of acute pancreatitis History of small bowel obstruction Hyperlipidemia Surgical History H/O breast biopsy H/O prostate biopsy H/O vasectomy History of nephrectomy Hx of circumcision Family History Brother Age: 80 Heart disease Mother Alcoholic Father Heart disease Heart attack Social History household members: spouse Smoking Status: Former smoker alcohol intake: current Assessment & Plan Assessment & Plan narrative: Choco Montanez is an 81-year-old male with recent history of complex necrotizing pancreatitis with fistula formation who presented with weakness and initially presumed pneumonia now found to have Staph bacteremia, likely secondary to chronic PICC line. 1. Staph warneri bacteremia, acute, present on admission. Sepsis ruled out. Secondary to PICC line. ?- suspect due to PICC line which was removed on 02/04. ?- continued to follow blood cultures until negative. 1st negative culture was 02/06. Discussed with ID at [facility] over the phone. Recommended TTE and 2g of cefazolin q8 hours for 2 weeks after negative cultures (02/06 - 02/20). - weekly CBC, CMP, ESR, CRP recommended. ?- continued zosyn and vancomycin until sensitivities returned, then placed on cefazolin 2g q8 hours. - fungal PCR negative, micafungin discontinued. 2. History of necrotizing pancreatitis (gallstone with fistulization) - Patient is seen by the GI and general surgery service at [facility] and his attending surgeon is Dr. Sweta Snider. - patient can have some PO intake, will continue for now. - can resume TPN today. Infusion company at home would like him monitored prior to discharge home given blood sugar control issues prior to admission. 3. type 2 diabetes - Patient has an A1c of 6.8 - continue current insulin 4. Hypertension currently hypotensive Hypotension is likely due to patient's presentation for possible sepsis. Hypertensive medications have now been resumed today. 5. History of right upper lobe pulmonary embolism -no longer on AC, continue prophylactic heparin. 6. Severe acute Protein calorie malnutrition, chronic - Dietary Worked with pt and spouse to create supportive nutrition plan for duration of infection tx where pt will not be able to receive TPN nourishment, - will resume TPN with PICC placement today - Need for supplemental nutrition / TPN contributed towards patient's bacteremia. VTE Prophylaxis: Wells risk score 3.0[X] heparin 5000 units b.i.d. Dispo: remains inpatient, possible discharge home in 1-3 days depending on ability to arrange home TPN and home antibiotic infusion. Code: Clinical Veterinarian Spent With Patient Critical Care time: I spent a total of [] minutes of critical care time on this patient's care today; this time is exclusive of procedural time. Quality VTE Deep Vein Thrombosis/Pulmonary Embolism Present on Admission: No
[2022-02-08] MEDS: [UNRECOGNIZED DRUG - OTHER] IV (18:30)
[2022-02-08] MEDS: TRACE ELEMENTS IV (18:30)
[2022-02-08] MEDS: DEXT IV (18:30)
[2022-02-08] MEDS: LYTES IV (18:30)
[2022-02-08] MEDS: CALCIUM IV (18:30)
[2022-02-08] MEDS: MULTIVITAMIN IV (18:30)
[2022-02-08] MEDS: FAT EMULSIONS 50 GM/250 ML EMULSION IV (18:31)
--- NOTE | 2022-02-08 18:58 | PC.NURSE ---
AO x4 and able to make needs known. RA. VSS. Afebrile. Denies pain. Voiding per urinal. reports she has been emptying his urinal and not telling staff. Educated to let staff know when pt uses the urinal so that we can update his intake/output appropriately. She is agreeable. Pt did have one episode of emesis after breakfast due to coughing and large amount of sputum causing him to gag. Pt and state this is a common occurence at home and happens despite medications/non pharm interventions. Hospitalist notified of this. Illeostomy pouch has remained intact this shift and is draining to collection bag. Tolerating pureed diet. TPN/lipids started to new right picc.
[2022-02-08 20:00] VITALS: BP 124/63; PULSE 90; RESP 17; TEMP 36.8; O2SAT 93
[2022-02-08] MEDS: INSULIN LISPRO 100 UNIT/ML 3ML VIAL SUBCUT (20:59)
[2022-02-08] MEDS: SENNOSIDES 8.6 MG TABLET 17.2 MG PO (21:02)
[2022-02-08] MEDS: MIRTAZAPINE 15 MG TABLET PO (21:02)
[2022-02-08] MEDS: TAMSULOSIN 0.4 MG CAPSULE PO (21:02)
[2022-02-09] MEDS: CEFAZOLIN 2 GM/20 ML SYRINGE IV ×3 (01:33→17:05)
[2022-02-09 05:34] LABS: Add Manual Diff / Slide Review NO; Basophils Absolute Auto 200 /uL (0-100); Eosinophils Absolute Auto 200 /uL (0-450); Eosinophils Percent Auto 1.7 % (2-4); Hemoglobin 8.7 g/dL (13.5-17.5); Lymphocytes Absolute Auto 2000 /uL (1100-4500); Lymphocytes Percent Auto 23.6 % (25-40); Mean Corpuscular HGB Conc 32.2 % (30-36); Mean Corpuscular Volume 90.1 fL (80-100); Monocytes Absolute Auto 700 /uL (0-900); Monocytes Percent Auto 8.5 % (3-14); Neutrophils Absolute Auto 5500 /uL (1500-7000); Neutrophils Percent Auto 64.2 % (50-75); Platelet Count 239 X10^3/uL (150-400); Red Cell Distribution Width 19.6 % (11.6-14.8); White Blood Cell Count 8.6 X10^3/uL (4.5-11.0)
[2022-02-09 05:39] LABS: Alanine Aminotransferase 15 IU/L (<50); Albumin 2.7 g/dL (3.5-5.0); Albumin Globulin Ratio 0.6 (1.0-2.8); Alkaline Phosphatase 188 U/L (38-126); Aspartate Aminotransferase 34 IU/L (17-59); BUN Creatinine Ratio 22.4 (6-22); Bilirubin Total 0.6 mg/dL (0.2-1.3); Blood Urea Nitrogen 22 mg/dL (9-20); Calcium 8.4 mg/dL (8.4-10.2); Carbon Dioxide 19 mmol/L (22-32); Chloride 114 mmol/L (98-107); Estimated Glomerular Filt Rate > 60.0 mL/min (>60); Globulin 4.8 g/dL (1.7-4.1); Glucose 197 mg/dL (80-110); HEMOLYSIS < 15 (0-50); Magnesium 2.3 mg/dL (1.6-2.3); Phosphorous 2.9 mg/dL (2.3-3.7); Potassium 3.4 mmol/L (3.4-5.1); Sodium 138 mmol/L (137-145); Total Protein 7.5 g/dL (6.3-8.2)
[2022-02-09 08:00] VITALS: BP 130/60; PULSE 89; RESP 16; TEMP 36.6; O2SAT 94
[2022-02-09 09:06] VITALS: BP 130/60; PULSE 80
[2022-02-09] MEDS: METOPROLOL ER 25 MG TABLET PO (09:06)
[2022-02-09] MEDS: AMLODIPINE 5 MG TABLET PO (09:06)
[2022-02-09] MEDS: PANTOPRAZOLE DR 40 MG TABLET PO ×2 (09:06→20:36)
[2022-02-09] MEDS: FAMOTIDINE 20 MG TABLET PO ×2 (09:06→20:36)
[2022-02-09] MEDS: HEPARIN 5,000 UNIT/ML VIAL 5000 UNIT SUBCUT ×2 (09:07→20:36)
[2022-02-09 10:28] VITALS: BP 136/78
--- NOTE | 2022-02-09 12:29 | CM.DPC ---
Addendum entered by Mara Givens R.N. 02/09/22 16:11: Destini at [facility] called back and indicated that Vania at intake, will be the supersonic engineer for Friday. Her direct number is: [phone]. She will be the coordinator that is more aware of insurance coverage, and will work on the teaching portion of IV ABO. Addendum entered by Mara Givens R.N. 02/09/22 15:08: Spoke to patient's spouse in the room. Gave her an updated on [facility]. Let her know that there was no one available this week-end to do the home teaching, and it's still pending as far as cost. Spouse doesn't understand why her secondary insurance is not picking up the cost. let her know that this DC category planner can follow up with [facility]. Spouse stated, we really want to go home, but know that the nurse from [facility] needs to come and do the teaching. Spouse is concerned that patient is becoming deconditioned while he is here, instead of going home and using his exercise bike, for we want him to be conditioned for his ostomy reversal in March. Patient has been happy with [facility] services, for they have been helping with his ileostomy. Left Destini at [facility] another message about cost of medication and billing his secondary insurance. Spouse indicated, they said that the medication would be about $600.00, but not sure if weekly. She is prepared to take patient home as soon as possible. Addendum entered by Mara Givens R.N. 02/09/22 13:01: Left Alexsander at [facility] a message, as he is main contact during the week. His phone number is: [phone]. In the message asked him what needs to be done to get this patient discharged Friday, as he is currently stable, and if they can work out getting a nurse to do the teaching, either in the hospital or patient's home. Let him know that notes were faxed to Destini, environmental compliance technician nurse this . Original Note: DCP Cont: Called [facility] answering service to follow up on home IV ABO, and TPN. Dr. Keating feels patient is medically stable for discharge. Shari philosophy faculty, was also going to attempt to reach [facility]. Left a message with Alexsander, as was the main contact that THOM Carter, had, but it is an answering machine. The last note indicated that [facility] was going to discuss getting patient on services for this week-end. The medication and cost of the ABO was supposed to be discussed with patient's spouse. [facility] answering service will have one of the nurses call this DC Oceanographer Geological back to discuss discharge plans. Updated hospitalist that cost was supposed to have been discussed with spouse, and a nurse would need to be available to do the teaching for spouse regarding the ABO, since it is every 8 hours. Destini from [facility] just called back. She gave her phone number of: [phone]. She gave her fax of [phone]. She indicated, they have no nurse available to do the teaching until at least Friday. She confirmed that medication is not covered by Medicare, and they are working on a payment plan for spouse. She is requesting updated notes, and medication sheets to be faxed over to her, as well as new PICC line information sent. Attempted to update hospitalist. Will let him know that patient can't discharge home as of yet, for medication is not yet set up, and there is no nurse available this week-end to do the teaching with spouse. P: DCP to continue to follow. Patient most likely will be here until Friday. Mara Givens RN/Lacquer Spray Booth Operator
--- NOTE | 2022-02-09 13:02 | DIET.PN1 ---
Dietary Progress Note RD Note: Pt PICC replaced yesterday, started TPN 1.5L Clinimix E 04/05 running for 12h overnight. Pt tolerating well. Initial BG elevated 231, this am at 0800 BG 120. Pharmacy added 30U insulin to TPN as our Clinimix uses D40 and pts home TPN uses D60. If pt hyperglycemic on home infusion, recc adjusting amino acids up and dextrose down, optimizing insulin to maintain good BG range of 120-180. Pt still taking some protein shakes and pureed trays as desired. Ht: 177.8 cm Wt: 70.5 kg BMI: 23.3 Last BM: () MNA: 14 Mitch Score: 18 Diet: 02/07/22 Lunch Dysphagia Diet Diet Modifications: pureed Liquid consistency: Normal/Thin Food texture: Dysphagia Pureed Nutrition Percent Meal Consumed 100% 02/09/22 12:52 Percent Meal Consumed 100% 02/09/22 08:49 Percent Meal Consumed 100% 02/08/22 14:23 Percent Meal Consumed 75% 02/08/22 08:45 Percent Meal Consumed 100% 02/07/22 18:00 Labs: RBC 3.00 X10^6/uL (4.5-5.9) L 02/09/22 04:55 Hgb 8.7 g/dL (13.5-17.5) L 02/09/22 04:55 Hct 27.0 % (41-53) L 02/09/22 04:55 Creatinine 0.98 mg/dL (0.66-1.25) 02/09/22 04:55 Hemoglobin A1c 6.8 % (4.0-6.0) H 02/03/22 13:20 Lactate 2.0 mmol/L (0.7-2.1) 02/03/22 15:52 NT-Pro-B Natriuret Pep 322 pg/mL (<450) 02/03/22 13:20 Monitoring/Evaluations: Pt ready for d/c from nutrition standpoint. Electronically Signed by: Shari Chadwick 02/09/22 13:02 Clinical Dietitian [address] [address]
--- NOTE | 2022-02-09 13:35 | P.PN_ITS ---
Subjective Subjective Date Patient Seen: 02/09/22 Time Patient Seen: 08:00 Interval history: Today he has no complaints. He wants to go home. Exam Vital Signs (past 8 hours): - 02/09/22 08:00 02/09/22 09:06 02/09/22 10:28 Temperature 98 F Pulse Rate 89 80 Respiratory Rate 16 Blood Pressure 130/60 130/60 136/78 Pulse Oximetry 94 Oxygen Delivery Method Room Air Oxygen Flow Rate 0 Narrative Exam Narrative: GEN: no acute distress CV: regular rate and rhythm, no murmurs PULM: clear bilaterally ABD: soft, nontender, nondistended, no organomegaly. ostomy clean dry intact EXT: warm and well perfused with no edema Objective Labs Result Diagrams: 02/09/22 04:55 02/09/22 04:55 Labs: Laboratory Results - last 24 hr 02/09/22 02/09/22 04:55 04:55 WBC 8.6 RBC 3.00 L Hgb 8.7 L Hct 27.0 L MCV 90.1 MCH 29.0 MCHC 32.2 RDW 19.6 H Plt Count 239 Neut % (Auto) 64.2 Lymph % (Auto) 23.6 L [place] % (Auto) 8.5 Eos % (Auto) 1.7 L Baso % (Auto) 2.0 Neut # (Auto) 5500 Lymph # (Auto) 2000 [place] # (Auto) 700 Eos # (Auto) 200 Baso # (Auto) 200 H Sodium 138 Potassium 3.4 Chloride 114 H Carbon Dioxide 19 L BUN 22 H Creatinine 0.98 Estimated GFR > 60.0 BUN/Creatinine Ratio 22.4 H Glucose 197 H Calcium 8.4 Phosphorus 2.9 Magnesium 2.3 Total Bilirubin 0.6 AST 34 ALT 15 Alkaline Phosphatase 188 H Total Protein 7.5 Albumin 2.7 L Globulin 4.8 H Albumin/Globulin Ratio 0.6 L PFSH Medical History Barretts esophagus BPH w urinary obs/LUTS Essential hypertension GERD (gastroesophageal reflux disease) Glanular hypospadias History of acute pancreatitis History of small bowel obstruction Hyperlipidemia Surgical History H/O breast biopsy H/O prostate biopsy H/O vasectomy History of nephrectomy Hx of circumcision Family History Brother Age: 80 Heart disease Mother Alcoholic Father Heart disease Heart attack Social History household members: spouse Smoking Status: Former smoker alcohol intake: current Assessment & Plan Assessment & Plan narrative: Choco Montanez is an 81-year-old male with recent history of complex necrotizing pancreatitis with fistula formation who presented with weakness and initially presumed pneumonia now found to have Staph bacteremia, likely secondary to chronic PICC line. 1. Staph warneri bacteremia, acute, present on admission. Sepsis ruled out. Secondary to PICC line. ?- suspect due to PICC line which was removed on 02/04. ?- continued to follow blood cultures until negative. 1st negative culture was 02/06. Discussed with ID at [facility] over the phone. Recommended TTE and 2g of cefazolin q8 hours for 2 weeks after negative cultures (02/06 - 02/20). ?- weekly CBC, CMP, ESR, CRP recommended. ?- continued zosyn and vancomycin until sensitivities returned, then placed on cefazolin 2g q8 hours. - fungal PCR negative, micafungin discontinued. 2. History of necrotizing pancreatitis (gallstone with fistulization) - Patient is seen by the GI and general surgery service at [facility] and his attending surgeon is Dr. Sweta Snider. - patient can have some PO intake, will continue for now. - continue tpn. Infusion company at home would like him monitored prior to discharge home given blood sugar control issues prior to admission. 3. type 2 diabetes - Patient has an A1c of 6.8 - continue current insulin 4. Hypertension Hypertensive medications have now been resumed 5. History of right upper lobe pulmonary embolism -no longer on AC, continue prophylactic heparin. 6. Severe acute Protein calorie malnutrition, chronic - Dietary Worked with pt and spouse to create supportive nutrition plan for duration of infection tx where pt will not be able to receive TPN nourishment, - will resume TPN with PICC placement today - Need for supplemental nutrition / TPN contributed towards patient's bacteremia. Dispo: medically stable for discharge, awaits dispo Time Spent With Patient Critical Care time: I spent a total of [] minutes of critical care time on this patient's care today; this time is exclusive of procedural time. Quality VTE Deep Vein Thrombosis/Pulmonary Embolism Present on Admission: No
--- NOTE | 2022-02-09 14:42 | PC.NURSE ---
Pt resting at intervals T/O day. Denies discomfort. RENA PICC intact/patent. Dsg changed to PICC site. Free of S/S infection. CBG's AC 120, 184, no coverage at this time. Open wound to abdomen for ostomy bag, draining light green contents into krishnan bag. Call light w/in reach, bed alarm on for pt safety. Continue w/plan of care.
[2022-02-09] MEDS: DEXT IV (17:07)
[2022-02-09] MEDS: TRACE ELEMENTS IV (17:07)
[2022-02-09] MEDS: [UNRECOGNIZED DRUG - OTHER] IV (17:07)
[2022-02-09] MEDS: MULTIVITAMIN IV (17:07)
[2022-02-09] MEDS: CALCIUM IV (17:07)
[2022-02-09] MEDS: LYTES IV (17:07)
[2022-02-09 20:00] VITALS: BP 143/68; PULSE 83; RESP 18; TEMP 36.6; O2SAT 100
[2022-02-09] MEDS: INSULIN LISPRO 100 UNIT/ML 3ML VIAL SUBCUT (20:36)
[2022-02-09] MEDS: MIRTAZAPINE 15 MG TABLET PO (20:36)
[2022-02-09] MEDS: TAMSULOSIN 0.4 MG CAPSULE PO (20:36)
[2022-02-10] MEDS: CEFAZOLIN 2 GM/20 ML SYRINGE IV ×3 (00:18→17:12)
[2022-02-10 07:00] VITALS: BP 132/64; PULSE 86; RESP 16; O2SAT 92
[2022-02-10 07:56] VITALS: BP 132/64; PULSE 86
[2022-02-10] MEDS: METOPROLOL ER 25 MG TABLET PO (07:56)
[2022-02-10] MEDS: AMLODIPINE 5 MG TABLET PO (07:58)
[2022-02-10] MEDS: PANTOPRAZOLE DR 40 MG TABLET PO ×2 (07:58→21:04)
[2022-02-10] MEDS: FAMOTIDINE 20 MG TABLET PO ×2 (07:58→21:04)
[2022-02-10] MEDS: HEPARIN 5,000 UNIT/ML VIAL 5000 UNIT SUBCUT ×2 (07:59→21:04)
--- NOTE | 2022-02-10 08:22 | PC.NURSE ---
Pt alert and oriented, denies pain, up to chair with sba for breakfast. BG 113 no coverage. in room.
--- NOTE | 2022-02-10 09:13 | PC.NURSE ---
Pt out ambulating jo with , steady.
--- NOTE | 2022-02-10 11:09 | CM.DPC ---
Addendum entered by Mara Givens R.N. 02/10/22 15:56: Left a message in the dietary department, with Shari or Connie at ext: [phone], to see if they can assist with the TPN situation, for spouse indicated that [facility] has to deliver, and wanted to inquire if a script would be needed for this from hospitalist. Original Note: DCP Cont: Met with patient's , Rubio. She is frustrated that her is still here since [facility] has not been able to set up IV ABO, and is concerned about TPN formula if it needs to be delivered. Called Destini, nurse after hours with spouse's concerns. Faxed dietary note as well. Asked Destini to review med sheets, as this was faxed yesterday to her. This time, sent dietary note and med sheets. Let her know that patient is ready to discharge Friday. Called Vania in intake, her number is [phone]. Left her a message that patient needs to discharge tomorrow, TPN needs to be in place, and IV ABO. Spouse, Rubio, also wants to know if patient can get his labs drawn while he is here, for they normally have routine labs. Left Alexsander in intake a message as well, for Vania's voice mail indicated that she is in the office at 0930. P: DCP to continue to work on getting patient discharged tomorrow with [facility] in place for feedings, and IV ABO. Will also need to contact [facility], they have already received face to face and orders.\\ Mara Givens RN/Principal Biostatistician
[2022-02-10] MEDS: INSULIN LISPRO 100 UNIT/ML 3ML VIAL SUBCUT ×2 (11:59→21:04)
--- NOTE | 2022-02-10 13:23 | PM.PN.1 ---
Subjective Subjective Date Patient Seen: 02/10/22 Time Patient Seen: 08:00 Interval history: He has no new complaints Exam Vital Signs (past 8 hours): - 02/10/22 07:00 02/10/22 07:56 Pulse Rate 86 86 Respiratory Rate 16 Blood Pressure 132/64 132/64 Pulse Oximetry 92 Oxygen Delivery Method Room Air Oxygen Flow Rate 0 Narrative Exam Narrative: GEN: no acute distress CV: regular rate and rhythm, no murmurs PULM: clear bilaterally ABD: soft, nontender, nondistended, no organomegaly. ostomy clean dry intact EXT: warm and well perfused with no edema Objective Labs Result Diagrams: 02/09/22 04:55 02/09/22 04:55 PFSH Medical History Barretts esophagus BPH w urinary obs/LUTS Essential hypertension GERD (gastroesophageal reflux disease) Glanular hypospadias History of acute pancreatitis History of small bowel obstruction Hyperlipidemia Surgical History H/O breast biopsy H/O prostate biopsy H/O vasectomy History of nephrectomy Hx of circumcision Family History Brother Age: 80 Heart disease Mother Alcoholic Father Heart disease Heart attack Social History household members: spouse Smoking Status: Former smoker alcohol intake: current Assessment & Plan Assessment & Plan narrative: Choco Montanez is an 81-year-old male with recent history of complex necrotizing pancreatitis with fistula formation who presented with weakness and initially presumed pneumonia now found to have Staph bacteremia, likely secondary to chronic PICC line. 1. Staph warneri bacteremia, acute, present on admission. Sepsis ruled out. Secondary to PICC line. ?- suspect due to PICC line which was removed on 02/04. ?- continued to follow blood cultures until negative. 1st negative culture was 02/06. Discussed with ID at [facility] over the phone. Recommended TTE and 2g of cefazolin q8 hours for 2 weeks after negative cultures (02/06 - 02/20). ?- weekly CBC, CMP, ESR, CRP recommended. ?- continued zosyn and vancomycin until sensitivities returned, then placed on cefazolin 2g q8 hours. - fungal PCR negative, micafungin discontinued. 2. History of necrotizing pancreatitis (gallstone with fistulization) - Patient is seen by the GI and general surgery service at [facility] and his attending surgeon is Dr. Sweta Snider. - patient can have some PO intake, will continue for now. - continue tpn. Infusion company at home would like him monitored prior to discharge home given blood sugar control issues prior to admission. 3. type 2 diabetes - Patient has an A1c of 6.8 - continue current insulin 4. Hypertension Hypertensive medications have now been resumed 5. History of right upper lobe pulmonary embolism -no longer on AC, continue prophylactic heparin. 6. Severe acute Protein calorie malnutrition, chronic - Dietary Worked with pt and spouse to create supportive nutrition plan for duration of infection tx where pt will not be able to receive TPN nourishment, - will resume TPN with PICC placement today - Need for supplemental nutrition / TPN contributed towards patient's bacteremia. Dispo: medically stable for discharge, awaits dispo Time Spent With Patient Critical Care time: I spent a total of [] minutes of critical care time on this patient's care today; this time is exclusive of procedural time. Quality VTE Deep Vein Thrombosis/Pulmonary Embolism Present on Admission: No
[2022-02-10 15:02] VITALS: TEMP 36.7
[2022-02-10] MEDS: LYTES IV (17:31)
[2022-02-10] MEDS: TRACE ELEMENTS IV (17:31)
[2022-02-10] MEDS: DEXT IV (17:31)
[2022-02-10] MEDS: [UNRECOGNIZED DRUG - OTHER] IV (17:31)
[2022-02-10] MEDS: CALCIUM IV (17:31)
[2022-02-10] MEDS: MULTIVITAMIN IV (17:31)
[2022-02-10 20:00] VITALS: BP 123/61; PULSE 87; RESP 16; TEMP 37.1; O2SAT 98
[2022-02-10] MEDS: MIRTAZAPINE 15 MG TABLET PO (21:04)
[2022-02-10] MEDS: TAMSULOSIN 0.4 MG CAPSULE PO (21:04)
[2022-02-11] MEDS: CEFAZOLIN 2 GM/20 ML SYRINGE IV ×2 (00:52→08:50)
[2022-02-11 07:00] VITALS: BP 111/62; PULSE 91; RESP 16; TEMP 36.4; O2SAT 97
[2022-02-11] MEDS: PANTOPRAZOLE DR 40 MG TABLET PO (08:50)
[2022-02-11] MEDS: METOPROLOL ER 25 MG TABLET PO (08:50)
[2022-02-11] MEDS: HEPARIN 5,000 UNIT/ML VIAL 5000 UNIT SUBCUT (08:50)
[2022-02-11] MEDS: FAMOTIDINE 20 MG TABLET PO (08:50)
[2022-02-11] MEDS: AMLODIPINE 5 MG TABLET PO (08:51)
[2022-02-11 10:10] VITALS: O2SAT 98
--- NOTE | 2022-02-11 10:40 | PM.DS.1 ---
History of Present Illness History of Present Illness Date Patient Seen: 02/11/22 Time Patient Seen: 10:40 Chief complaint: weakness, sob, fever Narrative: BELEN Carlisle: Choco Montanez is an 81-year-old male who presented to the emergency depart with 3 days of increasing shortness of breath, cough and not feeling well.? He denies having fevers but he was febrile any MS as well as in the emergency department.? He states he has been feeling weak for the last 3 days.? This morning he walked into the bathroom and then returned to his bedroom and felt weak and at that time stated he had no fever.? He denies sweats or shortness of breath.? Patient has a medically complex recent history of having developed necrotizing pancreatitis where he was initially treated here for concern of a duodenal perforation and then emergently transferred to [facility] for [facility] consultation.? He underwent surgery there and has been following up with their clinic.? He did develop multiple fistulas and has a fistula and ileostomy that is been putting out yellow colored liquid stool which he states is normal for him.? From reviewing the notes from [facility] it sounds like he is due to have another surgery in mid March possibly for reversing the ileostomy.? While in the emergency department he dropped his blood pressure and they started giving him IV boluses.? When I met him up on the floor, the patient requested that I contact his .? Apparently the had told the nurse that 1) she did not want him receiving IV boluses and 2) she did not want him to receive micafungin as that was actually included in his TPN which is currently off of.? I do not have any information as to when he is supposed to resume it and it appears that he received 12 hours of TPN per day from the last note of 01/30/2022 from [facility].? She stated that they did not want him to have any output more than 1200 cc out of the fistula and was concerned that the boluses would exceed that amount and that we needed to likely transfer the patient to [facility]. I have attempted to reach [facility] however the transfer center is not answering phone calls and when calling the physicians answering service they refer me back to the transfer center and again received no answer.? In the emergency department of his determine that his main issue today was development of a pneumonia.? Indicated at tiny retrocardiac opacity potentially aspiration versus atelectasis versus infectious pneumonia and also noted that he has a left-sided PICC line with the tip directed right lateral and may be and that azygos venous system.? Patient's T-max was 103? and it is currently 98.5, blood pressure 108/56, heart rate 71, respiratory rate 18, oxygen saturation of 92% on room air he weighs 74 kg with a BMI of 23.3.? His WBC is 15.5 hemoglobin? 9.0 hematocrit 28 platelet count 280 he has a left shift of 13,000, chloride is 115, creatinine 1.17 with a BUN of 53 and his EGFR is 59.7, glucose is 194, hemoglobin A1c is 6.8 calcium 7.6 AST 81 ALT 65 his troponin is 0.041 albumin is 2.6 procalcitonin is 0.45 UA is negative for UTI, COVID-19 PCR is negative and a fungal detection PCR is pending. Discharge Providers Provider Date of admission: 02/03/22 16:39 Discharge Date: 02/11/22 Primary care physician: Edmund Red MD Consults: 02/03/22 20:29 Consult to Respiratory Therapy Evaluate & Treat Comment: Physician Instructions: Evaluate and treat 02/03/22 20:37 Consult to Pharmacy Routine Comment: Looking for patient's glargine dose. 02/04/22 01:57 Consult to Dietitian, Adult Routine Comment: Reason For Exam: TPN and protein shakes 02/08/22 11:20 Consult to Home Health Routine Comment: Sepsis, PICC infection, TPN, Ileostomy Reason For Exam: Set up ongoing RN/PT/OT for discharge home 02/08/22 12:22 Consult to Home Health Routine Comment: ileostomy, nutritional needs Reason For Exam: Resume TPN with [facility] at discharge Discharge provider: Last Hammond DO Summary Hospital Course Discharge Diagnosis: Please see hospital course by problem list noted below. Hospital Course: Choco Montanez is an 81-year-old male with recent history of complex necrotizing pancreatitis with fistula formation who presented with weakness and initially presumed pneumonia now found to have Staph Warneri bacteremia, likely secondary to chronic PICC line. 1. Staph warneri bacteremia, acute, present on admission. Sepsis ruled out. Secondary to PICC line. ?- suspect due to PICC line which was removed on 02/04. ?- continued to follow blood cultures until negative. 1st negative culture was 02/06. Discussed with ID at [facility] over the phone. Recommended TTE and 2g of cefazolin q8 hours for 2 weeks after negative cultures (02/06 - 02/20). ?- weekly CBC, CMP, ESR, CRP recommended. ?- continued zosyn and vancomycin until sensitivities returned, then placed on cefazolin 2g q8 hours. - fungal PCR negative, micafungin discontinued. - echocardiogram (TTE) showed no valvular lesions. 2. History of necrotizing pancreatitis (gallstone with fistulization) - Patient is seen by the GI and general surgery service at [facility] and his attending surgeon is Dr. Sweta Snider. - patient can have some PO intake, will continue for now. - continue tpn at home per [facility]. 3. type 2 diabetes - Patient has an A1c of 6.8 - no changes to home medications are recommended. 4. Hypertension - Hypertensive medications were ininitially held in setting of bacteremia, have since resumed and no changes are recommended at home. 5. History of right upper lobe pulmonary embolism -no longer on AC, no dyspnea or hypoxia during admission. 6. Severe acute Protein calorie malnutrition, chronic - Dietary Worked with pt and spouse to create supportive nutrition plan for duration of infection tx where pt will not be able to receive TPN nourishment, - continue home TPN per [facility]. - Need for supplemental nutrition / TPN contributed towards patient's bacteremia. Time Spent with Patient Time spent: Greater than 30 minutes Exam Vital Signs (past 8 hours): - 02/11/22 07:00 02/11/22 10:10 Temperature 97.5 F L Pulse Rate 91 H Respiratory Rate 16 Blood Pressure 111/62 Pulse Oximetry 97 98 Oxygen Delivery Method Room Air Oxygen Flow Rate 0 Narrative Exam Narrative: General:? Patient is well developed and well nourished, in no distress at this time. HEENT:? Normocephalic, atraumatic, extraocular muscles intact, oral pharynx is clear and mucous membranes are moist. Neck: supple and symmetric, trachea is midline, no cervical adenopathy. Negative for JVD Chest:? Normal AP diameter and contour without kyphoscoliosis, no tachypnea, equal chest rise bilaterally. Lungs:? CTA b/l no wheezing rhonchi or rales. Cardio:?RRR no m/r/g. Abdomen: S NT ND. stoma with yellow tinged liquid output. Musculoskeletal:? Muscle strength and tone are equal within normal limits, no deformity. Extremities: No edema or joint effusions. No cyanosis or clubbing. Skin:? Pale,? Warm to touch,dry and intact without rashes, ulcerations. Mild bilateral scattered ecchymoses in the extremities. Neuro:? Alert and orientated x3,? sensation to touch intact in all extremities, no gross deficits noted of cranial nerves. Psych:? Patient has a well-kept appearance, appropriate affect, mental status attitude thought context and judgment are appropriate for age. Objective Labs Result Diagrams: 02/09/22 04:55 02/09/22 04:55 PFSH Medical History Barretts esophagus BPH w urinary obs/LUTS Essential hypertension GERD (gastroesophageal reflux disease) Glanular hypospadias History of acute pancreatitis History of small bowel obstruction Hyperlipidemia Surgical History H/O breast biopsy H/O prostate biopsy H/O vasectomy History of nephrectomy Hx of circumcision Family History Brother Age: 80 Heart disease Mother Alcoholic Father Heart disease Heart attack Social History household members: spouse Smoking Status: Former smoker alcohol intake: current Discharge Plan Discharge Plan Patient Disposition: Home Health Service Provider Discharge Comment: You were admitted to the hospital with an infection in your blood stream due to your prior PICC line which was removed. Recommended 2 weeks of IV antibiotics per infectious disease consultation at [facility]. Discharge orders & Medications Prescriptions: New cefazolin in dextrose (iso-os) 2 gram/100 mL Piggyback 100 ml IV Q8H 10 Days Qty: 54 0RF heparin, porcine (PF) 10 unit/mL Syringe 50 unit IV BID 10 Days Qty: 100 0RF Continued metoprolol succinate [Toprol XL] 50 MG tablet extended release 24 hr 25 mg PO QAM 0RF tamsulosin 0.4 mg Capsule 0.4 mg PO BEDTIME 0RF famotidine 40 mg Tablet 40 mg PO BID 0RF amlodipine 5 mg Tablet 5 mg PO DAILY 0RF mirtazapine 15 mg Tablet 15 mg PO BEDTIME 0RF pantoprazole 40 mg tablet,delayed release (DR/EC) 40 mg PO BID 0RF Label Comments: TAKE 1 TABLET BY MOUTH 2 TIMES DAILY Follow up/Referrals: Edmund Red MD [Primary Care Provider] - Diet/Activity/Treatments Diet: Diet as Tolerated Diet comment: Oral diet per surgeon with additional TPN. Activity: As tolerated Skin/Wound/Dressing Care Dressing: Change PICC line dressing once per week or if visibly soiled, loosened, or there is redness/drainage. Visit Report/Discharge Packet Instructions: How to Change the Dressing on a Central Line Catheter for Adults Discharge Data Primary Care Provider: Edmund Red V Quality VTE Deep Vein Thrombosis/Pulmonary Embolism Present on Admission: No
--- NOTE | 2022-02-11 10:42 | CM.DPC ---
Addendum entered by Mara Givens R.N. 02/11/22 12:03: Spoke to Vania at [facility]. She indicated that patient is set up for nurse to be at patient's home at 1600. Their pharmacy has orders. Updated spouse, Rubio, who is pleased. She will be paying out of pocket for medication. Let Rubio also know that [facility] is aware of PICC line dressing being changed Friday. Addendum entered by Mara Givens R.N. 02/11/22 11:20: Faxed orders, DC Summary, and face to face to [facility]. Original Note: DCP Cont: Attempted to get in touch with [facility], have not yet heard back from Kandy in intake, or Titus. Spouse, Rubio, is concerned, as she wants to get him home, and he has been here since Friday. She gave this senior program planner alternate numbers to call. Called the main number in intake, and was connected with Destini, the RN that this DC demand planner had spoken to this week-end. Have her phone number and fax listed from prior notes. Reminded her that patient is medically stable, and needs to DC today. She stated, her team is still working on this, they have their team rounds at 11:00 today, and will discuss. She indicated, we couldnt' get him set up to leave Friday for the spouse did not want to pay for the medication. Let her know that spouse wants him to go today, and is prepared to pay if necessary. Destini stated to go ahead and have hospitalist do discharge, include in notes, resume [facility] TPN, labs if needed. Will also fax over a script for Cefazolin. She does not know if nurse will come here or patient's home as of yet. Updated Dr. Hammond, and will have him do orders, then, will fax to [facility]. Called Mele at [facility] and gave her update that patient should be discharging today. Let her know that PICC dressing should be due to change Friday, and mentioned spouse concerns want to use extension device on PICC. Mele will update their RN. Have orders, will fax over to [facility]. P: Patient should be discharging home today, awaiting call back from [facility]. Mara Givens RN/Compressed Gas Tester
[2022-02-11 11:52] LABS: Add Manual Diff / Slide Review NO; Basophils Absolute Auto 0 /uL (0-100); Basophils Percent Auto 0.5 % (0-2); Eosinophils Absolute Auto 200 /uL (0-450); Eosinophils Percent Auto 1.7 % (2-4); Hematocrit 34.8 % (41-53); Hemoglobin 11.3 g/dL (13.5-17.5); Lymphocytes Absolute Auto 2800 /uL (1100-4500); Lymphocytes Percent Auto 30.4 % (25-40); Mean Corpuscular HGB Conc 32.5 % (30-36); Mean Corpuscular Hemoglobin 29.6 PG (26-34); Mean Corpuscular Volume 90.9 fL (80-100); Monocytes Absolute Auto 700 /uL (0-900); Monocytes Percent Auto 7.8 % (3-14); Neutrophils Absolute Auto 5400 /uL (1500-7000); Neutrophils Percent Auto 59.6 % (50-75); Platelet Count 288 X10^3/uL (150-400); Red Blood Cell Count 3.83 X10^6/uL (4.5-5.9); White Blood Cell Count 9.1 X10^3/uL (4.5-11.0)
[2022-02-11 11:59] LABS: Magnesium 2.3 mg/dL (1.6-2.3); Phosphorous 2.9 mg/dL (2.3-3.7)
[2022-02-11 12:00] LABS: Alanine Aminotransferase 24 IU/L (<50); Albumin 3.3 g/dL (3.5-5.0); Albumin Globulin Ratio 0.6 (1.0-2.8); Alkaline Phosphatase 297 U/L (38-126); Aspartate Aminotransferase 63 IU/L (17-59); BUN Creatinine Ratio 30.6 (6-22); Bilirubin Total 0.7 mg/dL (0.2-1.3); Blood Urea Nitrogen 26 mg/dL (9-20); Carbon Dioxide 20 mmol/L (22-32); Chloride 107 mmol/L (98-107); Estimated Glomerular Filt Rate > 60.0 mL/min (>60); Glucose 168 mg/dL (80-110); HEMOLYSIS < 15 (0-50); Potassium 4.3 mmol/L (3.4-5.1); Sodium 136 mmol/L (137-145); Total Protein 9.3 g/dL (6.3-8.2)
[2022-02-11 12:03] LABS: Erythrocyte Sedimentation Rate > 140 MM/HR (0-15)
[2022-02-11] MEDS: INSULIN LISPRO 100 UNIT/ML 3ML VIAL SUBCUT (12:30)
--- NOTE | 2022-02-11 12:38 | PC.NURSE ---
dc instructions and paperwork given to patient and spouse. all questions were answered. pt eating lunch at this moment. no pain, dizziness or light headedness.
[2022-02-11 13:21] LABS: C-Reactive Protein Quant 8.4 mg/dL (<1.0)
== END 2022-02-11 13:30 | disposition home health service (06) | DRG 314 ==
LOC: ED 15:32 → AC 16:40
PROVIDERS: Internal Medicine; Nurse Practitioner Family; Admitting Provider Internal Medicine; Emergency Provider Emergency Medicine; PCP Internal Medicine; Referring Provider Emergency Medicine; Visit Provider Internal Medicine
DX: T80.211A Bloodstream infection due to central venous catheter, initial encounter (principal); E43 Unspecified severe protein-calorie malnutrition; R78.81 Bacteremia; K86.89 Other specified diseases of pancreas; B95.7 Other staphylococcus as the cause of diseases classified elsewhere; I95.9 Hypotension, unspecified; I10 Essential (primary) hypertension; N40.0 Benign prostatic hyperplasia without lower urinary tract symptoms; K21.9 Gastro-esophageal reflux disease without esophagitis; E11.65 Type 2 diabetes mellitus with hyperglycemia; Z87.891 Personal history of nicotine dependence; Z86.711 Personal history of pulmonary embolism; Z68.22 Body mass index [BMI] 22.0-22.9, adult; Z66 Do not resuscitate; Z20.822 Contact with and (suspected) exposure to COVID-19
CPT/HCPCS: 36415; 36592; 71045; 80048; 80053; 80076; 81001; 81003; 82550; 82962; 83036; 83605; 83735; 83880; 84100; 84145; 84484; 85025; 85610; 85651; 85730; 86140; 87040; 87070; 87077; 87086; 87102; 87150; 87186; 87205; 87633; 87635; 87801; 93005; 93306; 94760; 94762; 96365; 99284; C9803; A9270; B4185; B4189; J0290; J0690; J1642; J1644; J1815; J2248; J2543

== ENCOUNTER → 2022-02-18 06:35 | Outpatient (CLI) | payer MEDICARE, OTHER, SELFPAY ==
[2022-02-03 17:54] VITALS: BMI 23.3
[2022-02-18 07:39] LABS: Add Manual Diff / Slide Review NO; Basophils Absolute Auto 0 /uL (0-100); Basophils Percent Auto 0.4 % (0-2); Eosinophils Absolute Auto 300 /uL (0-450); Eosinophils Percent Auto 3.9 % (2-4); Hematocrit 30.8 % (41-53); Hemoglobin 10.1 g/dL (13.5-17.5); Lymphocytes Absolute Auto 2700 /uL (1100-4500); Lymphocytes Percent Auto 36.4 % (25-40); Mean Corpuscular HGB Conc 32.7 % (30-36); Mean Corpuscular Hemoglobin 29.3 PG (26-34); Mean Corpuscular Volume 89.6 fL (80-100); Monocytes Absolute Auto 700 /uL (0-900); Monocytes Percent Auto 9.4 % (3-14); Neutrophils Absolute Auto 3700 /uL (1500-7000); Neutrophils Percent Auto 49.9 % (50-75); Platelet Count 432 X10^3/uL (150-400); Red Blood Cell Count 3.44 X10^6/uL (4.5-5.9); Red Cell Distribution Width 19.1 % (11.6-14.8); White Blood Cell Count 7.4 X10^3/uL (4.5-11.0)
[2022-02-18 07:47] LABS: Alanine Aminotransferase 22 IU/L (<50); Albumin 3.3 g/dL (3.5-5.0); Albumin Globulin Ratio 0.5 (1.0-2.8); Alkaline Phosphatase 361 U/L (38-126); Aspartate Aminotransferase 65 IU/L (17-59); BUN Creatinine Ratio 41.5 (6-22); Bilirubin Total 0.4 mg/dL (0.2-1.3); Blood Urea Nitrogen 39 mg/dL (9-20); C-Reactive Protein Quant 2.2 mg/dL (<1.0); Calcium 8.9 mg/dL (8.4-10.2); Carbon Dioxide 31 mmol/L (22-32); Chloride 101 mmol/L (98-107); Estimated Glomerular Filt Rate > 60.0 mL/min (>60); Globulin 6.1 g/dL (1.7-4.1); Glucose 162 mg/dL (80-110); HEMOLYSIS < 15 (0-50); Magnesium 2.3 mg/dL (1.6-2.3); Potassium 4.4 mmol/L (3.4-5.1); Sodium 138 mmol/L (137-145); Total Protein 9.4 g/dL (6.3-8.2); Triglycerides 184 mg/dL (35-150)
[2022-02-18 07:53] LABS: Erythrocyte Sedimentation Rate > 140 MM/HR (0-15)
== END ==
PROVIDERS: PCP Internal Medicine; Referring Provider Internal Medicine; Visit Provider Internal Medicine
DX: K63.2 Fistula of intestine (principal); K85.92 Acute pancreatitis with infected necrosis, unspecified; K86.81 Exocrine pancreatic insufficiency
CPT/HCPCS: 36415; 80053; 83735; 84100; 84478; 85025; 85651; 86140

== ENCOUNTER → 2022-02-26 12:00 | Outpatient (CLI) | payer MEDICARE, OTHER, SELFPAY ==
[2022-02-03 17:54] VITALS: BMI 23.3
[2022-02-26 13:12] LABS: Add Manual Diff / Slide Review NO; Basophils Absolute Auto 0 /uL (0-100); Basophils Percent Auto 0.4 % (0-2); Eosinophils Absolute Auto 200 /uL (0-450); Eosinophils Percent Auto 3.2 % (2-4); Hematocrit 33.5 % (41-53); Hemoglobin 10.8 g/dL (13.5-17.5); Lymphocytes Absolute Auto 3500 /uL (1100-4500); Lymphocytes Percent Auto 44.3 % (25-40); Mean Corpuscular HGB Conc 32.2 % (30-36); Mean Corpuscular Hemoglobin 29.3 PG (26-34); Mean Corpuscular Volume 91.1 fL (80-100); Monocytes Absolute Auto 700 /uL (0-900); Monocytes Percent Auto 8.7 % (3-14); Neutrophils Absolute Auto 3400 /uL (1500-7000); Neutrophils Percent Auto 43.4 % (50-75); Platelet Count 297 X10^3/uL (150-400); Red Blood Cell Count 3.67 X10^6/uL (4.5-5.9); White Blood Cell Count 7.8 X10^3/uL (4.5-11.0)
[2022-02-26 13:55] LABS: Alanine Aminotransferase 30 IU/L (<50); Albumin 3.9 g/dL (3.5-5.0); Alkaline Phosphatase 287 U/L (38-126); Aspartate Aminotransferase 55 IU/L (17-59); BUN Creatinine Ratio 40.4 (6-22); Bilirubin Total 0.6 mg/dL (0.2-1.3); Blood Urea Nitrogen 42 mg/dL (9-20); Calcium 9.1 mg/dL (8.4-10.2); Carbon Dioxide 29 mmol/L (22-32); Chloride 99 mmol/L (98-107); Estimated Glomerular Filt Rate > 60.0 mL/min (>60); Glucose 145 mg/dL (80-110); HEMOLYSIS < 15 (0-50); Phosphorous 4.8 mg/dL (2.3-3.7); Potassium 4.2 mmol/L (3.4-5.1); Sodium 140 mmol/L (137-145); Triglycerides 150 mg/dL (35-150)
[2022-02-26 14:05] LABS: Albumin Globulin Ratio 0.6 (1.0-2.8)
[2022-02-26 14:09] LABS: Globulin 6.1 g/dL (1.7-4.1)
== END ==
PROVIDERS: PCP Internal Medicine; Referring Provider Internal Medicine; Visit Provider Internal Medicine
DX: K63.2 Fistula of intestine (principal); K85.92 Acute pancreatitis with infected necrosis, unspecified; K86.81 Exocrine pancreatic insufficiency
CPT/HCPCS: 36415; 80053; 83735; 84100; 84478; 85025

== ENCOUNTER → 2022-03-11 06:31 | Outpatient (CLI) | payer MEDICARE, OTHER, SELFPAY ==
[2022-02-03 17:54] VITALS: BMI 23.3
[2022-03-11 08:32] LABS: Alanine Aminotransferase 29 IU/L (<50); Albumin 3.7 g/dL (3.5-5.0); Albumin Globulin Ratio 0.7 (1.0-2.8); Alkaline Phosphatase 165 U/L (38-126); Aspartate Aminotransferase 47 IU/L (17-59); BUN Creatinine Ratio 44.1 (6-22); Bilirubin Total 0.7 mg/dL (0.2-1.3); Blood Urea Nitrogen 45 mg/dL (9-20); Calcium 8.6 mg/dL (8.4-10.2); Carbon Dioxide 29 mmol/L (22-32); Chloride 106 mmol/L (98-107); Estimated Glomerular Filt Rate > 60 mL/min (>60); Globulin 5.3 g/dL (1.7-4.1); Glucose 119 mg/dL (80-110); HEMOLYSIS < 15 (0-50); Magnesium 2.3 mg/dL (1.6-2.3); Phosphorous 4.1 mg/dL (2.3-3.7); Potassium 4.1 mmol/L (3.4-5.1); Sodium 142 mmol/L (137-145); Triglycerides 130 mg/dL (35-150)
[2022-03-11 08:36] LABS: Add Manual Diff / Slide Review NO; Basophils Absolute Auto 100 /uL (0-100); Basophils Percent Auto 0.6 % (0-2); Eosinophils Absolute Auto 400 /uL (0-450); Eosinophils Percent Auto 4.7 % (2-4); Hematocrit 34.1 % (41-53); Lymphocytes Absolute Auto 3600 /uL (1100-4500); Lymphocytes Percent Auto 46.3 % (25-40); Mean Corpuscular HGB Conc 32.3 % (30-36); Mean Corpuscular Hemoglobin 29.9 PG (26-34); Mean Corpuscular Volume 92.6 fL (80-100); Monocytes Absolute Auto 900 /uL (0-900); Monocytes Percent Auto 10.9 % (3-14); Neutrophils Absolute Auto 2900 /uL (1500-7000); Neutrophils Percent Auto 37.5 % (50-75); Red Blood Cell Count 3.68 X10^6/uL (4.5-5.9); Red Cell Distribution Width 18.1 % (11.6-14.8); White Blood Cell Count 7.8 X10^3/uL (4.5-11.0)
== END ==
PROVIDERS: PCP Internal Medicine; Referring Provider Internal Medicine; Visit Provider Internal Medicine
DX: K86.81 Exocrine pancreatic insufficiency (principal)
CPT/HCPCS: 36415; 80053; 83735; 84100; 84478; 85025

== ENCOUNTER → 2022-03-18 06:32 | Outpatient (CLI) | payer MEDICARE, OTHER, SELFPAY ==
[2022-02-03 17:54] VITALS: BMI 23.3
[2022-03-18 08:39] LABS: Add Manual Diff / Slide Review NO; Basophils Absolute Auto 0 /uL (0-100); Basophils Percent Auto 0.6 % (0-2); Eosinophils Absolute Auto 500 /uL (0-450); Eosinophils Percent Auto 6.5 % (2-4); Hematocrit 32.7 % (41-53); Lymphocytes Absolute Auto 3300 /uL (1100-4500); Lymphocytes Percent Auto 44.5 % (25-40); Mean Corpuscular HGB Conc 33.7 % (30-36); Mean Corpuscular Hemoglobin 30.7 PG (26-34); Mean Corpuscular Volume 90.9 fL (80-100); Monocytes Absolute Auto 700 /uL (0-900); Neutrophils Absolute Auto 2900 /uL (1500-7000); Neutrophils Percent Auto 39.4 % (50-75); Platelet Count 244 X10^3/uL (150-400); Red Cell Distribution Width 17.2 % (11.6-14.8); White Blood Cell Count 7.4 X10^3/uL (4.5-11.0)
[2022-03-18 08:54] LABS: Alanine Aminotransferase 33 IU/L (<50); Albumin 3.5 g/dL (3.5-5.0); Albumin Globulin Ratio 0.7 (1.0-2.8); Alkaline Phosphatase 160 U/L (38-126); Aspartate Aminotransferase 48 IU/L (17-59); Bilirubin Total 0.5 mg/dL (0.2-1.3); Blood Urea Nitrogen 44 mg/dL (9-20); Calcium 8.5 mg/dL (8.4-10.2); Carbon Dioxide 27 mmol/L (22-32); Chloride 105 mmol/L (98-107); Globulin 4.8 g/dL (1.7-4.1); Glucose 122 mg/dL (80-110); HEMOLYSIS < 15 (0-50); Magnesium 2.1 mg/dL (1.6-2.3); Phosphorous 5.2 mg/dL (2.3-3.7); Potassium 4.5 mmol/L (3.4-5.1); Sodium 141 mmol/L (137-145); Total Protein 8.3 g/dL (6.3-8.2); Triglycerides 118 mg/dL (35-150)
[2022-03-18 08:55] LABS: BUN Creatinine Ratio 43.1 (6-22); Estimated Glomerular Filt Rate > 60 mL/min (>60)
== END ==
PROVIDERS: PCP Internal Medicine; Referring Provider Internal Medicine; Visit Provider Internal Medicine
DX: E43 Unspecified severe protein-calorie malnutrition (principal)
CPT/HCPCS: 36415; 80053; 83735; 84100; 84478; 85025

== ENCOUNTER → 2022-03-25 06:28 | Outpatient (CLI) | payer MEDICARE, OTHER, SELFPAY ==
[2022-02-03 17:54] VITALS: BMI 23.3
[2022-03-25 08:50] LABS: Add Manual Diff / Slide Review NO; Basophils Absolute Auto 0 /uL (0-100); Basophils Percent Auto 0.5 % (0-2); Eosinophils Absolute Auto 300 /uL (0-450); Eosinophils Percent Auto 4.6 % (2-4); Hematocrit 33.4 % (41-53); Hemoglobin 10.9 g/dL (13.5-17.5); Lymphocytes Absolute Auto 3200 /uL (1100-4500); Lymphocytes Percent Auto 46.8 % (25-40); Mean Corpuscular HGB Conc 32.7 % (30-36); Mean Corpuscular Volume 91.8 fL (80-100); Monocytes Absolute Auto 700 /uL (0-900); Monocytes Percent Auto 10.7 % (3-14); Neutrophils Absolute Auto 2500 /uL (1500-7000); Neutrophils Percent Auto 37.4 % (50-75); Platelet Count 230 X10^3/uL (150-400); Red Blood Cell Count 3.64 X10^6/uL (4.5-5.9); Red Cell Distribution Width 16.7 % (11.6-14.8); White Blood Cell Count 6.7 X10^3/uL (4.5-11.0)
[2022-03-25 09:11] LABS: Alanine Aminotransferase 37 IU/L (<50); Albumin 3.5 g/dL (3.5-5.0); Albumin Globulin Ratio 0.8 (1.0-2.8); Alkaline Phosphatase 149 U/L (38-126); Aspartate Aminotransferase 57 IU/L (17-59); Bilirubin Total 0.5 mg/dL (0.2-1.3); Blood Urea Nitrogen 40 mg/dL (9-20); Calcium 8.7 mg/dL (8.4-10.2); Carbon Dioxide 27 mmol/L (22-32); Chloride 104 mmol/L (98-107); Estimated Glomerular Filt Rate > 60 mL/min (>60); Globulin 4.5 g/dL (1.7-4.1); Glucose 119 mg/dL (80-110); HEMOLYSIS < 15 (0-50); Magnesium 2.1 mg/dL (1.6-2.3); Phosphorous 4.7 mg/dL (2.3-3.7); Potassium 4.5 mmol/L (3.4-5.1); Sodium 140 mmol/L (137-145); Triglycerides 124 mg/dL (35-150)
== END ==
PROVIDERS: PCP Internal Medicine; Referring Provider Internal Medicine; Visit Provider Internal Medicine
DX: E43 Unspecified severe protein-calorie malnutrition (principal)
CPT/HCPCS: 36415; 80053; 83735; 84100; 84478; 85025

== ENCOUNTER → 2022-07-05 17:08 | Outpatient (CLI) | payer MEDICARE, OTHER, SELFPAY ==
[2022-02-03 17:54] VITALS: BMI 23.3
[2022-07-05 18:31] LABS: Hematocrit 32.5 % (41-53); Hemoglobin 10.7 g/dL (13.5-17.5); Mean Corpuscular HGB Conc 32.9 % (30-36); Mean Corpuscular Hemoglobin 28.6 PG (26-34); Platelet Count 206 X10^3/uL (150-400); Red Blood Cell Count 3.74 X10^6/uL (4.5-5.9); Red Cell Distribution Width 16.8 % (11.6-14.8); White Blood Cell Count 5.7 X10^3/uL (4.5-11.0)
[2022-07-05 20:04] LABS: Alanine Aminotransferase 35 IU/L (<50); Albumin 3.9 g/dL (3.5-5.0); Alkaline Phosphatase 125 U/L (38-126); Aspartate Aminotransferase 32 IU/L (17-59); BUN Creatinine Ratio 19.4 (6-22); Bilirubin Total 0.5 mg/dL (0.2-1.3); Blood Urea Nitrogen 24 mg/dL (9-20); Calcium 8.6 mg/dL (8.4-10.2); Carbon Dioxide 26 mmol/L (22-32); Chloride 112 mmol/L (98-107); Cholesterol 125 mg/dL (140-199); Estimated Glomerular Filt Rate 58 mL/min (>60); Globulin 4.1 g/dL (1.7-4.1); Glucose 120 mg/dL (80-110); HDL Cholesterol 37 mg/dL (40-60); HEMOLYSIS < 15 (0-50); Hemoglobin A1C% w Est Avg Glu 5.8 % (4.0-6.0); LDL Cholesterol Calculated 65 mg/dL (<100); Potassium 4.2 mmol/L (3.4-5.1); Sodium 146 mmol/L (137-145); Triglycerides 117 mg/dL (35-150)
[2022-07-05 20:35] LABS: TSH w/ Reflex to FT4 2.02 uIU/mL (0.47-4.68)
== END ==
PROVIDERS: PCP Internal Medicine; Referring Provider Internal Medicine; Visit Provider Internal Medicine
DX: E11.9 Type 2 diabetes mellitus without complications (principal); E78.2 Mixed hyperlipidemia; I10 Essential (primary) hypertension
CPT/HCPCS: 36415; 80053; 80061; 83036; 84443; 85027

== ENCOUNTER → 2023-01-16 06:41 | Outpatient (CLI) | payer MEDICARE, OTHER, SELFPAY ==
[2022-02-03 17:54] VITALS: BMI 23.3
[2023-01-16 08:29] LABS: Hematocrit 38.6 % (41-53); Hemoglobin 12.8 g/dL (13.5-17.5); Mean Corpuscular HGB Conc 33.2 % (30-36); Mean Corpuscular Hemoglobin 29.2 PG (26-34); Mean Corpuscular Volume 87.9 fL (80-100); Platelet Count 192 X10^3/uL (150-400); Red Blood Cell Count 4.39 X10^6/uL (4.5-5.9); Red Cell Distribution Width 15.4 % (11.6-14.8); White Blood Cell Count 6.4 X10^3/uL (4.5-11.0)
[2023-01-16 08:49] LABS: Alanine Aminotransferase 26 IU/L (<50); Albumin 3.9 g/dL (3.5-5.0); Albumin Globulin Ratio 1.1 (1.0-2.8); Alkaline Phosphatase 96 U/L (38-126); Aspartate Aminotransferase 28 IU/L (17-59); BUN Creatinine Ratio 20.3 (6-22); Bilirubin Total 0.9 mg/dL (0.2-1.3); Blood Urea Nitrogen 25 mg/dL (9-20); Calcium 8.8 mg/dL (8.4-10.2); Carbon Dioxide 28 mmol/L (22-32); Chloride 104 mmol/L (98-107); Cholesterol 133 mg/dL (140-199); Estimated Glomerular Filt Rate 58 mL/min (>60); Globulin 3.6 g/dL (1.7-4.1); Glucose 116 mg/dL (80-110); HDL Cholesterol 45 mg/dL (40-60); HEMOLYSIS < 15 (0-50); LDL Cholesterol Calculated 65 mg/dL (<100); Potassium 4.7 mmol/L (3.4-5.1); Sodium 141 mmol/L (137-145); Total Protein 7.5 g/dL (6.3-8.2); Triglycerides 116 mg/dL (35-150)
[2023-01-16 09:11] LABS: Prostate Specific Antigen 2.25 ng/mL (0.10-4.00)
[2023-01-16 09:17] LABS: TSH w/ Reflex to FT4 4.15 uIU/mL (0.47-4.68)
== END ==
PROVIDERS: PCP Internal Medicine; Referring Provider Internal Medicine; Visit Provider Internal Medicine
DX: E11.9 Type 2 diabetes mellitus without complications (principal); N40.1 Benign prostatic hyperplasia with lower urinary tract symptoms; E78.2 Mixed hyperlipidemia; Z86.711 Personal history of pulmonary embolism; N13.8 Other obstructive and reflux uropathy
CPT/HCPCS: 36415; 80053; 80061; 84153; 84443; 85027

== ENCOUNTER → 2024-01-07 09:04 | Outpatient (CLI) | payer MEDICARE, SELFPAY ==
[2022-02-03 17:54] VITALS: BMI 23.3
[2024-01-07 09:56] LABS: Hemoglobin A1C% w Est Avg Glu 6.5 % (4.0-6.0)
[2024-01-07 10:14] LABS: Alanine Aminotransferase 23 IU/L (<50); Albumin 4.3 g/dL (3.5-5.0); Alkaline Phosphatase 84 U/L (38-126); Aspartate Aminotransferase 28 IU/L (17-59); BUN Creatinine Ratio 21.9 (6-22); Blood Urea Nitrogen 25 mg/dL (9-20); Calcium 8.9 mg/dL (8.4-10.2); Carbon Dioxide 27 mmol/L (22-32); Chloride 105 mmol/L (98-107); Cholesterol 147 mg/dL (140-199); Estimated Glomerular Filt Rate > 60 mL/min (>60); Globulin 4.2 g/dL (1.7-4.1); Glucose 129 mg/dL (80-110); HDL Cholesterol 40 mg/dL (40-60); HEMOLYSIS < 15 (0-50); LDL Cholesterol Calculated 80 mg/dL (<100); Potassium 4.6 mmol/L (3.4-5.1); Sodium 141 mmol/L (137-145); Total Protein 8.5 g/dL (6.3-8.2); Triglycerides 133 mg/dL (35-150)
[2024-01-07 10:43] LABS: Prostate Specific Antigen 2.72 ng/mL (0.10-4.00)
[2024-01-07 10:53] LABS: Hematocrit 41.9 % (41-53); Hemoglobin 14.2 g/dL (13.5-17.5); Mean Corpuscular HGB Conc 33.8 % (30-36); Mean Corpuscular Hemoglobin 30.3 PG (26-34); Mean Corpuscular Volume 89.8 fL (80-100); Platelet Count 172 X10^3/uL (150-400); Red Blood Cell Count 4.67 X10^6/uL (4.5-5.9); Red Cell Distribution Width 14.4 % (11.6-14.8)
== END ==
PROVIDERS: PCP Internal Medicine; Referring Provider Internal Medicine; Visit Provider Internal Medicine
DX: R73.01 Impaired fasting glucose (principal); E78.2 Mixed hyperlipidemia; I44.1 Atrioventricular block, second degree
CPT/HCPCS: 36415; 80053; 80061; 83036; 84153; 84443; 85027

== ENCOUNTER → 2024-07-08 09:14 | Outpatient (CLI) | payer MEDICARE, SELFPAY ==
[2022-02-03 17:54] VITALS: BMI 23.3
[2024-07-08 11:05] LABS: Hematocrit 40.7 % (41-53); Hemoglobin 13.6 g/dL (13.5-17.5); Mean Corpuscular HGB Conc 33.4 % (30-36); Mean Corpuscular Hemoglobin 30.5 PG (26-34); Mean Corpuscular Volume 91.1 fL (80-100); Platelet Count 221 X10^3/uL (150-400); Red Blood Cell Count 4.47 X10^6/uL (4.5-5.9); Red Cell Distribution Width 14.5 % (11.6-14.8); White Blood Cell Count 6.9 X10^3/uL (4.5-11.0)
[2024-07-08 11:32] LABS: BUN Creatinine Ratio 18.4 (6-22); Blood Urea Nitrogen 26 mg/dL (9-20); Calcium 8.9 mg/dL (8.4-10.2); Carbon Dioxide 24 mmol/L (22-32); Chloride 106 mmol/L (98-107); Estimated Glomerular Filt Rate 49 mL/min (>60); Glucose 117 mg/dL (80-110); HEMOLYSIS < 15 (0-50); Potassium 4.5 mmol/L (3.4-5.1); Sodium 140 mmol/L (137-145)
[2024-07-08 12:08] LABS: Hemoglobin A1C% w Est Avg Glu 6.2 % (4.0-6.0)
== END ==
LOC: LAB 09:15
PROVIDERS: PCP Internal Medicine; Referring Provider Internal Medicine; Visit Provider Internal Medicine
DX: I44.1 Atrioventricular block, second degree (principal); R73.01 Impaired fasting glucose
CPT/HCPCS: 36415; 80048; 83036; 85027

== ENCOUNTER → 2025-08-05 07:45 | Outpatient (CLI) | payer MEDICARE, SELFPAY ==
[2022-02-03 17:54] VITALS: BMI 23.3
--- NOTE | 2025-08-05 07:59 | DIAB.MNT ---
Initial Diabetes Medical Nutrition Therapy Assessment Name: Choco Montanez Date: 08/05/25 Time: 8-9p Dx: Type II Diabetes Provider: Neda Wilhelm presents for initial Dm visit, accompanied by his Rubio. Reports in 07/2021-04/2022 he had Dm while getting infusion for nutrition support (PPN? TPN?) while treatment for a fistula. Then Dm subsided per report once nutrition support was d/c'd. h/o necrotizing pancreatitis. Denies FH of DM. Reports higher CHO intake in the months leading up to last hgA1c, ie cookies in the evening. Endorses having one kidney. Has hesitations about SGLT2i rx'd. Sees cardiology this month and would like to discuss further at that visit. Would like more of a review of SGLT2i side effects. Main concern today is nutrition per report. Diet Recall: 830a: eggs, 2 toast with butter OR 1c cheerios in milk, half banana and 1 toast with 4oz juice 11a-1p: sandwich with 2c grapes OR 1c soup with crackers 5p: veggies with protein and half baked potato and butter OR 1/2c rice 6p: nothing or low CHO ice cram with berries and splenda 8p: 2-3oz cheese 2c coffee 4oz juice 16.9oz water 10oz zero gatorade Anthropometrics: Ht: 5'10 Wt: 161# 06/2025 Weight history: Physical Activity: Yard work 2 days per week, walking 1/2-1 mile 5 days per week. Self-Monitoring Blood Glucose: None and not interested at this time Date Pre Post Pre Post Pre Post HS Diabetes Medications: 10mg Jardiance Pertinent Labs: HgA1c: 6.6% 06/2025 Past Medical History: (Last Updated 07/19/25 @ 08:48 by Edmund Red MD) Barretts esophagus BPH w urinary obs/LUTS DM type 2 with diabetic dyslipidemia Do not resuscitate Essential hypertension GERD (gastroesophageal reflux disease) GERD without esophagitis Glanular hypospadias History of acute pancreatitis History of pulmonary embolism Mixed hyperlipidemia Mobitz type 2 second degree heart block Necrotizing pancreatitis Protein calorie malnutrition Wears glasses Nutrition Rx: Carbohydrates: Meal:45g Snack:15-30g Nutrition Diagnosis: - Excessive CHO intake r/t nutrition knowledge deficit with newly dx T2DM aeb diet recall and hgA1c 6.6% Intervention: This participant was very receptive. Provided appropriate educational handouts. Discussed the following topics: Completed intake assessment. Discussed barriers to care. Pathophysiology of T2DM HgA1c, its correlation to blood glucose numbers, and rationale for goal Potential for self-monitoring BG Plate Method, impact of macronutrients on blood sugar, meal timing, carbohydrate counting, pairing macronutrients and spreading out carbohydrates for better blood glucose management Recommended servings for carbohydrates at meals and snacks Heart health nutrition Brainstormed appropriate meal plan based on food preferences Role of physical activity Hydration and Kidney health SGLT2i benefits, precautions, potential side effects, action Created SMART goals for patient self-care and success. Goals: Aim for two water bottles per day Avoid juice Limit fruit with sandwich to 1c Reduce carbs with cheerios Try to have protein at meals/snacks Chat with cardiology about SGLT2i Follow-up: [facility] follow-up in 4-6 weeks. Follow-up after pt returns from trip. Connie Cavazos RDN, BREANNA Certified Diabetes Care and Explosives Truck Driver P: [phone] Thank you for this referral
== END ==
PROVIDERS: PCP Internal Medicine; Referring Provider Internal Medicine
DX: E11.9 Type 2 diabetes mellitus without complications (principal); Z71.3 Dietary counseling and surveillance; Z79.84 Long term (current) use of oral hypoglycemic drugs
CPT/HCPCS: 97802

== ENCOUNTER → 2025-09-20 07:40 | Outpatient (CLI) | payer MEDICARE, SELFPAY ==
[2022-02-03 17:54] VITALS: BMI 23.3
--- NOTE | 2025-09-20 07:54 | DIAB.MNTFU ---
Follow-up Diabetes Medical Nutrition Therapy Assessment Name: Choco Montanez Date: 09/20/25 Time: a Dx: Type II Diabetes Provider: Neda Wilhelm presents for Dm visit, accompanied by his Rubio. Reports in 07/2021-04/2022 he had Dm while getting infusion for nutrition support (PPN? TPN?) while treatment for a fistula. Then Dm subsided per report once nutrition support was d/c'd. h/o necrotizing pancreatitis. Has been checking FBg. cut out juice, choosing sf options (sf ice cream and cookies). Saw Dr. Echeverria, hospitality team member. Prosthetic Aides Teacher said he didn't need SGLT2i. If having pasta, also having veggies and protein. Just back from trip to [place], where it was more difficulty to eat healthy as they would like to. Eye: UTD Dental: UTD Feet: [employer] q 6 weeks to trim nails Endorses dry feet. has cream from [employer] per report. Diet Recall: 830a: eggs, 2 toast with butter OR 1c cheerios in milk, with splenda and 2 toast 11a-1p: sandwich with 2c grapes OR 1c soup with crackers 5p: veggies with protein and half baked potato and margarine 7-8p: nothing or low CHO ice cram with berries and splenda OR low CHo cookies 2c coffee 16.9oz x2 water 10oz zero gatorade Anthropometrics: Ht: 5'10 Wt: 161# 06/2025 Weight history: Physical Activity: Yard work 2 days per week, walking 1/2-1 mile 4-5 days per week. Self-Monitoring Blood Glucose: Checking FBG. All but one value in goal per ADA, though has personal goal of FBG closer to 100mg/dl, which is reasonable given new dx with hgA1c of 6.6%. Date Pre Post Pre Post Pre Post HS 09/13 116 09/14 105 09/15 101 09/16 150 09/17 123 09/19 116 09/20 113 Diabetes Medications: 10mg Jardiance --- not taking Pertinent Labs: HgA1c: 6.6% 06/2025 Past Medical History: (Last Updated 07/19/25 @ 08:48 by Edmund Red MD) Barretts esophagus BPH w urinary obs/LUTS DM type 2 with diabetic dyslipidemia Do not resuscitate Essential hypertension GERD (gastroesophageal reflux disease) GERD without esophagitis Glanular hypospadias History of acute pancreatitis History of pulmonary embolism Mixed hyperlipidemia Mobitz type 2 second degree heart block Necrotizing pancreatitis Protein calorie malnutrition Wears glasses Nutrition Rx: Carbohydrates: Meal:45gSnack:15-30g Nutrition Diagnosis: - Excessive CHO intake r/t nutrition knowledge deficit with newly dx T2DM aeb diet recall and hgA1c 6.6%- in progress Intervention: This participant was very receptive. Provided appropriate educational handouts. Discussed the following topics: BG goals Plate Method, impact of macronutrients on blood sugar, pairing macronutrients and spreading out carbohydrates for better blood glucose management Recommended servings for carbohydrates at meals and snacks Heart health nutrition Brainstormed appropriate meal/snack ideas based on food preferences Hydration and Kidney health Reducing Dm complications Created SMART goals for patient self-care and success. Goals: Aim for two water bottles per day - met Avoid juice- met Limit fruit with sandwich to 1c- in progress Reduce carbs with cheerios- in progress Try to have protein at meals/snacks- met Chat with cardiology about SGLT2i- met Lotion feet regularly- new Limit fruit to 1c with sandwich- new Limit toast with cheerios to 1- new Add protein to breakfast regularly- new Follow-up: [facility] follow-up in 4-6 weeks. Pt req f/u after PCP visit. Connie Cavazos RDN, BREANNA Certified Diabetes Care and Podiatrist P: [phone] Thank you for this referral
== END ==
LOC: DIET 07:41
PROVIDERS: PCP Internal Medicine; Referring Provider Internal Medicine
DX: E11.9 Type 2 diabetes mellitus without complications (principal); Z71.3 Dietary counseling and surveillance
CPT/HCPCS: 97803

== ENCOUNTER → 2025-10-17 06:28 | Outpatient (CLI) | payer MEDICARE, SELFPAY ==
[2022-02-03 17:54] VITALS: BMI 23.3
[2025-10-17 08:03] LABS: Blood Urea Nitrogen 25 mg/dL (9-20); Calcium 9.2 mg/dL (8.4-10.2); Carbon Dioxide 24 mmol/L (22-32); Chloride 107 mmol/L (98-107); Estimated Glomerular Filt Rate 59 mL/min (>60); Glucose 119 mg/dL (70-99); HEMOLYSIS < 15 (0-50); Hemoglobin A1C% w Est Avg Glu 6.1 % (4.0-6.0); Potassium 4.4 mmol/L (3.4-5.1); Sodium 141 mmol/L (137-145)
[2025-10-17 08:09] LABS: Microalbumi Creatinin Ratio Ur 7.0 ug/mg CR (<30)
== END ==
PROVIDERS: PCP Internal Medicine; Referring Provider Internal Medicine; Visit Provider Internal Medicine
DX: E11.69 Type 2 diabetes mellitus with other specified complication (principal); E78.5 Hyperlipidemia, unspecified
CPT/HCPCS: 36415; 80048; 82043; 82570; 83036